=== PATIENT | male | born 1975 | race African-American/Black ===

== ENCOUNTER 2021-10-01 09:50 | Outpatient (RCR) | payer SELFPAY | END 2021-12-21 09:25 | disposition home or self-care (01) | LOC: ANHDMC 09:50 | PROVIDERS: PCP Internal Medicine Endocrinology, Diabetes & Metabolism; Visit Provider Internal Medicine Endocrinology, Diabetes & Metabolism | DX: E11.65 Type 2 diabetes mellitus with hyperglycemia (principal); Z71.3 Dietary counseling and surveillance | CPT/HCPCS: 99199 ==

== ENCOUNTER 2023-03-24 11:45 | Emergency (ER) | payer OTHER, SELFPAY ==
[2023-03-24 12:02] VITALS: BP 134/91; PULSE 71; RESP 18; TEMP 36.5; O2SAT 99
--- NOTE | 2023-03-24 12:20 | ED.EXTPRO ---
HPI - Extremity Problem General Chief complaint: Extremity Problem,Nontraumatic Stated complaint: bilteral leg pain and discomfort Time Seen by Provider: 03/24/23 12:21 Source: patient Mode of arrival: ambulatory Limitations: no limitations History of Present Illness HPI Narrative: 47-year-old male with history of diabetes presents with complaint of pain and numbness to bilateral lower extremities. States pain starts below knee and down to feet. Patient states he thinks that the pain is related to his diabetic neuropathy but wanted to make sure that his circulation is okay. States that he was very uncomfortable last night and had a hard time falling asleep due to numbness and pain. Patient states he has appointment with his bundles hanger next week. He is ambulatory with steady gait. No other complaints today. All systems reviewed and negative except as noted above. Related Data Home Medications Medication Instructions Recorded Confirmed insulin lispro 100 unit/mL See Rx Instructions .Route .COMPLEX 03/24/23 03/24/23 subcutaneous solution Allergies Allergy/AdvReac Type Severity Reaction Status Date / Time No Known Allergies Allergy Verified 03/24/23 12:07 Review of Systems Review of Systems: CONSTITUTIONAL: Denies fever, chills, or sweats. EYES: Denies visual changes, redness, or discharge. ENT: Denies rhinorrhea, congestion, sore throat, or otalgia. CARDIOVASCULAR: Denies chest pain, palpitations, or edema. RESPIRATORY: Denies cough or dyspnea. GASTROINTESTINAL: Denies abdominal pain, nausea, vomiting, or diarrhea. GENITOURINARY: Denies dysuria or hematuria. SKIN: Denies rash or itching. MUSCULOSKELETAL: Denies back pain, joint pain, or myalgia. Reports pain and numbness to bilateral lower extremities. NEUROLOGIC: Denies headache, numbness, or weakness. PSYCHIATRIC: Denies anxiety or depression. All other systems reviewed are negative, except as documented in HPI. PMFSH Comments At time of signature, agree with nursing past medical, surgical, social and family history. There is no relevant family history pertinent to the presenting complaint. Exam Narrative: GENERAL: This is a well-nourished, well-developed patient, in no apparent distress. HEAD: normocephalic, atraumatic. EYES: PERRL. Sclera clear/white. Vision is grossly intact. EARS: External ears normal NOSE: External nose normal NECK: Neck supple, non-tender without lymphadenopathy, masses or thyromegaly. CARDIOVASCULAR: Regular rate and rhythm without murmurs, gallops, or rubs. RESPIRATORY: Clear to auscultation. Breath sounds equal bilaterally. No wheezes, rales, or rhonchi. SKIN: warm, Dry, intact with no suspicious lesions or rash, good texture and turgor. NEURO: awake, alert, and oriented to person, place and time. There were no obvious focal neurologic abnormalities. EXTREMITIES: No joint tenderness, effusion, or edema noted. Bilateral DP pulses 2+. Good color, warm to touch. Course Course Level of Care: Express Care Visit Vital Signs Vital signs: Vital Signs Temperature 36.5 C 03/24/23 12:02 Pulse Rate 71 03/24/23 12:02 Respiratory Rate 18 03/24/23 12:02 Blood Pressure 134/91 H 03/24/23 12:02 Pulse Oximetry 99 03/24/23 12:02 Oxygen Delivery Room Air 03/24/23 12:02 Temperature 36.5 C 03/24/23 12:02 Pulse Rate 71 03/24/23 12:02 Respiratory Rate 18 03/24/23 12:02 Blood Pressure 134/91 H 03/24/23 12:02 Pulse Oximetry 99 03/24/23 12:02 Oxygen Delivery Room Air 03/24/23 12:02 Reviewed MDM - Extremity (Nontraumatic) MDM Narrative Medical decision making narrative: there are no concerns today for poor circulation to lower extremities. bilateral lower extremity DP 2+. Explained to patient that medications that are used to treat diabetic neuropathy such as gabapentin need to be prescribed by his physician. Patient voiced understanding. States that he has an ap
[2023-03-24 12:30] LABS: Glucose Point of Care 196 mg/dl (65-105)
== END 2023-03-24 12:32 | disposition home or self-care (01) ==
PROVIDERS: Emergency Provider Nurse Practitioner Family
DX: E11.42 Type 2 diabetes mellitus with diabetic polyneuropathy (principal); Z79.4 Long term (current) use of insulin
CPT/HCPCS: 82948; 99212; G0463

== ENCOUNTER 2023-04-04 18:02 | Emergency (ER) | payer OTHER, SELFPAY ==
--- NOTE | 2023-04-04 18:10 | ED.SKABFB ---
HPI - Skin/Abscess/Foreign Bdy General Chief complaint: Wound/Laceration Stated complaint: laceration Time Seen by Provider: 04/04/23 18:10 Source: patient Mode of arrival: ambulatory Limitations: no limitations History of Present Illness HPI narrative: Patient is a 47-year-old male who presents with laceration to right palm from fishing knife around 1:00 p.m.. Patient states it bled initially but has since stopped. Patient states he cleaned it well. Denies any pain, numbness, tingling, weakness to thumb. Related Data Home Medications Medication Instructions Recorded Confirmed insulin lispro 100 unit/mL See Rx Instructions .Route .COMPLEX 03/24/23 04/04/23 subcutaneous solution blood-glucose sensor (Dexcom G6 04/04/23 04/04/23 Sensor device) blood-glucose transmitter (Dexcom 04/04/23 04/04/23 G6 Transmitter device) gabapentin 300 mg capsule 300 mg PO DAILY 04/04/23 04/04/23 insulin glargine 100 unit/mL (3 25 unit subcut HS 04/04/23 04/04/23 mL) subcutaneous pen (Lantus Solostar U-100 Insulin) Allergies Allergy/AdvReac Type Severity Reaction Status Date / Time No Known Allergies Allergy Verified 04/04/23 18:17 Review of Systems Review of Systems: All systems reviewed & are unremarkable except as noted in HPI and below Constitutional: Constitutional: Denies body ache(s), Denies chills, Denies fatigue, Denies fever(s), Denies headache(s), Denies malaise and Denies weakness Eyes: Eyes: Denies blurry vision, Denies irritation and Denies loss of vision ENT: Denies otalgia, Denies headache(s), Denies nasal discharge, Denies sinus pain and Denies sore throat Cardiovascular: Cardiovascular: Denies chest pain, Denies irregular heart rhythm and Denies dyspnea Respiratory: Respiratory: Denies dyspnea Gastrointestinal: Gastrointestinal: Denies abdominal pain, Denies melena, Denies hematochezia, Denies diarrhea, Denies nausea and Denies vomiting Musculoskeletal: Musculoskeletal: Denies back pain, Denies myalgias and Denies arthralgias Integumentary/Breasts: Skin/Breast: Denies pruritus, Denies rash and Reports wounds Neurologic: Denies headache(s), Denies loss of vision and Denies weakness Psychiatric: Psychiatric: Reports no additional psychiatric complaints Endocrine: Endocrine: Denies fatigue PMFSH Comments At time of signature, agree with nursing past medical, surgical, social and family history. There is no relevant family history pertinent to the presenting complaint. Exam Const: General: cooperative, healthy appearing, comfortable, no acute distress and well nourished Nutritional Appearance: well nourished Orientation/consciousness: patient oriented x3 Limitations: no limitations HENMT: Head: normal to inspection, normocephalic and atraumatic Ears: hearing grossly normal bilaterally and external ears normal Face/Nose/Sinus: Normal external nose present, normal facial exam and face symmetric Face and sinus: normal facial exam and face symmetric Mouth: Yes lip normal Eyes: General: appearance normal, both eyes and all related structures Alignment and Position: alignment normal and position normal Periorbital: periorbital findings normal Eyelids: eyelids normal Pupils: Equal, round and reactive pupils present EOM: EOMs intact bilaterally Neck: Neck: normal visual inspection, full ROM and supple Chest: Chest palpation & inspection: normal inspection of the chest Resp: Effort & Inspection: normal respiratory effort and able to speak in complete sentences Auscultation: clear to auscultation bilaterally Cardio: Rate: regular rate Rhythm: regular rhythm Heart sounds: S1 normal heart sound present and S2 normal heart sound present GI: Inspection: normal to inspection Skin: General skin exam: normal color and no rashes or lesions noted Neuro: General: patient oriented x3 and moves all extremities Cranial nerves: Yes Equal, round and reactive pupils present Speech: normal speech G
[2023-04-04 18:19] VITALS: BP 118/78; PULSE 81; RESP 16; TEMP 36.3; O2SAT 97
[2023-04-04] MEDS: TETANUS,DIPHTHERIA,AC PERTUSSIS ADULT (0.5 ML) BOOSTRIX IM (18:39)
== END 2023-04-04 18:48 | disposition home or self-care (01) ==
PROVIDERS: Emergency Provider Nurse Practitioner Family
DX: S61.411A Laceration without foreign body of right hand, initial encounter (principal); W26.0XXA Contact with knife, initial encounter; Z23 Encounter for immunization; E11.9 Type 2 diabetes mellitus without complications; Z79.4 Long term (current) use of insulin
CPT/HCPCS: 12001; 90471; 90715; 99212; G0463

== ENCOUNTER 2023-04-19 14:12 | Observation (INO) | payer OTHER, SELFPAY ==
[2023-04-19] VITALS (17 sets, daily range): BP systolic 124–141; BP diastolic 79–98; PULSE 61–74; RESP 12–21; TEMP 36.3–36.8; O2SAT 96–100; BMI 27.1
--- NOTE | ~2023-04-19 | MR_ITS ---
EXAMINATION: MR brain/brain stem wo/w con DATE: 04/20/2023 09:12 INDICATION: Right arm weakness, numbness and tingling TECHNIQUE: Magnetic resonance imaging (MRI) of the brain and brainstem was performed without and with 19 mL Multihance intravenous contrast. Sequences included sagittal and axial T1-weighted SE, axial d iffusion-weighted FS SE, axial 3D SWAN, axial T2-weighted FLAIR, and axial T2-weighted FSE. Postcontr ast axial and coronal T1-weighted SE was obtained. Apparent diffusion coefficient (ADC) maps were cre ated. COMPARISON: None. FINDINGS: There are no areas of restricted diffusion to suggest acute infarction. No intracranial hemorrhage or abnormal intracranial mass lesion. There are no intraparenchymal signal abnormalities seen on the ot her pulse sequences. The ventricles are symmetric and normal in size. There are no abnormal extra-axi al fluid collections. Flow voids are seen in the cerebral arteries on the T2-weighted sequences consi stent with their expected patency. Right vertebral artery is dominant. Mucosal thickening in the bila teral ethmoid and maxillary sinuses with a couple small mucous retention cyst in the bilateral maxill janae sinuses. Visualized orbits and soft tissues are unremarkable. There are no areas of abnormal enha ncement on the post contrast images. IMPRESSION: 1. Normal brain. No acute intracranial process. Reviewed, dictated and finalized at location A.
--- NOTE | ~2023-04-19 | CT_ITS ---
EXAMINATION: CTA brain carotid DATE: 04/19/2023 16:21 CDT INDICATION: Right-sided arm weakness and numbness TECHNIQUE: Computed tomographic angiography (CTA) of the head was performed without and with 100 mL O mnipaque-350 intravenous contrast. CTA of the neck was performed with intravenous contrast. The dose- length product was 1841.92 mGy-cm. Maximum intensity projection and volume rendered 3D-reconstruction s were created by the technologist on a separate workstation. COMPARISON: None. FINDINGS: HEAD CTA: Brain parenchymal volume is mildly decreased for age. No acute intracranial hemorrhage, inf arction, mass or mass effect. No ventriculomegaly or midline shift. Basilar cisterns are patent. Ther e is mild mucosal thickening of the paranasal sinuses. No depressed skull fractures. There is a domin ant right vertebral artery. The anterior, middle and posterior cerebral arteries are symmetric. Paran dave sinuses and mastoids are pneumatized. No depressed skull fractures. Anterior, middle and posteri or cerebral arteries are symmetric without significant stenosis, occlusion or aneurysm. NECK CTA: Lung apices are normal. No significant abnormality of the aorta. The common carotid, internal carver al carotid and external carotid arteries are unremarkable without significant stenosis or dissection. No occlusion. No lymphadenopathy. Mild mucosal thickening of the paranasal sinuses. No significant a therosclerotic changes. There is 0% stenosis of the proximal right internal carotid artery relative to normal distal artery l umen diameter (NASCET criteria). There is 0% stenosis of the proximal left internal carotid artery re lative to normal distal artery lumen diameter. IMPRESSION: 1: No significant abnormality of the neck or intracranial arteries. No significant stenosis, occlusi on, dissection or aneurysm. Reviewed, dictated and finalized at location A. IMPRESSION: 1: No significant abnormality of the neck or intracranial arteries. No signifi cant stenosis, occlusion, dissection or aneurysm.
--- NOTE | ~2023-04-19 | US_ITS ---
EXAMINATION: US carotid duplex BI DATE: 04/19/2023 23:46 INDICATION: Right arm paresthesias and unilateral weakness TECHNIQUE: Grayscale, color Doppler, and pulsed Doppler images of the cervical carotid arteries were obtained. The degree of vessel stenosis is placed in one of the following categories: normal, <50%, 5 0-69%, >=70% but less than near-occlusion, near-occlusion, or total occlusion. Note that percent sten osis relative to normal distal artery lumen diameter is indirectly measured from velocity measurement s as described by Toby, et al. Radiology 2003; 229:340-346. COMPARISON: Carotid CT angiogram dated 04/19/2023 FINDINGS: RIGHT: The right common carotid artery (CCA) peak systolic velocity (PSV) is 129 cm/s. The right internal ca rotid artery (ICA) PSV is 116 cm/s. The right ICA end-diastolic velocity (EDV) is 24 cm/s. The right ICA/CCA PSV ratio is 0.9. Grayscale and color Doppler images demonstrate no evident stenosis or plaqu e in the ICA. The external carotid artery (ECA) PSV is 244 cm/s. There is antegrade flow in the right vertebral artery. LEFT: The left CCA PSV is 149 cm/s. The left ICA PSV is 114 cm/s. The left ICA EDV is 48 cm/s. The left ICA /CCA PSV ratio is 0.8. Grayscale and color Doppler images demonstrate no evident stenosis or plaque i n the ICA. The ECA PSV is 127 cm/s. There is antegrade flow in the left vertebral artery. IMPRESSION: 1. No evident plaque or stenosis in the right internal carotid artery. 2. No evident plaque or stenosis in the left internal carotid artery. Reviewed, dictated and finalized at location A.
--- NOTE | ~2023-04-19 | XR_ITS ---
EXAMINATION: XR chest 1V portable 04/19/2023 15:17 INDICATION: Weakness. Right-sided chest pain. PROCEDURE: AP portable chest COMPARISON: No prior studies for comparison. FINDINGS: The lungs are clear. The cardiomediastinal silhouette is within normal limits. There are no pleural effusions. There is no pneumothorax suspected. IMPRESSION: 1: NO ACUTE CARDIOPULMONARY DISEASE. Reviewed, dictated and finalized at location A.
--- NOTE | 2023-04-19 14:49 | ECG_ITS ---
Measurements Intervals [place] Rate: 66 P: 26 WI: 155 QRS: 30 QRSD: 89 T: 20 QT: 382 QTc: 402 Interpretive Statements SINUS RHYTHM NORMAL ECG NO PREVIOUS ECG AVAILABLE FOR COMPARISON Electronically Signed On 04-19-2023 20:00:21 CDT by Viral Stern D.O.
[2023-04-19 14:56] LABS: Glucose Point of Care 108 mg/dl (65-105)
[2023-04-19 15:20] LABS: Basophils Percent Auto 0.2 % (0.2-1.2); Eosinophils Absolute Auto 0.1 K/mm3 (0-0.3); Hematocrit 39.6 % (42.0-52.0); Hemoglobin 13.4 g/dL (14.0-18.0); Immature Granulocyte Absolute 0.04 K/mm3 (0.00-0.031); Immature Granulocyte Percent A 0.8 % (0-0.5); Lymphocytes Absolute Auto 1.87 K/mm3 (0.9-3.2); Lymphocytes Percent Auto 36.7 % (18.3-44.2); Mean Corpuscular HGB Conc 33.8 g/dl (32-36); Mean Corpuscular Hemoglobin 28.6 pg (26-34); Mean Corpuscular Volume 84.6 fl (80-100); Monocytes Absolute Auto 0.3 K/mm3 (0.1-0.6); Monocytes Percent Auto 6.1 % (2.6-8.5); Neutrophils Absolute Auto 2.8 K/mm3 (1.3-6.7); Neutrophils Percent Auto 54.2 % (45.5-73.1); Platelet Count Result 250 k/mm3 (150-375); Red Blood Count 4.68 M/mm3 (4.6-6.20); Red Cell Distribution Width 13.2 % (11.5-14.5); White Blood Count 5.1 K/mm3 (4.5-10.0)
[2023-04-19 15:28] LABS: Prothrombin Time 13.7 Seconds (11.1-14.7)
[2023-04-19 15:29] LABS: Partial Thromboplastin Time 28.1 SECONDS (22.3-36.8)
[2023-04-19 15:34] LABS: Alanine Aminotransferase 30 U/L (6-50); Albumin Level 4.1 g/dL (3.5-5.1); Alkaline Phosphatase 76 U/L (38-126); Anion Gap 6 mmol/L (8-16); Aspartate Amino Transferase 36 U/L (17-59); Bilirubin,Total 0.9 mg/dL (0.2-1.3); Blood Urea Nitrogen 12 mg/dL (9-20); Calcium 8.7 mg/dL (8.4-10.2); Carbon Dioxide 28 mmol/L (22-30); Chloride 106 mmol/L (98-107); Estimated CRCL calculation 99 ml/min; Estimated Glomerular Filt Rate > 60; Glucose 108 mg/dL (65-110); Potassium 3.5 mmol/L (3.4-5.0); Sodium 140 mmol/L (137-145)
--- NOTE | 2023-04-19 15:35 | ED.NEUROSD ---
HPI - Neuro Symptoms/Deficit General Chief Complaint: Neuro Symptoms/Deficit Stated Complaint: right arm numb, headache Time Seen by Provider: 04/19/23 14:39 Source: patient and RN notes reviewed Mode of arrival: ambulatory Limitations: no limitations History of Present Illness HPI Narrative: This is a 47 year old male with history of DM who presents for evaluation of right arm tingling and pain. Patient states he went to bed last night around midnight. He woke up at 7 am this morning. He noticed around 730 am his right arm has tingling from his right shoulder down to his hands. He also reports having difficulty using his right arm and hands with his symptom. He develop frontal headache with nausea 2 hours ago. He reports history of bilateral leg and feet numbness , tingling and pain. He was diagnosed with diabetic neuropathy as cause of his leg symptoms. HE states he has noticed tingling in his hands alternating but today he has developed symptoms in his entire right arm. HE denies neck pain. HE denies chest pain or shortness of breath. Related Data Home Medications Medication Instructions Recorded Confirmed insulin lispro 100 unit/mL See Rx Instructions .Route .COMPLEX 03/24/23 04/19/23 subcutaneous solution blood-glucose sensor (Dexcom G6 04/04/23 04/19/23 Sensor device) blood-glucose transmitter (Dexcom 04/04/23 04/19/23 G6 Transmitter device) gabapentin 300 mg capsule 300 mg PO HS 04/04/23 04/19/23 dulaglutide 0.75 mg/0.5 mL 0.75 mg subcut WEEKLY 04/19/23 04/19/23 subcutaneous pen injector (Trulicity) Allergies Allergy/AdvReac Type Severity Reaction Status Date / Time No Known Allergies Allergy Verified 04/19/23 18:52 Review of Systems Constitutional: Constitutional: Denies weakness Cardiovascular: Cardiovascular: Denies syncope, Denies rapid heart rate, Denies irregular heart rhythm, Denies leg edema and Denies dyspnea Respiratory: Respiratory: Denies chest congestion, Denies hemoptysis, Denies excessive phlegm production and Denies dyspnea Gastrointestinal: Gastrointestinal: Denies abdominal pain, Denies hematochezia, Denies diarrhea and Denies vomiting Genitourinary: Genitourinary: Denies hematuria, Denies dysuria, Denies penile discharge and Denies testicular pain Musculoskeletal: Musculoskeletal: Denies joint swelling, Denies loss of height, Reports muscle cramps and Denies muscle weakness Neurologic: Denies syncope, Reports focal weakness, Reports numbness and Denies weakness PMFSH Past Medical History Medical History (Updated 04/20/23 @ 17:40 by Elisabeth Wolff MD) Diabetic peripheral neuropathy Insulin dependent type 2 diabetes mellitus Surgical History Surgical History (Updated 04/19/23 @ 21:36 by Brisa Spring PA-C) No history of previous surgery Family History Family History (Updated 04/19/23 @ 21:36 by Brisa Spring PA-C) Mother Diabetes mellitus Father Cerebrovascular accident Heart attack Hypertension Stomach cancer Social History Social History (Updated 04/19/23 @ 21:37 by Brisa Spring PA-C) Social History: Surrogate medical decision maker: Jennifer Radha, spouse. Code status: Full code. Smoking status: Never smoker Alcohol intake: never Substance use: never Lack of Transportation: No Lack of Food: Never True Current Housing: I Have Housing Concerned About Future Housing: No Difficulty Paying Gas/Electric Bills: No Difficulty Paying for Meds: No Currently Unemployed: No Education: Associate Degree Difficulty w/ Childcare or Family Care: No Additional living arrangements comments: Lives with spouse in [place]. He has 7 children. 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: Yes (mosque) Exam Const: General: no acute distress and alert Nutritional Appearance: well nourished Orientation/consciousness: patient oriented x3 Limitatio
[2023-04-19 16:13] LABS: Troponin I < 0.012 ng/mL (0.000-0.034)
--- NOTE | 2023-04-19 18:43 | ADMGEN ---
This patient, Jamin Garcia, was admitted to 3 [facility] Surg Room 309-01. Patient/family oriented to hospital policies and general routines including ID bracelet, bed and alarms, visiting hours, pain management, procedures, bathroom and other care routines, personal items, smoking policy, room service/diet, and visiting hours. Information on how to activate the Rapid Response Team has been discussed. Patient/Family are encouraged to report perceived risks to care and to ask questions if they do not understand what they are told or what they should do. Report from Kori in ER
--- NOTE | 2023-04-19 19:06 | PM.IMHP ---
H&P: HPI History of Present Illness Date/Time: 04/19/23 17:45 Chief Complaint: Right arm numbness and tingling. Narrative: This is a very pleasant 47-year-old male with insulin dependent type 2 diabetes mellitus and diabetic peripheral neuropathy who presented to the emergency department via private vehicle for evaluation of right arm numbness and tingling. The patient provides the following history. Within the last 6 months or so he started to develop paresthesias in his lower extremities and he was started on gabapentin for presumed peripheral neuropathy. On occasion he has pins and needle sensations in his hands but that seems to be fleeting. Today however while he was driving to work his right arm started to tingle and it felt heavy. Once he arrived at his place of work he got out of the car and he reports that he dropped his cellphone as he had difficulties holding onto it. Over the next couple of hours he developed a pressure-like pain behind his right ear with nausea. He left work early and came into the ER for evaluation. He denies vertigo but reports that he had a fall the other day because he lost his balance. He also denies visual changes, facial droop, and difficulties speaking and swallowing. He denies sensations of racing heart, palpitations, and fluttering. He continues to have mild paresthesias in the right arm but his symptoms have overall improved. CTA of the head and neck showed no significant abnormalities. He is being admitted in this setting for stroke workup in Neurology consultation. Review of Systems Review of Systems: Twelve systems were reviewed. No recent cold or flu symptoms. His diabetes has been difficult for him to control with a recent hemoglobin A1c around 9.2%. He does have an insulin pump and continuous glucose monitor. Nausea earlier today but no vomiting. No diarrhea. No dysuria. Except as documented, all other systems were reviewed and are negative. [facility] Past Medical History Medical History (Updated 04/19/23 @ 21:39 by Brisa Spring PA-C) Diabetic peripheral neuropathy Insulin dependent type 2 diabetes mellitus Surgical History Surgical History (Updated 04/19/23 @ 21:36 by Brisa Spring PA-C) No history of previous surgery Family History Family History (Updated 04/19/23 @ 21:36 by Brisa Spring PA-C) Mother Diabetes mellitus Father Cerebrovascular accident Heart attack Hypertension Stomach cancer Social History Social History (Updated 04/19/23 @ 21:37 by Brisa Spring PA-C) Social History: Surrogate medical decision maker: Jennifer Garcia, spouse. Code status: Full code. Smoking status: Never smoker Alcohol intake: never Substance use: never Lack of Transportation: No Lack of Food: Never True Current Housing: I Have Housing Concerned About Future Housing: No Difficulty Paying Gas/Electric Bills: No Difficulty Paying for Meds: No Currently Unemployed: No Education: Associate Degree Difficulty w/ Childcare or Family Care: No Additional living arrangements comments: Lives with spouse in [place]. He has 7 children. 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: Yes (religion) Meds Home Medications and Allergies Home Medications Medication Instructions Recorded Confirmed Type insulin lispro 100 unit/mL See Rx Instructions .Route .COMPLEX 03/24/23 04/19/23 History subcutaneous solution blood-glucose sensor (Dexcom G6 04/04/23 04/04/23 History Sensor device) blood-glucose transmitter (Dexcom 04/04/23 04/04/23 History G6 Transmitter device) gabapentin 300 mg capsule 300 mg PO HS 04/04/23 04/19/23 History dulaglutide 0.75 mg/0.5 mL 0.75 mg subcut WEEKLY 04/19/23 04/19/23 History [facility] Allergies Allergy/AdvReac Type Severity Reaction Status Date / Time No Known Allergies Allergy Verified 04/19/23
[2023-04-19 20:46] LABS: Glucose Point of Care 266 mg/dl (65-105)
--- NOTE | 2023-04-19 21:28 | PC.NURSE ---
this RN confirmed with provider Brisa that it is okay for patient to use his own insulin pump while he is hospitalized. all consent forms and paperwork will be completed per policy.
[2023-04-19] MEDS: ACETAMINOPHEN 500 MG TABLET 1000 MG PO (22:36)
[2023-04-19] MEDS: GABAPENTIN 300 MG CAPSULE PO (22:37)
[2023-04-19 22:53] LABS: Glucose Point of Care 402 mg/dl (65-105)
[2023-04-20] VITALS (7 sets, daily range): BP systolic 116–146; BP diastolic 74–87; PULSE 61–76; RESP 16; TEMP 35.8; O2SAT 98–100; BMI 27.1
[2023-04-20 06:21] LABS: Anion Gap 7 mmol/L (8-16); Blood Urea Nitrogen 11 mg/dL (9-20); Calcium 8.6 mg/dL (8.4-10.2); Carbon Dioxide 27 mmol/L (22-30); Chloride 103 mmol/L (98-107); Cholesterol 148 mg/dL (0-200); Estimated CRCL calculation 99 ml/min; Estimated Glomerular Filt Rate > 60; Glucose 201 mg/dL (65-110); HDL Direct 42 mg/dL; Potassium 3.3 mmol/L (3.4-5.0); Sodium 137 mmol/L (137-145); Triglycerides 100 mg/dL (<150)
[2023-04-20 06:31] LABS: Hemoglobin A1C 10.1 % (<5.7); LDL Cholesterol Direct 72 mg/dL
[2023-04-20 06:55] LABS: Thyroid Stimulating Hormone Reflex 0.942 uIU/mL (0.465-4.68)
[2023-04-20 07:32] LABS: Glucose Point of Care 177 mg/dl (65-105)
--- NOTE | 2023-04-20 07:43 | PC.NURSE ---
insulin pump worksheet completed overnight. Pt received 26.65 units total between 8pm to 6am. Flowsheet does not accept decimals, so 27 units was charted, however the actual number is 26.65 units
--- NOTE | 2023-04-20 07:56 | PM.IMPN ---
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 No overnight events noted. No chest pain or shortness of breath. No nausea, vomiting or diarrhea. No fevers or chills. Review of Systems Review of Systems: 12 point review of systems was assessed and was negative except as noted in the HPI Exam Narrative: General: No acute distress, alert and oriented per baseline HEENT: Atraumatic, normocephalic, mucous membranes moist CV: Regular rate and rhythm, S1, S2 Lungs: Clear to auscultation bilaterally, no rales or crackles noted, no wheezes, good air entry Abdomen: Soft, nontender, nondistended Extremities: Normal to inspection Skin: No rashes noted, no lesions or wounds seen Psych: Euthymic, normal affect Objective Data Vital Signs Vital Signs: Vital Signs - 24 hr 04/19/23 14:34 04/19/23 14:26 04/19/23 14:40 Temperature 97.4 F L Pulse Rate 71 74 73 Respiratory Rate 17 21 H 12 Blood Pressure 135/85 Pulse Oximetry 98 97 97 Oxygen Delivery Room Air 04/19/23 14:45 04/19/23 14:46 04/19/23 15:00 Temperature Pulse Rate 71 69 Respiratory Rate 13 21 H Blood Pressure 141/79 H 137/88 Pulse Oximetry 96 97 Oxygen Delivery 04/19/23 15:10 04/19/23 15:16 04/19/23 15:30 Temperature Pulse Rate 67 61 Respiratory Rate 15 14 Blood Pressure 124/84 Pulse Oximetry 98 97 96 Oxygen Delivery 04/19/23 15:31 04/19/23 15:55 04/19/23 15:56 Temperature Pulse Rate 65 69 63 Respiratory Rate 19 13 17 Blood Pressure 125/98 H Pulse Oximetry 96 99 99 Oxygen Delivery 04/19/23 16:05 04/19/23 18:13 04/19/23 18:40 Temperature 98 F Pulse Rate 62 62 65 Respiratory Rate 17 18 16 Blood Pressure 128/97 H 141/93 H Pulse Oximetry 98 100 98 Oxygen Delivery 04/19/23 20:53 04/19/23 20:00 04/20/23 00:00 Temperature 98.2 F Pulse Rate 64 68 76 Respiratory Rate 18 Blood Pressure 134/84 Pulse Oximetry 98 Oxygen Delivery 04/20/23 04:00 04/20/23 06:00 Temperature 96.5 F L Pulse Rate 63 65 Respiratory Rate 16 Blood Pressure 116/74 Pulse Oximetry 100 Oxygen Delivery Intake/Output Intake/Output: Intake & Output 04/17/23 04/18/23 04/19/23 04/20/23 23:59 23:59 23:59 23:59 Intake Total 300 550 Balance 300 550 Meds/Results Medications: Active Medications Generic Name Dose Route Start Last Admin Trade Name Freq PRN Reason Stop Dose Admin Acetaminophen 650 mg 04/19/23 21:29 Acetaminophen 325 Mg Tablet PO Q6H PRN Mild Pain (1-3) or Fever Aspirin 81 mg 04/20/23 09:00 Aspirin 81 Mg Enteric Tablet PO QAM RUTHANN Dextrose 12.5 gm 04/19/23 21:44 Dextrose 50% 25 Gm/50 Ml Syringe IV PUSH PRN PRN Hypoglycemia Protocol Gabapentin 300 mg 04/19/23 21:00 04/19/23 22:37 Gabapentin 300 Mg Capsule PO 300 mg HS RUTHANN Administration Glucagon 1 mg 04/19/23 21:44 Glucagon For Inj 1 Mg Vial IM PRN PRN Hypoglycemia Protocol Glucose 15 gm 04/19/23 21:44 Glucose Oral Gel 15 Gm Of Glucse In
--- NOTE | 2023-04-20 08:00 | ECHO_ITS ---
Patient Info Name: Jamin Garcia Age: 47 years : 1975 Gender: Male Ht: 72 in Wt: 200 lbs BSA: 2.16 m2 HR: 74 bpm BP: 134 / 84 mmHg Heart Rhythm: Sinus Rhythm Technical Quality: Good Exam Date: 04/20/2023 10:07 AM Exam Location: [facility] Pulmonary Exam Room: 309 Patient Status: Outpatient Admit Date: 04/19/2023 Staff Ordering Physician: Brisa Spring PA-C Fashion Stylist: Courtney Escamilla RDCS Attending Provider: Jamir Montenegro MD Referring Physician: Saw ALVARADO; Exam Type: CA echo doppler w bubble study Study Info Indications - right arm paresthesias Complete two-dimensional, color flow and Doppler transthoracic echocardiogram is performed with agitated saline. Contrast/Agitated Saline Contrast/Ag. Saline: Agitated Saline Amount: 20.00 ml Administered By: No Sams RN Existing IV Access: Yes IV Access Condition: patent with no signs of infiltration Summary 1. Left ventricular chamber dimension is normal. 2. Left ventricular systolic function is normal, estimated at 65-70%. 3. The left ventricular diastolic function is grade II diastolic dysfunction. 4. E/e' 9 is minimally elevated. 5. Global longitudinal strain is normal at -19.0%. 6. There is trace tricuspid valve regurgitation. 7. No pulmonary hypertension, estimated pulmonary arterial systolic pressure is 21 mmHg. Left Ventricle E/e' 9 is minimally elevated. Global longitudinal strain is normal at -19.0%. Left ventricular chamber dimension is normal. Left ventricular systolic function is normal, estimated at 65-70%. The left ventricular diastolic function is grade II diastolic dysfunction. Right Ventricle Right ventricular chamber dimension is normal. Right ventricular systolic function is normal. Left Atria Left atrial chamber dimension is normal. Right Atria Right atrial chamber dimension is normal. Atrial Septum Agitated saline injection with and without valsalva maneuver opacified right side cardiac chambers without shunt to left side cardiac chambers. Intact interatrial septum visualized by 2D and agitated saline imaging. Aortic Valve The aortic valve is trileaflet. There is no aortic valve stenosis. There is no aortic valve regurgitation. Pulmonic Valve There is no pulmonic regurgitation. Mitral Valve There is no mitral valve stenosis. There is no mitral valve regurgitation. Tricuspid Valve There is trace tricuspid valve regurgitation. No pulmonary hypertension, estimated pulmonary arterial systolic pressure is 21 mmHg. Pericardium/Pleural There is no pericardial effusion. Inferior Vena Cava Normal inferior vena cava with >50% collapse upon inspiration consistent with normal right atrial pressure, 5 mmHg. Aorta The aortic root size at the sinus of Valsalva is normal. Left Ventricular Outflow Tract Name Value Normal LVOT 2D LVOT Diameter 2.0 cm LVOT Doppler LVOT Peak Gradient 5 mmHg LVOT Mean Gradient 3 mmHg LVOT VTI 23 cm LVOT VTI/AV VTI Ratio 1.0 LVOT Stroke Volume 73 ml
[2023-04-20] MEDS: ASPIRIN 81 MG ENTERIC TABLET PO (08:39)
[2023-04-20 11:26] LABS: Glucose Point of Care 208 mg/dl (65-105)
--- NOTE | 2023-04-20 11:37 | WPDNEURCNPN ---
Assessment and Plan Assessment and plan (1) Diabetic peripheral neuropathy: Code(s): E11.42 - Type 2 diabetes mellitus with diabetic polyneuropathy Status: Acute Plan Diabetic neuropathy with the possibility of intermittent involvement of the plexus as well will benefit from the EMG and nerve conduction study as an outpatient in the meantime he can be continued on his all medication addition to aspirin 81 mg daily. One can consider the additional possibility of cervical myelopathy but there is no evidence of any long track signs at this stage. Consult date: 04/20/23 HPI: Jamin Garcia is a 47 year old maleAdmitted to the hospital through the emergency room for the complaints of right upper extremity numbness along with the headaches the came to the emergency room in ambulatory conditions he reported to the ER personnel that he went to bed last night around midnight woke up at 7:00 a.m. in the morning when his right upper extremity was tingling from the shoulder down to his hand also he complained no difficulties in using his right upper extremity and right hand at the same time he complained of frontal headache with nausea in addition to the bilateral lower extremity weakness and the feet numbness. Patient has already been diagnosed to have diabetic neuropathy he has been taking insulin lispro in addition to gabapentin 300 mg daily. He is not allergic to any medications. He has never a smoker. Initial vital signs in the emergency room were normal. CBC was normal. Basic metabolic panel was normal. And so as the routine lab. His initial blood sugar was 402 and today it is 208. MRI of the brain is normal, Doppler study of the carotids is negative, head and neck CTA is negative for any large vessel involvement or aneurysm. Review of Systems Review of Systems: All systems reviewed & are unremarkable except as noted in HPI and below [facility] Past Medical History Medical History (Updated 04/19/23 @ 21:39 by Brisa Spring PA-C) Diabetic peripheral neuropathy Insulin dependent type 2 diabetes mellitus Surgical History Surgical History (Updated 04/19/23 @ 21:36 by Brisa Spring PA-C) No history of previous surgery Family History Family History (Updated 04/19/23 @ 21:36 by Brisa Spring PA-C) Mother Diabetes mellitus Father Cerebrovascular accident Heart attack Hypertension Stomach cancer Social History Social History (Updated 04/19/23 @ 21:37 by Brisa Spring PA-C) Social History: Surrogate medical decision maker: Jennifer Garcia, spouse. Code status: Full code. Smoking status: Never smoker Alcohol intake: never Substance use: never Lack of Transportation: No Lack of Food: Never True Current Housing: I Have Housing Concerned About Future Housing: No Difficulty Paying Gas/Electric Bills: No Difficulty Paying for Meds: No Currently Unemployed: No Education: Associate Degree Difficulty w/ Childcare or Family Care: No Additional living arrangements comments: Lives with spouse in [place]. He has 7 children. 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: Yes (moravian) Meds Home Medications and Allergies Home Medications Medication Instructions Recorded Confirmed Type insulin lispro 100 unit/mL See Rx Instructions .Route .COMPLEX 03/24/23 04/19/23 History subcutaneous solution blood-glucose sensor (Dexcom G6 04/04/23 04/19/23 History Sensor device) blood-glucose transmitter (Dexcom 04/04/23 04/19/23 History G6 Transmitter device) gabapentin 300 mg capsule 300 mg PO HS 04/04/23 04/19/23 History dulaglutide 0.75 mg/0.5 mL 0.75 mg subcut WEEKLY 04/19/23 04/19/23 [facility] Allergies Allergy/AdvReac Type Severity Reaction Status Date / Time No Known Allergies Allergy Verified 04/19/23 18:52 Vital Signs Vital Signs - 24
[2023-04-20] MEDS: INSULIN ASPART (*BKC) 100 UNITS/ML SUB-Q (12:23)
--- NOTE | 2023-04-20 14:00 | PCCCNOTE ---
On 04/20/23, the student, [Paola Marte ], provided care and [facility]. I have reviewed the student's documentation and agree with the findings.
--- NOTE | 2023-04-20 14:24 | PM.DS ---
DS: Admitting Diagnosis Discharge Date 04/20/23 Admitting Diagnosis RUE paresthesias DS: Discharge Diagnosis Discharge Diagnosis (1) Paresthesia of right arm: Code(s): R20.2 - Paresthesia of skin Status: Acute Assessment and Plan: Concern for CVA, follow-up MRI, Neurology consultation (2) Insulin dependent type 2 diabetes mellitus: Code(s): E11.9 - Type 2 diabetes mellitus without complications; Z79.4 - detention (current) use of insulin Status: Acute (3) Diabetic peripheral neuropathy: Code(s): E11.42 - Type 2 diabetes mellitus with diabetic polyneuropathy Status: Acute Assessment and Plan: Blood glucose reviewed 04/20 Accu-Cheks, sliding scale insulin, check A1c Plan DVT prophylaxis with SCDs GI prophylaxis not indicated Code status full code DS: Summary Hospital Course Hospital Course: 47-year-old male with history of diabetes presenting with right upper extremity paresthesias and currently being treated for possible stroke. Neurology was consulted, brain MRI was negative. MRI of the cervical spine ordered and to be done outpatient for possible nerve impingement. Follow-up with Neurology outpatient. Please see above and med rec for details. Time Spent with Patient Time attestation: Total time spent providing and/or coordinating discharge services: Exam Narrative: General: No acute distress, alert and oriented per baseline HEENT: Atraumatic, normocephalic, mucous membranes moist CV: Regular rate and rhythm, S1, S2 Lungs: Clear to auscultation bilaterally, no rales or crackles noted, no wheezes, good air entry Abdomen: Soft, nontender, nondistended Extremities: Normal to inspection Skin: No rashes noted, no lesions or wounds seen Psych: Euthymic, normal affect DS: Data Data Completed and Pending Labs on day of discharge: Labs from last 24 hours 04/20/23 04/20/23 04/20/23 11:22 07:30 05:46 WBC RBC Hgb Hct MCV MCH MCHC RDW Plt Count MPV Immature Gran % (Auto) Neut % (Auto) Lymph % (Auto) Bland % (Auto) Eos % (Auto) Baso % (Auto) Lymph # (Auto) Bland # (Auto) Eos # (Auto) Baso # (Auto) Abs Immat Gran (auto) Absolute Neuts (auto) Absolute Nucleated RBC Nucleated RBC % PT INR APTT Sodium 137 Potassium 3.3 L Chloride 103 Carbon Dioxide 27 Anion Gap 7 L BUN 11 Creatinine 0.90 Estim Creat Clear Calc 99 Estimated GFR > 60 Glucose 201 H POC Capillary Glucose 208 H 177 H Hemoglobin A1c 10.1 H Calcium 8.6 Magnesium 2.0 Total Bilirubin AST ALT Alkaline Phosphatase Troponin I Total Protein Albumin Triglycerides 100 Cholesterol 148 LDL Cholesterol Direct 72 HDL Direct 42 Vitamin B12 368.0 TSH (Reflex) 0.942 04/19/23 04/19/23 04/19/23 22:47 20:29 14:58 WBC 5.1 RBC 4.68 Hgb 13.4 L Hct 39.6 L MCV 84.6 MCH 28.6 MCHC 33.8 RDW 13.2 Plt Count 250 MPV 11.0 H Immature Gran % (Auto) 0.8 H Neut % (Auto) 54.2 Lymph % (Auto) 36.7 Bland % (Auto) 6.1 Eos % (Auto) 2.0 Baso % (Auto) 0.2 Lymph # (Auto) 1.87 Bland # (Auto) 0.3 Eos # (Auto) 0.1 Baso # (Auto) 0.0 Abs Immat Gran (auto) 0.04 H Absolute Neuts (auto) 2.8 Absolute Nucleated RBC 0.0 Nucleated RBC % 0.0 PT 13.7 INR 1.0 APTT 28.1 Sodium 140 Potassium 3.5 Chloride 106 Carbon Dioxide 28 Anion Gap 6 L BUN 12 Creatinine 0.90 Estim Creat Clear Calc 99 Estimated GFR > 60 Glucose 108 POC Capillary Glucose 402 H 266 H Hemoglobin A1c Calcium 8.7 Magnesium Total Bilirubin 0.9 AST 36 ALT 30 Alkaline Phosphatase 76 Troponin I < 0.012 Total Protein 7.0 Albumin 4.1 Triglycerides Cholesterol LDL Cholesterol Direct HDL Direct Vitamin B12 T
== END 2023-04-20 15:35 | disposition home or self-care (01) ==
LOC: ANHED 18:15 → ANH3MEDSUR 19:35
PROVIDERS: Physician Assistant; Admitting Provider Hospitalist; Emergency Provider General Practice; Visit Provider Student in an Organized Health Care Education/Training Program
DX: R20.2 Paresthesia of skin (principal); R20.0 Anesthesia of skin; E11.42 Type 2 diabetes mellitus with diabetic polyneuropathy; Z96.41 Presence of insulin pump (external) (internal); R51.9 Headache, unspecified; R11.0 Nausea; I51.89 Other ill-defined heart diseases; H92.01 Otalgia, right ear; R07.89 Other chest pain; Z79.4 Long term (current) use of insulin; Z79.85 Long-term (current) use of injectable non-insulin antidiabetic drugs; Z79.899 Other long term (current) drug therapy; Z83.3 Family history of diabetes mellitus
CPT/HCPCS: 36415; 70496; 70498; 70553; 71045; 80048; 80053; 80061; 82607; 82948; 83036; 83735; 84443; 84484; 85025; 85610; 85730; 93005; 93306; 93880; 96375; 99285; A9270; A9577; G0378; G0379; J1815; Q9967

== ENCOUNTER 2023-08-10 10:30 | Emergency (ER) | payer OTHER, SELFPAY ==
[2023-08-10 10:50] VITALS: BP 146/100; PULSE 88; RESP 18; TEMP 36.7; O2SAT 99
--- NOTE | 2023-08-10 11:08 | ED.URI ---
HPI - URI/Sore Throat General Chief Complaint: Upper Respiratory Infection Stated Complaint: Loss of Taste and Smell,Cough,Sore Throat Source: patient and RN notes reviewed History of Present Illness HPI Narrative: 47 yo M presents to urgent care with complaints of sore throat for the first couple days, but no longer. Pt then states he developed sinus congestion and cough. Pt states this all started 5 days ago. Denies any fevers, chills, chest pain, SOB, N/V/D, or ear pain. Pt has been taking [facility] [place]. Related Data Home Medications Medication Instructions Recorded Confirmed insulin lispro 100 unit/mL See Rx Instructions .Route .COMPLEX 03/24/23 08/10/23 subcutaneous solution blood-glucose sensor (Dexcom G6 04/04/23 08/10/23 Sensor device) blood-glucose transmitter (Dexcom 04/04/23 08/10/23 G6 Transmitter device) dulaglutide 0.75 mg/0.5 mL 0.75 mg subcut WEEKLY 04/19/23 08/10/23 subcutaneous pen injector (Trulicity) Allergies Allergy/AdvReac Type Severity Reaction Status Date / Time No Known Allergies Allergy Verified 04/19/23 18:52 Review of Systems Review of Systems: Pertinent positives and pertinent negatives per HPI. [facility] Past Medical History Medical History (Updated 08/10/23 @ 11:13 by Valeria Grayson APRN) Diabetic peripheral neuropathy Insulin dependent type 2 diabetes mellitus Surgical History Surgical History (Updated 04/19/23 @ 21:36 by Brisa Spring PA-C) No history of previous surgery Family History Family History (Updated 04/19/23 @ 21:36 by Brisa Spring PA-C) Mother Diabetes mellitus Father Cerebrovascular accident Heart attack Hypertension Stomach cancer Social History Social History (Updated 04/19/23 @ 21:37 by Brisa Spring PA-C) Social History: Surrogate medical decision maker: Jennifer Radha, spouse. Code status: Full code. Smoking status: Never smoker Alcohol intake: never Substance use: never Lack of Transportation: No Lack of Food: Never True Current Housing: I Have Housing Concerned About Future Housing: No Difficulty Paying Gas/Electric Bills: No Difficulty Paying for Meds: No Currently Unemployed: No Education: Associate Degree Difficulty w/ Childcare or Family Care: No Additional living arrangements comments: Lives with spouse in [place]. He has 7 children. 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: Yes (orthodoxy) Comments At the time of my signature, I reviewed and agree with the nursing past medical, surgical, social, and family history. There is no relevant family history pertinent to the patient complaint. Exam Narrative: GENERAL: This is a well-nourished, well-developed patient, in no apparent distress. HEAD: normocephalic, atraumatic. EYES: Sclera clear/white. Vision is grossly intact. EARS: External ears normal, auditory canals clear and without drainage, TMs normal without perforation. Hearing grossly intact. NOSE: External nose normal with no obvious nasal discharge, positive congestion. THROAT: Mucous membranes moist, posterior pharynx clear. NECK: Neck supple, non-tender without lymphadenopathy, masses or thyromegaly. CARDIOVASCULAR: Regular rate and rhythm without murmurs, gallops, or rubs. RESPIRATORY: Clear to auscultation. Breath sounds equal bilaterally. No wheezes, rales, or rhonchi. SKIN: warm, intact with no suspicious lesions or rash, good texture and turgor. NEURO: awake, alert, and oriented to person, place and time. There were no obvious focal neurologic abnormalities. Course Course Level of Care: Express Care Visit Vital Signs Vital signs: Vital Signs Temperature 98.0 F 08/10/23 10:50 Pulse Rate 88 08/10/23 10:50 Respiratory Rate 18 08/10/23 10:50 Blood Pressure 146/100 H 08/10/23 10:50 Pulse Oximetry 99 08/10/23 10:50 Oxygen Delivery Room Air 08/10/23 10
== END 2023-08-10 11:17 | disposition home or self-care (01) ==
PROVIDERS: Emergency Provider Nurse Practitioner Family
DX: J06.9 Acute upper respiratory infection, unspecified (principal); E11.9 Type 2 diabetes mellitus without complications; Z79.4 Long term (current) use of insulin; Z20.822 Contact with and (suspected) exposure to COVID-19
CPT/HCPCS: 87426; 99213; C9803; G0463

== ENCOUNTER 2023-12-12 13:38 | Emergency (ER) | payer OTHER, SELFPAY | END 2023-12-12 15:06 | disposition left against medical advice (07) | LOC: ANHED 15:00 | PROVIDERS: Referring Provider Emergency Medicine | DX: M54.9 Dorsalgia, unspecified (principal) | CPT/HCPCS: 99199 ==

== ENCOUNTER 2023-12-17 12:08 | Emergency (ER) | payer OTHER, SELFPAY ==
[2023-12-17 12:21] VITALS: BP 132/95; PULSE 78; RESP 16; TEMP 36.1; O2SAT 100
--- NOTE | 2023-12-17 12:35 | ED.BACK ---
HPI - Back Pain/Injury General Chief Complaint: Back Pain/Injury Stated Complaint: back pain/tightness Time Seen by Provider: 12/17/23 12:25 Source: patient and RN notes reviewed Mode of arrival: ambulatory Limitations: no limitations History of Present Illness HPI Narrative: Patient presents today with a one-week history of left-sided low back pain radiating down the left leg. Denies injury or trauma. Denies numbness or tingling in the genitalia or leg that is any worse than his normal neuropathy. Denies loss of bowel or bladder control. He currently rates his pain 8/10 and has been taking Aleve and Tylenol without much relief. Related Data Home Medications Medication Instructions Recorded Confirmed insulin lispro 100 unit/mL See Rx Instructions .Route .COMPLEX 03/24/23 12/17/23 subcutaneous solution dulaglutide 0.75 mg/0.5 mL 1.5 mg subcut WEEKLY 04/19/23 12/17/23 subcutaneous pen injector (Trulicity) amoxicillin 500 mg capsule 500 mg PO TID 12/17/23 12/17/23 blood-glucose sensor (Dexcom G6 12/17/23 12/17/23 Sensor device) blood-glucose transmitter (Dexcom 12/17/23 12/17/23 G6 Transmitter device) insulin aspart U-100 100 unit/mL 100 unit subcut TID 12/17/23 12/17/23 (3 mL) subcutaneous pen (Novolog FlexPen U-100 Insulin aspart) Allergies Allergy/AdvReac Type Severity Reaction Status Date / Time No Known Allergies Allergy Verified 12/17/23 12:17 Review of Systems Review of Systems: CONSTITUTIONAL: Denies body aches, fever, chills, or sweats. EYES: Denies visual changes, redness, or discharge. ENT: Denies rhinorrhea, congestion, sore throat, or otalgia. CARDIOVASCULAR: Denies chest pain, palpitations, or edema. RESPIRATORY: Denies cough or dyspnea. GASTROINTESTINAL: Denies abdominal pain, nausea, vomiting, or diarrhea. GENITOURINARY: Denies dysuria or hematuria. SKIN: Denies rash, itching, or wounds. MUSCULOSKELETAL: Denies joint pain, or myalgia.+ back pain NEUROLOGIC: Denies headache, numbness, tingling, or weakness. PSYCH: Denies depression or anxiety. [facility] Past Medical History Medical History Diabetic peripheral neuropathy Insulin dependent type 2 diabetes mellitus Surgical History Surgical History No history of previous surgery Family History Family History Mother Diabetes mellitus Father Cerebrovascular accident Heart attack Hypertension Stomach cancer Social History Social History Social History: Surrogate medical decision maker: Jennifer Garcia, spouse. Code status: Full code. Smoking status: Never smoker Alcohol intake: never Substance use: never Lack of Transportation: No Lack of Food: Never True Current Housing: I Have Housing Concerned About Future Housing: No Difficulty Paying Gas/Electric Bills: No Difficulty Paying for Meds: No Currently Unemployed: No Education: Associate Degree Difficulty w/ Childcare or Family Care: No Additional living arrangements comments: Lives with spouse in [place]. He has 7 children. 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: Yes (faith) Comments At time of signature, I have reviewed and agree with nursing past medical, surgical, social and family history unless otherwise noted. Please see nursing chart for further information. There is no relevant family history pertinent to the presenting complaint Exam Narrative: GENERAL: Well-appearing, well-nourished, and in no acute distress. HEAD: Normocephalic, atraumatic. EYES: EOMI. No redness or drainage. Conjunctivae normal. ENT: Mucous membranes pink and moist. NECK: Normal AROM. CHEST: No respiratory distress. MUSCULOSKE
== END 2023-12-17 12:42 | disposition home or self-care (01) ==
PROVIDERS: Emergency Provider Nurse Practitioner
DX: M54.32 Sciatica, left side (principal); E11.42 Type 2 diabetes mellitus with diabetic polyneuropathy; Z79.4 Long term (current) use of insulin
CPT/HCPCS: 99213; G0463

== ENCOUNTER 2023-12-27 07:30 | Observation (INO) | payer MEDICAID, SELFPAY ==
[2023-12-27] VITALS (8 sets, daily range): BP systolic 129–154; BP diastolic 69–107; PULSE 64–83; RESP 10–22; TEMP 35.8–36.6; O2SAT 96–100
--- NOTE | ~2023-12-27 | MR_ITS ---
EXAMINATION: MR MRCP wo/w con/w 3D wo ind DATE: 12/27/2023 17:52 INDICATION: Cholelithiasis. Abdominal pain. Elevated lipase. TECHNIQUE: Magnetic resonance imaging (MRI) of the abdomen was performed without and with 18 mL Multi Coy intravenous contrast. Sequences included coronal T2-weighted FS FSE, coronal T2-weighted FSE, a xial T1-weighted LAVA, coronal FS FIESTA, axial dual-echo T1-weighted SPGR, coronal lava-FLEX, sagitt al T2-weighted FSE, axial T2-weighted FSE, and axial DWI. Thick-slab T2-weighted FSE images were obta ined for magnetic resonance cholangiopancreatography (MRCP). Maximum intensity projection 3-D reconst ructions of the volumetric data were created by the technologist. Postcontrast sequences included cor onal LAVA-flex and time course of axial T1-weighted LAVA. COMPARISON: CT abdomen and pelvis 12/27/2023 FINDINGS: ABDOMEN MRI: The liver is normal. The gallbladder is distended and contains gallstones. Gallbladder w all thickening is noted. The spleen, pancreas, adrenal glands, and kidneys are normal. There are no d ilated loops of bowel. There are no pathologically enlarged lymph nodes. There is no free intraperito olayinka fluid. ABDOMEN MRCP: The common duct is normal and measures 3 mm. No choledocholithiasis. IMPRESSION: 1. Acute cholecystitis. Reviewed, dictated and finalized at location A. IMPRESSION: 1. Acute cholecystitis.
--- NOTE | ~2023-12-27 | CT_ITS ---
EXAMINATION: CT abdomen pelvis w con DATE: 12/27/2023 09:44 INDICATION: Abdominal pain. Nausea. TECHNIQUE: Computed tomography (CT) of the abdomen and pelvis was performed with 100 mL Omnipaque 350 intravenous contrast. Automated exposure control and iterative reconstruction technique were employe d. The dose-length product was 711.98 mGy-cm. COMPARISON: None. FINDINGS: The visualized portions of the lung bases demonstrate mild atelectasis. No pleural effusion . The heart size is normal. There is a small pericardial effusion. The liver is normal. There are gal lstones in the gallbladder, which is normal in size. The spleen, pancreas, adrenal glands, and kidney s are normal. The bladder is markedly distended. There are no dilated loops of bowel. The appendix is normal. There are no pathologically enlarged lymph nodes. There is no free intraperitoneal fluid. Th ere is mild thoracic and lumbar spondylosis. IMPRESSION: 1. Markedly distended bladder. 2. Cholelithiasis. No evidence of acute cholecystitis. 3. Small pericardial effusion. Reviewed, dictated and finalized at location A.
--- NOTE | 2023-12-27 08:03 | ED.ABDPAIN ---
HPI - Abdominal Pain General Chief Complaint: Abdominal Pain Stated Complaint: abd pain Time Seen by Provider: 12/27/23 08:01 Source: patient and family Mode of arrival: ambulatory Limitations: no limitations History of Present Illness HPI narrative: 48 years old male came from home complaining of epigastric pain started this morning associated with nausea. Patient denies any radiation of pain. Patient report having similar pain 3 years ago secondary to ?gallbladder issues. Patient denies history of abdominal surgery. No fever no chills no vomiting. History of diabetes. Related Data Home Medications Medication Instructions Recorded Confirmed insulin lispro 100 unit/mL See Rx Instructions .Route .COMPLEX 03/24/23 12/17/23 subcutaneous solution dulaglutide 0.75 mg/0.5 mL 1.5 mg subcut WEEKLY 04/19/23 12/17/23 subcutaneous pen injector (Trulicity) amoxicillin 500 mg capsule 500 mg PO TID 12/17/23 12/17/23 blood-glucose sensor (Dexcom G6 12/17/23 12/17/23 Sensor device) blood-glucose transmitter (Dexcom 12/17/23 12/17/23 G6 Transmitter device) insulin aspart U-100 100 unit/mL 100 unit subcut TID 12/17/23 12/17/23 (3 mL) subcutaneous pen (Novolog FlexPen U-100 Insulin aspart) Allergies Allergy/AdvReac Type Severity Reaction Status Date / Time No Known Allergies Allergy Verified 12/27/23 08:00 Review of Systems Review of Systems: All systems reviewed & are unremarkable except as noted in HPI and below PMFSH Past Medical History Medical History Diabetic peripheral neuropathy Insulin dependent type 2 diabetes mellitus Surgical History Surgical History No history of previous surgery Family History Family History Mother Diabetes mellitus Father Cerebrovascular accident Heart attack Hypertension Stomach cancer Social History Social History Social History: Surrogate medical decision maker: Jennifer Garcia, spouse. Code status: Full code. Smoking status: Never smoker Alcohol intake: never Substance use: never Lack of Transportation: No Lack of Food: Never True Current Housing: I Have Housing Concerned About Future Housing: No Difficulty Paying Gas/Electric Bills: No Difficulty Paying for Meds: No Currently Unemployed: No Education: Associate Degree Difficulty w/ Childcare or Family Care: No Additional living arrangements comments: Lives with spouse in [place]. He has 7 children. 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: Yes (caodaism) Exam Narrative: General appearance: Well-developed, well-nourished Skin: Normal color Head: Normocephalic, nontraumatic Eyes: Clear conjunctiva ENT: Oropharynx normal, ears normal, nose normal Neck: Supple, nontender Chest and respiratory: Airway patent, no respiratory distress, no accessory muscle use Heart: Regular rate/rhythm Abdomen: Diffuse upper abdominal tenderness, guarding, no rebound, quite bowel sounds Vascular: Normal peripheral pulses, normal capillary refill. Musculoskeletal: Normal range of motion, nontender back Neurologic: Alert and oriented ?3, MOTTLER OPERATOR is normal as tested, no gross motor deficit Course Consultations Consultation #1: Dr. Browne Admit to hospitalist Date: 12/27/23 Time: 10:15 Consultation #2: Dr. booth nurse practitioner Date: 12/27/23 Time: 11:13 Vital Signs Vital signs: Vital Signs Tempera
[2023-12-27] MEDS: SODIUM CHLORIDE 0.9% IV 1,000 ML 999 ML IV CONT ×2 (08:32→10:26)
[2023-12-27] MEDS: HYDROmorphone HCL INJ (*CRX) 1 MG/ML SYR 0.5 MG IV PUSH ×3 (08:33→09:56)
[2023-12-27] MEDS: ONDANSETRON INJ 4 MG/2 ML VIAL IV PUSH (08:33)
[2023-12-27 08:36] LABS: Alanine Aminotransferase 24 U/L (6-50); Anion Gap 7 mmol/L (4-12); Aspartate Amino Transferase 26 U/L (17-59); Bilirubin,Total 0.6 mg/dL (0.2-1.3); Blood Urea Nitrogen 9 mg/dL (9-20); Calcium 9.5 mg/dL (8.4-10.2); Carbon Dioxide 25 mmol/L (22-30); Chloride 104 mmol/L (98-107); Estimated CRCL calculation 98 ml/min; Estimated Glomerular Filt Rate > 60; Glucose 271 mg/dL (65-110); Potassium 3.5 mmol/L (3.4-5.0); Sodium 136 mmol/L (137-145)
[2023-12-27 08:37] LABS: Albumin Level 4.3 g/dL (3.5-5.1); Alkaline Phosphatase 78 U/L (38-126); Lipase 464 U/L (23-300)
[2023-12-27 08:42] LABS: Basophils Percent Auto 0.2 % (0.2-1.2); Eosinophils Absolute Auto 0.1 K/mm3 (0-0.3); Eosinophils Percent Auto 1.8 % (0-4.4); Hematocrit 44.5 % (42.0-52.0); Hemoglobin 15.3 g/dL (14.0-18.0); Immature Granulocyte Absolute 0.02 K/mm3 (0.00-0.031); Immature Granulocyte Percent A 0.4 % (0-0.5); Lymphocytes Absolute Auto 1.72 K/mm3 (0.9-3.2); Lymphocytes Percent Auto 34.5 % (18.3-44.2); Mean Corpuscular HGB Conc 34.4 g/dl (32-36); Mean Corpuscular Volume 84.3 fl (80-100); Monocytes Absolute Auto 0.3 K/mm3 (0.1-0.6); Monocytes Percent Auto 6.8 % (2.6-8.5); Neutrophils Absolute Auto 2.8 K/mm3 (1.3-6.7); Neutrophils Percent Auto 56.3 % (45.5-73.1); Platelet Count Result 226 k/mm3 (150-375); Red Blood Count 5.28 M/mm3 (4.6-6.20); Red Cell Distribution Width 12.9 % (11.5-14.5)
[2023-12-27 08:44] LABS: Appearance Urine Clear (Clear); Bilirubin Urine Negative (Negative); Blood Urine Negative (Negative); Color Urine Yellow (Yellow); Glucose Urine UA 3+ mg/dL (Negative); Ketones Urine Negative (Negative); Leukocyte Esterase Ur Negative LEU/UL (Negative); Nitrate Urine Negative (Negative); Protein Urine Negative (Negative); Specific Grav Ur 1.017 (1.001-1.035); Urobilinogen Urine 0.2 mg/dL (<2.0)
[2023-12-27 08:45] LABS: Add Urine Microscopic? NO
--- NOTE | 2023-12-27 09:51 | ECG_ITS ---
Measurements Intervals [place] Rate: 73 P: 43 MI: 128 QRS: 76 QRSD: 90 T: 14 QT: 383 QTc: 423 Interpretive Statements SINUS RHYTHM NONSPECIFIC ST & T-WAVE ABNORMALITY WARNING: DATA QUALITY MAY AFFECT INTERPRETATION COMPARED TO ECG 04/19/2023 15:00:45 NO SIGNIFICANT CHANGES Electronically Signed On 12-27-2023 12:35:20 CDT by Gabriela Bazan M.D.
[2023-12-27 11:28] LABS: Troponin I < 0.012 ng/mL (0.000-0.034)
[2023-12-27] MEDS: diphenhydrAMINE HCl INJ 50 MG/ML VIAL 25 MG IV PUSH (11:57)
[2023-12-27] MEDS: METOCLOPRAMIDE HCL INJ 10 MG/2 ML VIAL IV PUSH (11:59)
--- NOTE | 2023-12-27 12:18 | ADMGEN ---
This patient, Jamin Garcia, was admitted to [facility] Surg Room 323-02. Patient/family oriented to hospital policies and general routines including ID bracelet, bed and alarms, visiting hours, pain management, procedures, bathroom and other care routines, personal items, smoking policy, room service/diet, and visiting hours. Information on how to activate the Rapid Response Team has been discussed. Patient/Family are encouraged to report perceived risks to care and to ask questions if they do not understand what they are told or what they should do.
[2023-12-27] MEDS: SODIUM CHLORIDE 0.9% IV 1,000 ML 125 ML IV CONT ×2 (12:41→22:33)
[2023-12-27] MEDS: MORPHINE SULFATE (*CRX) 2 MG/ML INJ IV PUSH ×3 (12:42→22:32)
--- NOTE | 2023-12-27 13:16 | PM.IMHP ---
H&P: HPI History of Present Illness Date/Time: 12/27/23 14:00 Chief Complaint: Epigastric pain and nausea. Narrative: This is a very pleasant 48-year-old male with insulin dependent type 2 diabetes mellitus and diabetic peripheral neuropathy who presented to the emergency department for evaluation of epigastric pain and nausea. The patient provides the following history. He felt okay when he went to bed last night and in the early mornings hours he was awakened from sleep with nausea and epigastric pain. He ate bratwurst for dinner last evening. Initially he thought perhaps he was still hungry so he tried to eat a pair, crackers, and cheese but that did not help the pain and perhaps even made it a bit worse. He lay down to try to go back to sleep but the pain intensified and seemed to settle more so into the left upper quadrant. He had quite a bit of nausea but no vomiting. Symptoms are similar to those he experienced approximately 3 years ago which he was told may be related to gallstones; cholecystectomy was never scheduled due to COVID. He denies fever, chills, sweats, chest pain, shortness a breath, vomiting, diarrhea. In the ED: He was afebrile on arrival with stable vital signs. Labs were significant for WBC count of 5.0, sodium 136, BUN 9, creatinine 0.90, glucose 271, lipase 464. CT of the abdomen and pelvis showed a markedly distended bladder, cholelithiasis without evidence of acute cholecystitis, small pericardial effusion. He was given analgesics and antiemetics in the ED and he is being admitted in this setting for further workup. Hart catheter was inserted for urinary retention. Review of Systems Review of Systems: Twelve systems were reviewed and are negative except for as per HPI. [facility] Past Medical History Medical History Cholelithiasis Diabetic peripheral neuropathy Insulin dependent type 2 diabetes mellitus Surgical History Surgical History No history of previous surgery Family History Family History Mother Diabetes mellitus Father Cerebrovascular accident Heart attack Hypertension Stomach cancer Social History Social History Social History: Surrogate medical decision maker: Jennifer Arguelless, spouse. Code status: Full code. Smoking status: Never smoker Alcohol intake: never Substance use: never Substance use type: does not use Do You Feel Safe in your Home?: Yes Lack of Transportation: No Lack of Food: Never True Current Housing: I Have Housing Concerned About Future Housing: No Difficulty Paying Gas/Electric Bills: No Difficulty Paying for Meds: No Currently Unemployed: No Education: Associate Degree Difficulty w/ Childcare or Family Care: No Additional living arrangements comments: Lives with spouse in [place]. He has 7 children. 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: No Meds Home Medications and Allergies Home Medications Medication Instructions Recorded Confirmed Type dulaglutide 0.75 mg/0.5 mL 1.5 mg subcut WEEKLY 04/19/23 12/27/23 History subcutaneous pen injector (Trulicity) amoxicillin 500 mg capsule 500 mg PO TID 12/17/23 12/27/23 History blood-glucose sensor (Dexcom G6 12/17/23 12/17/23 History Sensor device) blood-glucose transmitter (Dexcom 12/17/23 12/17/23 History G6 Transmitter device) cyclobenzaprine 10 mg tablet 10 mg PO TID PRN muscle spasm #20 12/17/23 12/27/23 Rx tabs insulin aspart U-100 100 unit/mL 100 unit subcut TID 12/17/23 12/27/23 History (3 mL) subcutaneous pen (Novolog FlexPen U-100 Insulin aspart) Lyrica 12/27/23 History Allergies Allergy/AdvReac Type Severity Reaction Status Date / Time No
--- NOTE | 2023-12-27 14:32 | WPDGICN ---
Assessment and Plan Assessment and plan (1) Abdominal pain, epigastric: Code(s): R10.13 - Epigastric pain Status: Acute Assessment and Plan: similar problem in the past and was told that probably GB related mild elevated lipase, noted cholelithiasis will ask surgery to evaluate may need EGD to check for PUD, etc, will reassess (2) Elevated lipase: Code(s): R74.8 - Abnormal levels of other serum enzymes Status: Acute Assessment and Plan: no alcohol use will assess with mrcp (3) Nausea: Code(s): R11.0 - Nausea Status: Acute (4) Insulin dependent type 2 diabetes mellitus: Code(s): E11.9 - Type 2 diabetes mellitus without complications; Z79.4 - retirement (current) use of insulin Status: Acute Assessment and Plan: on meds (5) Cholelithiasis: Code(s): K80.20 - Calculus of gallbladder without cholecystitis without obstruction Status: Acute (6) Acute urinary retention: Code(s): R33.8 - Other retention of urine Status: Acute GI Consult Note Consult date/time: 12/27/23 14:32 Reason for consult: epigastric pain, nausea HPI: Jamin Garcia is a 48 year old male with h/o DM on insulin here with new onset of severe epigastric pain started this morning associated with nausea.? Patient denies any radiation of pain.? He had similar pain 3 years ago and was told that secondary to ?gallbladder , he never scheduled cholecystectomy because of COVID.?Patient denies history of abdominal surgery, no previous EGD. Lipase 460, normal liver enzymes, normal cbc. CT scan reviewed, distended bladder, cholelithiasis. Pain med helped but still uncomfortable. Denies alcohol use. Review of Systems Constitutional: Constitutional: Denies chills Eyes: Eyes: Denies blurry vision ENT: Reports Normal hearing present Cardiovascular: Cardiovascular: Denies chest pain Respiratory: Respiratory: Denies cough Gastrointestinal: Gastrointestinal: Reports abdominal pain and Reports nausea Musculoskeletal: Musculoskeletal: Denies neck pain Integumentary/Breasts: Skin/Breast: Denies rash Neurologic: Denies Abnormal speech present Psychiatric: Psychiatric: Denies behavioral changes [facility] Past Medical History Medical History (Updated 12/27/23 @ 14:36 by Zohaib Ortiz MD) Cholelithiasis Diabetic peripheral neuropathy Insulin dependent type 2 diabetes mellitus Nausea Surgical History Surgical History No history of previous surgery Family History Family History Mother Diabetes mellitus Father Cerebrovascular accident Heart attack Hypertension Stomach cancer Social History Social History Social History: Surrogate medical decision maker: Jennifer Garcia, spouse. Code status: Full code. Smoking status: Never smoker Alcohol intake: never Substance use: never Substance use type: does not use Do You Feel Safe in your Home?: Yes Lack of Transportation: No Lack of Food: Never True Current Housing: I Have Housing Concerned About Future Housing: No Difficulty Paying Gas/Electric Bills: No Difficulty Paying for Meds: No Currently Unemployed: No Education: Associate Degree Difficulty w/ Childcare or Family Care: No Additional living arrangements comments: Lives with spouse in [place]. He has 7 children. 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: No Meds Home Medications and Allergies Home Medications Medication Instructions Recorded Confirmed Type dulaglutide 0.75 mg/0.5 mL 1.5 mg subcut WEEKLY 04/19/23 12/27/23 History subcutaneous pen injector (Trricky) amoxicillin 500 mg capsule 500 mg PO TID 12/17/23 12/27/23 History blood-glucose sensor (Dexcom G6
--- NOTE | 2023-12-27 15:39 | PM.CNGS ---
Assessment and Plan Assessment and plan (1) Epigastric pain: Code(s): R10.13 - Epigastric pain Status: Acute Assessment and Plan: Unclear etiology. He is complaining of more left upper quadrant pain and some epigastric pain. On exam, he is mostly tender in the LUQ and in the epigastric area. No RUQ tenderness or pain. WBC and LFTs are normal. GI following. Could be PUD, pancreatitis, or other GI source. This could also be atypical symptomatic cholelithiasis, but there is no evidence on CT of acute cholecystitis. Will await MRCP results. If this shows evidence of acute cholecystitis, then could consider cholecystectomy. If there is no evidence of cholecystitis, then may need to consider another source for the epigastric and LUQ abdominal pain. No indication for any urgent surgical intervention. Will continue to follow with serial abdominal exams and labs. (2) Cholelithiasis: Code(s): K80.20 - Calculus of gallbladder without cholecystitis without obstruction Status: Acute Assessment and Plan: CT evidence of cholelithiasis, but no cholecystitis. See plan above. (3) Elevated lipase: Code(s): R74.8 - Abnormal levels of other serum enzymes Status: Acute Assessment and Plan: Lipase mildly elevated at 464 on admission. No hx of pancreatitis. No alcohol use. Triglycerides normal last summer. Although rare, no medications that would potentially cause pancreatitis. He does have CT evidence of cholelithiasis but no biliary duct dilatation or elevated liver enzymes to suggest biliary obstruction. GI following. MRCP ordered. (4) Acute urinary retention: Code(s): R33.8 - Other retention of urine Status: Acute Assessment and Plan: Hart in place and did not have much pain relief following catheter placement. Urology consulted. (5) Insulin dependent type 2 diabetes mellitus: Code(s): E11.9 - Type 2 diabetes mellitus without complications; Z79.4 - long term care pharmacist (current) use of insulin Status: Acute Plan I have discussed the patient's case and plan of care with Dr. Muñiz. History of Present Illness Consult details Consult date: 12/27/23 Reason for consult: other (Symptomatic cholelithiasis) Requesting physician: Zohaib Ortiz MD Narrative: This is a 48-year-old male with type 1 diabetes mellitus, who we have been asked to see in surgical consultation for symptomatic cholelithiasis. Presented to the ER this morning due to epigastric and left upper quadrant abdominal pain. He reports feeling normal when going to bed last night. He woke up with a sudden onset of epigastric abdominal pain around 1:00 a.m.. He reports eating brought worse for dinner last night before bed. He initially thought the pain was due to hunger, and he tried to eat a pear, crackers, and cheese. He tried to go back to sleep, but his abdominal pain continued to worsen. He reports his abdominal pain was more focally in the left upper quadrant. He had associated nausea, but no vomiting. Due to his persistent pain, he came into the ER for evaluation. Labs showed a white blood cell count of 5000, LFTs normal, and lipase 464. Reports feeling like his pain started radiating into his mid chest while in the ER. Troponin negative. EKG without any ischemic changes. CT scan of the abdomen and pelvis showed a distended bladder, cholelithiasis without evidence of acute cholecystitis, and a small pericardial effusion. His abdominal pain was unable to be controlled and he was admitted to the hospitalist service. He had a Hart catheter placed for urinary retention. Urology was consulted. GI also consulted. MRCP has been ordered. Our service was consulted and he is now seen on the medical floor. He is still having a significant amount of abdominal pain. He reports that morphine helped for about 30 minutes, but he has not had any control with his pain since admission. He denies any al
--- NOTE | 2023-12-27 16:04 | WPDURCON ---
Assessment and Plan Assessment and plan (1) Urinary retention: Code(s): R33.9 - Retention of urine, unspecified Status: Acute Assessment and Plan: >1000 cc of urine on bladder scan and evidence of markedly distended bladder on CT. Likely related to poorly controlled DM. Continue rocha catheter for maximal bladder drainage. Will begin tamsulosin. Will plan to continue rocha catheter for at least one week given degree of retention to allow for bladder rest and proceed with outpatient voiding trial. Will likely require urodynamics. (2) Insulin dependent type 2 diabetes mellitus: Code(s): E11.9 - Type 2 diabetes mellitus without complications; Z79.4 - jail (current) use of insulin Status: Acute Assessment and Plan: Poorly controlled type 2 diabetes mellitus. Has been improving glycemic control. Discussed importance of managing blood sugars. Urology Consult Note HPI Date Seen: 12/27/23 Requesting Physician: Wil Elias MD Primary Care Provider: ELECTRICAL APPLIANCE REPAIRER PHYSICIAN Consult Narrative Narrative: Jamin Garcia is a 48 year old male with type 2 diabetes mellitus who is currently admitted for epigastric pain. He is being seen in consultation for urinary retention. He states yesterday he was feeling in his usual state of health but awoke early this morning with severe epigastric pain. He also complained of suprapubic pressure and bloating. On arrival to the ER, he was afebrile and vital signs were stable. WBC within normal limits at 5.0. Creatinine 0.9. UA with 3+ glucose but no concerns for infection. Bladder scan showed >999 cc of urine. He had a CT of his abdomen/pelvis which showed normal kidneys and a markedly distended bladder. A rocha catheter was placed with about 900 cc initial output (clamped after first 500 cc then had an additional 400 cc). At the time of my evaluation, the patients only complaint is that of epigastric pain. He reports improvement in suprapubic pressure following decompression with rocha catheter. He states that he has mostly been voiding well. He denies straining to void and reports his stream has been good. He has noted suprapubic pressure ongoing for several weeks as well as intermittent urinary leakage. He reports a prior episode of urinary retention in 2020 in which he required a rocha catheter for 1 week. He took tamsulosin at that time but stopped shortly after. He was seen by Dr. Valencia at [facility] in 12/2021 for similar issue in which intermittent self catheterization was recommended but he declined. [place] that symptoms were related to chronic constipation and poor glycemic control. He states his last A1c about 3 months ago was 9.0% but prior to that it was >15%. Review of Systems Review of Systems: All systems reviewed & are unremarkable except as noted in HPI and below PMFSH Past Medical History Medical History Cholelithiasis Diabetic peripheral neuropathy Insulin dependent type 2 diabetes mellitus Surgical History Surgical History No history of previous surgery Family History Family History Mother Diabetes mellitus Father Cerebrovascular accident Heart attack Hypertension Stomach cancer Social History Social History Social History: Surrogate medical decision maker: Jennifer Garcia, spouse. Code status: Full code. Smoking status: Never smoker Alcohol intake: never Substance use: never Substance use type: does not use Do You Feel Safe in your Home?: Yes Lack of Transportation: No Lack of Food: Never True Current Housing: I Have Housing Concerned About Future Housing: No Difficulty Paying Gas/Electric Bills: No Difficulty Paying for Meds: No Currently Unemployed: No Education: [employer]
[2023-12-27 16:17] LABS: Glucose Point of Care 184 mg/dl (65-105)
[2023-12-27] MEDS: TAMSULOSIN HCL 0.4 MG CAPSULE PO (17:49)
[2023-12-27] MEDS: INSULIN GLARGINE (*BKC) 100 UNITS/ML 14 UNITS SUB-Q (22:32)
[2023-12-27] MEDS: INSULIN ASPART (*BKC) 100 UNITS/ML SUB-Q (22:33)
[2023-12-28] VITALS: BP 122/86; PULSE 82; RESP 18; TEMP 36.6; O2SAT 98
[2023-12-28 00:17] LABS: Glucose Point of Care 307 mg/dl (65-105)
[2023-12-28 04:00] VITALS: BP 111/69; PULSE 90; RESP 18; TEMP 36.7; O2SAT 98
[2023-12-28] MEDS: INSULIN ASPART (*BKC) 100 UNITS/ML SUB-Q ×4 (06:17→18:41)
[2023-12-28 06:19] LABS: Glucose Point of Care 228 mg/dl (65-105)
[2023-12-28 06:51] LABS: Mean Corpuscular HGB Conc 34.1 g/dl (32-36); Mean Corpuscular Hemoglobin 29.1 pg (26-34); Mean Corpuscular Volume 85.3 fl (80-100); Mean Platelet Volume 10.6 fl (7.4-10.4); Platelet Count Result 215 k/mm3 (150-375); Red Blood Count 5.16 M/mm3 (4.6-6.20); Red Cell Distribution Width 12.6 % (11.5-14.5); White Blood Count 7.9 K/mm3 (4.5-10.0)
[2023-12-28 06:56] LABS: Alanine Aminotransferase 20 U/L (6-50); Albumin Level 3.7 g/dL (3.5-5.1); Alkaline Phosphatase 69 U/L (38-126); Anion Gap 6 mmol/L (4-12); Aspartate Amino Transferase 20 U/L (17-59); Bilirubin,Total 1.2 mg/dL (0.2-1.3); Blood Urea Nitrogen 5 mg/dL (9-20); Calcium 8.3 mg/dL (8.4-10.2); Carbon Dioxide 23 mmol/L (22-30); Chloride 104 mmol/L (98-107); Estimated CRCL calculation 109 ml/min; Estimated Glomerular Filt Rate > 60; Glucose 219 mg/dL (65-110); Lipase 63 U/L (23-300); Magnesium 1.7 mg/dL (1.6-2.3); Potassium 3.4 mmol/L (3.4-5.0); Sodium 133 mmol/L (137-145)
[2023-12-28 08:00] VITALS: BP 107/72; PULSE 81; RESP 18; TEMP 36.9; O2SAT 97
[2023-12-28] MEDS: TAMSULOSIN HCL 0.4 MG CAPSULE PO (08:54)
[2023-12-28] MEDS: PREGABALIN (*CRX) 50 MG CAPSULE 100 MG PO ×2 (08:54→17:10)
[2023-12-28] MEDS: PANTOPRAZOLE SODIUM IV 40 MG VIAL IV PUSH ×2 (09:00→21:51)
[2023-12-28 11:00] VITALS: BP 117/71; PULSE 75; RESP 18; TEMP 36.4; O2SAT 97
[2023-12-28 11:27] LABS: Glucose Point of Care 246 mg/dl (65-105)
[2023-12-28] MEDS: MORPHINE SULFATE (*CRX) 2 MG/ML INJ IV PUSH ×2 (13:32→22:53)
--- NOTE | 2023-12-28 13:35 | WPDUROPN2 ---
Progress Note: A&P Assessment and Plan (1) Urinary retention: Code(s): R33.9 - Retention of urine, unspecified Status: Acute Assessment and Plan: >1000 cc of urine on bladder scan on admission and evidence of markedly distended bladder on CT. Likely related to poorly controlled DM. Rocha placed on 12/27/2023. Continue rocha catheter for maximal bladder drainage. Will plan to continue rocha catheter for at least one week given degree of retention to allow for bladder rest and proceed with outpatient voiding trial. Will likely require urodynamics. Continue tamsulosin, started this admission (2) Insulin dependent type 2 diabetes mellitus: Code(s): E11.9 - Type 2 diabetes mellitus without complications; Z79.4 - buttermaker continuous churn (current) use of insulin Status: Acute Assessment and Plan: Poorly controlled type 2 diabetes mellitus. Has been improving glycemic control. Discussed importance of managing blood sugars. Subjective Subjective Date/Time Seen: 12/28/23 13:35 Interval history: Is feeling well today. Reports epigastric pain is improved somewhat. Suprapubic pressure and tenderness has resolved entirely. No issues with Rocha catheter which is draining clear yellow urine. Denies nausea, vomiting, fever, chills. WBC is within normal limits. Creatinine 0.8. He remains afebrile and vital signs are stable. Review of Systems Review of Systems: All systems reviewed & are unremarkable except as noted in HPI and below Exam Narrative: General: Awake, alert, comfortable, no acute distress HEENT: Normocephalic, atraumatic, sclerae anicteric Respiratory: Normal respiratory effort, no accessory muscle use Abdomen: Nondistended, soft, nontender to palpation : Rocha catheter draining clear light yellow urine Skin: Normal coloration, warm and dry Neurologic: No focal neuro deficits noted Psychiatric: Appropriate mood and affect, judgment and insight intact Objective Data Vital Signs Vital Signs: Vital Signs - 24 hr 12/27/23 21:30 12/28/23 00:00 12/28/23 04:00 Temperature 97.8 F 97.8 F 98.0 F Pulse Rate 82 82 90 Respiratory Rate 18 18 18 Blood Pressure 137/85 122/86 111/69 Pulse Oximetry 96 98 98 Oxygen Delivery 12/28/23 08:00 12/28/23 11:00 12/28/23 08:50 Temperature 98.4 F 97.5 F L Pulse Rate 81 75 Respiratory Rate 18 18 Blood Pressure 107/72 117/71 Pulse Oximetry 97 97 Oxygen Delivery Room Air Intake/Output Intake/Output: Intake & Output 12/25/23 12/26/23 12/27/23 12/28/23 23:59 23:59 23:59 23:59 Intake Total 4510 1310 Output Total 4235 1300 Balance 275 10 Meds/Results Medications: Active Medications Generic Name Dose Route Start Last Admin Trade Name Freq PRN Reason Stop Dose Admin Acetaminophen 650 mg 12/27/23 15:32 Acetaminophen 325 Mg Tablet PO Q6H PRN Mild Pain (1-3) or Fever Cyclobenzaprine HCl 10 mg 12/27/23 23:11 Cyclobenzaprine Hcl 10 Mg Tablet PO TID PRN muscle spasm Dextrose 12.5 gm 12/27/23 15:32 Dextrose 50% 25 Gm/50 Ml Syringe IV PUSH PRN PRN Hypoglycemia Protocol Glucagon 1 mg 12/27/23 15:32 Glucagon For Inj 1 Mg Vial IM PRN PRN Hypoglycemia Protocol Glucose 15 gm 12/27/23 15:32 Glucose Oral Gel 15 Gm Of Glucse In 37.5 Gm Tube PO PRN PRN Hypoglycemia Protocol Sodium Chloride 1,000 mls @ 75 mls/hr 12/27/23 11:15 12/27/23 22:33 Normal Saline Iv IV CONT 125 mls/hr .[id number] RUTHANN Administration Dextrose 1,000 mls @ 100 mls/hr 12/27/23 15:32 Dextrose 5% 1,000 Ml IVPB PRN PRN Hypoglycemia Protocol Insulin Aspart 3 - 6 units 12/27/23 18:00 12/28/23 12:17 Insulin Aspart (*Bkc) 100 Units/Ml SUB-Q 3 units Q6HR RUTHANN Administration Protocol Insulin Glargine 14 units 12/27/23 22:00 12/27/23 22:32 Insulin Glargine (*Bkc) 100 Units/Ml 0.15 units/kg (14 units) 14 units
[2023-12-28 13:44] LABS: Glucose Point of Care 389 mg/dl (65-105)
[2023-12-28] MEDS: SODIUM CHLORIDE 0.9% IV 1,000 ML 75 ML IV CONT (14:31)
--- NOTE | 2023-12-28 14:38 | PM.IMPN ---
Progress Note: A&P Assessment and Plan (1) Epigastric pain: Code(s): R10.13 - Epigastric pain Status: Acute (2) Elevated lipase: Code(s): R74.8 - Abnormal levels of other serum enzymes Status: Acute (3) Urinary retention: Code(s): R33.9 - Retention of urine, unspecified Status: Acute (4) Cholelithiasis: Qualifiers: Cholelithiasis location: gallbladder Cholecystitis presence: with cholecystitis Cholecystitis acuity: acute and chronic Code(s): K80.20 - Calculus of gallbladder without cholecystitis without obstruction Status: Acute (5) Insulin dependent type 2 diabetes mellitus: Code(s): E11.9 - Type 2 diabetes mellitus without complications; Z79.4 - USP (current) use of insulin Status: Acute (6) Diabetic peripheral neuropathy: Code(s): E11.42 - Type 2 diabetes mellitus with diabetic polyneuropathy Status: Acute Plan Acute cholecystitis MRCP shows acute cholecystitis General surgery consulted NPO after midnight Laparoscopic cholecystitis 12/28 Pain control IV fluids Antiemetics Diabetes Accu-Cheks a.c. HS sliding scale insulin hold oral diabetic medications Diabetic diet when able to tolerate diet Watch for hypoglycemia/hypoglycemic protocol ordered Urinary retention Urology consultation Hart catheter placed requested patient discharge home follow-up in 1 week for bladder trials urodynamics O/P started flomax Code status: Full code per patient DVT prophylaxis: Lovenox Stress ulcer prophylaxis: Protonix 40 daily PT/OT notes: Ambulatory Disposition: Patient continues admission to the medical-surgical unit plan will be NPO after midnight for laparoscopic cholecystomy 12/28. Plan will be for discharge home following surgical intervention. Time Spent With Patient Time with patient: 15 - 25 minutes Subjective Date/time seen: 12/28/23 14:38 Interval history: Admission: This is a very pleasant 48-year-old male with insulin dependent type 2 diabetes mellitus and diabetic peripheral neuropathy who presented to the emergency department for evaluation of epigastric pain and nausea. The patient provides the following history. He felt okay when he went to bed last night and in the early mornings hours he was awakened from sleep with nausea and epigastric pain. He ate bratwurst for dinner last evening. Initially he thought perhaps he was still hungry so he tried to eat a pair, crackers, and cheese but that did not help the pain and perhaps even made it a bit worse. He lay down to try to go back to sleep but the pain intensified and seemed to settle more so into the left upper quadrant. He had quite a bit of nausea but no vomiting. Symptoms are similar to those he experienced approximately 3 years ago which he was told may be related to gallstones; cholecystectomy was never scheduled due to COVID. He denies fever, chills, sweats, chest pain, shortness a breath, vomiting, diarrhea. In the ED: He was afebrile on arrival with stable vital signs. Labs were significant for WBC count of 5.0, sodium 136, BUN 9, creatinine 0.90, glucose 271, lipase 464. CT of the abdomen and pelvis showed a markedly distended bladder, cholelithiasis without evidence of acute cholecystitis, small pericardial effusion. He was given analgesics and antiemetics in the ED and he is being admitted in this setting for further workup. Hart catheter was inserted for urinary retention. 4/3: Patient had tolerated clear liquid however when I attempted to advance diet he complained of ABD pain he also had tenderness to palpation upper mid ABD. Lipase is back down however still having symptoms MRCP showing acute cholecystitis. Review of Systems Review of Systems: All systems reviewed & are unremarkable except as noted in HPI and below Exam Narrative: Physical Exam: GENERAL: Alert and oriented x 3. No acute distres
--- NOTE | 2023-12-28 15:32 | PM.PNGS ---
Progress Note: A&P Assessment and Plan (1) Acute calculous cholecystitis: Code(s): K80.00 - Calculus of gallbladder with acute cholecystitis without obstruction Status: Acute Assessment and Plan: MRCP showed acute cholecystitis. Patient's abdominal pain was aggravated with eating his lunch. Will change him to clear liquids and make him NPO after midnight. Discussed treatment options. Given his persistent abdominal pain and inability to tolerate a diet, he would likely fail nonoperative management. Discussed proceeding with a laparoscopic cholecystectomy, possible open, under general anesthesia that would be done by Dr. Muñiz. Description of the procedure, risks, benefits, expected outcomes, and expected recovery were discussed with the patient in detail. We discussed the risks of bile leak and bile duct injury, liver/bowel injury, bleeding, and infection. Also discussed the possibility of having to convert to an open procedure if necessary. Patient wishes to proceed with surgery. He has been added onto the surgery schedule for tomorrow. (2) Elevated lipase: Code(s): R74.8 - Abnormal levels of other serum enzymes Status: Acute Assessment and Plan: Normal today. (3) Acute urinary retention: Code(s): R33.8 - Other retention of urine Status: Acute Assessment and Plan: Hart in place. Urology following. (4) Insulin dependent type 2 diabetes mellitus: Code(s): E11.9 - Type 2 diabetes mellitus without complications; Z79.4 - intermediate (current) use of insulin Status: Acute Plan I have discussed the patient's case and plan of care with Dr. Muñiz. Subjective Subjective Date/Time Seen: 12/28/23 15:32 Interval history: Patient was feeling better today, but tried eating spaghetti for lunch and his abdominal pain returned. He denies nausea or vomiting. MRCP read today and showing acute cholecystitis. Exam Const: General: comfortable and no acute distress Orientation/consciousness: patient oriented x3 GI: Inspection: non-distended GI Palp: Yes Soft to palpation, Yes Tenderness to palpation present (GI) (tenderness across the upper abdomen, more focally in RUQ today), No Guarding due to palpation present (GI) and No Rebound tenderness present Auscultation: normal bowel sounds Urinary Catheter: Urinary Catheter: patent and draining Objective Data Vital Signs Vital Signs: Vital Signs - 24 hr 12/27/23 21:30 12/28/23 00:00 12/28/23 04:00 Temperature 97.8 F 97.8 F 98.0 F Pulse Rate 82 82 90 Respiratory Rate 18 18 18 Blood Pressure 137/85 122/86 111/69 Pulse Oximetry 96 98 98 Oxygen Delivery 12/28/23 08:00 12/28/23 11:00 12/28/23 08:50 Temperature 98.4 F 97.5 F L Pulse Rate 81 75 Respiratory Rate 18 18 Blood Pressure 107/72 117/71 Pulse Oximetry 97 97 Oxygen Delivery Room Air Intake/Output Intake/Output: Intake & Output 12/25/23 12/26/23 12/27/23 12/28/23 23:59 23:59 23:59 23:59 Intake Total 4510 2310 Output Total 4235 1300 Balance 275 1010 Meds/Results Medications: Active Medications Generic Name Dose Route Start Last Admin Trade Name Freq PRN Reason Stop Dose Admin Acetaminophen 650 mg 12/27/23 15:32 Acetaminophen 325 Mg Tablet PO Q6H PRN Mild Pain (1-3) or Fever Cyclobenzaprine HCl 10 mg 12/27/23 23:11 Cyclobenzaprine Hcl 10 Mg Tablet PO TID PRN muscle spasm Dextrose 12.5 gm 12/27/23 15:32 Dextrose 50% 25 Gm/50 Ml Syringe IV PUSH PRN PRN Hypoglycemia Protocol Glucagon 1 mg 12/27/23 15:32 Glucagon For Inj 1 Mg Vial IM PRN PRN Hypoglycemia Protocol Glucose 15 gm 12/27/23 15:32 Glucose Oral Gel 15 Gm Of Glucse In 37.5 Gm Tube PO PRN PRN Hypoglycemia Protocol Sodium Chloride 1,000 mls @ 75 mls/hr 12/27/23 11:15 12/28/23 14:31 Normal Saline Iv IV CONT 75 mls/hr .[id number] RUTHANN Administration Dextros
[2023-12-28 16:00] VITALS: BP 120/70; PULSE 80; RESP 18; TEMP 36.4; O2SAT 97
[2023-12-28] MEDS: PIPERACILLN/TAZ 3.375GM/NS50ML 3.375 GM/50 ML BAG IVPB ×2 (17:10→21:52)
--- NOTE | 2023-12-28 17:54 | WPDGIPROGNO ---
Progress Note: A&P Assessment and Plan (1) Acute calculous cholecystitis: Code(s): K80.00 - Calculus of gallbladder with acute cholecystitis without obstruction Status: Acute Assessment and Plan: this is cause of problem mrcp reviewed and consistent with acute cholecystitis surgery tomorrow, no need of ercp will follow as needed (2) Epigastric pain: Code(s): R10.13 - Epigastric pain Status: Acute Assessment and Plan: unchanged (3) Urinary retention: Code(s): R33.9 - Retention of urine, unspecified Status: Acute (4) Nausea: Code(s): R11.0 - Nausea Status: Acute (5) Insulin dependent type 2 diabetes mellitus: Code(s): E11.9 - Type 2 diabetes mellitus without complications; Z79.4 - group home (current) use of insulin Status: Acute Subjective Date/time seen: 12/28/23 17:54 Interval history: still similar abdominal pain Review of Systems Review of Systems: All systems reviewed & are unremarkable except as noted in HPI and below Exam Const: General: comfortable and no acute distress Orientation/consciousness: patient oriented x3 HENMT: Face/Nose/Sinus: Normal nares present Eyes: General: appearance normal, both eyes and all related structures Neck: Neck: supple Resp: Effort & Inspection: normal respiratory effort Cardio: Rate: regular rate GI: Inspection: non-distended GI Palp: Yes Soft to palpation, Yes Tenderness to palpation present (GI) (tenderness across the upper abdomen, more focally in RUQ today), No Guarding due to palpation present (GI) and No Rebound tenderness present Auscultation: normal bowel sounds Urinary Catheter: Urinary Catheter: patent and draining Skin: General skin exam: normal color Neuro: Speech: normal speech Motor exam (neuro): 5/5 motor strength present throughout Extrem: General: normal to inspection Psych: Mental Status: mental status grossly normal Objective Data Vital Signs Vital Signs: Vital Signs - 24 hr 12/27/23 21:30 12/28/23 00:00 12/28/23 04:00 Temperature 97.8 F 97.8 F 98.0 F Pulse Rate 82 82 90 Respiratory Rate 18 18 18 Blood Pressure 137/85 122/86 111/69 Pulse Oximetry 96 98 98 Oxygen Delivery 12/28/23 08:00 12/28/23 11:00 12/28/23 08:50 Temperature 98.4 F 97.5 F L Pulse Rate 81 75 Respiratory Rate 18 18 Blood Pressure 107/72 117/71 Pulse Oximetry 97 97 Oxygen Delivery Room Air Intake/Output Intake/Output: Intake & Output 12/25/23 12/26/23 12/27/23 12/28/23 23:59 23:59 23:59 23:59 Intake Total 4510 2310 Output Total 4235 1300 Balance 275 1010 Meds/Results Medications: Active Medications Generic Name Dose Route Start Last Admin Trade Name Freq PRN Reason Stop Dose Admin Acetaminophen 650 mg 12/27/23 15:32 Acetaminophen 325 Mg Tablet PO Q6H PRN Mild Pain (1-3) or Fever Cyclobenzaprine HCl 10 mg 12/27/23 23:11 Cyclobenzaprine Hcl 10 Mg Tablet PO TID PRN muscle spasm Dextrose 12.5 gm 12/27/23 15:32 Dextrose 50% 25 Gm/50 Ml Syringe IV PUSH PRN PRN Hypoglycemia Protocol Fentanyl Citrate 25 mcg 12/28/23 16:06 Fentanyl Citrate Inj (*Crx) 100 Mcg/2 Ml Vial IV PUSH Q2M PRN Pain Glucagon 1 mg 12/27/23 15:32 Glucagon For Inj 1 Mg Vial IM PRN PRN Hypoglycemia Protocol Glucose 15 gm 12/27/23 15:32 Glucose Oral Gel 15 Gm Of Glucse In 37.5 Gm Tube PO PRN PRN Hypoglycemia Protocol Sodium Chloride 1,000 mls @ 75 mls/hr 12/27/23 11:15 12/28/23 14:31 Normal Saline Iv IV CONT 75 mls/hr .[id number] RUTHANN Administration Dextrose 1,000 mls @ 100 mls/hr 12/27/23 15:32 Dextrose 5% 1,000 Ml IVPB PRN PRN Hypoglycemia Protocol Piperacillin/Tazobactam/Dextrose 3.375 gm in 50 mls @ 100 mls/hr 12/28/23 15:00 12/28/23 17:10 Zosyn 3.375 Gm/Ns 50 Ml IVPB 100 mls/hr Q6H RUTHANN Administration Lactated Ri
[2023-12-28 18:34] LABS: Glucose Point of Care 390 mg/dl (65-105)
--- NOTE | 2023-12-28 19:05 | PC.NURSE ---
On 12/28/23, the STOCK HANDLER, Lindsey, provided care and [facility]. I have reviewed the STOCK HANDLER's documentation and agree with the findings.
[2023-12-28 20:00] VITALS: BP 125/89; PULSE 89; RESP 14; TEMP 36.6; O2SAT 98
[2023-12-28] MEDS: SODIUM CHLORIDE 0.9% INJ 10 ML (21:51)
[2023-12-28 21:56] LABS: Glucose Point of Care 276 mg/dl (65-105)
[2023-12-28] MEDS: INSULIN GLARGINE (*BKC) 100 UNITS/ML 14 UNITS SUB-Q (21:57)
[2023-12-29] VITALS (14 sets, daily range): BP systolic 110–158; BP diastolic 71–96; PULSE 70–95; RESP 12–25; TEMP 36.3–36.8; O2SAT 93–100
[2023-12-29] MEDS: CYCLOBENZAPRINE HCL 10 MG TABLET PO (02:12)
[2023-12-29] MEDS: PIPERACILLN/TAZ 3.375GM/NS50ML 3.375 GM/50 ML BAG IVPB ×3 (03:32→16:25)
[2023-12-29] MEDS: SODIUM CHLORIDE 0.9% IV 1,000 ML 75 ML IV CONT (04:28)
[2023-12-29 06:43] LABS: Glucose Point of Care 221 mg/dl (65-105)
[2023-12-29] MEDS: PREGABALIN (*CRX) 50 MG CAPSULE 100 MG PO ×2 (08:55→16:24)
[2023-12-29] MEDS: PANTOPRAZOLE SODIUM IV 40 MG VIAL IV PUSH (08:59)
--- NOTE | 2023-12-29 09:25 | WPDUROPN2 ---
Progress Note: A&P Assessment and Plan (1) Urinary retention: Code(s): R33.9 - Retention of urine, unspecified Status: Acute Assessment and Plan: >1000 cc of urine on bladder scan on admission and evidence of markedly distended bladder on CT. Likely related to poorly controlled DM. Rocha placed on 12/27/2023. Continue rocha catheter for maximal bladder drainage. Will plan to continue rocha catheter for at least one week given degree of retention to allow for bladder rest. Will schedule outpatient void trial. He will likely require urodynamics. Continue tamsulosin, started this admission (2) Insulin dependent type 2 diabetes mellitus: Code(s): E11.9 - Type 2 diabetes mellitus without complications; Z79.4 - long term care administrator (current) use of insulin Status: Acute Assessment and Plan: Poorly controlled type 2 diabetes mellitus. Has been improving glycemic control. Discussed importance of managing blood sugars. (3) Acute calculous cholecystitis: Code(s): K80.00 - Calculus of gallbladder with acute cholecystitis without obstruction Status: Acute Assessment and Plan: Lap kiki planned today Subjective Subjective Date/Time Seen: 12/29/23 09:25 Interval history: Doing well today. Still complains of abdominal pain. Planning for lap kiki today. No issues with rocha catheter which is draining clear yellow urine. Review of Systems Review of Systems: All systems reviewed & are unremarkable except as noted in HPI and below Exam Narrative: General: Awake, alert, comfortable, no acute distress HEENT: Normocephalic, atraumatic, sclerae anicteric Respiratory: Normal respiratory effort, no accessory muscle use Abdomen: Nondistended, soft, nontender to palpation : Rocha catheter draining clear light yellow urine Skin: Normal coloration, warm and dry Neurologic: No focal neuro deficits noted Psychiatric: Appropriate mood and affect, judgment and insight intact Objective Data Vital Signs Vital Signs: Vital Signs - 24 hr 12/28/23 11:00 12/28/23 16:00 12/28/23 20:00 Temperature 97.5 F L 97.6 F 98 F Pulse Rate 75 80 89 Respiratory Rate 18 18 14 Blood Pressure 117/71 120/70 125/89 Pulse Oximetry 97 97 98 Oxygen Delivery 12/28/23 20:00 12/29/23 04:00 12/29/23 07:57 Temperature 97.4 F L 97.9 F Pulse Rate 86 77 Respiratory Rate 14 16 Blood Pressure 123/86 120/71 Pulse Oximetry 98 100 Oxygen Delivery Room Air Intake/Output Intake/Output: Intake & Output 12/26/23 12/27/23 12/28/23 12/29/23 23:59 23:59 23:59 23:59 Intake Total 4510 3140 1050 Output Total 4235 2300 2675 Balance 275 840 -1625 Meds/Results Medications: Active Medications Generic Name Dose Route Start Last Admin Trade Name Freq PRN Reason Stop Dose Admin Acetaminophen 650 mg 12/27/23 15:32 Acetaminophen 325 Mg Tablet PO Q6H PRN Mild Pain (1-3) or Fever Cyclobenzaprine HCl 10 mg 12/27/23 23:11 12/29/23 02:12 Cyclobenzaprine Hcl 10 Mg Tablet PO 10 mg TID PRN Administration muscle spasm Dextrose 12.5 gm 12/27/23 15:32 Dextrose 50% 25 Gm/50 Ml Syringe IV PUSH PRN PRN Hypoglycemia Protocol Fentanyl Citrate 25 mcg 12/28/23 16:06 Fentanyl Citrate Inj (*Crx) 100 Mcg/2 Ml Vial IV PUSH Q2M PRN Pain Glucagon 1 mg 12/27/23 15:32 Glucagon For Inj 1 Mg Vial IM PRN PRN Hypoglycemia Protocol Glucose 15 gm 12/27/23 15:32 Glucose Oral Gel 15 Gm Of Glucse In 37.5 Gm Tube PO PRN PRN Hypoglycemia Protocol Sodium Chloride 1,000 mls @ 75 mls/hr 12/27/23 11:15 12/29/23 04:28 Normal Saline Iv IV CONT 75 mls/hr .[id number] RUTHANN Administration Dextrose 1,000 mls @ 100 mls/hr 12/27/23 15:32 Dextrose 5% 1,000 Ml IVPB PRN PRN Hypoglycemia Protocol Piperacillin/Tazobactam/Dextrose 3.375 gm in 50 mls @ 100 mls/hr 12/28/23 15:00 12/29/23 08:55
--- NOTE | 2023-12-29 10:00 | PM.IMPN ---
Progress Note: A&P Assessment and Plan (1) Epigastric pain: Code(s): R10.13 - Epigastric pain Status: Acute (2) Elevated lipase: Code(s): R74.8 - Abnormal levels of other serum enzymes Status: Acute (3) Urinary retention: Code(s): R33.9 - Retention of urine, unspecified Status: Acute (4) Cholelithiasis: Qualifiers: Cholelithiasis location: gallbladder Cholecystitis presence: with cholecystitis Cholecystitis acuity: acute and chronic Code(s): K80.20 - Calculus of gallbladder without cholecystitis without obstruction Status: Acute (5) Insulin dependent type 2 diabetes mellitus: Code(s): E11.9 - Type 2 diabetes mellitus without complications; Z79.4 - halfway (current) use of insulin Status: Acute (6) Diabetic peripheral neuropathy: Code(s): E11.42 - Type 2 diabetes mellitus with diabetic polyneuropathy Status: Acute Plan Acute cholecystitis MRCP shows acute cholecystitis General surgery consulted NPO Laparoscopic cholecystitis 12/28 Pain control IV fluids Antiemetics Diabetes Accu-Cheks a.c. HS sliding scale insulin hold oral diabetic medications Diabetic diet when able to tolerate diet Watch for hypoglycemia/hypoglycemic protocol ordered Urinary retention Urology consultation Hart catheter placed requested patient discharge home follow-up in 1 week for bladder trials urodynamics O/P started flomax Code status: Full code per patient DVT prophylaxis: Lovenox Stress ulcer prophylaxis: Protonix 40 daily PT/OT notes: Ambulatory Disposition: Patient continues admission to the medical-surgical unit plan laparoscopic cholecystomy 12/28. Plan will be for discharge home following surgical intervention. Time Spent With Patient Time with patient: 15 - 25 minutes Subjective Date/time seen: 12/29/23 10:00 Interval history: Admission: This is a very pleasant 48-year-old male with insulin dependent type 2 diabetes mellitus and diabetic peripheral neuropathy who presented to the emergency department for evaluation of epigastric pain and nausea. The patient provides the following history. He felt okay when he went to bed last night and in the early mornings hours he was awakened from sleep with nausea and epigastric pain. He ate bratwurst for dinner last evening. Initially he thought perhaps he was still hungry so he tried to eat a pair, crackers, and cheese but that did not help the pain and perhaps even made it a bit worse. He lay down to try to go back to sleep but the pain intensified and seemed to settle more so into the left upper quadrant. He had quite a bit of nausea but no vomiting. Symptoms are similar to those he experienced approximately 3 years ago which he was told may be related to gallstones; cholecystectomy was never scheduled due to COVID. He denies fever, chills, sweats, chest pain, shortness a breath, vomiting, diarrhea. In the ED: He was afebrile on arrival with stable vital signs. Labs were significant for WBC count of 5.0, sodium 136, BUN 9, creatinine 0.90, glucose 271, lipase 464. CT of the abdomen and pelvis showed a markedly distended bladder, cholelithiasis without evidence of acute cholecystitis, small pericardial effusion. He was given analgesics and antiemetics in the ED and he is being admitted in this setting for further workup. Hart catheter was inserted for urinary retention. 4/3: Patient had tolerated clear liquid however when I attempted to advance diet he complained of ABD pain he also had tenderness to palpation upper mid ABD. Lipase is back down however still having symptoms MRCP showing acute cholecystitis. 4/4: Patient scheduled for laparoscopic cholecystectomy today, afebrile overnight continues with moderate ABD pain but tolerated clear liquids Review of Systems Review of Systems: All systems reviewed & are unremarkable except as noted in HPI an
[2023-12-29] MEDS: MORPHINE SULFATE (*CRX) 2 MG/ML INJ IV PUSH (10:31)
[2023-12-29 11:57] LABS: Glucose Point of Care 204 mg/dl (65-105)
--- NOTE | 2023-12-29 12:39 | WPDANESEPPF ---
Anes - Initial Pre Proc Eval Procedure: Operation Date: 12/29/23 14:00 Proposed Procedures p Laparoscopic Cholecystectomy - Marlon Muñiz DO Date/Time: 12/29/23 12:39 Surgeon: Wil Elias MD Pre Op Diagnosis: Intractable Epigastric Pain/Elevated Lipase/Urinar Patient Data Age: 48 Gender: M Height: 1.83 m Weight: 93.5 kg Last Vital Signs Temp 97.9 F 12/29/23 11:54 Pulse 70 12/29/23 11:54 Resp 16 12/29/23 11:54 BP 110/78 12/29/23 11:54 Pulse Ox 99 12/29/23 11:54 O2 Del Method Room Air 12/29/23 09:20 Allergies Allergy/AdvReac Type Severity Reaction Status Date / Time No Known Allergies Allergy Verified 12/27/23 08:00 Home Medications Medication Instructions Recorded Confirmed Type blood-glucose sensor (Dexcom G6 12/17/23 12/27/23 History Sensor device) blood-glucose transmitter (Dexcom 12/17/23 12/27/23 History G6 Transmitter device) cyclobenzaprine 10 mg tablet 10 mg PO TID PRN muscle spasm #20 12/17/23 12/27/23 Rx tabs insulin aspart U-100 100 unit/mL 100 unit subcut TID 12/17/23 12/27/23 History (3 mL) subcutaneous pen (Novolog FlexPen U-100 Insulin aspart) pregabalin 100 mg capsule 100 mg PO BID 12/27/23 12/27/23 History Laboratory Tests 12/28/23 12/28/23 12/28/23 13:37 18:31 20:49 POC Capillary Glucose 389 H mg/dl 390 H mg/dl 276 H mg/dl (65-105) (65-105) (65-105) 12/29/23 12/29/23 06:40 11:53 POC Capillary Glucose 221 H mg/dl 204 H mg/dl (65-105) (65-105) Patient hx anesthesia problems: none Family hx anesthesia problems: none Results Review: All pre-operative results and documents have been reviewed as part of the pre-operative evaluation. [facility] Past Medical History Medical History Cholelithiasis Diabetic peripheral neuropathy Insulin dependent type 2 diabetes mellitus Surgical History Surgical History No history of previous surgery Family History Family History Mother Diabetes mellitus Father Cerebrovascular accident Heart attack Hypertension Stomach cancer Social History Social History Social History: Surrogate medical decision maker: Jennifer Garcia, spouse. Code status: Full code. Smoking status: Never smoker Alcohol intake: never Substance use: never Substance use type: does not use Do You Feel Safe in your Home?: Yes Lack of Transportation: No Lack of Food: Never True Current Housing: I Have Housing Concerned About Future Housing: No Difficulty Paying Gas/Electric Bills: No Difficulty Paying for Meds: No Currently Unemployed: No Education: Associate Degree Difficulty w/ Childcare or Family Care: No Additional living arrangements comments: Lives with spouse in [place]. He has 7 children. 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: No Anes - Eval Final PreProcedure Day of Procedure 12/29/23 12:39 Patient weight: normal Heart: regular rate and rhythm Lungs: clear to auscultation Airway: Mallampati scale class 1 and special considerations (L upper teeth chips/broken. Lower back teeth missing. ) Neurological: alert and oriented Last oral intake: >/= 8 hours ASA classification: III Emergent: no Anesthetic plan: proceed Anesthesia type and monitoring: general and standard monitoring Other findings: fsbs 167 in preop. Poorly controlled adult onset type 1 DM. Results Review: All pre-operative results and documents have been reviewed as part of the pre-operative evaluation. Informed Consent: The patient's anesthetic plan and its attendant risks and benefits were discussed with the patient/family/POA. Questions were solicited and answers pro
[2023-12-29] MEDS: LACTATED RINGERS 1,000 ML 30 ML IV CONT ×2 (12:41→15:14)
[2023-12-29 12:47] LABS: Glucose Point of Care 167 mg/dl (65-105)
--- NOTE | 2023-12-29 13:04 | WPDHPUPDATE1 ---
History and Physical Update Update Date/Time: 12/29/23 13:04 History and Physical has been reviewed, including an updated exam of the patient. There are NO changes in the patient's condition. Risks, benefits, and alternatives have been discussed and questions answered. Patient agrees to proceed with procedure.
--- NOTE | 2023-12-29 14:27 | W.PM.PROC2 ---
Procedure Note - Detailed Date of Procedure 12/29/23 Pre-op Diagnosis Acute calculous cholecystitis Post-op Diagnosis Same Procedure Performed Laparoscopic Cholecystectomy Surgeon Marlon Muñiz, DO Anesthesia General and Local (0.5% bupivacaine) Indications This is a 48-year-old man who presented to the emergency department a couple days ago with right upper quadrant pain and epigastric abdominal pain. Imaging showed evidence of cholelithiasis. He was also having constant pain consistent with acute cholecystitis an MRCP was obtained which showed evidence of acute cholecystitis. Discussions were made with the patient about treatment options and decision was made to proceed with laparoscopic cholecystectomy, possible open. Findings Laparoscopic cholecystectomy was performed. The gallbladder did have some chronic gallbladder wall thickening. There were 2 large gallstones within the gallbladder. Cystic duct appeared normal in size. No other intra-abdominal abnormalities were noted. The gallbladder was removed and sent to the lab for pathology. Description of Procedure Procedure as well as risks, benefits, and alternatives were discussed with patient. Written consent was obtained and placed in chart prior to procedure. The patient was brought back to surgical suite. Patient was placed in supine position on operating table. Time-out was done to confirm patient and procedure. Patient was then intubated by the anesthesia department. Abdomen was prepped and draped in sterile fashion using chlorhexidine prep. 0.5% bupivacaine with epinephrine was infiltrated at each site of incision. A 5 millimeter incision was made near the umbilicus, and a 5 millimeter Optiview trocar was advanced through the abdominal layers under direct visualization. Once inside the abdominal cavity, carbon dioxide was insufflated to create a pneumoperitoneum. The camera was inserted and the abdomen was inspected. No immediate abnormalities were identified. The patient was placed in reverse Trendelenburg position and rotated slightly to the left. An 11 millimeter incision was made in the subxiphoid region, and an 11 millimeter trocar was inserted under direct visualization. Two 5 millimeter incisions were made in the right upper quadrant, and two 5 millimeter trocars were inserted under direct visualization. The gallbladder was identified and grasped at the fundus and retracted superiorly. It was then grasped at the infundibulum retracted laterally. Careful dissection around the neck of the gallbladder was performed using blunt dissection with a [place] grasper and hook electrocautery. The cystic duct was identified, and a window was created behind it. The cystic artery was also identified and a window was created behind it. The critical view of safety was identified, visualizing the cystic duct running directly into the neck of the gallbladder, and the cystic artery running directly into the wall of the gallbladder. A 5 millimeter clip cashier general was then used to place 2 clips proximally and 1 clip distally on both the cystic duct and cystic artery. They were then both transected using endoscopic scissors. Once safely away from the gee hepatitis, the gallbladder was dissected free from the liver bed using hook electrocautery. Hemostasis was achieved along the way. The gallbladder was removed completely and then removed through the subxiphoid port. The liver bed was then inspected. Hemostasis appeared adequate, and our clips appeared secure. The area was gently irrigated with sterile saline. No other abnormalities were seen. The patient was flattened out in bed, and 1 final inspection was made around the abdominal cavity. The subxiphoid port was removed, and a Luis Verna cone was used to approximate the fascia with an 0-Vicryl simple interrupted suture. The remaining ports were then removed under direct visualization, the camera was removed, and the pneumoperitoneum was
[2023-12-29] MEDS: fentaNYL CITRATE INJ (*CRX) 100 MCG/2 ML VIAL 25 MCG IV PUSH ×4 (14:49→15:07)
[2023-12-29 14:50] LABS: Glucose Point of Care 223 mg/dl (65-105)
[2023-12-29] MEDS: HYDROmorphone HCL INJ (*CRX) 1 MG/ML SYR 0.25 MG IV PUSH ×4 (15:12→15:35)
[2023-12-29] MEDS: KETOROLAC 15 MG/ML VIAL (*BKC) IV PUSH (15:28)
--- NOTE | 2023-12-29 16:05 | PM.DS ---
DS: Admitting Diagnosis Discharge Date 12/29/2023 Admitting Diagnosis Acute cholecystitis/urinary retention DS: Discharge Diagnosis Discharge Diagnosis (1) Epigastric pain: Code(s): R10.13 - Epigastric pain Status: Acute (2) Elevated lipase: Code(s): R74.8 - Abnormal levels of other serum enzymes Status: Acute (3) Urinary retention: Code(s): R33.9 - Retention of urine, unspecified Status: Acute (4) Cholelithiasis: Qualifiers: Cholecystitis acuity: acute and chronic Cholecystitis presence: with cholecystitis Cholelithiasis location: gallbladder Code(s): K80.20 - Calculus of gallbladder without cholecystitis without obstruction Status: Acute (5) Insulin dependent type 2 diabetes mellitus: Code(s): E11.9 - Type 2 diabetes mellitus without complications; Z79.4 - correction (current) use of insulin Status: Acute (6) Diabetic peripheral neuropathy: Code(s): E11.42 - Type 2 diabetes mellitus with diabetic polyneuropathy Status: Acute Plan Acute cholecystitis MRCP shows acute cholecystitis General surgery consulted NPO Laparoscopic cholecystitis 12/28 Pain control IV fluids Antiemetics Diabetes Accu-Cheks a.c. HS sliding scale insulin hold oral diabetic medications Diabetic diet when able to tolerate diet Watch for hypoglycemia/hypoglycemic protocol ordered Urinary retention Urology consultation Rocha catheter placed requested patient discharge home follow-up in 1 week for bladder trials urodynamics O/P started flomax Disposition: Patient discharged to home with ambulatory postop laparoscopic cholecystectomy will follow-up with surgery next week once also discharged rocha catheter due to retention scheduled for follow-up with urology next week for voiding trial. DS: Summary Hospital Course Reason for hospitalization: Acute cholecystitis/urinary retention Hospital Course: Admission: This is a very pleasant 48-year-old male with insulin dependent type 2 diabetes mellitus and diabetic peripheral neuropathy who presented to the emergency department for evaluation of epigastric pain and nausea. The patient provides the following history. He felt okay when he went to bed last night and in the early mornings hours he was awakened from sleep with nausea and epigastric pain. He ate bratwurst for dinner last evening. Initially he thought perhaps he was still hungry so he tried to eat a pair, crackers, and cheese but that did not help the pain and perhaps even made it a bit worse. He lay down to try to go back to sleep but the pain intensified and seemed to settle more so into the left upper quadrant. He had quite a bit of nausea but no vomiting. Symptoms are similar to those he experienced approximately 3 years ago which he was told may be related to gallstones; cholecystectomy was never scheduled due to COVID. He denies fever, chills, sweats, chest pain, shortness a breath, vomiting, diarrhea. In the ED: He was afebrile on arrival with stable vital signs. Labs were significant for WBC count of 5.0, sodium 136, BUN 9, creatinine 0.90, glucose 271, lipase 464. CT of the abdomen and pelvis showed a markedly distended bladder, cholelithiasis without evidence of acute cholecystitis, small pericardial effusion. He was given analgesics and antiemetics in the ED and he is being admitted in this setting for further workup. Rocha catheter was inserted for urinary retention. 4/3: Patient had tolerated clear liquid however when I attempted to advance diet he complained of ABD pain he also had tenderness to palpation upper mid ABD.? Lipase is back down however still having symptoms MRCP? showing acute cholecystitis.? 12/28: DISCHARGED Patient discharged post laparoscopic cholecystomy with rocha catheter for retention. Patient tolerated procedure well, no acute distress alert and oriented upon post op assessment. Patient d
[2023-12-29] MEDS: MORPHINE SULFATE (*CRX) 4 MG/ML INJ IV PUSH (16:24)
[2023-12-29 16:58] LABS: Glucose Point of Care 222 mg/dl (65-105)
[2023-12-29] MEDS: INSULIN ASPART (*BKC) 100 UNITS/ML SUB-Q (17:24)
--- NOTE | 2023-12-29 17:57 | WPDGIPROGNO ---
Progress Note: A&P Assessment and Plan (1) Acute calculous cholecystitis: Code(s): K80.00 - Calculus of gallbladder with acute cholecystitis without obstruction Status: Acute Assessment and Plan: s/p lap kiki probably home today tolerating liquid diet disposition by surgery (2) Epigastric pain: Code(s): R10.13 - Epigastric pain Status: Acute (3) Abdominal pain: Code(s): R10.9 - Unspecified abdominal pain Status: Acute (4) Nausea: Code(s): R11.0 - Nausea Status: Acute (5) Insulin dependent type 2 diabetes mellitus: Code(s): E11.9 - Type 2 diabetes mellitus without complications; Z79.4 - intermediate (current) use of insulin Status: Acute Subjective Date/time seen: 12/29/23 17:57 Interval history: he had lap kiki, now on liquid diet Review of Systems Review of Systems: All systems reviewed & are unremarkable except as noted in HPI and below Exam Const: General: comfortable and no acute distress Orientation/consciousness: patient oriented x3 HENMT: Face/Nose/Sinus: Normal nares present Eyes: General: appearance normal, both eyes and all related structures Neck: Neck: supple Resp: Effort & Inspection: normal respiratory effort Cardio: Rate: regular rate GI: Inspection: non-distended GI Palp: Yes Soft to palpation and Yes Tenderness to palpation present (GI) (mild pain, expected from recent surgery) Auscultation: normal bowel sounds Skin: General skin exam: normal color Neuro: Speech: normal speech Motor exam (neuro): 5/5 motor strength present throughout Extrem: General: normal to inspection Psych: Mental Status: mental status grossly normal Objective Data Vital Signs Vital Signs: Vital Signs - 24 hr 12/28/23 20:00 12/28/23 20:00 12/29/23 04:00 Temperature 98 F 97.4 F L Pulse Rate 89 86 Respiratory Rate 14 14 Blood Pressure 125/89 123/86 Pulse Oximetry 98 98 Oxygen Delivery Room Air Oxygen Flow Rate 12/29/23 07:57 12/29/23 09:20 12/29/23 11:54 Temperature 97.9 F 97.9 F Pulse Rate 77 70 Respiratory Rate 16 16 Blood Pressure 120/71 110/78 Pulse Oximetry 100 99 Oxygen Delivery Room Air Oxygen Flow Rate 12/29/23 12:36 12/29/23 14:23 12/29/23 14:45 Temperature 98.3 F Pulse Rate 72 95 89 Respiratory Rate 14 20 25 H Blood Pressure 134/76 133/77 145/86 H Pulse Oximetry 98 100 100 Oxygen Delivery Room Air Simple Face Mask Simple Face Mask Oxygen Flow Rate 10 10 12/29/23 15:00 12/29/23 15:15 12/29/23 15:30 Temperature Pulse Rate 83 81 81 Respiratory Rate 20 12 16 Blood Pressure 158/83 H 149/91 H 157/96 H Pulse Oximetry 100 96 100 Oxygen Delivery Room Air Room Air Room Air Oxygen Flow Rate 12/29/23 15:45 12/29/23 16:05 12/29/23 16:20 Temperature 97.9 F 97.5 F L Pulse Rate 79 79 81 Respiratory Rate 20 17 16 Blood Pressure 145/92 H 127/85 123/81 Pulse Oximetry 94 94 93 Oxygen Delivery Room Air Oxygen Flow Rate 12/29/23 16:50 Temperature 98.1 F Pulse Rate 85 Respiratory Rate 17 Blood Pressure 130/77 Pulse Oximetry 94 Oxygen Delivery Oxygen Flow Rate Intake/Output Intake/Output: Intake & Output 12/26/23 12/27/23 12/28/23 12/29/23 23:59 23:59 23:59 23:59 Intake Total 4510 3140 1450 Output Total 4235 2300 4565 Balance 275 0 -8545 Meds/Results Medications: Active Medications Generic Name Dose Route Start Last Admin Trade Name Freq PRN Reason Stop Dose Admin Acetaminophen 650 mg 12/27/23 15:32 Acetaminophen 325 Mg Tablet PO Q6H PRN Mild Pain (1-3) or Fever Hydrocodone Bitart/Acetaminophen 1 tab 12/29/23 15:53 Hydrocodone/Acetaminophen (*Crx) 5-325 Mg Tablet PO Q4H PRN Pain Rated 4-6 Hydrocodone Bitart/Acetaminophen 1 tab 12/29/23 15:53 Hydrocodone/Acetaminophen (*Crx) 10-325 Mg Tablet PO Q6H PRN Pain Rated 7-10 Cyclobenzaprine HCl 10 mg 12/27/23 23:11 12/29/23 02:12 Cy
--- NOTE | 2023-12-29 18:37 | PC.NURSE ---
On 12/29/23, the [facility] [employer], Lindsey, provided care and [facility]. I have reviewed the [facility]'s documentation and agree with the findings.
== END 2023-12-29 19:20 | disposition home or self-care (01) ==
LOC: ANHED 10:19 → ANH3MEDSUR 12:11
PROVIDERS: Physician Assistant; Surgery; Admitting Provider Internal Medicine; Emergency Provider Emergency Medicine; Visit Provider Hospitalist
PROC: 0FT44ZZ Resection of Gallbladder, Percutaneous Endoscopic Approach (ICD-10-PCS; CPT 47562; principal; 2023-12-29 14:00)
DX: K80.10 Calculus of gallbladder with chronic cholecystitis without obstruction (principal); R33.9 Retention of urine, unspecified; R74.8 Abnormal levels of other serum enzymes; E11.42 Type 2 diabetes mellitus with diabetic polyneuropathy; Z79.2 Long term (current) use of antibiotics; Z79.4 Long term (current) use of insulin; Z79.85 Long-term (current) use of injectable non-insulin antidiabetic drugs; Z79.899 Other long term (current) drug therapy
CPT/HCPCS: 47562; 36415; 51702; 74177; 74183; 76376; 80053; 81003; 82948; 83690; 83735; 84484; 85025; 85027; 88304; 93005; 96361; 96374; 96375; 96376; 99285; A9270; A9577; C9113; G0378; J1100; J1170; J1200; J1815; J1885; J2250; J2270; J2405; J2543; J2704; J2765; J3010; J7030; J7120; Q9967

== ENCOUNTER 2024-01-09 03:14 | Emergency (ER) | payer MEDICAID, SELFPAY ==
[2024-01-09 03:17] VITALS: BP 142/89; PULSE 87; RESP 20; TEMP 36.9; O2SAT 100
--- NOTE | 2024-01-09 03:40 | ED.GENADULT ---
HPI - General Adult General Chief complaint: Unspecified Stated complaint: all over muscle spasms. Time Seen by Provider: 01/09/24 03:25 Source: patient Mode of arrival: ambulatory Limitations: no limitations History of Present Illness HPI narrative: 48-year-old male with type 1 diabetes on insulin pump with history of rhabdomyolysis presenting for muscle aches in his extremities. Has previously had rhabdomyolysis when he has had these muscle aches the past. Feels like his sugars have been elevated above normal as well. Related Data Home Medications Medication Instructions Recorded Confirmed blood-glucose sensor (Dexcom G6 12/17/23 12/27/23 Sensor device) blood-glucose transmitter (Dexcom 12/17/23 12/27/23 G6 Transmitter device) insulin aspart U-100 100 unit/mL 100 unit subcut TID 12/17/23 12/27/23 (3 mL) subcutaneous pen (Novolog FlexPen U-100 Insulin aspart) pregabalin 100 mg capsule 100 mg PO BID 12/27/23 12/27/23 Allergies Allergy/AdvReac Type Severity Reaction Status Date / Time No Known Allergies Allergy Verified 01/09/24 03:21 Review of Systems Review of Systems: All systems reviewed & are unremarkable except as noted in HPI and below PMFSH Past Medical History Medical History Cholelithiasis Diabetic peripheral neuropathy Insulin dependent type 2 diabetes mellitus Surgical History Surgical History No history of previous surgery Family History Family History Mother Diabetes mellitus Father Cerebrovascular accident Heart attack Hypertension Stomach cancer Social History Social History Social History: Surrogate medical decision maker: Jennifer Garcia, spouse. Code status: Full code. Smoking status: Never smoker Alcohol intake: never Substance use: never Substance use type: does not use Do You Feel Safe in your Home?: Yes Lack of Transportation: No Lack of Food: Never True Current Housing: I Have Housing Concerned About Future Housing: No Difficulty Paying Gas/Electric Bills: No Difficulty Paying for Meds: No Currently Unemployed: No Education: Associate Degree Difficulty w/ Childcare or Family Care: No Additional living arrangements comments: Lives with spouse in [place]. He has 7 children. 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. 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: No Exam Narrative: Constitutional: Generally well appearing, no acute distress Head: Atraumatic, no deformities. Eyes: Pupils equal, round, and reactive to light. Neck: Supple, no tracheal deviation, no JVD. ENMT: Mucous membranes moist Cardiovascular: S1, S2 auscultated. No murmurs, rubs, or gallops. No S3/S4. Normal Distal pulses. No peripheral edema. Respiratory: Lung sounds equal. No wheezes, rales, or rhonchi. Gastrointestinal: Abdomen was soft and non-tender. Non-distended. No rebound or guarding. Genitourinary: Deferred Musculoskeletal: Normal muscle tone and bulk. No obvious deformities or tenderness over extremities. Skin: No rashes. Neurological: Strength 5/5 in extremities. Cranial nerves I-XII grossly intact. Distal sensation intact. Mental Status: Awake, alert and oriented x3. Follows commands Course Vital Signs Vital signs: Vital Signs Temperature 36.9 C 01/09/24 03:17 Pulse Rate 87 01/09/24 03:17 Respiratory Rate 20 01/09/24 03:17 Blood Pressure 142/89 H 01/09/24 03:17 Pulse Oximetry 100 01/09/24 03:17 Oxygen Delivery Room Air 01/09/24 03:17 Temperature 36.9 C 01/09/24 03:17 Pulse Rate 87 01/09/24 03:17 Respiratory Rate 20 01/09/24 03:17 Blood Pressure 142/89 H 01/09/24 03:17 Pulse Oximetry 100 01/09/24 03:17 Oxygen Delivery Room Air 01/09/24 03:17
[2024-01-09 03:47] LABS: Basophils Percent Auto 0.2 % (0.2-1.2); Eosinophils Absolute Auto 0.1 K/mm3 (0-0.3); Eosinophils Percent Auto 0.9 % (0-4.4); Hematocrit 44.2 % (42.0-52.0); Hemoglobin 15.4 g/dL (14.0-18.0); Immature Granulocyte Absolute 0.01 K/mm3 (0.00-0.031); Immature Granulocyte Percent A 0.1 % (0-0.5); Lymphocytes Absolute Auto 2.41 K/mm3 (0.9-3.2); Lymphocytes Percent Auto 24.4 % (18.3-44.2); Mean Corpuscular HGB Conc 34.8 g/dl (32-36); Mean Corpuscular Hemoglobin 28.8 pg (26-34); Mean Corpuscular Volume 82.6 fl (80-100); Mean Platelet Volume 10.4 fl (7.4-10.4); Monocytes Absolute Auto 0.6 K/mm3 (0.1-0.6); Monocytes Percent Auto 6.3 % (2.6-8.5); Neutrophils Absolute Auto 6.7 K/mm3 (1.3-6.7); Neutrophils Percent Auto 68.1 % (45.5-73.1); Platelet Count Result 323 k/mm3 (150-375); Red Blood Count 5.35 M/mm3 (4.6-6.20); Red Cell Distribution Width 12.3 % (11.5-14.5); White Blood Count 9.9 K/mm3 (4.5-10.0)
[2024-01-09] MEDS: SODIUM CHLORIDE 0.9% IV 1,000 ML 999 ML IV CONT ×2 (03:47→06:06)
[2024-01-09] MEDS: MORPHINE SULFATE (*CRX) 4 MG/ML INJ IV PUSH (03:47)
[2024-01-09 04:13] LABS: Creatine Kinase 249 U/L (55-170)
[2024-01-09 04:25] LABS: Beta-Hydroxybutyrate/Acetoacetate 0.11 mmol/L (0.02-0.27)
[2024-01-09 05:35] LABS: Alanine Aminotransferase 22 U/L (6-50); Albumin Level 4.7 g/dL (3.5-5.1); Alkaline Phosphatase 97 U/L (38-126); Anion Gap 14 mmol/L (4-12); Aspartate Amino Transferase 26 U/L (17-59); Bilirubin,Total 0.9 mg/dL (0.2-1.3); Blood Urea Nitrogen 11 mg/dL (9-20); Calcium 9.9 mg/dL (8.4-10.2); Carbon Dioxide 21 mmol/L (22-30); Chloride 99 mmol/L (98-107); Estimated CRCL calculation 98 ml/min; Estimated Glomerular Filt Rate > 60; Glucose 268 mg/dL (65-110); Potassium 3.2 mmol/L (3.4-5.0); Sodium 134 mmol/L (137-145)
[2024-01-09 06:24] LABS: Appearance Urine Turbid (Clear); Bacteria Urine 4+ /hpf; Bilirubin Urine Negative (Negative); Blood Urine 1+ (Negative); Color Urine Yellow (Yellow); Glucose Urine UA 3+ mg/dL (Negative); Ketones Urine Negative (Negative); Leukocyte Esterase Ur 2+ LEU/UL (Negative); Need Manual Microscopic Reviewed; Nitrate Urine Negative (Negative); Non Pathogenic Casts 0-2; Protein Urine Trace mg/dL (Negative); RBC Urine 0-2 /hpf (0-2); Specific Grav Ur 1.027 (1.001-1.035); Squamous Epithelial Cell Urine None Seen /hpf (Few); WBC Urine >100 /hpf (0-3); pH Urine 6.5 (5.0-9.0)
[2024-01-09 06:25] LABS: Add Urine Microscopic? YES
--- NOTE | 2024-01-09 06:30 | ED.GENADULT ---
HPI - General Adult General Chief complaint: Unspecified Stated complaint: all over muscle spasms. Time Seen by Provider: 01/09/24 03:25 Source: patient Mode of arrival: ambulatory Limitations: no limitations Related Data Home Medications Medication Instructions Recorded Confirmed blood-glucose sensor (Dexcom G6 12/17/23 12/27/23 Sensor device) blood-glucose transmitter (Dexcom 12/17/23 12/27/23 G6 Transmitter device) insulin aspart U-100 100 unit/mL 100 unit subcut TID 12/17/23 12/27/23 (3 mL) subcutaneous pen (Novolog FlexPen U-100 Insulin aspart) pregabalin 100 mg capsule 100 mg PO BID 12/27/23 12/27/23 Allergies Allergy/AdvReac Type Severity Reaction Status Date / Time No Known Allergies Allergy Verified 01/09/24 03:21 [facility] Past Medical History Medical History Cholelithiasis Diabetic peripheral neuropathy Insulin dependent type 2 diabetes mellitus Surgical History Surgical History No history of previous surgery Family History Family History Mother Diabetes mellitus Father Cerebrovascular accident Heart attack Hypertension Stomach cancer Social History Social History Social History: Surrogate medical decision maker: Jennifer Garcia, spouse. Code status: Full code. Smoking status: Never smoker Alcohol intake: never Substance use: never Substance use type: does not use Do You Feel Safe in your Home?: Yes Lack of Transportation: No Lack of Food: Never True Current Housing: I Have Housing Concerned About Future Housing: No Difficulty Paying Gas/Electric Bills: No Difficulty Paying for Meds: No Currently Unemployed: No Education: Associate Degree Difficulty w/ Childcare or Family Care: No Additional living arrangements comments: [place] He has 7 children. 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: No Course Vital Signs Vital signs: Vital Signs Temperature 36.9 C 01/09/24 03:17 Pulse Rate 87 01/09/24 03:17 Respiratory Rate 20 01/09/24 03:17 Blood Pressure 142/89 H 01/09/24 03:17 Pulse Oximetry 100 01/09/24 03:17 Oxygen Delivery Room Air 01/09/24 03:17 Temperature 36.9 C 01/09/24 03:17 Pulse Rate 87 01/09/24 03:17 Respiratory Rate 20 01/09/24 03:17 Blood Pressure 142/89 H 01/09/24 03:17 Pulse Oximetry 100 01/09/24 03:17 Oxygen Delivery Room Air 01/09/24 03:17 Medical Decision Making Vital Signs Vital Signs: Vital Signs Temperature 36.9 C 01/09/24 03:17 Pulse Rate 87 01/09/24 03:17 Respiratory Rate 20 01/09/24 03:17 Blood Pressure 142/89 H 01/09/24 03:17 Pulse Oximetry 100 01/09/24 03:17 Oxygen Delivery Room Air 01/09/24 03:17 Temperature 36.9 C 01/09/24 03:17 Pulse Rate 87 01/09/24 03:17 Respiratory Rate 20 01/09/24 03:17 Blood Pressure 142/89 H 01/09/24 03:17 Pulse Oximetry 100 01/09/24 03:17 Oxygen Delivery Room Air 01/09/24 03:17 Lab Data 01/09/24 03:41 01/09/24 03:41 Labs: Lab Results 01/09/24 01/09/24 Range/Units 03:41 05:30 WBC 9.9 (4.5-10.0) K/mm3 RBC 5.35 (4.6-6.20) M/mm3 Hgb 15.4 (14.0-18.0) g/dL Hct 44.2 (42.0-52.0) % MCV 82.6 (80-100) fl MCH 28.8 (26-34) pg MCHC 34.8 (32-36) g/dl RDW 12.3 (11.5-14.5) % Plt Count 323 D (150-375) k/mm3 MPV 10.4 (7.4-10.4) fl Immature Gran % (Auto) 0.1 (0-0.5) % Neut % (Auto) 68.1 (45.5-73.1) % Lymph % (Auto) 24.4 (18.3-44.2) % [place] % (Auto) 6.3 (2.6-8.5) % Eos % (Auto) 0.9 (0-4.4) % Baso % (Auto) 0.2 (0.2-1.2) % Lymph # (Auto) 2.41 (0.9-3.2) K/mm3 [place] # (Auto) 0.6 (0.1-0
[2024-01-09 07:01] LABS: Glucose Point of Care 134 mg/dl (65-105)
[2024-01-09 07:04] VITALS: BP 138/68; PULSE 82; RESP 15; O2SAT 100
== END 2024-01-09 07:05 | disposition home or self-care (01) ==
PROVIDERS: Emergency Provider Emergency Medicine
DX: M79.18 Myalgia, other site (principal); E10.9 Type 1 diabetes mellitus without complications; Z79.4 Long term (current) use of insulin; Z96.41 Presence of insulin pump (external) (internal)
CPT/HCPCS: 36415; 80053; 81001; 82010; 82550; 82948; 85025; 87077; 87086; 87088; 87181; 96361; 96374; 99284; J2270; J7030

== ENCOUNTER 2024-07-06 09:39 | Emergency (ER) | payer OTHER, SELFPAY ==
--- NOTE | ~2024-07-06 | CT_ITS ---
EXAMINATION: CTA chest abdomen pelvis DATE: 07/06/2024 10:20 INDICATION: Chest pain. TECHNIQUE: Computed tomographic angiography (CTA) of the chest, abdomen, and pelvis was performed wit h 100 mL Omnipaque-350 intravenous contrast. Automated exposure control and iterative reconstruction technique were employed. The dose-length product was 943.37 mGy-cm. Maximum intensity projection 3D-r econstructions of the aorta and other arteries were constructed by the technologist on a separate wor kstation. COMPARISON: CT abdomen and pelvis 12/27/2023 FINDINGS: CHEST CTA: The lungs demonstrate mild dependent atelectasis. No pleural effusion. The heart size is normal. No p ericardial effusion. There is no pulmonary embolus. Thoracic aorta is normal in caliber. There is mil d thoracic spondylosis. ABDOMEN AND PELVIS CTA: The liver, spleen, pancreas, adrenal glands, and kidneys are normal. There are changes of cholecystec [place]. The bladder is markedly distended. There are no dilated loops of bowel. The appendix is normal. There is diverticulosis of the colon without evidence of diverticulitis. Abdominal aorta is normal i n caliber. There is no significant stenosis of celiac axis, superior mesenteric artery, the renal art eries, or inferior mesenteric artery. There are no pathologically enlarged lymph nodes. There is no f ree intraperitoneal fluid. There is a right inguinal hernia containing fat. There is mild lumbar spon dylosis. IMPRESSION: 1. Normal aorta. 2. Marked bladder distention again seen. Reviewed, dictated and finalized at location A.
--- NOTE | ~2024-07-06 | XR_ITS ---
CHEST RADIOGRAPH, PA AND LATERAL CLINICAL HISTORY: chest pain SINCE THIS MORNING . COMPARISON: 04/19/2023 TECHNIQUE: PA and lateral views of the chest. FINDINGS The cardiomediastinal silhouette is unremarkable. The lungs are clear. Visualized osseous structures and soft tissues are unremarkable. IMPRESSION: No focal infiltrate or effusion. Reviewed, dictated and finalized at location A.
--- NOTE | 2024-07-06 09:40 | ECG_ITS ---
Test Date: 2024-07-06 09:47:15 Measurements Intervals [place] Rate: 77 P: 33 GA: 152 QRS: 28 QRSD: 85 T: 30 QT: 373 QTc: 423 Interpretive Statements SINUS RHYTHM NORMAL ELECTROCARDIOGRAM No previous ECG available for comparison Electronically Signed On 07-06-2024 12:35:31 CDT by Miguel Wallace M.D.
[2024-07-06 09:44] VITALS: BP 164/106; PULSE 71; RESP 17; TEMP 36.3; O2SAT 99
[2024-07-06 09:47] VITALS: O2SAT 98
[2024-07-06 09:56] LABS: Basophils Percent Auto 0.4 % (0.2-1.2); Eosinophils Absolute Auto 0.1 K/mm3 (0-0.3); Eosinophils Percent Auto 2.1 % (0-4.4); Hematocrit 45.2 % (42.0-52.0); Hemoglobin 15.5 g/dL (14.0-18.0); Immature Granulocyte Absolute 0.02 K/mm3 (0.00-0.031); Immature Granulocyte Percent A 0.4 % (0-0.5); Lymphocytes Absolute Auto 1.87 K/mm3 (0.9-3.2); Lymphocytes Percent Auto 35.6 % (18.3-44.2); Mean Corpuscular HGB Conc 34.3 g/dl (32-36); Mean Corpuscular Hemoglobin 29.3 pg (26-34); Mean Corpuscular Volume 85.4 fl (80-100); Mean Platelet Volume 10.9 fl (7.4-10.4); Monocytes Absolute Auto 0.4 K/mm3 (0.1-0.6); Monocytes Percent Auto 7.6 % (2.6-8.5); Neutrophils Absolute Auto 2.8 K/mm3 (1.3-6.7); Neutrophils Percent Auto 53.9 % (45.5-73.1); Platelet Count Result 229 k/mm3 (150-375); Red Blood Count 5.29 M/mm3 (4.6-6.20); Red Cell Distribution Width 12.9 % (11.5-14.5); White Blood Count 5.3 K/mm3 (4.5-10.0)
[2024-07-06] MEDS: ASPIRIN 81 MG CHEWABLE TABLET 324 MG PO (09:59)
[2024-07-06 10:01] VITALS: BP 145/103; PULSE 72; RESP 20; O2SAT 100
[2024-07-06 10:05] LABS: INR 0.9; Prothrombin Time 12.9 Seconds (11.1-14.7)
[2024-07-06 10:06] LABS: Partial Thromboplastin Time 26.6 Seconds (22.3-36.8)
[2024-07-06 10:17] LABS: Estimated CRCL calculation 75 ml/min; Estimated Glomerular Filt Rate > 60
[2024-07-06 10:19] LABS: Alanine Aminotransferase 28 U/L (6-50); Albumin Level 4.4 g/dL (3.5-5.1); Alkaline Phosphatase 75 U/L (38-126); Anion Gap 6 mmol/L (4-12); Aspartate Amino Transferase 25 U/L (17-59); Bilirubin,Total 0.8 mg/dL (0.2-1.3); Blood Urea Nitrogen 11 mg/dL (9-20); Calcium 9.4 mg/dL (8.4-10.2); Carbon Dioxide 32 mmol/L (22-30); Chloride 100 mmol/L (98-107); Estimated CRCL calculation 89 ml/min; Estimated Glomerular Filt Rate > 60; Glucose 212 mg/dL (65-110); Lipase 81 U/L (23-300); Potassium 3.9 mmol/L (3.4-5.0); Sodium 138 mmol/L (137-145)
[2024-07-06 10:30] LABS: Troponin I < 0.012 ng/mL (0.000-0.034)
[2024-07-06] MEDS: MORPHINE SULFATE (*CRX) 4 MG/ML INJ IV PUSH (10:30)
[2024-07-06] MEDS: ONDANSETRON INJ 4 MG/2 ML VIAL IV PUSH (10:31)
[2024-07-06 10:36] VITALS: BP 141/93; PULSE 67; RESP 12; O2SAT 100
--- NOTE | 2024-07-06 11:02 | ED_ITS ---
HPI - Chest Pain General Chief Complaint: Chest Pain Stated Complaint: CHEST PAIN Time Seen by Provider: 07/06/24 09:47 History of Present Illness HPI narrative: Patient presenting here with chest pain that apparently started at 8:45 a.m. this morning, while he was lying in bed, with some slight shortness of breath, slight nausea. History of diabetes and neuropathy, otherwise no focal numbness or weakness, pain seems to come up his chest does not go to his back or down his arms. Strong family history of CVAs/CAD Related Data Home Medications Medication Instructions Recorded Confirmed blood-glucose sensor (Dexcom G6 12/17/23 01/10/24 Sensor device) blood-glucose transmitter (Dexcom 12/17/23 01/10/24 G6 Transmitter device) insulin aspart U-100 100 unit/mL 100 unit subcut TID 12/17/23 01/10/24 (3 mL) subcutaneous pen (Novolog FlexPen U-100 Insulin aspart) pregabalin 100 mg capsule 100 mg PO BID 12/27/23 01/10/24 Allergies Allergy/AdvReac Type Severity Reaction Status Date / Time No Known Allergies Allergy Verified 01/09/24 10:08 Review of Systems Review of Systems: All systems reviewed & are unremarkable except as noted in HPI and below PMFSH Past Medical History Medical History (Updated 07/06/24 @ 13:29 by Alysha Acosta MD) Cholelithiasis Diabetic peripheral neuropathy Insulin dependent type 2 diabetes mellitus Surgical History Surgical History (Updated 01/09/24 @ 10:10 by JAH Guerra) History of laparoscopic cholecystectomy 12/29/23 Family History Family History Mother Diabetes mellitus Father Cerebrovascular accident Heart attack Hypertension Stomach cancer Social History Social History Social History: Surrogate medical decision maker: Jennifer Garcia, spouse. Code status: Full code. Smoking status: Never smoker Alcohol intake: never Substance use: never Substance use type: does not use Do You Feel Safe in your Home?: Yes Lack of Transportation: No Lack of Food: Never True Current Housing: I Have Housing Concerned About Future Housing: No Difficulty Paying Gas/Electric Bills: No Difficulty Paying for Meds: No Currently Unemployed: No Education: Associate Degree Difficulty w/ Childcare or Family Care: No Additional living arrangements comments: Lives with spouse in [place]. He has 7 children. 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: No Exam Narrative: EXAMINATION OF ORGAN SYSTEMS/BODY AREAS: Constitutional: Vital signs per nursing GENERAL: Tearful HEAD: Normal with no signs of head trauma. EYES: EOMI, conjunctiva normal ENT: Hearing grossly intact LUNGS: Nonlabored breathing. HEART: [Regular rate and rhythm], normal equal pulses bilaterally radius and DP ABD: [Soft], [nontender to palpation] EXT: Normal range of motion SKIN: [No rashes or lesions.] NEURO: [Alert and oriented x 3. No gross focal sensory or strength deficits.] PSYCH: Normal affect Course Vital Signs Vital signs: Vital Signs Temperature 97.3 F L 07/06/24 09:44 Pulse Rate 71 07/06/24 09:44 Respiratory Rate 17 07/06/24 09:44 Blood Pressure 164/106 H 07/06/24 09:44 Pulse Oximetry 99 07/06/24 09:44 Oxygen Delivery Room Air 07/06/24 09:44 Temperature 97.3 F L 07/06/24 09:44 Pulse Rate 56 L 07/06/24 12:33 Respiratory Rate 12 07/06/24 12:33 Blood Pressure 136/101 H 07/06/24 12:33 Pulse Oximetry 100 07/06/24 12:33 Oxygen Delivery Room Air 07/06/24 09:47 MDM - Chest Pain MDM Narrative Medical decision making narrative: ED COURSE AND MEDICAL DECISION MAKINM presenting with chest pain. EKG done in triage negative for acute ischemic changes. Cardiac workup is initiated. EKG: Performed in triage and interpreted by me. Normal sinus rhythm. Rate 77. Normal axis. [place] normal. QRS duration normal. QTc normal. No pathologic Q waves. No ST segment elevation or depression to suggest acute ischemia. No RV strain pattern. HEART score is 0 with no acute ischemic changes on EKG and negative troponin m aking ACS unlikely. Given patient's with sudden onset symptoms, I did obtain a CTA to rule out dissection, thankfully CTA unremarkable without acute abnormality. HEART Score: [0]. (Risk of major adverse cardiac events over 6 weeks: Score of 0-3 is low risk <2% ; Score of 4-6 is moderate risk ~12-15%; Score of 7-12 is high risk ~50%). - History - [0]. (Not suspicious 0; moderately suspicious 1; highly suspicious 2). - EKG - [0]. (No ST changes 0; non-specific ST/T changes 1; ST depression 2). - Age - [0]. (<45 = 0; 46-65 = 1; >65 = 2). - Risk factors - [0]. (0 factors = 0; 1-2 factors = 1; >2 factors = 2). - Troponin - [0]. (Normal = 0; Indeterminate = 1; High = 2). Two troponins both negative. Second EKG interpreted by myself, shows sinus bradycardia rate 56, normal [place], QRS, QTC, axis, no ST elevations or depressions. On repeat evaluation just prior to discharge, the patient is no acute distress. Chest pain has resolved I had a long discussion with the patient and with shared decision making, [he] is comfortable with outpatient management. [He] was given clear return instructions by myself in person as well as on discharge paperwork. Lab Data 07/06/24 09:50 07/06/24 10:16 Labs: Lab Results 07/06/24 07/06/24 07/06/24 Range/Units 09:50 10:16 12:46 WBC 5.3 (4.5-10.0) K/mm3 RBC 5.29 (4.6-6.20) M/mm3 Hgb 15.5 (14.0-18.0) g/dL Hct 45.2 (42.0-52.0) % MCV 85.4 (80-100) fl MCH 29.3 (26-34) pg MCHC 34.3 (32-36) g/dl RDW 12.9 (11.5-14.5) % Plt Count 229 (150-375) k/mm3 MPV 10.9 H (7.4-10.4) fl Immature Gran % (Auto) 0.4 (0-0.5) % Neut % (Auto) 53.9 (45.5-73.1) % Lymph % (Auto) 35.6 (18.3-44.2) % [place] % (Auto) 7.6 (2.6-8.5) % Eos % (Auto) 2.1 (0-4.4) % Baso % (Auto) 0.4 (0.2-1.2) % Lymph # (Auto) 1.87 (0.9-3.2) K/mm3 [place] # (Auto) 0.4 (0.1-0.6) K/mm3 Eos # (Auto) 0.1 (0-0.3) K/mm3 Baso # (Auto) 0.0 (0.0-0.1) K/mm3 Abs Immat Gran (auto) 0.02 (0.00-0.031) K/mm3 Absolute Neuts (auto) 2.8 (1.3-6.7) K/mm3 Absolute Nucleated RBC 0.000 (0.0-0.012) K/mm3 Nucleated RBC % 0.0 (0.0-0.2) % PT 12.9 (11.1-14.7) Seconds INR 0.9 APTT 26.6 (22.3-36.8) Seconds Sodium 138 (137-145) mmol/L Potassium 3.9 (3.4-5.0) mmol/L Chloride 100 (98-107) mmol/L Carbon Dioxide 32 H (22-30) mmol/L Anion Gap 6 (4-12) mmol/L BUN 11 (9-20) mg/dL Creatinine 1.00 1.20 (0.7-1.3) mg/dL Estim Creat Clear Calc 89 75 ml/min Estimated GFR > 60 > 60 (59 - ) Glucose 212 H (65-110) mg/dL Calcium 9.4 (8.4-10.2) mg/dL Total Bilirubin 0.8 (0.2-1.3) mg/dL AST 25 (17-59) U/L ALT 28 (6-50) U/L Alkaline Phosphatase 75 (38-126) U/L Troponin I < 0.012 < 0.012 (0.000-0.034) ng/mL Total Protein 8.0 (6.3-8.2) g/dL Albumin 4.4 (3.5-5.1) g/dL Lipase 81 (23-300) U/L Discharge Plan Discharge Clinical Impression: Chest pain Patient Disposition: Home, Self-Care Condition: Stable Instructions: Antibiotic Form, Chest Pain (ED) Additional Instructions: Please follow up with your doctor and the planer setup operator; you can always return for any further issues, especially if you have return of chest pain or shortness of breath or anything else concerning. Prescriptions: No Action insulin aspart U-100 [Novolog FlexPen U-100 Insulin] 100 unit/mL (3 mL) insulin pen 100 unit SUBCUT TID Rx Instructions: PER OMNIPOD (DME) Dexcom G6 Sensor Device MISCELLANEOUS (DME) Dexcom G6 Transmitter Device MISCELLANEOUS cyclobenzaprine 10 mg tablet 10 mg PO TID PRN (Reason: muscle spasm) Qty: 20 0RF pregabalin 100 mg capsule 100 mg PO BID Rx Instructions: Was told to start with 1 a day and then increase to 2 tamsulosin 0.4 mg Capsule 0.4 mg PO QAM Qty: 30 0RF ciprofloxacin HCl 500 mg tablet 500 mg PO Q12H 10 Days Qty: 20 0RF Follow-up/Referrals: Miguel Wallace MD [Physician] - 2 Days UNKNOWN,DOCTOR [Primary Care Provider] -
[2024-07-06 12:33] VITALS: BP 136/101; PULSE 56; RESP 12; O2SAT 100
--- NOTE | 2024-07-06 12:39 | ECG_ITS ---
Test Date: 2024-07-06 12:50:53 Measurements Intervals [place] Rate: 56 P: 11 MA: 152 QRS: 22 QRSD: 93 T: 29 QT: 405 QTc: 392 Interpretive Statements SINUS BRADYCARDIA Compared to ECG 07/06/2024 09:47:15 Sinus rhythm no longer present Electronically Signed On 07-07-2024 08:20:44 CDT by Jessica Chen M.D.
[2024-07-06 13:19] LABS: Troponin I < 0.012 ng/mL (0.000-0.034)
[2024-07-06 13:44] VITALS: BP 122/85; PULSE 62; RESP 18; O2SAT 100
== END 2024-07-06 13:46 | disposition home or self-care (01) ==
PROVIDERS: Emergency Provider Emergency Medicine
DX: R07.9 Chest pain, unspecified (principal); E11.42 Type 2 diabetes mellitus with diabetic polyneuropathy; Z90.49 Acquired absence of other specified parts of digestive tract; Z79.4 Long term (current) use of insulin; R00.1 Bradycardia, unspecified
CPT/HCPCS: 36415; 71046; 71275; 74174; 80053; 83690; 84484; 85025; 85610; 85730; 93005; 96374; 96375; 99284; A9270; J2270; J2405; Q9967

== ENCOUNTER 2024-08-22 14:19 | Emergency (ER) | payer SELFPAY ==
--- NOTE | ~2024-08-22 | XR_ITS ---
EXAMINATION: XR chest 2V DATE: 08/22/2024 15:01 INDICATION: Cough and fever TECHNIQUE: PA and lateral views of the chest were obtained. COMPARISON: Chest radiograph dated 07/30/2024 FINDINGS: The lungs are clear with no focal airspace opacities, pulmonary edema, pleural effusion or pneumothor ax. The cardiomediastinal silhouette is normal. Visualized bones and soft tissues are unremarkable. IMPRESSION: 1. No acute cardiopulmonary disease. Reviewed, dictated and finalized at location A. 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
--- NOTE | 2024-08-22 14:24 | ED.URI ---
HPI - URI/Sore Throat General Chief Complaint: Upper Respiratory Infection Stated Complaint: bodyaches / fever Time Seen by Provider: 08/22/24 14:37 Source: patient and RN notes reviewed Mode of arrival: ambulatory Limitations: no limitations History of Present Illness HPI Narrative: 48-year-old male presents with concern for fever, headache, nausea, body aches. He reports his child had strep throat. He also reports he was hospitalized her abdomen lysis at the beginning of this month. He reports some mild cough. MD elicited complaint: fever Related Data Home Medications Medication Instructions Recorded Confirmed insulin aspart U-100 100 unit/mL See Rx Instructions .Route .COMPLEX 12/17/23 08/22/24 (3 mL) subcutaneous pen (Novolog FlexPen U-100 Insulin aspart) insulin glargine 100 unit/mL (3 30 unit subcut HS 07/29/24 08/22/24 mL) subcutaneous pen (Lantus Solostar U-100 Insulin) pregabalin 150 mg capsule 300 mg PO DAILY 07/29/24 08/22/24 Allergies Allergy/AdvReac Type Severity Reaction Status Date / Time No Known Allergies Allergy Verified 08/22/24 14:29 Review of Systems Review of Systems: CONSTITUTIONAL: Reports malaise, fever. EYES: Denies visual changes, redness, or discharge. ENT: Denies rhinorrhea, congestion, sinus pain, otalgia and sore throat. CARDIOVASCULAR: Denies chest pain, palpitations, or edema. RESPIRATORY: Reports occasional cough. Denies dyspnea. GASTROINTESTINAL: Denies abdominal pain, nausea, vomiting, diarrhea SKIN: Denies rash or itching. MUSCULOSKELETAL: Reports myalgia. NEUROLOGIC: Reports headache. All systems reviewed & are unremarkable except as noted in HPI and below PMFSH Past Medical History Medical History Cholelithiasis Diabetic peripheral neuropathy Insulin dependent type 2 diabetes mellitus Kidney stones Surgical History Surgical History History of laparoscopic cholecystectomy (12/29/23) Family History Family History Mother Diabetes mellitus Father Cerebrovascular accident Heart attack Hypertension Stomach cancer Social History Social History Social History: Surrogate medical decision maker: Jennifer Garcia, spouse. Code status: Full code. Smoking status: Never smoker Alcohol intake: never Substance use: never Substance use type: marijuana Do You Feel Safe in your Home?: Yes Lack of Transportation: No Lack of Food: Never True Current Housing: I Have Housing Concerned About Future Housing: No Difficulty Paying Gas/Electric Bills: No Difficulty Paying for Meds: No Currently Unemployed: No Education: Associate Degree Difficulty w/ Childcare or Family Care: No Additional living arrangements comments: Lives with spouse in [place]. He has 7 children. 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: No Comments At time of signature, agree with nursing past medical, surgical, social and family history. There is no relevant family history pertinent to the presenting complaint Exam Narrative: GENERAL: Nontoxic-appearing and in no acute distress. HEAD: Normocephalic EYES: PERRLA, conjunctivae clear ENT: Nares clear. Mucous membranes moist. Oropharynx not erythematous without lesions. Tonsils not enlarged and without exudate, no drooling, no hoarseness, no trismus, uvula midline. NECK: Supple. No lymphadenopathy CHEST: Clear to auscultation, breath sounds equal. No wheezing, rhonchi, rales, or stridor. No respiratory distress, speaks in full sentences. HEART: Regular rate and rhythm. No murmur heard. SKIN: Warm, dry, no rash. NEURO: Alert and oriented x3. PSYCH: Normal mood and affect Course Course Emergency Course: My discussed all test results with patient. Patient says that my N he gets rhabdo my license he typically has muscle spasms and cramps which he does not currently have. I advised transfer to the emergency room for further evaluation of patient's symptoms considering his history of rhabdo. Patient and his expresses that he does not have insurance and would prefer to not go to the emergency room unless he absolutely had to. I advised patient and his to carefully monitor his symptoms and to go to the emergency room immediately if they get any worse. Anticipatory guidance given. Patient agrees to follow-up as directed and is aware of reasons to seek care at the emergency department. Portions of this record may have been created with voice recognition software Level of Care: Express Care Visit Vital Signs Vital signs: Reviewed. MDM - URI/Sore Throat MDM Narrative Medical decision making narrative: Differential diagnosis considered: Rhabdomyolysis, Hutson virus, strep pharyngitis, allergic rhinitis, upper respiratory tract infection, sinusitis, rhinosinusitis, nasopharyngitis. viral pharyngitis, otitis media, otitis externa, pneumonia, bronchitis, viral cough syndrome, viral syndrome, and influenza. Exam findings show no acute concerns or changes; patient is non-toxic appearing and is in no distress. Patient is appropriate for outpatient treatment and follow-up. Lab Data Attestation: I reviewed the patient's lab results. Imaging Data My impression: Images reviewed, interpreted by radiologist, agree, see report. Radiologist's impression: EXAMINATION: XR chest 2V DATE: 08/22/2024 15:01 INDICATION: Cough and fever TECHNIQUE: PA and lateral views of the chest were obtained. COMPARISON: Chest radiograph dated 07/30/2024 FINDINGS: The lungs are clear with no focal airspace opacities, pulmonary edema, pleural effusion or pneumothorax. The cardiomediastinal silhouette is normal. Visualized bones and soft tissues are unremarkable. IMPRESSION: 1. No acute cardiopulmonary disease. Critical Care Time Critical Care Time Critical Care Time: No Discharge Plan Discharge Clinical Impression: Fever Patient Disposition: Home, Self-Care Condition: Stable Instructions: Fever in Adults (ED) Additional Instructions: Your symptoms would be better evaluated in the emergency room. If your symptoms get any worse you should go to the emergency room right away. Your rapid strep swab was negative today at [facility]. A throat culture will be sent to the laboratory for further testing. If the test is positive, you will receive a phone call within 48 hours and an appropriate antibiotic will be initiated at that time. Prescriptions: No Action insulin aspart U-100 [Novolog FlexPen U-100 Insulin] 100 unit/mL (3 mL) insulin pen See Rx Instructions .ROUTE .COMPLEX Rx Instructions: 1 unit per 10 bsl over 150 with meals tid pregabalin 150 mg capsule 300 mg PO DAILY insulin glargine [Lantus Solostar U-100 Insulin] 100 unit/mL (3 mL) insulin pen 30 unit SUBCUT HS Follow-up/Referrals: PHYSICIAN,TOOLROOM MACHINIST [Primary Care Provider] - Time of Disposition: 15:16
[2024-08-22 14:28] VITALS: BP 135/73; PULSE 100; RESP 16; TEMP 37.8; O2SAT 98
[2024-08-22 14:30] VITALS: BP 135/73; PULSE 100; RESP 16; TEMP 37.8; O2SAT 98
[2024-08-22 15:03] LABS: EDCOVIDSCREEN Negative (Negative); EDINFLUASCREEN Negative (Negative); EDINFLUBSCREEN Negative (Negative); EDSTREPNEGPOS1 Negative (Negative)
== END 2024-08-22 15:19 | disposition home or self-care (01) ==
PROVIDERS: Emergency Provider Nurse Practitioner
DX: R50.9 Fever, unspecified (principal); Z20.822 Contact with and (suspected) exposure to COVID-19; E11.42 Type 2 diabetes mellitus with diabetic polyneuropathy; Z79.4 Long term (current) use of insulin
CPT/HCPCS: 71046; 87081; 87426; 87804; 87880; 99213; G0463

== ENCOUNTER 2024-10-12 01:13 | Emergency (ER) | payer SELFPAY ==
[2024-10-12 01:20] VITALS: BP 138/98; PULSE 94; RESP 18; TEMP 36.6; O2SAT 100
[2024-10-12 02:15] LABS: Glucose Point of Care > 500 mg/dl (65-105)
[2024-10-12] MEDS: diazePAM INJ (*CRX) 10 MG/2 ML SYRINGE 5 MG IV PUSH (02:40)
[2024-10-12] MEDS: SODIUM CHLORIDE 0.9% IV 3,000 ML 999 ML IV CONT (02:40)
[2024-10-12 03:17] LABS: Alanine Aminotransferase 37 U/L (6-50); Albumin Level 4.7 g/dL (3.5-5.1); Alkaline Phosphatase 116 U/L (38-126); Anion Gap 17 mmol/L (4-12); Aspartate Amino Transferase 36 U/L (17-59); Bilirubin,Total 0.7 mg/dL (0.2-1.3); Blood Urea Nitrogen 16 mg/dL (9-20); Calcium 9.8 mg/dL (8.4-10.2); Carbon Dioxide 23 mmol/L (22-30); Chloride 96 mmol/L (98-107); Creatine Kinase 456 U/L (55-170); Estimated CRCL calculation 87 ml/min; Estimated Glomerular Filt Rate > 60; Glucose 344 mg/dL (65-110); Magnesium 2.2 mg/dL (1.6-2.3); Phosphorus 2.3 mg/dL (2.5-4.5); Potassium 3.7 mmol/L (3.4-5.0); Sodium 136 mmol/L (137-145)
[2024-10-12 03:18] LABS: Beta-Hydroxybutyrate/Acetoacetate 0.18 mmol/L (0.02-0.27)
[2024-10-12 03:21] LABS: Add Urine Microscopic? YES; Appearance Urine Clear (Clear); Bacteria Urine None Seen /hpf; Bilirubin Urine Negative (Negative); Blood Urine Negative (Negative); Color Urine Yellow (Yellow); Glucose Urine UA 3+ mg/dL (Negative); Ketones Urine Trace mg/dL (Negative); Leukocyte Esterase Ur Trace LEU/UL (Negative); Need Manual Microscopic Reviewed; Nitrate Urine Negative (Negative); Non Pathogenic Casts 0-2; Protein Urine Negative (Negative); RBC Urine 0-2 /hpf (0-2); Specific Grav Ur 1.028 (1.001-1.035); Squamous Epithelial Cell Urine Occasional /hpf (Few); Urobilinogen Urine 0.2 mg/dL (<2.0); WBC Urine 51-100 /hpf (0-3); pH Urine 6.5 (5.0-9.0)
[2024-10-12 03:22] LABS: Basophils Percent Auto 0.3 % (0.2-1.2); Eosinophils Absolute Auto 0.1 K/mm3 (0-0.3); Eosinophils Percent Auto 0.7 % (0-4.4); Hematocrit 44.2 % (42.0-52.0); Hemoglobin 15.2 g/dL (14.0-18.0); Immature Granulocyte Absolute 0.05 K/mm3 (0.00-0.031); Immature Granulocyte Percent A 0.5 % (0-0.5); Lymphocytes Absolute Auto 3.51 K/mm3 (0.9-3.2); Lymphocytes Percent Auto 34.7 % (18.3-44.2); Mean Corpuscular HGB Conc 34.4 g/dl (32-36); Mean Corpuscular Hemoglobin 28.3 pg (26-34); Mean Corpuscular Volume 82.3 fl (80-100); Mean Platelet Volume 10.9 fl (7.4-10.4); Monocytes Absolute Auto 0.7 K/mm3 (0.1-0.6); Monocytes Percent Auto 6.8 % (2.6-8.5); Neutrophils Absolute Auto 5.8 K/mm3 (1.3-6.7); Platelet Count Result 391 k/mm3 (150-375); Red Blood Count 5.37 M/mm3 (4.6-6.20); Red Cell Distribution Width 12.4 % (11.5-14.5); White Blood Count 10.1 K/mm3 (4.5-10.0)
[2024-10-12 04:42] VITALS: BP 116/76; PULSE 77; RESP 17; O2SAT 98
[2024-10-12 04:46] VITALS: BP 110/73; PULSE 83; RESP 12; O2SAT 100
[2024-10-12 04:50] LABS: Glucose Point of Care 140 mg/dl (65-105)
--- NOTE | 2024-10-12 05:10 | ED_ITS ---
HPI - General Adult General Chief complaint: Unspecified Stated complaint: rhabdomyolysis flare up Time Seen by Provider: 10/12/24 03:11 History of Present Illness HPI narrative: This is a 49-year-old male history of diabetes and rhabdomyolysis presenting for total body cramping. Symptoms occurred just prior to arrival. He has had this in past that resulted in rhabdomyolysis. Patient denies any use of drugs alcohol given medications. Patient denies fevers chills chest pain difficulty breathing or abdominal pain. He does note dysuria and he thinks he has UTI Related Data Home Medications ?Medication ?Instructions ?Recorded ?Confirmed ?Last Taken ?Type insulin aspart U-100 100 unit/mL See Rx Instructions .Route .COMPLEX 12/17/23 08/22/24 07/28/24 History (3 mL) subcutaneous pen (Novolog FlexPen U-100 Insulin aspart) insulin glargine 100 unit/mL (3 30 unit subcut HS 07/29/24 08/22/24 07/28/24 History mL) subcutaneous pen (Lantus Solostar U-100 Insulin) pregabalin 150 mg capsule 300 mg PO DAILY 07/29/24 08/22/24 07/28/24 History Allergies Allergy/AdvReac Type Severity Reaction Status Date / Time No Known Allergies Allergy Verified 10/12/24 01:14 [facility] Past Medical History Medical History Kidney stones Cholelithiasis Diabetic peripheral neuropathy Insulin dependent type 2 diabetes mellitus Surgical History Surgical History History of laparoscopic cholecystectomy (12/29/23) Family History Family History Mother Diabetes mellitus Father Cerebrovascular accident Heart attack Hypertension Stomach cancer Social History Social History Social History: Surrogate medical decision maker: Jennifer Garcia, spouse. Code status: Full code. Smoking status: Never smoker Alcohol intake: never Substance use: never Substance use type: marijuana Do You Feel Safe in your Home?: Yes Lack of Transportation: No Lack of Food: Never True Current Housing: I Have Housing Concerned About Future Housing: No Difficulty Paying Gas/Electric Bills: No Difficulty Paying for Meds: No Currently Unemployed: No Education: Associate Degree Difficulty w/ Childcare or Family Care: No Additional living arrangements comments: Lives with spouse in [place]. He has 7 children. 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: No Exam 2 Narrative: APPEARANCE: No apparent distress. Head: atraumatic. EYES: EOMI, NOSE: Atraumatic NECK: Trachea midline RESPIRATORY: No increased rate of breathing CTAB CARDIOVASCULAR: RRR, no peripheral edema ABDOMINAL: Non-distended soft non tender MUSCULOSKELETAl: No significant muscle tenderness or stiffness NEURO: Alert. Moving 4/4 extremities SKIN:: Warm, dry. Normal color PSYCHIATRIC: Normal affect Course Vital Signs Vital signs: Vital Signs Temperature 97.9 F 10/12/24 01:20 Pulse Rate 94 10/12/24 01:20 Respiratory Rate 18 10/12/24 01:20 Blood Pressure 138/98 H 10/12/24 01:20 Pulse Oximetry 100 10/12/24 01:20 Oxygen Delivery Room Air 10/12/24 01:20 Temperature 97.9 F 10/12/24 01:20 Pulse Rate 83 10/12/24 04:46 Respiratory Rate 12 10/12/24 04:46 Blood Pressure 110/73 10/12/24 04:46 Pulse Oximetry 100 10/12/24 04:46 Oxygen Delivery Room Air 10/12/24 01:20 Medical Decision Making MDM Narrative Medical decision making narrative: -Course: 41-year-old male presenting with total body cramps. Patient given 3 L of fluid and Valium with improvement. Initially his CPK was 456. This was repeated after fluid resuscitation in 4 hours. It is now down trending. No concern for clinically significant rhabdomyolysis. Phosphorus was low which was repleted orally. Urine was indicative infection is given a dose of ceftriaxone will be discharged on cefdinir. Patient will be discharged follow-up with his primary care physician for further management -DDX includes but is not limited to: Rhabdomyolysis, urinary tract infection -Co-morbidities complicating care: Diabetes, history of Rhabdo -Interventions: 3 L normal saline, Valium, ceftriaxone, na-phos -Shared decision making / Disposition: Discharged -RX: Cefdinir Vital Signs Vital Signs: Vital Signs Temperature 97.9 F 10/12/24 01:20 Pulse Rate 94 10/12/24 01:20 Respiratory Rate 18 10/12/24 01:20 Blood Pressure 138/98 H 10/12/24 01:20 Pulse Oximetry 100 10/12/24 01:20 Oxygen Delivery Room Air 10/12/24 01:20 Temperature 97.9 F 10/12/24 01:20 Pulse Rate 83 10/12/24 04:46 Respiratory Rate 12 10/12/24 04:46 Blood Pressure 110/73 10/12/24 04:46 Pulse Oximetry 100 10/12/24 04:46 Oxygen Delivery Room Air 10/12/24 01:20 Lab Data 10/12/24 01:34 10/12/24 05:22 Labs: Lab Results 10/12/24 10/12/24 10/12/24 Range/Units 01:27 01:34 04:47 WBC 10.1 H (4.5-10.0) K/mm3 RBC 5.37 (4.6-6.20) M/mm3 Hgb 15.2 (14.0-18.0) g/dL Hct 44.2 (42.0-52.0) % MCV 82.3 (80-100) fl MCH 28.3 (26-34) pg MCHC 34.4 (32-36) g/dl RDW 12.4 (11.5-14.5) % Plt Count 391 H D (150-375) k/mm3 MPV 10.9 H (7.4-10.4) fl Immature Gran % (Auto) 0.5 (0-0.5) % Neut % (Auto) 57.0 (45.5-73.1) % Lymph % (Auto) 34.7 (18.3-44.2) % [place] % (Auto) 6.8 (2.6-8.5) % Eos % (Auto) 0.7 (0-4.4) % Baso % (Auto) 0.3 (0.2-1.2) % Lymph # (Auto) 3.51 H (0.9-3.2) K/mm3 [place] # (Auto) 0.7 H (0.1-0.6) K/mm3 Eos # (Auto) 0.1 (0-0.3) K/mm3 Baso # (Auto) 0.0 (0.0-0.1) K/mm3 Abs Immat Gran (auto) 0.05 H (0.00-0.031) K/mm3 Absolute Neuts (auto) 5.8 (1.3-6.7) K/mm3 Absolute Nucleated RBC 0.000 (0.0-0.012) K/mm3 Nucleated RBC % 0.0 (0.0-0.2) % Sodium 136 L (137-145) mmol/L Potassium 3.7 (3.4-5.0) mmol/L Chloride 96 L (98-107) mmol/L Carbon Dioxide 23 (22-30) mmol/L Anion Gap 17 H (4-12) mmol/L BUN 16 (9-20) mg/dL Creatinine 1.01 (0.7-1.3) mg/dL Estim Creat Clear Calc 87 ml/min Estimated GFR > 60 (59 - ) Glucose 344 H (65-110) mg/dL POC Capillary Glucose > 500 H* 140 H (65-105) mg/dl Calcium 9.8 (8.4-10.2) mg/dL Phosphorus 2.3 L (2.5-4.5) mg/dL Magnesium 2.2 (1.6-2.3) mg/dL Total Bilirubin 0.7 (0.2-1.3) mg/dL AST 36 (17-59) U/L ALT 37 (6-50) U/L Alkaline Phosphatase 116 (38-126) U/L Total Creatine Kinase 456 H (55-170) U/L Total Protein 8.0 (6.3-8.2) g/dL Albumin 4.7 (3.5-5.1) g/dL Beta-Hydroxybutyrate/Acetoacetate 0.18 (0.02-0.27) mmol/L Urine Color Yellow (Yellow) Urine Appearance Clear (Clear) Urine pH 6.5 (5.0-9.0) Ur Specific [place] 1.028 (1.001-1.035) Urine Protein Negative (Negative) mg/dL Urine Glucose (UA) 3+ H (Negative) mg/dL Urine Ketones Trace H (Negative) mg/dL Ur Blood (Man) Negative (Negative) Urine Nitrate Negative (Negative) Urine Bilirubin Negative (Negative) Urine Urobilinogen 0.2 (<2.0) mg/dL Add Ur Microanalysis Reviewed Leukocyte Esterase Rfl Trace H (Negative) WILBER/UL Urine RBC 0-2 (0-2) /hpf Urine WBC 51-100 H (0-3) /hpf Ur Squamous Epith Cells Occasional (Few) /hpf Urine Bacteria None seen /hpf Urine Casts 0-2 10/12/24 Range/Units 05:22 WBC (4.5-10.0) K/mm3 RBC (4.6-6.20) M/mm3 Hgb (14.0-18.0) g/dL Hct (42.0-52.0) % MCV (80-100) fl MCH (26-34) pg MCHC (32-36) g/dl RDW (11.5-14.5) % Plt Count (150-375) k/mm3 MPV (7.4-10.4) fl Immature Gran % (Auto) (0-0.5) % Neut % (Auto) (45.5-73.1) % Lymph % (Auto) (18.3-44.2) % [place] % (Auto) (2.6-8.5) % Eos % (Auto) (0-4.4) % Baso % (Auto) (0.2-1.2) % Lymph # (Auto) (0.9-3.2) K/mm3 [place] # (Auto) (0.1-0.6) K/mm3 Eos # (Auto) (0-0.3) K/mm3 Baso # (Auto) (0.0-0.1) K/mm3 Abs Immat Gran (auto) (0.00-0.031) K/mm3 Absolute Neuts (auto) (1.3-6.7) K/mm3 Absolute Nucleated RBC (0.0-0.012) K/mm3 Nucleated RBC % (0.0-0.2) % Sodium 137 (137-145) mmol/L Potassium 3.6 (3.4-5.0) mmol/L Chloride 106 (98-107) mmol/L Carbon Dioxide 27 (22-30) mmol/L Anion Gap 4 (4-12) mmol/L BUN 12 (9-20) mg/dL Creatinine 0.73 (0.7-1.3) mg/dL Estim Creat Clear Calc 117 ml/min Estimated GFR > 60 (59 - ) Glucose 129 H (65-110) mg/dL POC Capillary Glucose (65-105) mg/dl Calcium 8.1 L (8.4-10.2) mg/dL Phosphorus (2.5-4.5) mg/dL Magnesium 2.0 (1.6-2.3) mg/dL Total Bilirubin 0.4 (0.2-1.3) mg/dL AST 25 (17-59) U/L ALT 24 (6-50) U/L Alkaline Phosphatase 83 (38-126) U/L Total Creatine Kinase 334 H (55-170) U/L Total Protein 6.0 L (6.3-8.2) g/dL Albumin 3.4 L (3.5-5.1) g/dL Beta-Hydroxybutyrate/Acetoacetate (0.02-0.27) mmol/L Urine Color (Yellow) Urine Appearance (Clear) Urine pH (5.0-9.0) Ur Specific [place] (1.001-1.035) Urine Protein (Negative) mg/dL Urine Glucose (UA) (Negative) mg/dL Urine Ketones (Negative) mg/dL Ur Blood (Man) (Negative) Urine Nitrate (Negative) Urine Bilirubin (Negative) Urine Urobilinogen (<2.0) mg/dL Add Ur Microanalysis Leukocyte Esterase Rfl (Negative) WILBER/UL Urine RBC (0-2) /hpf Urine WBC (0-3) /hpf Ur Squamous Epith Cells (Few) /hpf Urine Bacteria /hpf Urine Casts Discharge Plan Discharge Clinical Impression: Muscle cramping, Acute UTI Patient Disposition: Home, Self-Care Condition: Stable Instructions: Antibiotic Form, Urinary Tract Infection in Men (DC) Additional Instructions: You were seen in the emergency department for cramping. You have a urinary tract infection. Please drink plenty of fluids and take antibiotics as directed. You can return to the ED at any time if you develop severe muscle cramping or any new or worsening symptoms. Please follow-up with your primary care physician for further management. Patient Language: Arabic Prescriptions: New cefdinir 300 mg capsule 300 mg PO Q12H Qty: 14 0RF No Action insulin aspart U-100 [Novolog FlexPen U-100 Insulin] 100 unit/mL (3 mL) insulin pen See Rx Instructions .ROUTE .COMPLEX Rx Instructions: 1 unit per 10 bsl over 150 with meals tid pregabalin 150 mg capsule 300 mg PO DAILY insulin glargine [Lantus Solostar U-100 Insulin] 100 unit/mL (3 mL) insulin pen 30 unit SUBCUT HS Follow-up/Referrals: PHYSICIAN,MACHINE ASSISTANT [Primary Care Provider] -
[2024-10-12] MEDS: POTASSIUM/PHOSPHORUS/SODIUM 1.5 GM PACKET 1 PACKET PO (05:25)
[2024-10-12 05:36] LABS: Alanine Aminotransferase 24 U/L (6-50); Albumin Level 3.4 g/dL (3.5-5.1); Alkaline Phosphatase 83 U/L (38-126); Anion Gap 4 mmol/L (4-12); Aspartate Amino Transferase 25 U/L (17-59); Bilirubin,Total 0.4 mg/dL (0.2-1.3); Blood Urea Nitrogen 12 mg/dL (9-20); Calcium 8.1 mg/dL (8.4-10.2); Carbon Dioxide 27 mmol/L (22-30); Chloride 106 mmol/L (98-107); Creatine Kinase 334 U/L (55-170); Estimated CRCL calculation 117 ml/min; Estimated Glomerular Filt Rate > 60; Glucose 129 mg/dL (65-110); Potassium 3.6 mmol/L (3.4-5.0); Sodium 137 mmol/L (137-145)
[2024-10-12 05:43] VITALS: PULSE 73; RESP 20
[2024-10-12 05:45] VITALS: PULSE 73; RESP 20
--- OUTSIDE RECORDS SUMMARY | 2024-10-18 04:54 | XMS_ITS | Clinical Summary ---
Author Organization [facility] Address [address] [place] [address]. [place] [address] [place] [address] Care Team Providers Care Adoption Worker Name Role Phone Ellis Carter MD Primary Care Provider + [phone] Allergies No known active allergies Medications gabapentin (NEURONTIN) 300 MG capsule Take 1 capsule (300 mg total) by mouth every evening. Active insulin glargine (LANTUS) 100 UNIT/ML injection (PEN) Inject 25 Units into the skin nightly at bedtime. 15 mL 3 Active insulin lispro, 1 Unit Dial, (HUMALOG) 100 UNIT/ML injection (PEN) Inject 10 Units into the skin 3 (three) times daily before meals. 18 mL 3 Active ondansetron (ZOFRAN-ODT) 4 MG disintegrating tablet Take 1 tablet (4 mg total) by mouth every 8 (eight) hours as needed for Nausea. 20 tablet 3 Active naproxen (NAPROSYN) 500 MG tablet Take 1 tablet (500 mg total) by mouth 2 (two) times daily with meals. 60 tablet 3 Active pregabalin (LYRICA) 100 MG capsuleIndications: Neuropathy Take 1 capsule (100 mg total) by mouth 2 (two) times daily. 30 capsule 4 Active Active Problems Problem Noted Date Diagnosed Date Rhabdomyolysis 01/23/2023 Hyperglycemia 12/06/2021 Immunizations Name Administration Dates Next Due Tdap (Boostrix) 10/29/2017 Family History Medical History Relation Comments Cancer Father Heart Disease Father Hypertension Father Stroke Father Diabetes Mother Relation Status Comments Father stomach Mother Alive Social History Tobacco Use Types Packs/Day Years Used Date Smoking Tobacco: Never Smokeless Tobacco: Never Alcohol Use Standard Drinks/Week Comments Not Currently 0 (1 standard drink = 0.6 oz pur e alcohol) Rarely Sex and Gender Information Value Date Recorded Sex Assigned at Not on file Legal Sex Male 8:02 PM CDT Gender Identity Not on file Sexual Orientation Not on file Last Filed Vital Signs Vital Sign Reading Time Taken Comments Blood Pressure 126/81 12/20/2023 7:50 PM CDT Pulse 71 12/20/2023 1:44 PM CDT Temperature 36.7 ??C (98.1 ??F) 12/20/2023 1:44 PM CD T Respiratory Rate 18 12/20/2023 1:44 PM CDT Oxygen Saturation 98% 12/20/2023 7:50 PM CDT Inhaled Oxygen Concentration - - Weight 91.2 kg (201 lb) 12/20/2023 1:44 PM CDT Height 182.9 cm (6') 12/20/2023 1:44 PM CDT Body Mass Index 27.26 12/20/2023 1:44 PM CDT Plan of Treatment Health Maintenance Due Date Last Done Comments Colorectal Cancer Screening Colonoscopy (10 Years) 1976 Annual Physical 1979 Hepatitis C 1994 Hepatitis B Vaccines (1 of 3 - 19+ 3-dose series) 1995 COVID-19 Vaccine (2023-2 5 season) 2024 Influenza Adult (#1) 2024 DTaP, Tdap and Td Vaccines ( 2 - Td or Tdap) 10/29/2027 10/29/2017 Meningococcal Vaccine Aged Out No evelia daphney eligible based on patient's age to complete this topic Pneumococcal Vaccine: Pediat rics (0 to 5 Years) and At-Risk Patients (6 to 64 Years) Aged Out No longer eligi ble based on patient's age to complete this topic RSV Immunizations Under 20 Months Aged Out No longer eligible based on patient's age to complete this topic Goals Goal Patient Goal Type Associated Problems Recent Progress Patient-Stated? Author Health - patient able to perform ADLs independently General No Juanita Dick RN Insurance SIDDIQU[employer] Advance Directives * Full Code (Latest Code Status on File) Date Activated Date Inactivated Comments 01/23/2023 10:54 AM 01/24/2023 3:59 PM * Full Code Date Activated Date Inactivated Comments 12/06/2021 7:17 PM 12/07/2021 5:02 PM Care Teams Adoption Worker Relationship Specialty Start Date End Date Ellis Carter MD [address] [phone] PCP - General FAMILY PRACTICE 01/24/23
--- OUTSIDE RECORDS SUMMARY | 2024-10-18 04:54 | XMS_ITS | Referral Summary ---
Author Organization [facility] Address [address] [place] [address] Care Team Providers Care Technical Training Manager Name Role Phone No, Physician Primary Care Provider [phone] Allergies Active Allergy Reactions Criticality Noted Date Comments Insulin Lispro Hives Medium 04/08/2023 Medications Omnipod Dash Insulin Pod cartridge CHANGE POD EVERY 3 DAYS 12/14/19 22 Active amoxicillin-clavul anate (AUGMENTIN) 875-125 mg per tablet 07/06/20 22 Active famotidine (PEPCID) 20 mg tablet Take 1 tablet (20 mg total) by mouth 2 (two) times a day 07/04/20 22 Active Omnipod Classic Pods, Gen 3, cartridge CHANGE POD EVERY 3 DAYS 06/21/20 22 Active ondansetron ODT (ZOFRAN-ODT) 4 mg disintegrating tablet DISSOLVE 1 TABLET IN MOUTH EVERY 8 HOURS NEEDED 07/04/20 22 Active insulin pump cart,cont inf,BT (Omnipod Dash Pods, Gen 4,) cartridgeIndicatio ns:Type 2 diabetes mellitus with hyperglycemia, with long-term current use of insulin (HCC) Use 1 pod every 3 days, Will need 6 boxes for a 90 day supply. [facility] [id number] 6 each 3 07/19/20 22 Active blood-glucose transmitter (Dexcom G6 Transmitter) deviceIndications: Type 2 diabetes mellitus with hyperglycemia, with long-term current use of insulin (HCC) Will use 1 transmitter every 90 days 1 each 3 05/24/20 23 Active blood-glucose sensor (Dexcom G6 Sensor) deviceIndications: Type 2 diabetes mellitus with hyperglycemia, with long-term current use of insulin (HCC) Will use 1 sensor every 10 days. 1 box = 3 sensors. 1 each 05/24/20 Active insulin aspart (NovoLOG) 100 unit/mL vial for injection Inject subq continously via insulin pump Max TDD 75u daily 30 mL 05/24/20 Active insulin pump cart,auto,BT-cntr (Omnipod 5 G6 Intro Kit, Gen 5,) cartridgeIndicatio ns:Type 2 diabetes mellitus with hyperglycemia, with long-term current use of insulin ([facility]) To change POD once every 3 days. 1 each 08/05/20 Active insulin pump cart,automated,BT (Omnipod 5 G6 Pods, Gen 5,) cartridgeIndicatio ns:Type 2 diabetes mellitus with hyperglycemia, with long-term current use of insulin ([facility]) To change POD every 3 days. 10 each 08/05/20 Active insulin aspart (NovoLOG) 100 unit/mL (3 mL) pen for injection Inject 15 Units under the skin 3 (three) times a day with meals 13.5 mL 08/05/20 Active Trulicity 1.5 mg/0.5 mL pen injector INJECT 1/2 (ONE-HALF) ML SUBCUTANEOUSLY ONCE A WEEK 4 mL 10/11/19 24 Active fluconazole (DIFLUCAN) 50 mg tablet Take 1 tablet by mouth once daily for 7 days 7 tablet 12/27/19 24 Active LANTUS 100 unit/mL (3 mL) pen for injection Inject 30 units once daily when not on insulin pump 15 mL 05/11/20 Active OneTouch Verio test strips strip Use to test BG when off of Dexcom or to check accuracy. 100 strip 05/11/20 Active pregabalin (LYRICA) 150 mg capsuleIndications :Polyneuropathy associated with underlying disease ([facility]) Take 2 capsules (300 mg total) by mouth daily 60 capsule 5 05/29/20 24 025 Active Active Problems Problem Noted Date Diagnosed Date Mixed hyperlipidemia 04/08/2023 Type 2 diabetes mellitus wit h hyperglycemia, with long-term current use of insulin 07/16/[address] 07/08/2022 Hyperglycemia 12/06/2021 Social History Tobacco Use Types Packs/Day Years Used Date Smoking Tobacco: Never Smokeless Tobacco: Never Tobacco Cessation:Counseling Given: Not Answered AUDIT-C Answer Date Recorded Q1: How often do you have a drink containing alc ohol? 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 Gender Identity Not on file Sexual Orientation Not on file Last Filed Vital Signs Vital Sign Reading Time Taken Comments Blood Pressure 153/96 05/11/2024 2:31 PM CDT Pulse 74 05/11/2024 2:31 PM CDT Temperature 36.8 ??C (98.2 ??F) 05/11/2024 2:31 PM CD T Respiratory Rate - - Oxygen Saturation 98% 05/13/2017 7:28 PM CDT Inhaled Oxygen Concentration - - Weight 95.4 kg (210 lb 6.4 oz) 05/11/2024 2:31 P M CDT Height 182.9 cm (6') 05/11/2024 2:31 PM CDT Body Mass Index 28.54 05/11/2024 2:31 PM CDT Plan of Treatment Not on file Procedures Procedure Name Priority Date/Time Associated Diagnosis Comments EGFR Routine 05/11/2024 4:06 PM CDT Type 2 diabetes mellitus with hyperglycemia, with long-term current use of insulin (HCC) LIPID PANEL Routine 05/11/2024 4:06 PM CDT Type 2 diabetes mellitus with hyperglycemia, with long-term current use of insulin (HCC) ALBUMIN CREATININE RATIO, URINE Routine 05/11/2024 4:06 PM CDT Type 2 diabetes mellitus with hyperglycemia, with long-term current use of insulin (HCC) POCT HEMOGLOBIN A1C Routine 05/11/2024 2 :36 PM CDT Type 2 diabetes mellitus with hyperglycemia, with long-term current use of insulin (HCC) from Last 3 Months or Most Recently Relevant to Health Maintenance Results * eGFR (05/11/2024 4:06 PM CDT) eGFR 84 >=60 mL/min/1. 73 m2 Comment: Interpretive Data Reference Interval Normal ?>/= 90 mL/min/1.73m2 Mildly decreased* ? 60 - 89 mL/min/1.73m2 Mildly to moderately decreased ?45 - 59 mL/min/1.73m2 Moderately to severely decreased ??30 - 44 mL/min/1.73m2 Severely decreased ?15 - 29 mL/min/1.73m2 Kidney Failure ?< 15 ??mL/min/1.73m2 *Relative to young adult level Estimated glomerular filtration rate is determined by the 2020 CKD-EPI equation recommended by the National Kidney Foundation (A Unifying Approach to GFR Estimation: Recommendations of the NKF-ASK Task Force on Reassessing the Inclusion of Race in Diagnosing Kidney Disease, JASN 2020). The CKD-EPI equation should not be used for patients with unstable renal function and has not been validated in children and those over 70. Current interpretive data was last reviewed 2021. Blood 05/11/2024 4:06 PM CDT 05/11/2024 4:44 PM CDT us Notinfile Unknown LAB BLOOD ORDERABLES Final Res ult [facility] Department of Laboratories [place], [place] [id number] * Albumin Creatinine Ratio, Urine (05/11/2024 4:06 PM CDT) Albumin Ur 15.6 mg/L Comment: Interpretive Data No reference range established. Current interpretive data was last revised 2019. Creatinine Ur 67.7 mg/dL [facility] Comment: Interpretive Data No reference range established. Current interpretive data was last revised 2019. Albumin Creatinine Ratio, Ur 23 1 - 29 mg/g [facility] Urine 05/11/2024 4:06 PM CDT 05/11/2024 4:32 PM CDT us Elizabeth Cardenas MD LAB URINE ORDERABLES Final Res ult [facility] Department [place] [address] * Lipid panel (05/11/2024 4:06 PM CDT) Cholesterol 165 30 - 199 mg/dL Comment: Interpretive Data Ages < or = 19 years ??Acceptable: ? <170 mg/dL ??Borderline high: ??170-199 mg/dL ??High: ? >or= 200 mg/dL Ages > or = 20 years ??Desirable: ?<200 mg/dL ??Borderline high: ??200-239 mg/dL ??High: ? >or= 240 mg/dL Literature References: 1. Expert Panel on Integrated Guidelines for Cardiovascular Health and Risk Reduction in Children and Adolescents. Pediatrics 2011;128:S213 2. NCEP Expert Panel. Circulation 2004;110:227 Current Interpretive Data was last revised on 2018. Triglycerides 108 <=149 mg/dL [facility] Comment: Interpretive Data Ages < or = 9 years ??Acceptable: ? <75 mg/dL ??Borderline high: ??75-99 mg/dL ??High: ? >or= 100 mg/dL Ages 10 to 20 years ??Acceptable: ? <90 mg/dL ??Borderline high: ??90-129 mg/dL ??High: ? >or= 130 mg/dL Ages > or = 20 years ??Desirable: ?<150 mg/dL ??Borderline high: ??150-199 mg/dL ??High: ? 200-499 mg/dL ?Very high: ?? >or= 499 mg/dL Literature References: 1. Expert Panel on Integrated Guidelines for Cardiovascular Health and Risk Reduction in Children and Adolescents. Pediatrics 2011;128:S213 2. NCEP Expert Panel. Circulation 2004;110:227 Current Interpretive Data was last revised on 2018. HDL 54 >=40 mg/dL [facility] Comment: Interpretive Data Ages < or = 19 years ??Acceptable: ? >45 mg/dL ??Borderline low: ?? 40-45 mg/dL ??Low: ? <40 mg/dL Ages > or = 20 years ??Desirable: ?>or= 60 mg/dL ??Low: ? <40 mg/dL Literature References: 1. Expert Panel on Integrated Guidelines for Cardiovascular Health and Risk Reduction in Children and Adolescents. Pediatrics 2011;128:S213 2. NCEP Expert Panel. Circulation 2004;110:227 Current Interpretive Data was last revised on 2018. LDL, calculated 89 <=129 mg/dL [facility] Comment: Interpretive Data Ages < or = 19 years ??Acceptable: ? <110 mg/dL ??Borderline high: ??110-129 mg/dL ??High: ?>or= 130 mg/dL Ages > or = 20 years ??Optimal: ? <100 mg/dL ??Near optimal: ?100-129 mg/dL ??Borderline high: ?? 130-159 mg/dL ??High: ?>160 mg/dL Literature References: 1. Expert Panel on Integrated Guidelines for Cardiovascular Health and Risk Reduction in Children and Adolescents. Pediatrics 2011;128:S213 2. NCEP Expert Panel. Circulation 2004;110:227 Current Interpretive Data was last revised on 2018. Non-HDL Cholesterol 111 mg/dL [facility] Comment: Interpretive Data Ages < or = 19 years ??Acceptable: ?<120 mg/dL ??Borderline high: ??120-144 mg/dL ??High: ?>145 mg/dL Ages > or = 20 years ??When triglycerides are >200 mg/dL, Non-HDL cholesterol is a secondary target of ? therapy with treatment goals that are 30 mg/dL greater than the LDL cholesterol target. ? Literature References: 1. Expert Panel on Integrated Guidelines for Cardiovascular Health and Risk Reduction in Children and Adolescents. Pediatrics 2011;128:S213 2. NCEP Expert Panel. Circulation 2004;110:227 Current Interpretive Data was last revised on 2018. Chol/HDL ratio 3 [facility] Blood 05/11/2024 4:06 PM CDT 05/11/2024 4:32 PM CDT Narrative [facility] - 05/11/2024 5:13 PM CDT These lab test should be done fasting. This means do not eat or drink for at least 12 hours prior to getting your blood drawn. Elizabeth Cardenas MD LAB BLOOD ORDERABLES Final Res ult [facility] Department [place] [address] * POCT hemoglobin A1c (05/11/2024 2:36 PM CDT) Hemoglobin A1C, POC 9.6 4.0 - 5.6 % Blood 05/11/2024 2:36 PM CDT Elizabeth Cardenas MD POINT OF CARE TEST ORDERABLES Final Result from Last 3 Months or Most Recently Relevant to Health Maintenance Insurance [facility] Care Teams Technical Training Manager Relationship Specialty Start Date End Date No, Physician PCP - General 05/11/24
--- OUTSIDE RECORDS SUMMARY | 2024-10-18 04:54 | XMS_ITS | Clinical Summary ---
Author Organization [facility] Address [address] [place] [id number] Care Team Providers Care Lamp Shade Sewer Name Role Phone No, Physician Primary Care Provider [phone] Allergies Active Allergy Reactions Criticality Noted Date [...] 6 boxes for a 90 day supply. [facility] [id number] 6 each 3 07/19/20 22 Active blood-glucose [...] hyperglycemia, with long-term current use of insulin ([facility]) To change POD once every 3 days. 1 each 08/05/20 Active insulin pump cart,automated,BT (Omnipod 5 G6 Pods, Gen 5,) cartridgeIndicatio ns:Type 2 diabetes mellitus with hyperglycemia, with long-term current use of insulin ([facility]) To change POD every 3 days. 10 [...] or to check accuracy. 100 strip 05/11/20 24 Active pregabalin (LYRICA) 150 mg capsuleIndications :Polyneuropathy associated with underlying disease (HCC) Take 2 capsules (300 mg total) by mouth daily 60 capsule 5 05/29/20 24 025 Active Active Problems Problem Noted Date Diagnosed Date Mixed hyperlipidemia 04/08/2023 Type 2 diabetes mellitus wit h hyperglycemia, with long-term current use of insulin 07/16/[address] 07/08/2022 Hyperglycemia 12/06/2021 Medical History Medical History Date Comments Diabetes mellitus (HCC) 02/2021 Family History Medical History Relation Name Comments Stomach cancer Father Relation Name Status Comments Father Social History Tobacco Use Types Packs/Day Years [...] on file 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 Gender Identity Not on file Sexual Orientation Not on file Obstetrics History Last Filed Vital Signs Vital Sign Reading [...] 05/11/2024 2:31 PM CDT Plan of Treatment Health Maintenance Due Date Last Done Comments Colon Cancer Screening-Colonoscopy 1976 Depression Screening 1976 Hepatitis C Screening 1976 Prostate Cancer Screening-PSA 1976 Dilated Eye Exam 1976 Foot Exam 1976 Pneumococcal vaccine <65 (1 of 2 - PCV) 1982 Hepatitis B Screening 1994 Regular Well Visit/Exam 18-64 1994 Influenza Vaccine (#1) 2024 Hemoglobin A1C 11/11/2024 05/11/2024, 05, 08/05/2023, Additional history exists Albumin Creatinine Ratio, Urine 05/11/2025 , 04/08/2023 Lipid Panel 05/11/2025 05/11/2024, 07/07/2022 eGFR 05/11/2025 05/11/2024, 07/07/2022 DTaP/Tdap/Td Vaccine (2 - Td or Tdap) 10/29/2027 10/29/2017 Procedures Procedure Name Priority Date/Time Associated Diagnosis [...] Unknown LAB BLOOD ORDERABLES Final Res ult Performing Organization Address [facility] de Phone Number [facility] [place] [address] * Albumin Creatinine Ratio, Urine (05/11/2024 4:06 PM CDT) Albumin Ur 15.6 mg/L Comment: Interpretive Data No reference range established. Current interpretive data was last revised 2019. Creatinine Ur 67.7 mg/dL [facility] Comment: Interpretive Data No reference range established. Current interpretive data was last revised 2019. Albumin Creatinine Ratio, Ur 23 1 - 29 mg/g [facility] Urine 05/11/2024 4:06 PM CDT 05/11/2024 4:32 PM CDT Elizabeth Cardenas MD LAB URINE ORDERABLES Final Res ult Performing Organization Address [facility] de Phone Number [facility] [place] [address] * Lipid panel (05/11/2024 4:06 PM CDT) [...] revised on 2018. Triglycerides 108 <=149 mg/dL [facility] Comment: Interpretive Data Ages < [...] on 2018. HDL 54 >=40 mg/dL [facility] Comment: Interpretive Data Ages < [...] on 2018. LDL, calculated 89 <=129 mg/dL [facility] Comment: Interpretive Data Ages < [...] revised on 2018. Non-HDL Cholesterol 111 mg/dL [facility] Comment: Interpretive Data Ages < [...] last revised on 2018. Chol/HDL ratio 3 [facility] Blood 05/11/2024 4:06 PM CDT 05/11/2024 4:32 PM CDT Narrative [facility] - 05/11/2024 5:13 PM CDT These lab test should be done fasting. This means do not eat or drink for at least 12 hours prior to getting your blood drawn. us Elizabeth Cardenas MD LAB BLOOD ORDERABLES Final Res ult [facility] Department [place] [address] * POCT hemoglobin A1c (05/11/2024 2:36 PM CDT) Hemoglobin A1C, POC 9.6 4.0 - 5.6 % Blood 05/11/2024 2:36 PM CDT us Elizabeth Cardenas MD POINT OF CARE TEST ORDERABLES Final Result from Last 3 Months or Most Recently Relevant to Health Maintenance Insurance [facility] Care Teams Lamp Shade Sewer Relationship Specialty Start Date End Date No, Physician PCP - General 05/11/24
--- OUTSIDE RECORDS SUMMARY | 2024-10-18 04:54 | XMS_ITS | Referral Summary ---
Author Organization [facility] [employer] Address [address] [place] [address] Care Team Providers Care Historic Sites Registrar Name Role Phone Unavailable Primary Care Provider Unavailabl e Source Comments [facility],non-owned Affiliates and Associated Physician Practices is amultiple site organization consisting of ambulatory clinics and hospital sitesin [place], [place], [place] and [place]. This disclosure is being madepursuant to the Care Everywhere program and may not contain all information available regarding this patient. Last updated 18.[facility] [employer] Allergies No known active allergies Medications * Be aware that medications may not be up to date on this document. Alwaysverify current medications with the patient. Medication Sig Dispensed Refills Start Date End Date Status hydrocodone-acetaminop hen 5-500 MG tablet Take 1-2 Tabs by mouth 4 times daily as needed for Pain. 20 Tab 0 07/22/2013 Active ibuprofen (MOTRIN) 800 MG tablet Take 1 Tab by mouth 3 times daily as needed for Pain. 20 Tab 0 07/22/2013 Active Social History Tobacco Use Types Packs/Day Years Used Date Smoking Tobacco: Never Alcohol Use Standard Drinks/Week Comments Yes 0 (1 standard drink = 0.6 oz pur e alcohol) occasional Sex and Gender Information Value Date Recorded Sex Assigned at Not on file Gender Identity Not on file Sexual Orientation Not on file Last Filed Vital Signs Vital Sign Reading Time Taken Comments Blood Pressure 135/80 07/22/2013 3:09 PM CDT Pulse 90 07/22/2013 3:09 PM CDT Temperature 36.7 ??C (98.1 ??F) 07/22/2013 1:41 PM CD T Respiratory Rate 16 07/22/2013 3:09 PM CDT Oxygen Saturation 99% 07/22/2013 1:41 PM CDT Inhaled Oxygen Concentration - - Weight 90.7 kg (200 lb) 07/22/2013 1:41 PM CDT Height 182.9 cm (6') 07/22/2013 1:41 PM CDT Body Mass Index 27.12 07/22/2013 1:41 PM CDT Plan of Treatment Not on file Guarantor Name Account Type Relation to Patient Date of Phone Billing Address JAMIN LEDEZMA Personal/Family [address] [place] [address] JAMIN LEDEZMA Personal/Family [address] [place] [address] JAMIN LEDEZMA Personal/Family Spouse [address] [place] [address] Jamin Ledezma Personal/Family Self 1975 [address] [place] [phone]
--- OUTSIDE RECORDS SUMMARY | 2024-10-18 04:54 | XMS_ITS | Patient Health Summary ---
Author Organization [facility] [employer] Address [address] [place] [address] Care Team Providers Care Cardiac Care Nurse Name Role Phone Unavailable Primary Care Provider Unavailabl e Note from [facility],non-owned Affiliates and Associated Physician Practices is amultiple site organization consisting of ambulatory clinics and hospital sitesin [place], [place]. This disclosure is being madepursuant to the Care Everywhere program and may not contain all information available regarding this patient. Last updated 18.[facility] [employer] Allergies No known active allergies Medications * Be aware that medications may not be up to date on this document. Alwaysverify current medications with the patient. * hydrocodone-acetaminophen 5-500 MG tablet(Started 07/22/2013) Take 1-2 Tabs by mouth 4 times daily as needed for Pain. * ibuprofen (MOTRIN) 800 MG tablet(Started 07/22/2013) Take 1 Tab by mouth 3 times daily as needed for Pain. Social History Tobacco Use Types Packs/Day Years [...]
--- OUTSIDE RECORDS SUMMARY | 2024-10-18 04:54 | XMS_ITS | Clinical Summary ---
Author Organization [facility] [employer] Address [address] [place] [address] Care Team Providers Care Senior Procurement Manager Name Role Phone Unavailable Primary Care Provider Unavailabl e Source Comments [facility] [employer],non-owned Affiliates and Associated Physician Practices is amultiple site organization consisting of ambulatory clinics and hospital sitesin [place], [place], [place] and [place]. This disclosure is being madepursuant to the Care Everywhere program and may not contain all information available regarding this patient. Last updated 18.[facility] [employer] Allergies No known active allergies Medications * [...] 07/22/2013 1:41 PM CDT Plan of Treatment Health Maintenance Due Date Last Done Comments COLOGUARD (AGES 45-75) - COL ON CA SCREENING 1976 COLON MONITORING 1976 COLONOSCOPY - COLON CA SCREENING 1976 CT COLONOGRAPHY - COLON CA SCREENING 1976 Colorectal Cancer Screening 1976 FIT - COLON CA SCREENING 1976 FLEX SIG - COLON CA SCREENING 1976 LIPID TESTING 1976 HIV SCREENING 1991 HEPATITIS C SCREENING 09/18/1994 DTAP/TDAP/TD VACCINES (1 - Tdap) 1995 HEPATITIS B VACCINE (1 of 3 - 19+ 3-dose series) 1995 COVID-19 VACCINE (1 - 2023-2 5 season) 2024 INFLUENZA VACCINE (#1) 2024 DEPRESSION SCREENING 09/26/2024 ZOSTER VACCINE (1 of 2) 2026 HIB VACCINE Aged Out No longer eligi ble based on patient's age to complete this topic HPV VACCINE Aged Out No longer eligi ble based on patient's age to complete this topic MENINGOCOCCAL (Group B) VACCINE Aged Out No longer eligible based on patient's age to complete this topic MENINGOCOCCAL VACCINE Aged Out No evelia daphney eligible based on patient's age to complete this topic PNEUMOCOCCAL VACCINE Aged Out No long er eligible based on patient's age to complete this topic Guarantor Name Account Type Relation to Patient Date of Phone Billing Address JAMIN LEDEZMA Personal/Family [address] [place] [address] JAMIN LEDEZMA Personal/Family [address] [place] [address] JAMIN LEDEZMA Personal/Family Spouse [address] [place] [address] Jamin Ledezma Personal/Family Self 1975 [address] [place] [address]
--- OUTSIDE RECORDS SUMMARY | 2024-10-18 04:54 | XMS_ITS | Encounter Summary ---
Author Organization [facility] Address [facility] [place] [address] [place] [address] Care Team Providers Care Tray Packer Name Role Phone None, Provider Primary Care Provider Unavaila Morro Bullock MD Primary Care Provider None, Provider Primary Care Provider Unavaila nadine None, Provider Primary Care Provider Unavaila Ellis Blackwell MD Primary Care Provider [phone] Encounter Details Date Type Department Care Team (Late st Contact Info) Description 03/20/2021 Automatic Agency Message [facility] Patient Accounts [address] [place] [address] [facility] Provider [facility] Patient Financial Services Social History Tobacco Use Types Packs/Day Years Used Date Smoking Tobacco: Never Smokeless Tobacco: Never Alcohol Use Standard Drinks/Week Comments Yes 0 (1 standard drink = 0.6 oz pur e alcohol) Rarely Sex and Gender Information Value Date Recorded Sex Assigned at Not on file Legal Sex Male 8:02 PM CDT Gender Identity Not on file Sexual Orientation Not on file COVID-19 Exposure Response Date Recorded In the last month, have you been in contact with someone who was confirmed or suspected to have Coronavirus / COVID-19? No / Unsure 03/21/2021 7:58 PM CDT documented as of this encounter Plan of Treatment Not on file documented as of this encounter Visit Diagnoses Not on filedocumented in this encounter Additional Health Concerns Infection Onset Date Last Indicated Resolved Time COVID-19 Rule Out 05/13/2021 05/13/2021 05/15/2021 12:31 AM CDT COVID-19 Rule Out 05/20/2021 05/20/2021 05/22/2021 10:25 AM CDT COVID-19 Confirmed 05/20/2021 05/20/2021 12:35 AM CDT COVID-19 Rule Out 08/04/2022 08/04/2022 08/04/2022 3:30 PM [employer]CH[employer]ICAL [employer]UCATION TE[employer]ER COVID-19 Rule Out 02/28/2023 02/28/2023 02/28/2023 9:20 PM CDT documented as of this encounter Care Teams Tray Packer Relationship Specialty Start Date End Date None, Provider, PCP - General 04/21/20 12/05/21 Morro Ritter MD [address] [facility] [phone] PCP - General FAMILY PRACTICE 12/06/21 05/18/22 None, Provider, PCP - General 05/19/22 07/03/22 None, Provider, PCP - General 07/04/22 01/23/23 Ellis Carter MD [address] [facility] [phone] PCP - General FAMILY PRACTICE 01/24/23 documented as of this encounter
--- OUTSIDE RECORDS SUMMARY | 2024-10-18 04:54 | XMS_ITS | Data Portability ---
Author Organization KEENA Maegan ARMAS Address [address] [facility] [place] [address] Care Team Providers Care Upholsterer Assembly Line Name Role Phone YENNY MANN Computer Service Technician MARLENA FENTON Primary Care Provider Assessment No assessment recorded. Plan of Treatment Reminders Order Date Submit Date Provider Last Modified By Organization Details Last Modified Time Details Appointments None recorded. Lab culture, urine 2021 022 [facility], [address], [address], [place], [address], 2 07:11:22 urinalysis, dipstick 2021 022 [email or web address] In-Office Order, Internal Use Only DO Not Attach Compendium DO Not Attach Compendium, Do Not Delete/merge, [id number] 17:17:12 HbA1c (hemoglobin A1c), blood 2022 023 STACEY In-Office Order, Internal Use Only DO Not Attach Compendium DO Not Attach Compendium, Do Not Delete/merge, [id number] 15:24:30 CMP, serum or plasma 2022 023 [facility], [address], [address], [place], [address], 3 12:04:30 CK (creatine kinase), total, serum 2022 023 [facility], [address], [address], [place], [address], 3 04:10:01 renal function panel, serum 2022 023 [facility], [address], [place], [address], 3 20:08:41 glucose, fingerstick , blood 2022 023 [email or web address] 90 In-Office Order, Internal Use Only DO Not Attach Compendium DO Not Attach Compendium, Do Not Delete/merge, [id number] 14:08:48 Referral None recorded. Procedures None recorded. Surgeries None recorded. Imaging None recorded. Medication Orders Bactrim DS 800 mg-160 mg tablet 2021 022 [facility], [address], [address], 2 13:17:25 Bactrim DS 800 mg-160 mg tablet 2021 022 [facility], [address], [address], 2 18:00:02 gabapentin 300 mg capsule 2022 023 [facility], [address], [address], 3 12:02:25 Patient TargetsNo targets recorded. Patient Instructions Encounter Date Encounter Id Patient Instructions Last Modified By Organization Details Last Modified Time 07/02/2022 [id number] I was present an d available in the Family Medicine clinic to discuss this patient's care for the duration of the appointment. I agree with the resident's assessment and plan as documented with the following addendum: None. Dr. Brenna Gunderson MD Attending Physician, [facility]. [email or web address] Not available 07/06/2022 16:14:36 09/02/2022 [id number] I was present an d available in the family medicine clinic to discuss the patient's care during the appointment. I agree with the resident's assessment and plan as documented. Ellis Carter [email or web address] Not available 09/10/2022 11:26:41 10/06/2022 [id number] I certify that I was present and available for case discussion in the Family Medicine preceptor room at the time of this encounter. I have reviewed the note and agree with the findings, assessment, and plan. Follow up as listed. All labs/imaging/cons ults to be followed by the ordering provider. [email or web address] Not available 10/10/2022 09:45:03 01/28/2023 [id number] I was present an d available in the Family Medicine clinic to discuss this patient's care for the duration of the appointment. I agree with the resident's assessment and plan as documented with the following addendum: None. Dr. Brenna Gunderson MD Attending Physician, [facility]. Not available 02/02/2023 10:01:46 Reason for Referral None Reported. Results Created Date Observation Date Name Description Value Unit Range Abnormal Flag Note LastModifiedBy Organization Detail LastModifiedTime 06/22/2006/22/2022 HbA1c (hemo globi n A1c), blood HbA1c 9.7 Not Available In-Office Order Internal Use Only DO Not Attach Compendium DO Not Attach Compendium, Do Not Delete/merge, [id number] 06/22/2022 17:29:58 07/02/2007/06/2022 URINE CULTU TIFFANIE HOUSE urine culture, routine Final report abnormal Not Available [facility] ([facility]) [address], [place], [address], 07/06/2022 07:11:22 07/02/2007/06/2022 URINE CULTU TIFFANIE HOUSE result 1 Commen t abnormal Beta hemol ytic Strep tococ cus, group B Great er than 100,0 00 colon y formi ng units per mL Penic illin and ampic illin are drugs of choic e for treat ment of beta- hemol ytic strep tococ bean infec tions . Susce ptibi lity testi ng of penic illin s and other beta- lacta m agent s appro lalo by the FDA for treat ment of beta- hemol ytic strep tococ bean infec tions need not be perfo rmed routi jeny becau se nonsu scept ible isola jadyn are extre vandana rare in any beta- hemol ytic strep tococ cus and have not been repor julianna for Strep tococ cus pyoge jamison (grou p A). (CLSI ) Not Available [facility] ([facility]) [address], [place], [address], 07/06/2022 07:11:22 07/02/20 22 07/02/2022 urina lysis , dipst ick Leukocytes Large Not Available In-Offi ce Order Internal Use Only DO Not Attach Compendium DO Not Attach Compendium, Do Not Delete/merge, [id number] 07/02/2022 17:25:21 07/02/20 22 07/02/2022 urina lysis , dipst ick Nitrite negati ve Not Available In-Office Order Internal Use Only DO Not Attach Compendium DO Not Attach Compendium, Do Not Delete/merge, [id number] 07/02/2022 17:25:21 07/02/20 22 07/02/2022 urina lysis , dipst ick Urobilinogen 2 Not Available In-Of fice Order Internal Use Only DO Not Attach Compendium DO Not Attach Compendium, Do Not Delete/merge, [id number] 07/02/2022 17:25:21 07/02/20 22 07/02/2022 urina lysis , dipst ick Protein 300 Not Available In-Office Order Internal Use Only DO Not Attach Compendium DO Not Attach Compendium, Do Not Delete/merge, [id number] 07/02/2022 17:25:21 07/02/20 22 07/02/2022 urina lysis , dipst ick pH 6.0 Not Available In-Office Order Internal Use Only DO Not Attach Compendium DO Not Attach Compendium, Do Not Delete/merge, [id number] 07/02/2022 17:25:21 07/02/20 22 07/02/2022 urina lysis , dipst ick Blood Large Not Available In-Office Order Internal Use Only DO Not Attach Compendium DO Not Attach Compendium, Do Not Delete/merge, [id number] 07/02/2022 17:25:21 07/02/20 22 07/02/2022 urina lysis , dipst ick Specific [place] 1.030 Not Available In-Off ice Order Internal Use Only DO Not Attach Compendium DO Not Attach Compendium, Do Not Delete/merge, [id number] 07/02/2022 17:25:21 07/02/20 22 07/02/2022 urina lysis , dipst ick Ketone Negati ve Not Available In-Office Order Internal Use Only DO Not Attach Compendium DO Not Attach Compendium, Do Not Delete/merge, [id number] 07/02/2022 17:25:21 07/02/20 22 07/02/2022 urina lysis , dipst ick Bilirubin Negati ve Not Available In-Office Order Internal Use Only DO Not Attach Compendium DO Not Attach Compendium, Do Not Delete/merge, [id number] 07/02/2022 17:25:21 07/02/20 22 07/02/2022 urina lysis , dipst ick Glucose 500 Not Available In-Office Order Internal Use Only DO Not Attach Compendium DO Not Attach Compendium, Do Not Delete/merge, [id number] 07/02/2022 17:25:21 07/02/20 22 07/02/2022 urina lysis , dipst ick Appearance Turbid Not Available In-Offi ce Order Internal Use Only DO Not Attach Compendium DO Not Attach Compendium, Do Not Delete/merge, [id number] 07/02/2022 17:25:21 07/02/20 22 07/02/2022 urina lysis , dipst ick Color Dark Yellow Not Available In-Office Order Internal Use Only DO Not Attach Compendium DO Not Attach Compendium, Do Not Delete/merge, [id number] 07/02/2022 17:25:21 10/06/19 23 10/06/2022 HbA1c (hemo globi n A1c), blood HbA1c 9.0 Not Available In-Office Order Internal Use Only DO Not Attach Compendium DO Not Attach Compendium, Do Not Delete/merge, [id number] 10/05/2022 16:03:08 01/29/20 23 01/28/2023 RENAL PANEL (10) glucose 306 mg/dL 65-99 above high normal Not Available [facility] [address] [place] [address], [address], 01/28/2023 20:08:41 01/29/20 23 01/28/2023 RENAL PANEL (10) BUN 8 mg/dL 8-26 Not Available [facility] [address] [place], [address], 01/28/2023 20:08:41 01/29/20 23 01/28/2023 RENAL PANEL (10) creatinine 0.92 mg/dL 0.50-1 .40 Not Available [facility] [address] [place] [address], [address], 01/28/2023 20:08:41 01/29/20 23 01/28/2023 RENAL PANEL (10) eGFR 104 mL/mi n/1.7 3 >=60 Not Available [facility] [address] [place], [address], 01/28/2023 20:08:41 01/29/20 23 01/28/2023 RENAL PANEL (10) BUN/creatini ne ratio 9.0 Not Available [facility] Department [address] [place], [address], 01/28/2023 20:08:41 01/29/20 23 01/28/2023 RENAL PANEL (10) sodium 140.0 mmol/ L 136.0- 144.0 Not Available [facility] [address] [place], [address], 01/28/2023 20:08:41 01/29/20 23 01/28/2023 RENAL PANEL (10) potassium 4.5 mmol/ L 3.5-5. 3 Not Available [facility] [address] [place], [address], 01/28/2023 20:08:41 01/29/20 23 01/28/2023 RENAL PANEL (10) chloride 104 mmol/ l 101-11 1 Not Available [facility] [address] [place] [address], [address], 01/28/2023 20:08:41 01/29/20 23 01/28/2023 RENAL PANEL (10) carbon dioxide, total 27.1 mmol/ L 21.0-3 2.0 Not Available [facility] [address] [place], [address], 01/28/2023 20:08:41 01/29/20 23 01/28/2023 RENAL PANEL (10) calcium 9.3 mg/dL 8.2-10 .0 Not Available [facility] [address] [place] [address], [address], 01/28/2023 20:08:41 01/29/20 23 01/28/2023 RENAL PANEL (10) phosphorus 3.7 mg/dL 2.7-4. 5 Not Available [facility] [address] [place] [address], [address], 01/28/2023 20:08:41 01/29/20 23 01/28/2023 RENAL PANEL (10) albumin 4.4 g/dL 3.5-5. 5 Not Available [facility] [address] [place], [address], 01/28/2023 20:08:41 01/29/20 23 01/29/2023 CREAT INE KINAS E,TOT AL creatine kinase,total 471 U/L 49-439 above high normal Not Available [facility] ([facility]) [address], [place], [address], 01/29/2023 04:10:01 02/01/20 23 01/31/2023 gluco se, finge rstic k, blood Blood Glucose: mg/dl 301 Not Available In-Off ice Order Internal Use Only DO Not Attach Compendium DO Not Attach Compendium, Do Not Delete/merge, [id number] 01/31/2023 09:37:54 02/29/20 23 02/28/2023 URINE CULTU RE header [facility] [place] [place] [address] Patie nt:TRACEY JASMINE 2305 Med Rec#: [id number] Order ing MD: DOUG BOSE : [birth year] Sex: M Locat ion: SEOER Test: URINE CULTU RE Colle ct Date: 02-28 20:30 Acces isai #: [id number] Not Available [facility] [address] [place]? [address] [facility], [place], [address], 03/02/2023 10:32:37 02/29/20 23 02/28/2023 URINE CULTU RE urine culture SPECI MEN DESCR IPTIO N - URINE CLEAN CATCH SPECI AL REQUE STS - NO SPECI AL REQUE ST CULTU RE - POLYM ICROB IAL GROWT H CONSI STENT WITH KRIS L GENIT AL ANAT . SUSCE PTIBI LITIE S NOT CULTU RE - ROUTI JENY PERFO RMED. REPOR T STATU S - FINAL 03/02 Not Available [facility] [address] [place]? [address] [facility], [place], [address], 03/02/2023 10:32:37 12/20/19 24 MRI lumb spine wo con [facility] [place] [address] EXAMIN ATION: MRI LUMB SPINE WO CON REPORT DATE: 024 7:15 PM INDICA TION: Low back pain, no red flags, no prior manage ment COMPAR BUDDY(S ): CT abdome n/pelv is with 022, CT lumbar spine 017. TECHNI QUE: Multip lanar, multis equenc e MR imagin g of the lumbar spine. Contra st: None. FINDIN GS: BONES Alignm ent: Normal . Verteb elsi: Verteb ral body height s are normal . Marrow : Normal . No marrow edema. Probab le small S1 intrao sseous ba ioma measur ing up to 0.9 cm. SPINAL CORD Distal cord: Normal . Conus level: L2 verteb ral body. Cauda equina : Normal . SOFT TISSUE S Parasp inal: Normal . Abdome n/pelv is:Nor mal. DISC LEVELS L1-2: No signif icant assembly detailer ior disc abnorm ality. Mild facet arthro sis. No signif icant canal stenos is or forami nal narrow ing. L2-3: No signif icant assembly detailer ior disc abnorm ality. Mild facet arthro sis. No signif icant canal stenos is or forami nal narrow ing. L3-4:N o signif icant assembly detailer ior disc abnorm ality. Mild facet arthro sis. No signif icant canal stenos is or forami nal narrow ing. L4-5: Minima l disc bulge with small endpla te osteop hytes, left greate r than right. Mild facet arthro sis. Overal l no signif icant canal stenos is, no signif icant right forami nal narrow ing, and mild left forami nal narrow ing. L5-S1: Small circum ferent ial bulge. Mild to modera te facet arthro sis. No signif icant canal stenos is and mild bilate ral forami nal narrow ing IMPRES ISAI: 1. No acute findin gs of the lumbar spine. 2. Mild multil evel degene rative change as detail ed above. Referr ed By: Neto onical ly Signed By: Jennifer Mane DO on 7:22 PM Interp reted By: Jennifer Mane DO, 7:15 PM [email or web address] [facility]? [address], [place], [address], 12/21/2023 16:06:03 Result Notes None recorded. Problems Name Problem SNOMED Code Status Onset Date Resolution Date Notes Provider Name and Address Organization Details Recorded Time Low back pain 721553227 Completed 201707/24/2020 Removal Reason: Resolved Wilfrid marie, [place] - [facility] 0 12:57:30 Excessiv e thirst 44309772 Completed 201907/24/2020 Removal Reason: Diagnose d with T2DM Wilfrid Lorenzo null, [place] - [facility] 0 12:57:55 Balaniti s 78252452 Active 2019 Wilfrid Lorenzo [place] [facility] 0 15:48:49 Cellulit is of right foot [id number] 182754 Active 2021 Seferino Gil null[place] - [facility] 2 00:36:13 Triggeri ng of digit 216588029 Completed 07/24/2020 Removal Reason: Resolved Wilfrid marie, [place] - [facility] 0 12:57:10 Calcanea l spur 64221504 Completed 07/24/2020 Removal Reason: Resolved Wilfrid marie, [place] - [facility] 0 12:57:38 Problem Notes None recorded. Procedures Surgical History Date Name Laterality Status Provider Name and Address Organization Details Recorded Time 2 Diabetic Foot Exam completed Dustin Little [place] - [facility] 02/16/2022 12:14:15 Imaging Results Imaging Date Name Status LastModified by Organiz ation Details LastModified Time 12/20/2023 MRI lumb spine wo con completed [email or web address] [facility]? [address] [facility] [address] [facility], [place], [address], 12/21/2023 16:06:03 Procedure Notes None recorded. Medical Equipment None Reported. Allergies No known drug allergies Medications Name Sig Start Date Stop Date Status Note LastModified by Organization Details LastModified Time cyclobenz aprine 10 mg tablet TAKE 1 TABLET BY MOUTH THREE TIMES DAILY NEEDED FOR MUSCLE SPASM active Not Available Not Available No t Available amoxicill in 500 mg capsule TAKE 1 CAPSULE BY MOUTH THREE TIMES DAILY active Not Available Not Available No t Available Miralax 17 gram/dose oral powder Take 17 g every day by oral route. 2021 active Not Available Not Available Not Avai lable clindamyc in HCl 300 mg capsule TK 1 C PO TID TAT 03/27 completed Not Available Not Available Not Available Lidocaine Viscous 2 % mucosal solution Take 15 mL every 3 hours by oral route. 06/13 completed Not Available Not Available Not Available fluconazo le 150 mg tablet TAKE 1 TABLET BY MOUTH ONCE DAILY FOR 10 DAYS 10/06 completed Not Available Not Available Not Available benzonata te 200 mg capsule Take 1 capsule 3 times a day by oral route as needed. 12/21 completed Not Available Not Available Not Available hydrocodo ne 5 mg-acetam inophen 325 mg tablet TAKE 1 TABLET BY MOUTH EVERY 6 HOURS NEEDED 10/06 completed Not Available Not Available Not Available prednison e 20 mg tablet 03/27 completed Not Available Not Available Not Available penicilli n V potassium 500 mg tablet active Not Available Not Available Not Available acetamino phen 300 mg-codein e 30 mg tablet TK 1 T PO QID PRN P 03/27 completed Not Available Not Available Not Available sulfameth oxazole 800 mg-trimet hoprim 160 mg tablet Take 1 tablet every 12 hours by oral route as directed for 7 days. active Not Available Not Available No t Available ketorolac 30 mg/mL (1 mL) injection solution Inject 1 mL by intramus cular route. 01/15 completed Not Available Not Available Not Available glimepiri de 2 mg tablet Take 1 tablet twice a day by oral route for 20 days. 05/[address] Lorenzo , increase dosage to BID. Not Available Not Available Not Available ketorolac 10 mg tablet 05/20 completed Not Available Not Available Not Available famotidin e 20 mg tablet TAKE 1 TABLET BY MOUTH TWICE DAILY active Not Available Not Available No t Available benzonata te 100 mg capsule 10/06 completed Not Available Not Available Not Available hydrocort isone 1 % topical cream APPLY A THIN LAYER TO THE AFFECTED AREA(S) BY TOPICAL ROUTE 2 TIMES PER DAY for 14 days 09/05 completed Not Available Not Available Not Available hydrocodo ne 7.5 mg-acetam inophen 325 mg tablet 12/15 completed Not Available Not Available Not Available cephalexi n 500 mg capsule 03/27 completed Not Available Not Available Not Available fluconazo le 50 mg tablet TAKE 1 TABLET BY MOUTH ONCE DAILY FOR 7 DAYS active Not Available Not Available No t Available nystatin 100,000 unit/gram topical cream APPLY CREAM TOPICALL Y TO AFFECTED AREA TWICE DAILY active Not Available Not Available No t Available glimepiri de 4 mg tablet TAKE 1 TABLET BY MOUTH ONCE DAILY IN THE MORNING BEFORE BREAKFAS T 06/25 completed Not Available Not Available Not Available gabapenti n 300 mg capsule TAKE 1 CAPSULE BY MOUTH ONCE DAILY WITH SUPPER active Not Available Not Available No t Available diclofena c sodium 75 mg tablet,de layed release TAKE 1 TABLET BY MOUTH TWICE DAILY WITH MEALS NEEDED FOR PAIN 01/15 completed Not Available Not Available Not Available codeine 10 mg-guaife nesin 100 mg/5 mL oral liquid TAKE 5 ML BY MOUTH EVERY 4 HOURS NEEDED FOR COUGH OR NASAL CONGESTI ON 10/06 completed Not Available Not Available Not Available Novolog U-100 Insulin aspart 100 unit/mL subcutane ous solution INJECT CONTINUO USLY VIA INSULIN PUMP DAILY. MAX OF 75 UNITS PER DAY active Not Available Not Available No t Available insulin lispro (U-100) 100 unit/mL subcutane ous solution INJECT UP TO 200 UNITS SUB-Q IN INSULIN POD ONCE EVERY 3 DAYS active Not Available Not Available No t Available ibuprofen 600 mg tablet TAKE 1 TABLET BY MOUTH EVERY 6 HOURS NEEDED FOR PAIN active Not Available Not Available No t Available levofloxa [place] 500 mg tablet 05/20 completed Not Available Not Available Not Available methylpre dnisolone 4 mg tablets in a dose pack active Not Available Not Available Not Available albuterol sulfate HFA 90 mcg/actua tion aerosol inhaler INHALE 2 PUFFS BY MOUTH EVERY 4 HOURS NEEDED FOR SHORTNES S OF BREATH active Not Available Not Available No t Available ondansetr on 4 mg disintegr ating tablet DISSOLVE 1 TABLET IN MOUTH EVERY 8 HOURS NEEDED FOR NAUSEA active Not Available Not Available No t Available fluticaso ne propionat e 50 mcg/actua tion nasal spray,robin pension USE 1 SPRAY(S) IN EACH NOSTRIL TWICE DAILY active Not Available Not Available No t Available insulin syringe U-100 with needle 0.5 mL 31 gauge x 02/08 active Not Available Not Available Not Available naproxen 500 mg tablet TAKE 1 TABLET BY MOUTH TWICE DAILY WITH MEALS active Not Available Not Available No t Available amoxicill in 875 mg-potass ium clavulana te 125 mg tablet Take 1 tablet every 12 hours by oral route as directed for 10 days. 10/06 completed Not Available Not Available Not Available Dex4 Glucose 4 gram chewable tablet If glucose level is below 70, chew and swallow 4 tablets. Re-check glucose level in 15 minutes. Repeat until glucose is above 70 2020 active Not Available Not Available Not Avai lable insulin lispro (U-100) 100 unit/mL subcutane ous pen INJECT 10 UNITS SUBCUTAN EOUSLY THREE TIMES DAILY BEFORE MEAL(S) active Not Available Not Available No t Available Novolog FlexPen U-100 Insulin aspart 100 unit/mL (3 mL) subcutane ous INJECT 15 THREE TIMES DAILY WITH MEALS active Not Available Not Available No t Available pregabali n 100 mg capsule TAKE 1 CAPSULE BY MOUTH TWICE DAILY active Not Available Not Available No t Available [place] 3 05/20 completed self prescrib ed Not Available Not Available Not Available multivita min 05/20 completed self prescrib ed Not Available Not Available Not Available Ketone Urine Test strips TEST IF BLOOD GLUCOSE OVER 250 OR IF DONT FEEL WELL OBTAIN MEDICAL ATTENTIO N IF IN MODERATE TO HIGH RANGE active Not Available Not Available No t Available Lantus Solostar U-100 Insulin 100 unit/mL (3 mL) subcutane ous pen INJECT 20 UNITS SUBCUTAN EOUSLY NIGHTLY active Not Available Not Available No t Available Omnipod Classic Pods (Gen 3) subcutane ous cartridge CHANGE POD EVERY 3 DAYS 07/26 completed Patient uses dash pods Not Available Not Available Not Available pen needle, diabetic 32 gauge x 5/32 USE DIRECTED 4 TIMES DAILY active Not Available Not Available No t Available OneTouch Verio test strips USE DIRECTED 4 TIMES DAILY active Not Available Not Available No t Available Glucosami ne Chondroit in PLUS 03/27 completed self prescrib ed Not Available Not Available Not Available Trulicity 1.5 mg/0.5 mL subcutane ous pen injector INJECT 1/2 (ONE-YASMIN F) ML SUBCUTAN EOUSLY ONCE A WEEK active Not Available Not Available No t Available Trulicity 0.75 mg/0.5 mL subcutane ous pen injector INJECT 1/2 (ONE-YASMIN F) ML SUBCUTAN EOUSLY ONCE A WEEK active Not Available Not Available No t Available OneTouch Verio Flex Meter active Not Available Not Available Not Available Dexcom G6 Sensor device USE DIRECTED . CHANGE EVERY 10 DAYS active Not Available Not Available No t Available Dexcom G6 [employer]er USE DIRECTED WITH SENSOR AND TRANSMIT TER 2021 active Not Available Not Available Not Avai lable Dexcom G6 Transmitt er device USE EVERY 90 DAYS active Not Available Not Available No t Available Omnipod Dash Pods (Gen 4) subcutane ous cartridge USE DIRECTED . CHANGE POD EVERY 3 DAYS active Not Available Not Available No t Available OneTouch Delica Plus Lancet 33 gauge active Not Available Not Available Not Available Baqsimi 3 mg/actuat ion nasal spray INSERT THE TIP INTO ONE NOSTRIL AND PRESS DEVICE PLUNGER UNTIL THE GREEN LINE IS NO LONGER SHOWING. ONLY TO BE USED FOR SEVERELY LOW BLOOD GLUCOSE LEVELS UNDER 55 MG/DL AND PATIENT IS UNABLE TO CONSUME QUICK ACTING GLUCOSE FOOD OR DRINKS BY MOUTH active Not Available Not Available No t Available Omnipod 5 G6 Pods (Gen 5) subcutane ous cartridge CHANGE POD EVERY 3 DAYS active Not Available Not Available No t Available Omnipod 5 G6 Intro Kit (Gen 5) subcutane ous cartridge with controlle r CHANGE POD ONCE EVERY 3 DAYS active Not Available Not Available No t Available Vitals Date Recorded Body height Provider Name an d Address Organization Details Last Updated DateTime 07/02/2022 180.34 cm Jasmyne Mcarthur MA [facility] 022 12:47:22 Date Recorded Body mass index (BMI) Body weight Provider Name and Address Organization Details Last Updated DateTime 07/02/2022 28 kg/m2 70077.42 g PRAMOD Fang [facility] 07/02/2022 12:48:09 Date Recorded Body temperature Provider Name a nd Address Organization Details Last Updated DateTime 07/02/2022 99 [degF] Jasmyne Mcarthur MA [facility] 022 12:53:18 Date Recorded Heart rate Provider Name an d Address Organization Details Last Updated DateTime 07/02/2022 92 /min PRAMOD Fang [facility] 022 12:53:51 Date Recorded Oxygen saturation Oxygen saturation in Arterial blood by Pulse oximetry Provider Name and Address Organization Details Last Updated DateTime 07/02/2022 98 % 98 % Jasmyne Mcarthur MA [facility] 07/02/2022 12:54:14 Date Recorded Body height Provider Name an d Address Organization Details Last Updated DateTime 09/02/2022 180.34 cm Evelina Alfonso MA [facility] 09/02/20 15:25:12 Date Recorded Body mass index (BMI) Body weight Provider Name and Address Organization Details Last Updated DateTime 09/02/2022 28.9 kg/m2 43880.77 g Evelina Alfonso MA [facility] 09/02/2022 15:25:19 Date Recorded Body temperature Provider Name a nd Address Organization Details Last Updated DateTime 09/02/2022 98 [degF] Evelina Alfonso MA [facility] 09/02/20 22 15:26:04 Date Recorded Heart rate Provider Name an d Address Organization Details Last Updated DateTime 09/02/2022 77 /min Evelina Alfonso MA [facility] 09/02/20 22 15:26:06 Date Recorded Oxygen saturation Oxygen saturation in Arterial blood by Pulse oximetry Provider Name and Address Organization Details Last Updated DateTime 09/02/2022 98 % 98 % Evelina Alfonso MA [facility] 09/02/2022 15:26:08 Date Recorded Body height Provider Name an d Address Organization Details Last Updated DateTime 10/06/2022 180.34 cm Jasmyne Mcarthur MA [facility] 023 11:36:07 Date Recorded Body mass index (BMI) Body weight Provider Name and Address Organization Details Last Updated DateTime 10/06/2022 28.6 kg/m2 01935.19 g Jasmyne Mcarthur MA [facility] 10/06/2022 11:36:49 Date Recorded Heart rate Provider Name an d Address Organization Details Last Updated DateTime 10/06/2022 67 /min Jasmyne Mcarthur MA [facility] 023 11:36:53 Date Recorded Oxygen saturation Oxygen saturation in Arterial blood by Pulse oximetry Provider Name and Address Organization Details Last Updated DateTime 10/06/2022 96 % 96 % Jasmyne Mcarthur MA [facility] 10/06/2022 11:36:58 Date Recorded Body temperature Provider Name a nd Address Organization Details Last Updated DateTime 10/06/2022 98.1 [degF] Jasmyne Mcarthur MA [facility] 2022 11:39:35 Date Recorded Body height Provider Name an d Address Organization Details Last Updated DateTime 01/28/2023 180.34 cm PRAMOD Yuan [facility] 023 09:51:16 Date Recorded Body mass index (BMI) Body weight Provider Name and Address Organization Details Last Updated DateTime 01/28/2023 28.5 kg/m2 84981.84 g Arturo Gomes [place] [facility] [place] 01/28/2023 09:52:16 Date Recorded Heart rate Provider Name an d Address Organization Details Last Updated DateTime 01/28/2023 66 /min PRAMOD Yuan [facility] 023 09:53:31 Date Recorded Oxygen saturation Oxygen saturation in Arterial blood by Pulse oximetry Provider Name and Address Organization Details Last Updated DateTime 01/28/2023 97 % 97 % PRAMOD Yuan [facility] 01/28/2023 09:53:33 Date Recorded Body temperature Provider Name a nd Address Organization Details Last Updated DateTime 01/28/2023 97.8 [degF] Arturo Gomes [place] [facility] [place] 2022 09:54:14 Date Recorded Body height Provider Name an d Address Organization Details Last Updated DateTime 12/20/2023 180.34 cm PRAMOD Fang [facility] 024 14:09:16 Date Recorded Body mass index (BMI) Body weight Provider Name and Address Organization Details Last Updated DateTime 12/20/2023 28 kg/m2 26580.07 g PRAMOD Fang [facility] 12/20/2023 14:10:45 Date Recorded Oxygen saturation Oxygen saturation in Arterial blood by Pulse oximetry Provider Name and Address Organization Details Last Updated DateTime 12/20/2023 95 % 95 % Jasmyne Mcarthur MA [facility] 12/20/2023 14:10:53 Date Recorded Heart rate Provider Name an d Address Organization Details Last Updated DateTime 12/20/2023 78 /min Jasmyne Mcarthur MA [facility] 024 14:11:27 Date Recorded Body temperature Provider Name a nd Address Organization Details Last Updated DateTime 12/20/2023 98.5 [degF] Jasmyne Mcarthur MA [facility] 2023 14:12:02 Date Recorded Systolic blood pressure Diastolic blood pressure Provider Name and Address Organization Details Last Updated DateTime 07/02/2022 132 mm[Hg] 89 mm[Hg] Jasmyne Mcarthur MA [facility] 07/02/2022 12:53:45 Date Recorded Systolic blood pressure Diastolic blood pressure Provider Name and Address Organization Details Last Updated DateTime 09/02/2022 130 mm[Hg] 78 mm[Hg] Evelina Alfonso MA [facility] 09/02/2022 15:27:20 Date Recorded Systolic blood pressure Diastolic blood pressure Provider Name and Address Organization Details Last Updated DateTime 10/06/2022 130 mm[Hg] 96 mm[Hg] Jasmyne Mcarthur MA [facility] 10/06/2022 11:39:23 Date Recorded Systolic blood pressure Diastolic blood pressure Provider Name and Address Organization Details Last Updated DateTime 01/28/2023 136 mm[Hg] 88 mm[Hg] Arturo Gomes MA [facility] 01/28/2023 09:53:26 Date Recorded Systolic blood pressure Diastolic blood pressure Provider Name and Address Organization Details Last Updated DateTime 12/20/2023 137 mm[Hg] 88 mm[Hg] Jasmyne Mcarthur MA [facility] 12/20/2023 14:11:21 Social History Question Answer Notes LastModified by Organizat ion Details LastModified Time Tobacco Smoking Status Never Smoker Susi marie [facility] 03/21/2015 16:35:33 What Is Your Level Of Alcohol Consumption? None [email or web address] Information not available 01/28/2023 What Is Your Level Of Caffeine Consumption? Occasional Information not available 04/09/2021 Do You Or Have You Ever Used E-cigarettes Or Vape? Never Used Electronic Cigarettes Information not available 06/30/2020 What Was The Date Of Your Most Recent Tobacco Screening? 12/20/2023 [email or web address] Information not available 12/20/2023 Do You Or Have You Ever Used Smokeless Tobacco? Never Used Smokeless Tobacco Information not available 06/30/2020 Do You Use Any Illicit Or Recreational Drugs? No Information not available 03/26/2021 Do You Or Have You Ever Used Any Other Forms Of Tobacco Or Nicotine? No Information not available 04/09/2021 Sex: Unknown Functional Status None recorded. Mental Status None recorded. Family History Relationship Description Onset Age of this Age Resolved Age Notes LastModified by Organization Details LastModified Time Mother Diabetes mellitus [email or web address] Not available 02/25 16:44:51 Father Hypertensive disorder [email or web address] Not available 02/25 16:44:51 Father Cerebrovascu lar accident 35 [email or web address] Not available 0 03/21/2015 16:44:51 Father Myocardial infarction 40 [email or web address] Not available 16:44:51 Father Malignant tumor of stomach 57 [email or web address] Not available 02/25 16:44:51 Father Depressive disorder [email or web address] Not available 02/25 16:44:51 Sister Diabetes mellitus [email or web address] Not available 02/25 16:44:51 Sister Lupus erythematosu s [email or web address] Not available 02/25 16:44:51 Maternal Grandmother Cerebrovascu lar accident [email or web address] Not available 0 03/21/2015 16:44:51 Paternal Grandmother Myocardial infarction [email or web address] Not available 16:44:51 Medical History Condition Response Other Y Muscle, Joint, or Bone Problems Y Past Encounters Encounter ID Performer Location Encounter Start Date Encounter Closed Date Diagnosis/Indication Diagnosis SNOMED-CT Code Diagnosis ICD10 Code Diagnosis Note [id number] MD Sterling Land[facility] [address] [place], [place] [address] 03/21/2015 16:16:51 03/25/2015 03:45:54 Adult health examination [id number] Pt is a healthy 39 yr old male without any acute complaints Ordered baseline labs with family hx of DM & HTN, family of NH at 50ish BP was WNL screening for STD although pt is low risk for contractin g disease currently will report out the labs to the patient as needed and make f/u appointmen t as needed Triggering of digit [id number] Pt had an injury to his R middle finger during footfall in november 2014. Finger was x-ray and not broken. Pt has swollen jt at the PCP with full flexion but limited extension. A catching/p opping sensation is noted on the physical exam around the MCP. Generated pain for pt. Refer to the procedure clinic for injection of his tendon. 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 Strongly recommend to ask his mother if it was colon or stomach cancer.; if colon cancer then will start screening with colonoscop y.Pt concern for fatigue discussed, and concern Vitamin D but pt declined testing instead will start taking OTC Vit D3 supplement Musculoskeletal pain [id number] 745704 M79.1 pt has several defined MSK pains 1. L knee pain - most likely due to meniscal derangemen t; recommend to continue with current activity unless he is unable to continue due to continue locking and catching sensation; follow up if the sx become worst then consider surgical referral for clean out after imaging completed 2. Bone Spurs b/l feet- per pt has b/l calcaneal spurs, seen by the specialist and recommend surgery but pt is unable to be off from work fro the 6-8 weeks for evaluation He was then treated with Naproxen, recommend to continue with supportive care and could shoe and arch support 3. Plantar fasciitis b/l-- recommend to continue with stretches daily up to TID. May also use frozen water bottles under his feet to improve his pain. 4. Trigger Finger-- middle finger, recommend to try injections in procedure clinic, recommend to schedule an appointmen t today, limited benefit due to it being an injury 2/2 to football in college 5. Pisiformis Syndrome- L buttock pain radiating into his lateral and posterior thigh. 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 [id number] Charli Coley, [facility] ([facility]) [address] [place] [address] 11/01/2016 14:07:33 11/02/2016 10:04:14 Injury of finger 64648236 S69.81XS Exam concerning for possible bony enlargemen t at the distal Right third PIP. Did not inject at this time. Advised pt of concern there may have been an occult fracture previously which developed into a alfreda nodule, possibly arthritic changes.Ad vised Pt would recommend xray of the hand to evaluate and follow up.He verbalized understand ing and was agreeable to this plan. [id number] MD Denita Galicia [address] [facility] [address] [place] [address] 11/07/2017 11:13:47 11/10/2017 13:15:09 Postviral cough 987782482 R05 Counseled patient that postviral cough could last quite some time, recommende d increasing benzonatat e to 200 mg tid prn from 100 mg, patient to follow up as needed [id number] MD Denita Jung [address] [address] 12/15/2017 15:48:27 12/26/2017 15:54:15 Low back pain 733830150 M54.5 Patient complains of continued lower back pain s/p football injury. Currently denies any alarm symptoms including incontinen ce, saddle anesthesia , weakness, sensory changes, or paralysis. Given continued pain and minimal improvemen t of symptoms will order MRI and refer to PT for further evaluation and education on stretches/ exercises to improve pain and function.- RTC in 1 month or sooner if needed [id number] MD Denita Parker [address] [address] 02/14/2019 09:19:28 02/15/2019 09:43:18 Pain in right foot [id number] 91217 M79.671 positive tenderness over base of 5th metarsal and lateral malleolus indicates XR. Provided handout and discussed ankle sprain exercises. Pending findings on XR will determine further treatment. Burn of upper arm 821847 08 T22.032A Burn does not appear to have any secondary infection. Advised to keep it moisturize d and clean. Should keep covered if taking part in activities such as football. Return precaution s such as additional purulent discharge, swelling, or developmen t of surroundin g rash in addition to fever were given and patient voiced understand ing. Will see back in 2 weeks [id number] [facility] [address] [address] 06/13/2020 11:14:42 06/16/2020 07:21:12 Balanitis 08693551 N48.1 balanitis 44-year-ol d gentleman who is uncircumci sed. Patient is endorsing approximat ashley one week of fore skin irritation with some associated minor superficia l tears / laceration s. Patient did report episode of jock itch approximat ashley one month prior which resolved with topical antifungal 's. Patient's exam is remarkable for approximat ashley 46 very minor superficia l skin tears/lace rations on the patient's penile foreskin without surroundin g erythema or purulence. Patient has been using topical low potency corticoste roids and topical antifungal 's for approximat ashley three days. Patient states his foreskin is feeling better today which is approximat ashley day three of treatment. -Advise patient to continue with topical therapy, advised patient to use only antifungal , if antifungal shows no benefit can add topical corticoste roids, both of these agent should be applied B ID-also advised patient to consider utilizing normal saline rinses on penile fore skin-follo w-up clinic in one week if this treatment plan is not efficaciou s-can consider referral to urology at that time [id number] Gopal Butler MD [place] [address] [address] [facility] [address] [place] [address] 06/25/2020 12:03:44 06/25/2020 17:11:14 Excessive thirst 22748727 R63.1 AcuteFamil y history of diabetes mellitus along with polyuria concerning for diabetes mellitus. Consider diabetes insipidus as well.- Obtain BMP and A1c- Follow up with results in one week Balanitis 37378324 N48.1 Acute, worseningU ncircumcis ed male with penile pain for nearly 2 weeks. Failed one week of antifungal , antimicrob ial topical therapy. Had trialed topical steroid for 3 days, but was discontinu ed.- Advised to restart topical steroid for one week in addition to topical antifungal -Continue to maintain adequate hygiene of foreskin-F ollow-up clinic in one week if this treatment plan is not efficaciou s-Consider referral to urology [id number] Ellis Carter MD [place] [address] [address] [facility] [address] [place] [address] 06/30/2020 09:11:23 07/01/2020 08:15:13 Balanitis 07539427 N48.1 Acute, worseningU ncircumcis ed male with penile pain for nearly 3 weeks. Failed one week of antifungal , antimicrob ial, and steroidal topical therapy.- Continue topical steroid and antifungal - Urology referral ordered- Continue to maintain adequate hygiene of foreskin Type 2 meng betes mellitus 83173096 E11.21 New diagnosisR andom glucose > 200. Polyuria, polydipsia , and visual disturbanc es present for almost one year.- Discussed Metformin but adamant he did not wish to start Metformin due to family members having adverse effects- Start glimepirid e 2mg daily with breakfast- Check blood glucose 3x per day. Record glucose- Discussed hypoglycem ic symptoms and precaution s- Diabetic ophthalmol ogy referral to assess visual disturbanc es- ACR, A1c, BMP, and lipid panel ordered- Follow up in 2 weeks to assess glucose control [id number] Tiffany Valderrama-MD Denita Fraser [address] [facility] [address] [place] [address] 07/23/2020 11:22:12 07/24/2020 14:29:34 Type 2 diabetes mellitus 15832821 E11.21 Chronic, improvedA1 c 13.8%. Symptomati patrice improving, and blood glucose is mildly decreased compared to previous records per Jamin.- Increase glimepirid e from 2 mg to 4 mg daily with breakfast- Discussed insulin therapy and combinatio n oral therapy. Jamin wishes to trial one medication and lifestyle change at this time. Agreed to give until 09/2020 to see improvemen ts of blood glucose and A1c before starting combinatio n therapy.- Check blood glucose 3x per day. Record glucose- Discussed hypoglycem ic symptoms and precaution s- Diabetic ophthalmol ogy referral to assess visual disturbanc es pending- ASCVD 10-year risk: 7.7%. Discussed lipid panel results and statin therapy. Jamin does not wish to start statin therapy at this time. Recheck lipid panel in 8-12 months.- Follow up in 2-4 weeks to assess glucose control Balanitis 06188816 N48.1 Acute, im;proved but still some sxUncircum cised male with penile pain for nearly 6 weeks. Poor response to topical therapy likely related to diabetes.- Continue topical steroid and antifungal - Urology referral ordered- Continue to maintain adequate hygiene of foreskin- Plan to obtain fungal and bacterial cultures of swab at future visit if symptoms do not improve.- Jamin would like to consider PO medication if symptoms do not resolve. Discussed options of PO antifungal s and steroids. Risks and benefits of steroid medication discussed. [id number] MD Denita Payne [address] [facility] [address] [place] [address] 03/26/2021 09:31:33 03/27/2021 12:40:50 Uncontrolled type 2 diabetes mellitus 382437155 E11.65 Type 2 diabetes uncontroll ed Patient has positive family history of diabetes patient denied family history of early onset/type 1 diabetes or other autoimmune conditions however he is unclear about this. Patient requesting referrals for diabetic ophthalmol ogist as well as endocrinol ogist. Did not have large amount of time to discuss diabetes with patient 2/2 him showing up a little past the appointmen t time and being more concerned with other ER findings such as his bo r/velma es. Patient endorsed not checking sugars regularly. a1c in office 03/26/2021 13.3, prev 13.8 on 07/23/2020 -Likely type 2 diabetes, could consider auto antibody testing or possibly C-peptide or insulin testing, however patient is currently prescribed glimepirid e unsure if this would alter C-peptide or insulin testing, reviewed Stacey as well as Care Everywhere as well as epic noted no previous type I/type II discrimina tion labs in history-Bhavesh salazar appears to not be feeling glimepirid e regularly, he did requested after the appointmen t was over by calling the office-Kevin nair glimepirid e today, 4 mg-Discuss ed patient's visual symptoms with him and the chronicity , advised him that his sugar is likely causing the visual symptoms 2/2 lens swelling we would likely able to resolve that if he got his sugars a little more under control-Agnes scussed possible future therapies with patient which could potentiall y include insulin-Ad vised patient to check his fasting sugars daily as well as his postprandi al/2-hour postprandi al sugars with a goal of less than 180, advised patient to keep a log of his sugars which might help us with therapeuti c options in the future-Kevin nair pharmacist referral for this clinics diabetic pharmacist -Advised patient to follow-up with myself or Dr. Lorenzo in [facility] 2 to 3 weeks from today's clinic visit-We will further discuss diabetes at that time-Can consider diabetic ophthalmol ogy referral in the future however I believe controllin g his sugars should likely help with his eyes Hand cramps 166837290 R2 5.2 Hand cramps patient endorsing bilateral hand cramps worse with prolonged activities . Patient does have history of semiprofes sional sports play/footb all have noted trigger finger in patient's previous chart notes. Hand communication coordinator strength today mostly normal except for some decreased ulnar strength 4/5 bilaterall y. Discussed patient's previous lab draws from the ER noted relatively normal electrolyt es. -Advised patient is having cramps could be 2/2 chronic arthritide s/arthralg ias versus some metabolic abnormalit ies likely related to diabetes-C ontinue to monitor Cholelithi asis without obstruction [id number] K80.20 Cholelithi asis without obstructio n Patient presented to the emergency department on 03/21/2020 at that time endorses of abdominal pain. Patient status post CT abdomen pelvis with contrast. Imaging noted cholelithi asis without cholecysti tis as well as some other nonspecifi c urinary bladder findings. Discussed possibilit y of general surgeon referral with patient. Advised patient that since he has stones he is likely at risk for experienci ng acute cholecysti tis however discussing this case with the surgeon is entirely up to him. -Patient elected to hold off with general surgery referral at this time-We will continue to monitor abdominal symptoms-P rovided patient ER precaution s advising him that acute right upper quadrant abdominal pain could be related to cholecysti tis 2/2 stone, patient voiced understand [facility] [id number] Ellis Carter MD [facility] [address] [address] 04/09/2021 09:34:45 04/10/2021 09:09:53 Uncontrolled type 2 diabetes mellitus 302262857 E11.65 Type 2 diabetes Chronic history of type 2 diabetes. Currently on glimepirid e. Initially prescribed 4 mg daily. Patient is taking 8 mg daily total currently. Patient endorsing chronic vision problems and chronic urinary problems these are all likely related to hyperglyce piter. Discussed further management options with patient today. -Previous diabetic pharmacy referral placed on 03/26/2021 appointmen t on 05/19/2021- Patient did request endocrinol ogy appointmen t/referral today 04/09/2021- Advised patient to keep diabetic pharmacy appointmen t 05/19/2021, patient stated he would do this, advised patient only beneficial even if it was just for educationa l purposes-C ontinue glimepirid e 8 mg daily in divided doses 4 mg a.m. 4 mg p.m.-Charo nt was amenable to trying insulin today, I believe this is reasonable 2/2 patient's hyperglyce pratik symptoms-S ent Ilia Esparza, advised patient to start out 10 units nightly monitor fasting glucoses with a goal of less than 130, advised patient he can uptitrate 1 to 2 units every 1 to 2 days until he achieved the fasting glucose goal/numbe r of less than 130 advised patient to not take more than 20 U of insulin without contacting the office-Sen t glucose to strips to pharmacy at patient's request-Se nt pen needles to go with Ilia Esparza-Se nd endocrinol ogy referral based on patient's request Cholelithi asis without obstruction [id number] K80.20 Cholelithi asis without obstructio n See previous note for details. Patient is endorsing some gallbladde r/right upper quadrant pain episodes over the past few weeks not overtly severe. Patient requesting as needed pain medication in the event of a severe attack. -Send Paxton, advised patient to use this only for extreme pain-Provi ded ER precaution s-Advised patient to utilize Tylenol or ibuprofen prior to taking Paxton-Send general surgery referral today on patient's request Lower urin janae tract symptoms 820591900 R39.9 R93.49 N32.81 Lower urinary tract symptoms 45-year-ol d male past medical history markable for diabetes. No remarkable urologic history. Patient is endorsing greater than 12-month history of urinary urgency patient is generally able to make to the bathroom on time. Status post CT abdomen pelvis on 03/21/2021 noted distention of the urinary bladder and some bladder wall thickening prostate size 4 cm. Patient stated he has received antibiotic s for presumed UTIs in the past with little to no change in his symptoms. Patient is denying remarkable dysuria or hematuria today. Discussed with patient that his diabetes could be contributi ng to his large urine volumes. Patient requesting urology referral today based on symptoms and previous CT results. -Send urology referral-A dvised patient today 04/09/2021 to call the office in 1 week to follow-up on the referrals placed today, patient voiced understand [facility] [id number] Aileen mendez, PHARMD [place] [address] [address] 05/19/2021 11:40:07 05/19/2021 12:02:29 Type 2 diabetes mellitus [id number] E11.21 A1c 13.3% in March 2021, slightly decreased from 13.8% at diagnosis in Jun 2020. Goal is < 10% initially, < 7% long-term. --Reiewed plan with Dr. Carter. Increase Lantus by 10 units to 30 units subcut daily. Initiate Humalog U-100 kwikpen 6 units subcut up to three times daily at the start of each meal or if BG is above 250 in between meals as long as there are 4-6 hours in-between doses. Given presentati on of severe hyperG symptoms, advised Jamin to test urine ketones and seek immediate medical assistance if ketones in moderately -high to high category or BG > 250 with N/V/cognit west changes.-- SMBG 4-5x/day. Monitor for hypo/hyper glycemia, weight changes. Eye exam due and scheduled for Jul. Foot exam due at future visit. A1c and UACR due in Jun 2021.--Imm unizations : non on file. Review at future visit. At [facility] risk for cardiovascular event [id number] Z91.89 Is in statin benefit group #3 per Jun 2020 labs. Obtain updated lipid panel with Oct labs. Will reassess 10-year ASCVD risk and discuss statin initiation at that time. [id number] Ellis Carter MD [place] [address] [address] 06/11/2021 10:33:17 06/12/2021 07:41:00 Type 2 diabetes mellitus [id number] E11.8 Type 2 diabetes mellitus Chronic history of diabetes. Currently poorly controlled . Currently on glimepirid e 4 mg daily. Status post visit with this clinics diabetic pharmacist on 05/19/2021, at that time insulin/lo ng-acting insulin was increased to 30 units nightly and mealtime insulin was advised to be used with premeal glucose greater than 250. See HPI for details regarding fasting sugars. Patient endorsing significan t hyperglyce piter on 30 units and endorsing significan t hyperglyce piter postmeal on 6 units with meals. -Advised patient to increase long-actin g insulin to 40 units-Prov ided self titration strategy 1 unit for every day fasting sugar greater than 130, advised patient to contact clinic if he gets to 50 units-Advi sed patient to continue with mealtime insulin advised him to use 10 units with each meal-Discu ssed self titration strategies 1 unit for every day that his postmeal sugars are greater then 180, advised patient to contact clinic if he gets to 15 units-Cont inue glimepirid e-Follow-u p with this clinic's diabetic pharmacist on 07/09/2021 -Advised him to make PCP follow-up for 1 month after his visit with this clinics diabetic pharmacist COVID-19 [id number] U07.1 COVID-19 infection Patient status post ER visit on 05/21/2021 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 Original quarantine and date as reported by patient today noted to be 06/05/2021. Patient was still experienci ng some respirator y and fatigue and fever symptoms at that time. On interview today patient states he still has a lack of taste and smell however he has had no fevers no worsening myalgias or worsening respirator y symptoms over the past 72 hours. Patient feels he can go back to work without restrictio ns. -Provided patient work note with return to work date 06/15/2021 Periodontal disease [id number] K05.6 Periodonta l disease Patient endorsed painful left upper jaw. Status post visit with dental office. Patient's PCP felt that his hemoglobin A1c was too high to undergo dental procedure at this time. Patient endorsing periodic jaw pain and is concerned if what to do if pain gets worse. -Provided prescripti on for Augmentin to be used in the setting of severe jaw pain-Tylen ol/ibuprof en as needed for mild jaw pain [id number] lElis Carter MD [facility] [address] [address] 07/09/2021 11:45:51 07/10/2021 03:47:16 Type 2 diabetes mellitus [id number] E11.8 POC A1c today increased to > 15% from 13.3% in March 2021. 2020. Goal is < 10% initially, < 7% long-term. No known complicati ons presentj.- -Increase Lantus by 6 units to 46 units subcut daily. Strongly encouraged Jamin to administer Humalog 6 units with every meal. Advised at last PCP visit on self-titra tion based on elevated BG levels. Educated on importance of consistent use of basal-bolu s insulin regimen to treat severe hyperglyce piter. Reviewed insulin injection technique and provided education on use of Solostar training pen and storage. No major errors in self-injec tion technique observed. Continue glipizide for now--will likely discontinu e once BG levels improve or if c-peptide is low. Discussed insulin pump options given severe hyperG despite insulin titrations and occupation al barrier to frequent MDII. Will initiate CMN for Omnipod Dash. Will additional ly try to order Dexcom CGM.--Cont inue SMBG 4x/day.. Monitor for hypo-/hype rG, weight changes. Seek immediate medical attention if BG persistent ly > 250 and has N/V &/or cognitive changes. Provided ketone strips Rx with instructio jimmie for use at last visit. Eye appointmen t is scheduled for next month. Foot exam due at future visit. Suspect XAVIER vs. T2DM, obtain c-peptide and antibody testing. A1c next due in Sep 2021. UACR due today.--Im munization s: Discuss at next visit. At [facility] risk for cardiovascular event [id number] Z91.89 Not on a statin. Lipid panel today, then assess 10-year ASCVD risk. [id number] MD Denita Payne 3 [facility] [address] [place] [address] 08/03/2021 10:25:37 08/05/2021 09:22:01 Candidal balanitis [id number] B37.42 treatment resistant to topical clotrimazo le BID, will escalate treatment to PO fluconazol e 150 mg q72 hrs for 3 doses then 1x/week for 4 weeks, in addition to steroid ointment for reduction of irritation , and continuati on of his topical anti fungal. F/u once treatment is complete or of it is not responding as expected. [id number] MD Denita GARSIA 3 [facility] [address] [place] [address] 08/06/2021 14:24:05 08/06/2021 16:43:36 Type 2 diabetes mellitus [id number] E11.8 POC A1c in Jun 2021 increased to > 15% from 13.3% in March 2021. 2020. Goal is < 10% initially, < 7% long-term. No known complicati ons present.-- Initiate Omnipod Dash system with insulin lispro insulin. Pump settings based on pre-pump TDD 58 units x 0.75 = 43.5 units. Pump TDD = 43 units. Basal rate 43 units/2/24 = 0.9 units/hr, 0% temp rate for 8 hours due to last Lantus injection at 11 PM yesterday. Bolus settings: ICR 10 g/unit and ISF 40 mg/dL/unit --correct above 130 mg/dL. Discontinu e Lantus, keeping supply only for use if without insulin pods for extended period of time.--Has been SMBG 4x/day x past 2 months--das d surplus supply of strips from purchasing OTC, continue 4-5x/day fingerstic k BG checks. Monitor for hypo-/hype rG, weight changes. Seek immediate medical attention if BG persistent ly > 250 and has N/V &/or cognitive changes. Has ketone strips Rx with instructio ns for use at a previous visit. Didn't receive the Baqsimi glucagon Rx ordered--a dvised to lemon picker from pharmacy and bring to follow-up next week for education. Eye appointmen t completed last month with plan to f/u in 6 mo. Foot exam due at future visit. A1c next due in Sep 2021. UACR updated last month and was wnl.--Rx for Dexcom. Was seen by endocrinol ogist Dr. Mcgrath on Nov 2 month who is in agreement to initiate Omnipod and order Dexcom CGM with scheduled training on CGM use and pump f/u next week. Jamin has a Surplex Verio meter to calibrate and perform manual BG checks when necessary. --Immuniza tions: Declined offer to receive any vaccines today. At [facility] risk for cardiovascular event [id number] Z91.89 Not on a statin. 10-year estimated ASCVD risk = 5.1% per Jun 2021 labs. Is a candidate for moderate intensity statin. Discuss at future visit. [id number] Aileen mendez, PHARMD [facility] [address] [facility] [address] [place] [address] 08/11/2021 11:59:41 08/11/2021 14:09:23 Type 2 diabetes mellitus [id number] E11.8 POC A1c in Jun 2021 increased to > 15% from 13.3% in March 2021. 2020. Goal is < 10% initially, < 7% long-term. No known complicati ons present.-- Increase basal rate by 1% to 1 unit/hr. Continue bolus settings: ICR 10 g/unit and ISF 40 mg/dL/unit --correct above 130 mg/dL. Keep supply of Lantus on-hand only for use if without insulin pods for extended period of time. Baqsimi for severe hypoG and unable to self-treat .--Has been SMBG 4x/day x past 2 months--das d surplus supply of strips from purchasing OTC, continue 4-5x/day fingerstic k BG checks. Monitor for hypo-/hype rG, weight changes. Seek immediate medical attention if BG persistent ly > 250 and has N/V &/or cognitive changes. Has ketone strips Rx with instructio jimmie for use at a previous visit. Eye appointmen t completed last month with plan to f/u in 6 mo. Foot exam due at future visit. A1c next due in Sep 2021. UACR updated last month and was wnl.--Rx for Dexcom. Was seen by endocrinol ogist Dr. Mcgrath on Nov 2 month who is in agreement to initiate Omnipod and order Dexcom CGM with scheduled training on CGM use and pump f/u with their office. Jamin has a OneTouch Verio meter to calibrate and perform manual BG checks when necessary. --Immuniza tions: Declined offer to receive any vaccines. At [facility] risk for cardiovascular event [id number] Z91.89 Not on a statin. 10-year estimated ASCVD risk = 5.1% per Jun 2021 labs. Is a candidate for moderate intensity statin. Discuss at future visit. [id number] JERROD GALLEGO , [facility] [address] [facility] [address] [place] [address] 12/30/2021 09:30:57 12/31/2021 16:43:56 Flank pain [id number] R10.9 Bilateral flank pain that began 12/25/21 and has been getting worse. Went to ED on 12/27/[address] Abd and Pelvis showed very distended bladder, mild prostate enlargemen t, large stool burden, no apparent kidney stones or pyelonephr itis. Pt has reported urinary sx in the past with large amounts of retained urine, inc urgency and frequency. Has also been referred to urology in the past and saw one time but did not f/u further. Urology at that time had started pt on Flomax but he reports this did not help sx.Urine volume may be partially explained by frequent uncontroll ed diabetes contributi ng to making more urine, but suspect additional factors at play. Unclear if constipati on may be causing outlet obstructio n, unlikely that prostate would cause blockage with only mild inc in size. Pt saw urology on 12/29 and they recommende d close f/u and void trial in one week. -Toradol inj given in office today-Rx for naproxen 500 mg BID to help with irritation of kidneys from urine backlog-Al so giving rx for Flexeril 10 mg TID PRN to help pt relax and get some sleep-Enco uraged pt to keep f/u with urology next Tues to continue investigat ion into issue-Annalisa t constipati on as described below-RTC 2 weeks to monitor Chronic constipation [id number] K59.09 Pt reports hx of constipati on with BM approx every 3 days. Has not taken anything in the past for constipati on. CT Abd from 12/27/21 showed large stool burden. Urology recommende d treating constipati on as possible cause of urinary obstructio n. -Rx for Miralax 17 g QD, educated pt on how to titrate dose down or up based on the number of BM he has per day and how regular BM may improve his urinary sx-Encoura ged pt to continue good water intake and inc fiber intake when possible Elevated blood-pressure reading without diagnosis of hypertension [id number] R03.0 Isolated high BP reading in office. Likely 2/2 to acute pain and pt inability to sit still during encounter. -Continue to monitor at next appt [id number] MD Denita TABOR [address] [facility] [address] [place] [address] 01/08/2022 12:10:28 01/11/2022 12:13:59 Lobito [id number] N48.1 Hx of recurrent infections , likely from uncontroll ed diabetes and being uncircumci sed. Has used multiple medication s in past with oral fluconazol e being the most effective. -Rx for fluconazol e 150 mg weekly for two doses-Educ ated pt on routine hygiene of the affect area-May consider fungal suppressio n treatment if pt continues to get recurrent infections Flank pain [id number] R10 .9 Bilateral flank pain that began 12/25/21. Went to ED on 12/27/[address] Abd and Pelvis showed very distended bladder, mild prostate enlargemen t, large stool burden, no apparent kidney stones or pyelonephr itis. Pt has reported urinary sx in the past with large amounts of retained urine, inc urgency and frequency. Has also been referred to urology in the past and saw one time but did not f/u further. Urology at that time had started pt on Flomax but he reports this did not help sx.Urine volume may be partially explained by frequent uncontroll ed diabetes contributi ng to making more urine, but suspect additional factors at play. Unclear if constipati on may be causing outlet obstructio n, unlikely that prostate would cause blockage with only mild inc in size. May also have neurogenic bladder with longstandi ng uncontroll ed diabetes. Sx have resolved and pt passed void trial with urology. -Encourage d pt to keep f/u with urology for cystoscopy and additional testing-Co ntinue Miralax for constipati on-No additional meds needed at this time now that pain has resolved [id number] MD Denita Payne 47 [address] [facility] [address] [place] [address] 01/12/2022 13:58:10 01/12/2022 15:04:03 Type 2 diabetes mellitus [id number] E11.8 POC A1c remains > 15% today. Goal is < 10% initially, < 7% long-term. Has had repeated genital infections as a complicati on that is related to severe hyperglyce piter.--Rest art insulin pump therapy based on current TDD 73 units of injections . Will not reduce dose when converting to pump therapy as BG readings and A1c indicate severe hyperG. Entered pump settings into Omnipod PDM. Basal rate 1.15 unit/hr, bolus settings: ICR 8.2 g/unit and ISF 31 mg/dL/unit --correct above 130 mg/dL, target BG is 110. Not able to active before Jamin left today's appt since he did not bring a pod with him. However, educated and provided written instructio ns on how to set temporary basal rate to 0% until 11:00 PM tonight when he goes home and applies an insulin pod. Keep supply of Lantus, pen needles, and syringes on-hand only for use to resume self-injec tions if without use of insulin pump for several hours-days . Has Rx for Baqsimi for severe hypoG and unable to self-treat .--Continu e BGM 4x/day or use of Dexcom CGM. Monitor for hypo-/hype rG, weight changes. Seek immediate medical attention if BG persistent ly > 250 and has ketones in the high range, N/V &/or cognitive changes. Has ketone strips Rx with instructio ns for use at a previous visit. Eye appointmen t completed in Jun 2021 with plan to f/u in 6 mo. Foot exam due at future visit. A1c next due in March 2022. Annual UACR due in Jun 2022.--Imm unizations : Has declined offer to receive any vaccines. At [facility] risk for cardiovascular event [id number] Z91.89 Not on a statin. 10-year estimated ASCVD risk = 5.1% per Jun 2021 labs. Is a candidate for moderate intensity statin. Patient has not been amenable to initiating therapy. [id number] Tiffany Valderrama-Alirio bar MD [facility] [address] [facility] [address] [place] [address] 01/15/2022 12:04:25 01/18/2022 14:56:35 Dysuria [id number] R30.9 Hx of recurrent infections , likely from uncontroll ed diabetes and being uncircumci sed. Has used multiple medication s in past with oral fluconazol e being the most effective. Suspect sx are from irritation of urethra and foreskin due to balanitis, low suspicion for UTI or STI. -Urine dipstick unremarkab le in office today-Cont inue fluconazol e 150 mg for balanitis- Educated pt on routine hygiene of the affect area-May consider fungal suppressio n treatment if pt continues to get recurrent infections Type 2 meng betes mellitus [id number] E11.9 Uncontroll ed. Follows with Dr. Calvo to help manage insulin pump. Long intervals during which pt has not used pump due to broken parts. Was able to see Dr. Calvo earlier this week where she reprogramm ed his Dexcom. Has not seen Dr. Mcgrath since the end of last year. A1C from 08/06/2021 was >15%. -Encourage d pt to keep following with Dr. Calvo and endocrinol ogist Dr. Mcgrath for management of his diabetes [id number] MADHU SANTIAGO MD [facility] [address] [address] 02/01/2022 13:01:32 02/01/2022 14:15:49 Type 2 diabetes mellitus [id number] E11.8 POC A1c last month remained > 15%. Goal is < 10% initially, < 7% long-term. Has had repeated genital infections as a complicati on that is related to severe hyperglyce piter.--Rest art insulin pump therapy based on settings used prior to the most recent PDM malfunctio n. Entered pump settings into Omnipod PDM. Basal rate 1.15 unit/hr, bolus settings: ICR 8.2 g/unit and ISF 31 mg/dL/unit --correct above 130 mg/dL, target BG is 110. Not able to active before Jamin left today's appt since he did not bring a pod with him. However, educated and provided written instructio ns on how to set temporary basal rate to 0% until 11:00 PM tonight when he goes home and applies an insulin pod. Keep supply of Lantus, pen needles, and syringes on-hand only for use to resume self-injec tions if without use of insulin pump for several hours-days . Has Rx for Baqsimi for severe hypoG and unable to self-treat .--Continu e use of Dexcom CGM. Monitor for hypo-/hype rG, weight changes. Seek immediate medical attention if BG persistent ly > 250 and has ketones in the high range, N/V &/or cognitive changes. Has ketone strips Rx with alayna samuel for use at a previous visit. Eye appointmen t completed in Jun 2021 with plan to f/u in 6 mo. Foot exam due at future visit. A1c next due in March 2022. Annual UACR due in Jun 2022.--Imm unizations : Has declined offer to receive any vaccines. At [facility] risk for cardiovascular event [id number] Z91.89 Not on a statin. 10-year estimated ASCVD risk = 5.1% per Jun 2021 labs. Is a candidate for moderate intensity statin. Patient has not been amenable to initiating therapy. [id number] BRENNA GUNDERSON MD [facility] [address] [facility] [address] [place] [address] 02/16/2022 09:22:27 02/18/2022 15:40:13 Type 2 diabetes mellitus [id number] E11.8 Last A1C:{{less than 7.0% 7-8% 8-9% great er than 9% >15%#}} Goal A1C less than:{{7.0 %* 8.0%}}C urrent Therapy:{{ metformin sulfonylur ea TZD SGL T-2 DDP-4 GLP-1 RA long-ac ting insulin ra pid/short- acting insulin in sulin pump#}} {{metformi n sulfonyl urea TZD S GLT-2 DDP- 4 GLP-1 RA long-ac ting insulin ra pid/short- acting insulin}} {{metformi n sulfonyl urea TZD S GLT-2 DDP- 4 GLP-1 RA long-ac ting insulin ra pid/short- acting insulin}} {{metformi n sulfonyl urea TZD S GLT-2 DDP- 4 GLP-1 RA long-ac ting insulin ra pid/short- acting insulin}}S tatin:{{ye s no decli jennie due to adverse reaction/a llergy dec lined*}}AC E/ARB:{{ye s no no due to negative nephropath y screening contraindi cated decl ined due to adverse reaction/a llergy dec lined*}}Fo ot Exam:{{com pleted in the past 12 months-neg ative comp leted in the past 12 months-pos itive* com pleted in the past 12 months- result unknown du e}}Nephrop athy Screening: {{complete d in the past 12 months- negative* completed in the past 12 months- positive d ue}}Pneumo vax 23:{{UTD D eclined* N ot given}}Eye Exam:{{com pleted in the last 12 months- negative* completed in the last 12 months- positive c ompleted per patient report due - recommende d annual dilated eye exam}}Foll ow up with Dr. Estrada in 1 month. Diabetic p eripheral neuropathy [id number] E11.40 [id number] BRENNA GUNDERSON MD [facility] [address] [facility] [address] [place] [address] 06/22/2022 16:08:15 06/22/2022 19:40:39 Type 2 diabetes mellitus [id number] E11.8 POC A1C today is 9.7% which has decreased from January 2022 > 15%. New goal A1C will be <8%. He complains of genital fungal infection associated with uncontroll ed hyperglyce piter--Jagdeep nue Omnipod Dash use. Increase basal rate by 10% to 1.25 unit/hr and change ISF by 10% to 28 mg/dL/unit . Continue ICR 8.2 g/unit. Correct above 130 mg/dL, target BG is 110. He is not inputting carbs informatio n on a routine basis and is not wearing his Dexcom currently due to it falling off. Keep supply of Lantus, pen needles, and syringes on-hand only for use to resume self-injec tions if without use of insulin pump for several hours-days . Has Rx for Baqsimi for severe hypoG and unable to self-treat .--Provide d number to Dexcom customer service to obtain new Dexcom sensors. Monitor for hypo-/hype rG, weight changes. Seek immediate medical attention if BG persistent ly > 250 and has ketones in the high range, N/V &/or cognitive changes. Has ketone strips Rx with alayna samuel for use at a previous visit. Eye appointmen t completed in Jun 2021. Foot exam due at future visit. A1c next due in August 2022. Annual UACR due in Jun 2022.--Imm unizations : Has declined offer to receive any vaccines. At [facility] risk for cardiovascular event [id number] Z91.89 Not on a statin. 10-year estimated ASCVD risk = 5.1% per Jun 2021 labs. Is a candidate for moderate intensity statin. Patient has not been amenable to initiating therapy. 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 Last treated with single dose fluconazol e 150mg tab in Apr 2022 for same issue and states did not work very well. He is requesting antifungal s today.--Di scussed with Dr. Gunderson. Will initiate fluconazol e 150 mg oral take one tab now by mouth and repeat dose in 72 hours if symptoms persist. [id number] BRENNA GUNDERSON MD [place] [address] [address] 07/02/2022 12:07:57 07/02/2022 18:18:36 Acute urinary tract infection [id number] N39.0 UA with leukocytes and symptoms consistent with UTIPlan- Bactrim double strength BID x 7 days- Obtain urine culture- If symptoms persist despite treatment/ culture negative would obtain STD screening [id number] Ellis Carter MD [place] [address] [address] 09/02/2022 15:14:58 09/13/2022 15:40:16 Cellulitis of right foot [id number] L03.115 New right 1st toe cellulitis lateral to nailbed; ongoing x 2-3wks. Pain rated 9/10, atraumatic , associated w/ DM peripheral neuropathy .- Sent Rx for Bactrim DS PO q12h x 7d.- Recommend good foot hygiene.- Consider referral to Podiatry at f/u visit.- F/u in 1mo w/ PCP, sooner PRN. [id number] Aileen Garcia DO [place] [address] [address] [facility] [address] [place] [address] 10/06/2022 11:28:49 10/07/2022 13:16:58 Type 2 diabetes mellitus [id number] E11.8 POC A1C today is 9.0% which has decreased from 9.7 (05/2022) goal A1C <8%.--Cont inue Omnipod Dash use. He is not inputting carbs informatio n on a routine basis.--[facility] supply of Lantus, pen needles, and syringes on-hand only for use to resume self-injec tions if without use of insulin pump for several hours-days . Has Rx for Baqsimi for severe hypoG and unable to self-treat .--A1C next due 12/2021--Im munization s: Has declined offer to receive any vaccines.- -Due for CMP, patient to return for labs at earliest convenienc e At [facility] risk for cardiovascular event [id number] Z91.89 Not on a statin. 10-year estimated ASCVD risk = 5.1% per Jun 2021 labs. Is a candidate for moderate intensity statin. Patient has not been amenable to initiating therapy. Neuropathy [id number] G62 .9 New onset diabetic neuropathy .Rx sent for gabapentin 300 mg QHSRTC 3 months for diabetic follow up [id number] BRENNA GUNDERSON MD [facility] [address] [facility] [address] [place] [address] 01/28/2023 09:43:35 02/04/2023 16:08:37 Rhabdomyolysis [id number] M62.82 Improving since hospitaliz ation but symptoms still present- Recheck Cr and CK Type 1 meng betes mellitus [id number] E10.9 Discharged on 25 units Lantus, 10 units Humalog- CGM fell out yesterday- Reports taking 25-30 units with meals and 20-25 units at night.- POC glucose 301 and he reports he has not ate todayPlan- Diabetes education provided- Regimen moving forward:- Lantus 35 units at night; if AM glucose is >200 then increase by 5 units, if AM glucose is <100 then decrease by 5 units- Humalog 15 units TIDAC; if meal time glucose is >200 then increase by 2 units, if meal time glucose is <100 then hold insulin and decrease next dose by 2 units- Log AM and meal time glucose levels and bring back next week for follow up appt- See Dr. Calvo regarding insulin pump re-initiat ion [id number] BRENNA GUNDRESON MD [facility] [address] [facility] [address] [place] [address] 12/20/2023 13:57:39 12/21/2023 14:07:56 Paresthesia of lower extremity [id number] R20.2 Pt reports low back pain + numbness + bowel/blad yann accidentsP t transporte d to the ED for further eval Health Concerns Section Related Observation LastModified by Organization Detai ls LastModified Time None Recorded Concern Status LastModified by Organization Details LastModified Time None Recorded Advance Directives Directive None Recorded Payers Encounter Date Sequence Insurance Name Policy Number Policy Cid Covered Member ID Cid Member ID Guarantor Name 07/02/2022 2 *SELF PAY* Leona roma Garcia 07/02/2022 1 [facility] (MEDICAID HM) [id number] Jamin Garcia [id number] Jamin Garcia 09/02/2022 2 *SELF PAY* Leona roma Garcia 09/02/2022 1 [facility] (MEDICAID HMO) [id number] 0003 Jamin Garcia [id number] Jamin Garcia 10/06/2022 1 [facility] (MEDICAID HMO) [id number] 0003 Jamin Garcia [id number] Jamin Garcia 01/28/2023 1 [facility] (MEDICAID HMO) [id number] 0003 Jamin Garcia [id number] Jamin Garcia 12/20/2023 1 [facility] (MEDICAID HMO) [id number] Jamin Garcia [id number] Jamin Agrcia Notes Date Note Type Note Provider Name and Address Organization Details Recorded Time 07/02/2022 text/html 46 yo M presenti ng for dysuria and cloudy urine which started 1 week ago. He recently finished treatment for yeast (took two pills 3 days apart). Patient also reports bilateral flank pain, chills, but denies fever, hematuria. No concern for STDs. BRENNA GUNDERSON MD Attn: Accounting,[address] [place], [address], [place] 07/06/2022 16:14:40 09/02/2022 text/html FootReported bypatient.Location: right (1st digit) Severity:pain level 9/10 Duration:2-3 weeks Timing:acute Context:atraumatic Alleviating Factors:nothing helps Aggravating Factors:cannot identify Associated Symptoms:no fever; no chills;numbness;tin gling Previous Surgery:none Prior Imaging:none Previous Injections:none Previous PT:none Ellis Carter MD Attn: Accounting, [address], [place], [address], [facility] [place] - [facility] 09/10/2022 11:26:47 10/06/2022 text/html 46 yo M presenti berry for diabetes follow up. Last seen for DM visit with Dr. Estrada 05/2022. A1c 9.7 at that time. A1c 9.0 today. Poorly controlled diabetes. Goal <8. Has dexcom. No recent admissions. Last eye exam 06/2021. No hypoglycemic episodes. Acute complaint of neuropathy in both feet. Also endorses sciatic pain. Denies fevers, bowel incontinence, saddle anesthesia. Endorses tingling in all fingers of left hand, sometimes right hand. No neck pain. Fasting BG 150s Patient is using the Omnipod insulin pump system and states he has not had any issues with it, but reports that his sugars have been running high. He reports that he has not been inputting his carbs in to the Omnipod system due to forgetfulness-somet imes. Current Omnipod Dash settings: basal rate 1.25 units/h, ISF 28, ICR 8.2. Aileen Garcia DO Attn: Accounting, [address], [place], [address], [place] 10/10/2022 09:45:07 01/28/2023 text/html 47 yo M w/ PMHx T1DM presenting for hospital follow up of rhabdomyolysis. He also reports not being on insulin pump anymore. Normally sees Endocrinology for his diabetes. BRENNA GUNDERSON MD Attn: Accounting, [address], [place], [address], [place] 02/02/2023 10:01:51 12/20/2023 text/html Here for eval of lower back pain for the last week. Shooting pains into L and R lower legs, having trouble feeling his L side. Denies fevers, vomiting, chills. Endorses some bowel/bladder accidents and increasing numbness to his bottom. Feels like increased pressure when he goes to urinate, nausea. Denies any illicit trauma to his back. Has hx of low back pain, CT scan in 2017 showed mild spinal canal stenosis from disc material and ligamentum flavum thickening. BRENNA GUNDERSON MD Attn: Accounting[address] [place], [address], [facility] [place] 12/20/2023 15:35:12
== END 2024-10-12 06:39 | disposition home or self-care (01) ==
PROVIDERS: Emergency Provider Emergency Medicine
DX: N39.0 Urinary tract infection, site not specified (principal); R25.2 Cramp and spasm; E11.9 Type 2 diabetes mellitus without complications
CPT/HCPCS: 36415; 80053; 81001; 82010; 82550; 82948; 83735; 84100; 85025; 87086; 96361; 96365; 96375; 96376; 99284; A9270; J0696; J3360; J7030

== ENCOUNTER 2024-10-29 11:02 | Emergency (ER) | payer SELFPAY ==
[2024-10-29 11:08] VITALS: BP 123/81; PULSE 95; RESP 16; TEMP 36.9; O2SAT 99
[2024-10-29 11:34] LABS: Glucose Point of Care 263 mg/dl (65-105)
[2024-10-29 11:37] LABS: EDCOVIDSCREEN Negative (Negative); EDINFLUASCREEN Positive (Negative); EDINFLUBSCREEN Negative (Negative)
[2024-10-29 11:53] LABS: EDUAAPPEAR Clear; EDUABILI Negative (Negative); EDUABLOOD Negative (Negative); EDUACOLOR1 Yellow; EDUAGLUCOSE 2+ (Negative); EDUAKETONE 1+ (Negative); EDUALEUKO Negative (Negative); EDUANITRATE Negative (Negative); EDUAPROTEIN 1+ (Negative); EDUASPGRAVITY 1.015; EDUAUROBILI 0.2
--- NOTE | 2024-10-29 11:56 | ED_ITS ---
HPI - General Adult General Chief complaint: Upper Respiratory Infection Stated complaint: flu like symptoms History of Present Illness HPI narrative: Jamin Garcia this is a 49-year-old male who presents today with complaints of having pain since cough body aches fever that started less than 48 hours ago. He states that everyone in the house except for 1 daughter has flu a he want to be checked. He also states that he was admitted recently in the ER and had a urinary tract infection. He states that he took the antibiotics he was prescribed and it sort of helped his symptoms but he says they came right back with having pain when he urinates. Related Data Home Medications ?Medication ?Instructions ?Recorded ?Confirmed ?Last Taken ?Type insulin aspart U-100 100 unit/mL See Rx Instructions .Route .COMPLEX 12/17/23 08/22/24 07/28/24 History (3 mL) subcutaneous pen (Novolog FlexPen U-100 Insulin aspart) insulin glargine 100 unit/mL (3 30 unit subcut HS 07/29/24 08/22/24 07/28/24 History mL) subcutaneous pen (Lantus Solostar U-100 Insulin) pregabalin 150 mg capsule 300 mg PO DAILY 07/29/24 08/22/24 07/28/24 History Allergies Allergy/AdvReac Type Severity Reaction Status Date / Time No Known Allergies Allergy Verified 10/29/24 11:16 Review of Systems Review of Systems: All systems reviewed & are unremarkable except as noted in HPI and below PMFSH Past Medical History Medical History Kidney stones Cholelithiasis Diabetic peripheral neuropathy Insulin dependent type 2 diabetes mellitus Surgical History Surgical History History of laparoscopic cholecystectomy (12/29/23) Family History Family History Mother Diabetes mellitus Father Cerebrovascular accident Heart attack Hypertension Stomach cancer Social History Social History Social History: Surrogate medical decision maker: Jennifer Garcia, spouse. Code status: Full code. Smoking status: Never smoker Alcohol intake: never Substance use: never Substance use type: marijuana Do You Feel Safe in your Home?: Yes Lack of Transportation: No Lack of Food: Never True Current Housing: I Have Housing Concerned About Future Housing: No Difficulty Paying Gas/Electric Bills: No Difficulty Paying for Meds: No Currently Unemployed: No Education: Associate Degree Difficulty w/ Childcare or Family Care: No Additional living arrangements comments: Lives with spouse in [place]. He has 7 children. 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: No Exam Narrative: GENERAL: Well-appearing, well-nourished, and in no acute distress. HEAD: Normocephalic, atraumatic. EYES: PERRLA and EOMI. ENT: Nares with rhinorrhea. Mucous membranes moist. Oropharynx without tonsillar hypertrophy exudate or other lesions. Bilateral TMs pearly sands non bulging mild cerumen bilaterally noted NECK: Supple. No adenopathy or masses. No carotid bruits or JVD CHEST: Clear to auscultation. No respiratory distress. No wheezes rales or rhonchi HEART: Regular rate and rhythm. No murmur heard. Normal peripheral pulses. EXTREMITIES: Normal range of motion. No edema. SKIN: Warm, dry, no rash. NEURO: No focal deficits. Alert and oriented x3. PSYCH: Normal mood and affect. Course Course Level of Care: Express Care Visit Vital Signs Vital signs: Vital Signs Temperature 36.9 C 10/29/24 11:08 Pulse Rate 95 10/29/24 11:08 Respiratory Rate 16 10/29/24 11:08 Blood Pressure 123/81 10/29/24 11:08 Pulse Oximetry 99 10/29/24 11:08 Oxygen Delivery Room Air 10/29/24 11:08 Temperature 36.9 C 10/29/24 11:08 Pulse Rate 95 10/29/24 11:08 Respiratory Rate 16 10/29/24 11:08 Blood Pressure 123/81 10/29/24 11:08 Pulse Oximetry 99 10/29/24 11:08 Oxygen Delivery Room Air 10/29/24 11:08 Medical Decision Making [facility] Narrative Medical decision making narrative: 49-year-old male who presents today with symptoms and exam consistent with a viral upper respiratory infection. He tested positive for influenza A. He is within the 48 hour guerrero that he could be given Tamiflu however he declines wanting Tamiflu I would prefer just symptomatic treatment. While I was doing my exam he also states that he has some discomfort in the right ear he does have some cerumen in there, more so in the right ear than the left and offered to send him with Debrox that he may use to help loosen that to get out. He also states that he was in the ER about a month ago for urinary tract infection he was having burning and pain with urination, which he states he was having the symptoms for about a month before he then went to the ER and he states he took the antibiotics as ordered and he felt a little bit better while he was on antibiotics but as soon as they were done the symptoms came back. He wanted to be checked again for a urinary tract infection I reviewed his urine culture from his ER visit on October 12 and there was no growth at him know that it is his urine dip here is not concerning for urinary tract infection however we can send off a urine culture to ensure we are not missing something I offered to test for sexually transmitted infections as this may also cause these symptoms he is having and he declines wanting STI testing he ok with doing a urine culture and will wait for those results before starting another antibiotic. Medical Records Medical records reviewed: Yes I reviewed the external patient's medical records. Vital Signs Vital Signs: Vital Signs Temperature 36.9 C 10/29/24 11:08 Pulse Rate 95 10/29/24 11:08 Respiratory Rate 16 10/29/24 11:08 Blood Pressure 123/81 10/29/24 11:08 Pulse Oximetry 99 10/29/24 11:08 Oxygen Delivery Room Air 10/29/24 11:08 Temperature 36.9 C 10/29/24 11:08 Pulse Rate 95 10/29/24 11:08 Respiratory Rate 16 10/29/24 11:08 Blood Pressure 123/81 10/29/24 11:08 Pulse Oximetry 99 10/29/24 11:08 Oxygen Delivery Room Air 10/29/24 11:08 Vitals reviewed Lab Data Lab results reviewed: Yes I reviewed the patient's lab results. Labs: Lab Results 10/29/24 10/29/24 10/29/24 Range/Units 11:11 11:32 11:49 POC Capillary Glucose 263 H (65-105) mg/dl POC Urine Color Yellow POC Urine Clarity Clear POC Urine pH 7.0 POC Ur Specif [place] 1.015 POC Urine Protein 1+ (Negative) POC Ur Glucose (UA) 2+ (Negative) POC Urine Ketones 1+ (Negative) POC Urine Blood Negative (Negative) POC Urine Nitrite Negative (Negative) POC Urine Bilirubin Negative (Negative) POC Urine Urobilinogen 0.2 POC U Leukocyte Esteras Negative (Negative) POC Influenza A Ag Positive (Negative) POC Influenza B Ag Negative (Negative) POC SARS CoV-2 Ag Negative (Negative) Discharge Plan Discharge Clinical Impression: Influenza A Patient Disposition: Home, Self-Care Condition: Stable Instructions: Antibiotic Form Additional Instructions: Continue to push oral hydration drinking plenty of fluids, get plenty of rest. you may take Tylenol Motrin for the body aches start using the Debrox to the right ear as we discussed your urine culture will be back in 3-5 days if he should need any treatment he will be notified If you develop any worsening symptoms such as chest pain/ shortness of breath/ vomiting proceed to the ER> Patient Language: Sudanese Prescriptions: New Debrox 6.5 % drops 5 drp RIGHT EAR Q12H 4 Days Qty: 15 0RF No Action insulin aspart U-100 [Novolog FlexPen U-100 Insulin] 100 unit/mL (3 mL) insulin pen See Rx Instructions .ROUTE .COMPLEX Rx Instructions: 1 unit per 10 bsl over 150 with meals tid pregabalin 150 mg capsule 300 mg PO DAILY insulin glargine [Lantus Solostar U-100 Insulin] 100 unit/mL (3 mL) insulin pen 30 unit SUBCUT HS cefdinir 300 mg capsule 300 mg PO Q12H Qty: 14 0RF Follow-up/Referrals: PHYSICIAN,INSULATOR TESTER [Primary Care Provider] -
--- OUTSIDE RECORDS SUMMARY | 2024-10-29 12:20 | XMS_ITS | Clinical Summary ---
Author Organization [facility] Address [address] [place] [phone] Care Team Providers Care Exercise Instructor Name Role Phone No, Physician Primary Care Provider [phone] Allergies Active Allergy Reactions Criticality Noted Date [...] 6 boxes for a 90 day supply. [facility] [id number] 6 each 3 07/19/20 22 Active blood-glucose [...] hyperglycemia, with long-term current use of insulin ([facility]) To change POD once every 3 days. 1 each 08/05/20 Active insulin pump cart,automated,BT (Omnipod 5 G6 Pods, Gen 5,) cartridgeIndicatio ns:Type 2 diabetes mellitus with hyperglycemia, with long-term current use of insulin ([facility]) To change POD every 3 days. 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 Current interpretive data was last revised 2019. Creatinine Ur 67.7 mg/dL [facility] Comment: Interpretive Data No reference range established. Current interpretive data was last revised 2019. Albumin Creatinine Ratio, Ur 23 1 - 29 mg/g [facility] Urine 05/11/2024 4:06 PM CDT 05/11/2024 4:32 PM CDT Elizabeth Cardenas MD LAB URINE ORDERABLES Final Res ult Performing Organization Address [facility] de Phone Number [facility] [place] [address] * Lipid panel (05/11/2024 4:06 PM CDT) [...] on 2018. Triglycerides 108 <=149 mg/dL [facility] Comment: Interpretive Data Ages < or [...] on 2018. HDL 54 >=40 mg/dL [facility] Comment: Interpretive Data Ages < or [...] 2018. LDL, calculated 89 <=129 mg/dL [facility] Comment: Interpretive Data Ages < or [...] revised on 2018. Non-HDL Cholesterol 111 mg/dL [facility] Comment: Interpretive Data Ages < or [...] last revised on 2018. Chol/HDL ratio 3 [facility] Blood 05/11/2024 4:06 PM CDT 05/11/2024 4:32 PM CDT Narrative [facility] - 05/11/2024 5:13 PM CDT These lab test should be done fasting. This means do not eat or drink for at least 12 hours prior to getting your blood drawn. us Elizabeth Cardenas MD LAB BLOOD ORDERABLES Final Res ult [facility] Department [place] [address] * POCT hemoglobin A1c (05/11/2024 2:36 PM CDT) Hemoglobin A1C, POC 9.6 4.0 - 5.6 % Blood 05/11/2024 2:36 PM CDT us Elizabeth Cardenas MD POINT OF CARE TEST ORDERABLES Final Result from Last 3 Months or Most Recently Relevant to Health Maintenance Insurance [facility] Care Teams Exercise Instructor Relationship Specialty Start Date End Date No, Physician PCP - General 05/11/24
--- OUTSIDE RECORDS SUMMARY | 2024-10-29 12:20 | XMS_ITS | Patient Health Summary ---
Author Organization [facility] [employer] Address [address] [place] [address] Care Team Providers Care Corporate Director Of Human Resources Name Role Phone Unavailable Primary Care Provider Unavailabl e Note from [facility],non-owned Affiliates and Associated Physician Practices is amultiple site organization consisting of ambulatory clinics and hospital sitesin [place], [place], [place] and [place]. This disclosure is being madepursuant to the Care Everywhere program and may not contain all information available regarding this patient. Last updated 18.[facility] Allergies No known active allergies Medications * [...]
--- OUTSIDE RECORDS SUMMARY | 2024-10-29 12:20 | XMS_ITS | Clinical Summary ---
Author Organization [facility] Address [address] [place] [address]. [place] [address] [place] [address] Care Team Providers Care Carpenter Labor Supervisor Name Role Phone Ellis Carter MD Primary Care Provider [phone] Allergies No known active allergies Medications gabapentin [...] - Td or Tdap) 10/29/2027 10/29/2017 Meningococcal B Vaccine Aged Out No l onger eligible based on patient's age to complete this topic Meningococcal Vaccine Aged Out No evelia daphney [...] able to perform ADLs independently General No Kapil, Juanita Y, RN Insurance [employer] Advance Directives * Full Code (Latest Code Status on File) Date Activated Date Inactivated Comments 01/23/2023 10:54 AM 01/24/2023 3:59 PM * Full Code Date Activated Date Inactivated Comments 12/06/2021 7:17 PM 12/07/2021 5:02 PM Care Teams Carpenter Labor Supervisor Relationship Specialty Start Date End Date Ellis Carter MD [address] [address] PCP - General FAMILY PRACTICE 01/24/23
--- OUTSIDE RECORDS SUMMARY | 2024-10-29 12:20 | XMS_ITS | Referral Summary ---
Author Organization [facility] [employer] Address [address] [place] [address] Care Team Providers Care Paint Booth Operator Name Role Phone Unavailable Primary Care Provider Unavailabl e Source Comments [facility],non-owned Affiliates and Associated Physician Practices is amultiple site organization consisting of ambulatory clinics and hospital sitesin [place], [place], [place] and [place]. This disclosure is being madepursuant to the Care Everywhere program and may not contain all information available regarding this patient. Last updated 18.[facility] [employer] Allergies No known active allergies Medications * [...] Billing Address JAMIN LEDEZMA Personal/Family [address] [place] [address] JAMIN LEDEZMA Personal/Family [address] [place] [address] JAMIN LEDEZMA Personal/Family Spouse [address] [place] [address] Jamin Ledezma Personal/Family Self 1975 [address] [place] [phone]
--- OUTSIDE RECORDS SUMMARY | 2024-10-29 12:20 | XMS_ITS | Encounter Summary ---
Author Organization [facility] Address [facility] [address] [address] [place] [address] Care Team Providers Care Obstetrics Scrub Nurse Name Role Phone None, Provider Primary Care Provider Unavaila Morro Bullock MD Primary Care Provider None, Provider Primary Care Provider Unavaila nadine None, Provider Primary Care Provider Unavaila Ellis Blackwell MD Primary Care Provider [phone] Encounter Details Date Type Department Care Team (Late st Contact Info) Description 03/20/[address]21 [employer] Solar [address] [facility] Patient Accounts [address] [place] [address] Florent[place], [facility] Provider [facility] Patient Financial Services Social History Tobacco Use [...] Rule Out 08/04/2022 08/04/2022 08/04/2022 3:30 PM MANAGER JAVA COVID-19 Rule Out 02/28/2023 02/28/2023 02/28/2023 9:20 PM CDT documented as of this encounter Care Teams Obstetrics Scrub Nurse Relationship Specialty Start Date End Date None, Provider, PCP - General 04/21/20 12/05/21 Morro Ritter MD [address] [phone] PCP - General FAMILY PRACTICE 12/06/21 05/18/22 None, Provider, PCP - General 05/19/22 07/03/22 None, Provider, PCP - General 07/04/22 01/23/23 Ellis Carter MD [address] [phone] PCP - General FAMILY PRACTICE 01/24/23 documented as of this encounter
--- OUTSIDE RECORDS SUMMARY | 2024-10-29 12:20 | XMS_ITS | Clinical Summary ---
Author Organization [facility] [employer] Address [address] [place] [address] Care Team Providers Care Air Chipper Name Role Phone Unavailable Primary Care Provider Unavailabl e Source Comments [facility] [employer],non-owned Affiliates and Associated Physician Practices is amultiple site organization consisting of ambulatory clinics and hospital sitesin [place], [place] and [place]. This disclosure is being madepursuant to the Care Everywhere program and may not contain all information available regarding this patient. Last updated 18.[facility] [employer] Allergies No known active allergies Medications * [...] Billing Address JAMIN LEDEZMA Personal/Family [address] [place] [address] JAMIN LEDEZMA Personal/Family [address] [place] [address] JAMIN LEDEZMA Personal/Family Spouse [address] [place] [address] Jamin Ledezma Personal/Family Self 1975 [address] [place] [address]
--- OUTSIDE RECORDS SUMMARY | 2024-10-29 12:20 | XMS_ITS | Data Portability ---
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 POC A1c in Jun 2021 increased [...] changes. Has ketone strips Rx with alayna ns for use at a previous visit. [...] Declined offer to receive any vaccines. [facility] risk for cardiovascular event [id number] Z91.89 Not on a statin. 10-year estimated ASCVD risk = 5.1% per Jun 2021 labs. Is a candidate for moderate intensity statin. Discuss at future visit. [id number] [facility] 3 [facility] [address] [place] [address] 12/30/2021 09:30:57 12/31/2021 16:43:56 Flank pain [id number] R10.9 Bilateral flank pain that began 12/25/21 [...] pt to keep f/u with urology next Tu to continue investigat ion into issue-Annalisa t constipati on as described below-RTC 2 weeks to monitor Chronic constipation 236 324928 K59.09 Pt reports hx of constipati on [...] Elevated blood-pressure reading without diagnosis of hypertension 468102564 R03.0 Isolated high BP reading in office. Likely 2/2 to acute pain and pt inability to sit still during encounter. -Continue to monitor at next appt [id number] FLOR Kevin MD [facility] 47 3 [facility] [address] [place] [address] 01/08/2022 12:10:28 01/11/2022 12:13:59 Lobito 75409254 N48.1 Hx of recurrent infections , likely from uncontroll ed diabetes and being uncircumci sed. Has used multiple medication s in past with oral fluconazol e being the most effective. -Rx for fluconazol e 150 mg weekly for two doses-Educ ated pt on routine hygiene of the affect area-May consider fungal suppressio n treatment if pt continues to get recurrent infections Flank pain 842716345 R10 .9 Bilateral flank pain that began [...] this time now that pain has resolved [id number] Ellis Carter MD [facility] 47 3 [facility] [address] [place] [address] 01/12/2022 13:58:10 01/12/2022 15:04:03 Type 2 diabetes mellitus 32591244 E11.8 POC A1c remains > 15% today. [...] health care ed risk for cardiovascular event [id number] Z91.89 Not on a statin. 10-year estimated ASCVD risk = 5.1% per Jun 2021 labs. Is a candidate for moderate intensity statin. Patient has not been amenable to initiating therapy. [id number] [facility] 47 3 [facility] [address] [place] [address] 01/15/2022 12:04:25 01/18/2022 14:56:35 Dysuria 52488267 R30.9 Hx of recurrent infections , likely [...] recurrent infections Type 2 meng betes mellitus 77611340 E11.9 Uncontroll ed. Follows with Dr. Calvo [...] Dr. Mcgrath for management of his diabetes [id number] MADHU SANTIAGO MD [facility] 47 3 [facility] [address] [place] [address] 02/01/2022 13:01:32 02/01/2022 14:15:49 Type 2 diabetes mellitus 20745799 E11.8 POC A1c last month remained > 15%. Goal is < 10% initially, < 7% long-term. Has had repeated genital infections as a complicati on that is related to severe hyperglyce piter.--Rest art insulin pump therapy based on settings used prior to the most recent PDM karina n. Entered pump settings into Omnipod PDM. [...] declined offer to receive any vaccines. [facility] risk for cardiovascular event [id number] Z91.89 Not on a statin. 10-year estimated ASCVD risk = 5.1% per Jun 2021 labs. Is a candidate for moderate intensity statin. Patient has not been amenable to initiating therapy. [id number] BRENNA GUNDERSON MD [facility] [address] [address] 02/16/2022 09:22:27 02/18/2022 15:40:13 Type 2 diabetes mellitus 75369278 E11.8 Last A1C:{{less than 7.0% 7-8% 8-9% [...] in 1 month. Diabetic p eripheral neuropathy 333466579 E11.40 [id number] BRENNA GUNDERSON MD [place] [address] 3 [facility] [address] [place] [address] 06/22/2022 16:08:15 06/22/2022 19:40:39 Type 2 diabetes mellitus 26258101 E11.8 POC A1C today is 9.7% which [...] health care ed risk for cardiovascular event 266693891 Z91.89 Not on a statin. 10-year estimated [...] dose in 72 hours if symptoms persist. [id number] BRENNA GUNDERSON MD [place] [address] [address] 07/02/2022 12:07:57 07/02/2022 18:18:36 Acute urinary tract infection [id number] N39.0 UA with leukocytes and symptoms consistent with UTIPlan- Bactrim double strength BID x 7 days- Obtain urine culture- If symptoms persist despite treatment/ culture negative would obtain STD screening [id number] Ellis Carter MD [place] [address] [address] 09/02/2022 15:14:58 09/13/2022 15:40:16 Cellulitis of right foot [id number] L03.115 New right 1st toe cellulitis lateral to nailbed; ongoing x 2-3wks. Pain rated 9/10, atraumatic , associated w/ DM peripheral neuropathy .- Sent Rx for Bactrim DS PO q12h x 7d.- Recommend good foot hygiene.- Consider referral to Podiatry at f/u visit.- F/u in 1mo w/ PCP, sooner PRN. [id number] Aileen Garcia DO [place] [address] [address] 10/06/2022 11:28:49 10/07/2022 13:16:58 Type 2 diabetes mellitus 76169756 E11.8 POC A1C today is 9.0% which has decreased from 9.7 (05/2022) goal A1C <8%.--Cont inue Omnipod Dash use. He is not inputting carbs informatio n on a routine basis.--Ke supply of Lantus, pen needles, and syringes on-hand only for use to resume self-injec tions if without use of insulin pump for several hours-days . Has Rx for Baqsimi for severe hypoG and unable to self-treat .--A1C next due 12/2021--Im munization s: Has declined offer to receive any vaccines.- -Due for CMP, patient to return for labs at earliest [facility] e [facility] ed risk for cardiovascular event 755558916 Z91.89 Not on a statin. 10-year estimated ASCVD risk = 5.1% per Jun 2021 labs. Is a candidate for moderate intensity statin. Patient has not been amenable to initiating therapy. Neuropathy [id number] G62 .9 New onset diabetic neuropathy .Rx sent for gabapentin 300 mg QHSRTC 3 months for diabetic follow up [id number] BRENNA GUNDERSON MD [facility] 47 3 [facility] [address] [place] [address] 01/28/2023 09:43:35 02/04/2023 16:08:37 Rhabdomyolysis 532947254 M62.82 Improving since hospitaliz ation but symptoms still present- Recheck Cr and CK Type 1 meng betes mellitus 05550816 E10.9 Discharged on 25 units Lantus, 10 [...] week for follow up appt- See Dr. Rosselli regarding insulin pump re-initiat ion [id number] BRENNA GUNDERSON MD [facility] 47 3 [facility] [address] [place] [address] 12/20/2023 13:57:39 12/21/2023 14:07:56 Paresthesia of lower extremity [id number] R20.2 Pt reports low back pain + [...] *SELF PAY* Leona roma Garcia 07/02/2022 1 [facility] (MEDICAID HMO) [id number] 0003 Jamin Garcia [id number] Jamin Garcia 09/02/2022 2 *SELF PAY* Leona roma Garcia 09/02/2022 1 [facility] (MEDICAID HMO) [id number] 0003 Jamin Garcia [id number] Jamin Garcia 10/06/2022 1 [facility] (MEDICAID HMO) [id number] 0003 Jamin Garcia [id number] Jamin Garcia 01/28/2023 1 [facility] (MEDICAID HMO) [id number] 0003 Jamin Garcia [id number] Jamin Garcia 12/20/2023 1 [facility] (MEDICAID HMO) [id number] 0003 Jamin Garcia [id number] Jamin Garcia Notes Date Note Type Note Provider Name and Address Organization Details Recorded Time 07/02/2022 text/html 46 yo M presenti ng for dysuria and cloudy urine which started 1 week ago. He recently finished treatment for yeast (took two pills 3 days apart). Patient also reports bilateral flank pain, chills, but denies fever, hematuria. No concern for STDs. BRENNA GUNDERSON MD Attn: Accounting[address] [place], [address], [facility] 07/06/2022 16:14:40 09/02/2022 text/html FootReported bypatient.Location: right (1st digit) Severity:pain level 9/10 Duration:2-3 weeks Timing:acute Context:atraumatic Alleviating Factors:nothing helps Aggravating Factors:cannot identify Associated Symptoms:no fever; no chills;numbness;tin gling Previous Surgery:none Prior Imaging:none Previous Injections:none Previous PT:none Ellis Carter MD Attn: Accounting, [address] [facility], [place], [address], [facility] 09/10/2022 11:26:47 10/06/2022 text/html 46 yo M presenti ng for diabetes follow up. Last seen for [...] 8.2. Aileen Garcia DO Attn: Accounting, [address] [facility], [place], [address], [facility] 10/10/2022 09:45:07 01/28/2023 text/html 47 yo M w/ PMHx T1DM presenting for hospital follow up of rhabdomyolysis. He also reports not being on insulin pump anymore. Normally sees Endocrinology for his diabetes. BRENNA GUNDERSON MD Attn: Accounting, [address] [facility], [place], [address], [place] [facility] 02/02/2023 10:01:51 12/20/2023 text/html Here for eval [...] thickening. BRENNA GUNDERSON MD Attn: Accounting[address] [place], [address], [facility] 12/20/2023 15:35:12
--- OUTSIDE RECORDS SUMMARY | 2024-10-29 12:20 | XMS_ITS | Referral Summary ---
Author Organization [facility] Address [address] [place] [address] Care Team Providers Care Estimator And Drafter Supervisor Name Role Phone No, Physician Primary Care Provider [phone] Allergies Active Allergy Reactions Criticality Noted Date [...] 6 boxes for a 90 day supply. [facility] [id number] 6 each 3 07/19/20 22 Active blood-glucose [...] long-term current use of insulin ([facility]) To change POD once every 3 days. 1 each 08/05/20 Active insulin pump cart,automated,BT (Omnipod 5 G6 Pods, Gen 5,) cartridgeIndicatio ns:Type 2 diabetes mellitus with hyperglycemia, with long-term current use of insulin ([facility]) To change POD every 3 days. 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 Current interpretive data was last revised 2019. Creatinine Ur 67.7 mg/dL [facility] Comment: Interpretive Data No reference range established. Current interpretive data was last revised 2019. Albumin Creatinine Ratio, Ur 23 1 - 29 mg/g [facility] Urine 05/11/2024 4:06 PM CDT 05/11/2024 4:32 PM CDT us Elizabeth Cardenas MD LAB URINE ORDERABLES Final Res ult [facility] Department [place] [address] * Lipid panel (05/11/2024 4:06 PM CDT) [...] revised on 2018. Triglycerides 108 <=149 mg/dL [facility] Comment: Interpretive Data Ages < [...] on 2018. HDL 54 >=40 mg/dL [facility] Comment: Interpretive Data Ages < or = [...] on 2018. LDL, calculated 89 <=129 mg/dL [facility] Comment: Interpretive Data Ages < or [...] on 2018. Non-HDL Cholesterol 111 mg/dL [facility] Comment: Interpretive Data Ages < or = [...] last revised on 2018. Chol/HDL ratio 3 [facility] Blood 05/11/2024 4:06 PM CDT 05/11/2024 4:32 PM CDT Narrative [facility] - 05/11/2024 5:13 PM CDT These lab test should be done fasting. This means do not eat or drink for at least 12 hours prior to getting your blood drawn. Elizabeth Cardenas MD LAB BLOOD ORDERABLES Final Res ult [facility] Department [place] [address] * POCT hemoglobin A1c (05/11/2024 2:36 PM CDT) Hemoglobin A1C, POC 9.6 4.0 - 5.6 % Blood 05/11/2024 2:36 PM CDT Elizabeth Cardenas MD POINT OF CARE TEST ORDERABLES Final Result from Last 3 Months or Most Recently Relevant to Health Maintenance Insurance [facility] Care Teams Estimator And Drafter Supervisor Relationship Specialty Start Date End Date No, Physician PCP - General 05/11/24
== END 2024-10-29 12:08 | disposition home or self-care (01) ==
PROVIDERS: Emergency Provider Nurse Practitioner Family
DX: J10.1 Influenza due to other identified influenza virus with other respiratory manifestations (principal); E11.42 Type 2 diabetes mellitus with diabetic polyneuropathy; Z79.4 Long term (current) use of insulin; Z20.822 Contact with and (suspected) exposure to COVID-19
CPT/HCPCS: 81003; 82948; 87086; 87426; 87804; 99213; G0463

== ENCOUNTER 2025-01-31 13:21 | Emergency (ER) | payer SELFPAY ==
--- OUTSIDE RECORDS SUMMARY | 2025-01-31 13:24 | XMS_ITS | Clinical Summary ---
Author Organization [facility] Address [address] [place] [address] Care Team Providers Care Food Vendor Name Role Phone Unavailable Primary Care Provider Unavailabl e Source Comments [facility],non-owned Affiliates and Associated Physician Practices is amultiple site organization consisting of ambulatory clinics and hospital sitesin [place], [place], [place] and [place]. This disclosure is being madepursuant to the Care Everywhere program and may not contain all information available regarding this patient. Last updated 18.[facility] Allergies No known active allergies Medications * Be aware that medications may not be up to date on this document. Alwaysverify current medications with the patient. hydrocodone-acet aminophen 5-500 MG tablet Take 1-2 Tabs by [...] at Not on file Legal Sex Male 1:35 PM CDT Gender Identity Not on file Sexual Orientation Not on file Last Filed Vital Signs Vital Sign Reading Time Taken Comments Blood Pressure 135/80 07/22/2013 3:09 PM CDT Pulse 90 07/22/2013 3:09 PM CDT Temperature 36.7 C (98.1 F) 07/22/2013 1:41 PM CDT Respiratory Rate 16 07/22/2013 3:09 PM CDT [...] VACCINE (1 - 2023-2 5 season) 2024 DEPRESSION SCREENING 09/26/2024 INFLUENZA VACCINE (Season Ended) 2025 ZOSTER VACCINE (1 of 2) 2026 HIB VACCINE Aged Out No longer eligi ble based on patient's age to complete this topic HPV VACCINE Aged Out No longer eligi ble based on patient's age to complete this topic MENINGOCOCCAL (Group B) VACC INE SHARED DECISION-MAKING Aged Out No longer eligibl e based on patient's age to complete this topic MENINGOCOCCAL GROUPS A/C/Y/W VACCINE Aged Out No longer eligible b ased on patient's age to complete this topic PNEUMOCOCCAL VACCINE Aged Out No long er eligible based on patient's age to complete this topic Insurance * Guarantor: JAMIN LEDEZMA Account Type Relation to Patient Date of Phone Billing Address Personal/Family [address] [place] [address] SELF PAY NO INSURANCE Member Subscriber Plan / Payer (Ef fective for All Dates) Name:Jamin Ledezma Member ID:Not on file Relation to Subscriber:Not on file Name:JAMIN LEDEZMA Subscriber ID:Not on file Address: [facility] [place] [address] Payer ID:Not on file Group ID:Not on file Type:Self Pay Address: [place], [place] * Guarantor: JAMIN LEDEZMA Account Type Relation to Patient Date of Phone Billing Address Personal/Family [address] [place] [address] SELF PAY NO INSURANCE Member Subscriber Plan / Payer (Ef fective for All Dates) Name:Ledezma Jamin Member ID:Not on file Relation to Subscriber:Not on file Name:JAMIN LEDEZMA Subscriber ID:Not on file Address: [address] [place] [address] Payer ID:Not on file Group ID:Not on file Type:Self Pay Address: [place], [place] MEDICAID [facility] SELF PAY NO INSURANCE Member Subscriber Plan / Payer (Ef fective for All Dates) Name:Ledezma Jamin Member ID:Not on file Relation to Subscriber:Not on file Name:JAMIN LEDEZMA Subscriber ID:Not on file Address: [address] [place] [address] Payer ID:Not on file Group ID:Not on file Type:Self Pay Address: [place], [place]
--- OUTSIDE RECORDS SUMMARY | 2025-01-31 13:24 | XMS_ITS | Clinical Summary ---
Author Organization [facility] Address [address] [place] [address] Care Team Providers Care Toe Puller Name Role Phone Ellis Carter MD Primary Care Provider [phone] Allergies No known active allergies Medications gabapentin [...] Diagnosed Date Rhabdomyolysis 01/23/2023 Hyperglycemia 12/06/2021 Immunizations Immunization Administration Dates Next Due Tdap (Boostrix) 10/29/2017 [...] 71 12/20/2023 1:44 PM CDT Temperature 36.7 C (98.1 F) 12/20/2023 1:44 PM CDT Respiratory Rate 18 12/20/2023 1:44 PM CDT [...] 1995 COVID-19 Vaccine (2023-2 5 season) 2024 DTaP, Tdap and Td Vaccines ( 2 - Td or Tdap) 10/29/2027 10/29/2017 Meningococcal B Vaccine Aged Out No l onger eligible based on patient's age to complete this topic Meningococcal Vaccine Aged Out No evelia daphney eligible based on patient's age to complete this topic Pneumococcal Vaccine: Pediat rics (0 to 5 Years) and At-Risk Patients (6 to 49 Years) Aged Out No longer eligi ble based on patient's age to complete this topic RSV Immunizations Under 20 Months Aged Out No longer eligible based on patient's age to complete this topic Goals Goal Patient Goal Type Associated Problems Recent Progress Patient-Stated? Author Health - patient able to perform ADLs independently General No Juanita Dick RN Insurance [employer] Advance Directives * Full Code (Latest Code Status on File) Date Activated Date Inactivated Comments 01/23/2023 10:54 AM 01/24/2023 3:59 PM * Full Code Date Activated Date Inactivated Comments 12/06/2021 7:17 PM 12/07/2021 5:02 PM Care Teams Toe Puller Relationship Specialty Start Date End Date Ellis Carter MD [address] [address] PCP - General FAMILY PRACTICE 01/24/23
--- OUTSIDE RECORDS SUMMARY | 2025-01-31 13:24 | XMS_ITS | Encounter Summary ---
Author Organization [facility] Address [address] [place] [address] Care Team Providers Care Plastic Machine Operator Name Role Phone None, Provider Primary Care Provider Morro Whitt MD Primary Care Provider None, Provider Primary Care Provider Unavaila nadine None, Provider Primary Care Provider Unavaila Ellis Blackwell MD Primary Care Provider [phone] Encounter Details Date Type Department Care Team (Late st Contact Info) Description 03/20/2021 PasswordBank Message [facility] Patient Accounts [address] [place] [address] [facility] Patient Financial Services Social History Tobacco Use [...] Rule Out 08/04/2022 08/04/2022 08/04/2022 3: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 COVID-19 Rule Out 02/28/2023 02/28/2023 02/28/2023 9:20 PM CDT documented as of this encounter Care Teams Plastic Machine Operator Relationship Specialty Start Date End Date None, Provider, PCP - General 04/21/20 12/05/21 Morro Ritter MD [address] [facility] [address] [phone] PCP - General FAMILY PRACTICE 12/06/21 05/18/22 None, ProviderMD PCP - General 05/19/22 07/03/22 None, ProviderMD PCP - General 07/04/22 01/23/23 Ellis Carter MD [address] [facility] [address] [place] [phone] PCP - General FAMILY PRACTICE 01/24/23 documented as of this encounter
--- OUTSIDE RECORDS SUMMARY | 2025-01-31 13:24 | XMS_ITS | Data Portability ---
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 [facility] [address] [place] [address] 12/30/2021 09:30:57 12/31/2021 16:43:56 Flank pain [id number] R10.9 Bilateral flank pain that began 12/25/21 [...] 2 weeks to monitor Chronic constipation 236 [id number] K59.09 Pt reports hx of constipati on [...] Elevated blood-pressure reading without diagnosis of hypertension [id number] R03.0 Isolated high BP reading in office. Likely 2/2 to acute pain and pt inability to sit still during encounter. -Continue to monitor at next appt [id number] Everett crawford MD [facility] 47 3 [facility] [address] [place] [address] 01/08/2022 12:10:28 01/11/2022 12:13:59 Lobito [id number] N48.1 Hx of recurrent infections , likely from uncontroll ed diabetes and being uncircumci sed. Has used multiple medication s in past with oral fluconazol e being the most effective. -Rx for fluconazol e 150 mg weekly for two doses-Educ ated pt on routine hygiene of the affect area-May consider fungal suppressio n treatment if pt continues to get recurrent infections Flank pain [id number] R10 .9 Bilateral flank pain that began [...] this time now that pain has resolved [id number] Ellis Carter MD [facility] [address] [address] 01/12/2022 13:58:10 01/12/2022 15:04:03 Type 2 diabetes mellitus 43604290 E11.8 POC A1c remains > 15% today. [...] indicate severe hyperG. Entered pump settings into [employer] PDM. Basal rate 1.15 unit/hr, bolus settings: [...] declined offer to receive any vaccines. At [facility] risk for cardiovascular event [id number] Z91.89 Not on a statin. 10-year estimated ASCVD risk = 5.1% per Jun 2021 labs. Is a candidate for moderate intensity statin. Patient has not been amenable to initiating therapy. [id number] Everett crawford MD [facility] 47 3 [facility] [address] [place] [address] 01/15/2022 12:04:25 01/18/2022 14:56:35 Dysuria 51763003 R30.9 Hx of recurrent infections , likely [...] recurrent infections Type 2 meng betes mellitus 58496232 E11.9 Uncontroll ed. Follows with Dr. Calvo [...] Dr. Mcgrath for management of his diabetes [id number] BRENNA GUNDERSON MD [facility] [address] [address] 02/01/2022 13:01:32 02/01/2022 14:15:49 Type 2 diabetes mellitus 96612691 E11.8 POC A1c last month remained > [...] declined offer to receive any vaccines. At [facility] risk for cardiovascular event [id number] Z91.89 Not on a statin. 10-year estimated ASCVD risk = 5.1% per Jun 2021 labs. Is a candidate for moderate intensity statin. Patient has not been amenable to initiating therapy. [id number] Everett crawford MD [facility] 47 3 [facility] [address] [place] [address] 02/16/2022 09:22:27 02/18/2022 15:40:13 Type 2 diabetes mellitus 93930494 E11.8 Last A1C:{{less than 7.0% 7-8% 8-9% [...] in 1 month. Diabetic p eripheral neuropathy [id number] E11.40 [id number] BRENNA GUNDERSON MD [facility] 47 3 [facility] [address] [place] [address] 06/22/2022 16:08:15 06/22/2022 19:40:39 Type 2 diabetes mellitus 03463325 E11.8 POC A1C today is 9.7% which [...] declined offer to receive any vaccines. At [facility] risk for cardiovascular event [id number] Z91.89 Not on a statin. 10-year estimated [...] dose in 72 hours if symptoms persist. [id number] Ellis Carter MD [place] [address] [address] 07/02/2022 12:07:57 07/02/2022 18:18:36 Acute urinary tract infection [id number] N39.0 UA with leukocytes and symptoms consistent with UTIPlan- Bactrim double strength BID x 7 days- Obtain urine culture- If symptoms persist despite treatment/ culture negative would obtain STD screening [id number] BRENNA GUNDERSON MD [place] [address] [address] 09/02/2022 15:14:58 09/13/2022 15:40:16 Cellulitis of right foot [id number] L03.115 New right 1st toe cellulitis lateral to nailbed; ongoing x 2-3wks. Pain rated 9/10, atraumatic , associated w/ DM peripheral neuropathy .- Sent Rx for Bactrim DS PO q12h x 7d.- Recommend good foot hygiene.- Consider referral to Podiatry at f/u visit.- F/u in 1mo w/ PCP, sooner PRN. [id number] Aileen Garcia DO [place] [address] [address] 10/06/2022 11:28:49 10/07/2022 13:16:58 Type 2 diabetes mellitus 65167087 E11.8 POC A1C today is 9.0% which has decreased from 9.7 (05/2022) goal A1C <8%.--Cont inue Omnipod Dash use. He is not inputting carbs informatio n on a routine basis.--Ke ep supply of Lantus, pen needles, and syringes on-hand only for use to resume self-injec tions if without use of insulin pump for several hours-days . Has Rx for Baqsimi for severe hypoG and unable to self-treat .--A1C next due 12/2021--Im munization s: Has declined offer to receive any vaccines.- -Due for CMP, [facility] risk for cardiovascular event [id number] Z91.89 Not on a statin. 10-year estimated ASCVD risk = 5.1% per Jun 2021 labs. Is a candidate for moderate intensity statin. Patient has not been amenable to initiating therapy. Neuropathy [id number] G62 .9 New onset diabetic neuropathy .Rx sent for gabapentin 300 mg QHSRTC 3 months for diabetic follow up [id number] Ellis Carter MD [place] [address] [address] 01/28/2023 09:43:35 02/04/2023 16:08:37 Rhabdomyolysis [id number] M62.82 Improving since hospitaliz ation but symptoms still present- Recheck Cr and CK Type 1 meng betes mellitus [id number] E10.9 Discharged on 25 units Lantus, 10 [...] Dr. Calvo regarding insulin pump re-initiat ion [id number] BRENNA GUNDERSON MD [facility] 3 [facility] [address] [place] [address] 12/20/2023 13:57:39 12/21/2023 14:07:56 Paresthesia of lower extremity [id number] R20.2 Pt reports low back pain + [...] PAY* Leona roma Garcia 07/02/2022 1 [facility] (MEDICAID HMO) [id number] 0003 Jamin Garcia [id number] Jamin Garcia 09/02/2022 2 *SELF PAY* Leona roma Garcia 09/02/2022 1 [facility] (MEDICAID HMO) [id number] 0003 Jamin Garcia [id number] Jamin Garcia 10/06/2022 1 [facility] (MEDICAID HMO) [id number] 0003 Jamin Garcia [id number] Jamin Garcia 01/28/2023 1 [facility] (MEDICAID HMO) [id number] 0003 Jamin Garcia [id number] Jamin Garcia 12/20/2023 1 [facility] (MEDICAID HMO) [id number] 0003 Jamin Garcia [id number] Jamin Garcia Notes Date Note Type Note [...] STDs. BRENNA GUNDERSON MD Attn: Accounting,[address] [facility], [place], [address], [place] [facility] 07/06/2022 16:14:40 09/02/2022 text/html FootReported bypatient.Location: right (1st digit) Severity:pain level 9/10 Duration:2-3 weeks Timing:acute Context:atraumatic Alleviating Factors:nothing helps Aggravating Factors:cannot identify Associated Symptoms:no fever; no chills;numbness;tin gling Previous Surgery:none Prior Imaging:none Previous Injections:none Previous PT:none Ellis Carter MD Attn: Accounting[address] [facility] , [place], [address], [facility] 09/10/2022 11:26:47 10/06/2022 text/html 46 [...] Aileen Garcia DO Attn: Accounting, [address] [facility], [place], [address], [facility] 10/10/2022 09:45:07 01/28/2023 text/html 47 yo M w/ PMHx T1DM presenting for hospital follow up of rhabdomyolysis. He also reports not being on insulin pump anymore. Normally sees Endocrinology for his diabetes. BRENNA GUNDERSON MD Attn: Accounting[address] [facility], [place], [address], [place] - [facility] 02/02/2023 10:01:51 12/20/2023 text/html [...] thickening. BRENNA GUNDERSON MD Attn: Accounting,[address] [place], [address], [facility] 12/20/2023 15:35:12
--- NOTE | 2025-01-31 13:25 | ED_ITS ---
HPI - Male Genitourinary General Stated complaint: UTI Time Seen by Provider: 01/31/25 13:30 Source: patient Mode of arrival: ambulatory Limitations: no limitations History of Present Illness HPI Narrative: Jamin is a 49-year-old male patient presenting to the clinic today with complaints of a possible UTI. Here is reporting burning with urination, lower abdominal pain, bilateral flank pain, and blood in his urine. Symptoms started 2 days ago. He denies any known fevers. States the pain feels like razor blades and his lower abdomen and aching in his back. He is an insulin-dependent diabetic. History of kidney stones, urinary retention, and rhabdomyolysis. Rates pain 10/10 currently. Has not taken anything for pain today. Took some ibuprofen yesterday. Related Data Home Medications ?Medication ?Instructions ?Recorded ?Confirmed ?Last Taken ?Type insulin aspart U-100 100 unit/mL See Rx Instructions .Route .COMPLEX 12/17/23 08/22/24 07/28/24 History (3 mL) subcutaneous pen (Novolog FlexPen U-100 Insulin aspart) insulin glargine 100 unit/mL (3 30 unit subcut HS 07/29/24 08/22/24 07/28/24 History mL) subcutaneous pen (Lantus Solostar U-100 Insulin) pregabalin 150 mg capsule 300 mg PO DAILY 07/29/24 08/22/24 07/28/24 History Allergies Allergy/AdvReac Type Severity Reaction Status Date / Time No Known Allergies Allergy Verified 01/31/25 13:33 Review of Systems Review of Systems: Pertinent positives per HPI. Patient denies any fever, chills, rash, headache, visual changes, dizziness, cough, runny nose, sore throat, shortness of breath, chest pain, palpitations, nausea, vomiting, diarrhea, constipation. [facility] Past Medical History Medical History Kidney stones Cholelithiasis Diabetic peripheral neuropathy Insulin dependent type 2 diabetes mellitus Surgical History Surgical History History of laparoscopic cholecystectomy (12/29/23) Family History Family History Mother Diabetes mellitus Father Cerebrovascular accident Heart attack Hypertension Stomach cancer Social History Social History Social History: Surrogate medical decision maker: Jennifer Garcia, spouse. Code status: Full code. Smoking status: Never smoker Alcohol intake: never Substance use: never Substance use type: marijuana Do You Feel Safe in your Home?: Yes Lack of Transportation: No Lack of Food: Never True Current Housing: I Have Housing Concerned About Future Housing: No Difficulty Paying Gas/Electric Bills: No Difficulty Paying for Meds: No Currently Unemployed: No Education: Associate Degree Difficulty w/ Childcare or Family Care: No Additional living arrangements comments: Lives with spouse in [place]. He has 7 children. 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: No Comments At the time of my signature, I reviewed and agree with the nursing past medical, surgical, social, and family history. There is no relevant family history pertinent to the patient complaint. Exam Narrative: General: Well-developed, well nourished, in acute distress due to pain Head: Normocephalic, atraumatic. Cardio: Regular rate and rhythm, s1 and s2 normal, no murmur appreciated. Resp: Clear to auscultation bilaterally, no rhonchi, rales, wheezing or rubs. Abdomen: Soft, pliable, bowel sounds present in all quadrants, lower abdomen/suprapubic tender to palpation, no organomegly, positive bilateral CVAT tenderness. Course Course Emergency Course: Portions of this record may have been created with voice recognition software. Level of Care: Express Care Visit Vital Signs Vital signs: Vital signs reviewed Transfer Transfered to: [facility] Transportation: Other (Private car) Transfer rationale: Bilateral flank pain, hematuria, and lower abdomen pain Accepting physician: Dr. Gore Transfer comments: Private car MDM - Male Genitourinary MDM Narrative Medical decision making narrative: At the time of visit patient is sitting in the exam chair. Patient appears to be nontoxic. Labs: Urinalysis dip positive for blood, protein, leukocytes, ketones, glucose, and bili. This possibly was skewed due to the amount of blood in his urine Plan: Patient rating pain 10/10 and is doubling over. States the pain is in his lower abdomen. Has gross hematuria with bilateral flank pain. He is an insulin dependent diabetic. Also has history of urinary retention, kidney stones, and rhabdomyolysis. Recommend transfer to the ER for further evaluation. Patient would like to go to [facility] ER. Contacted Dr. Gore for continuity of care at [facility] and he accepts patient for transfer. Differential Diagnosis Differential diagnosis: Likely urinary tract infection, urethritis, prostatitis, acute retention of urine, inguinal hernia and other (Pyelonephritis, ureterolithiasis, nephrolithiasis, DKA) Discharge Plan Discharge Clinical Impression: Bilateral flank pain Abdominal pain Qualifiers: Abdominal location: lower abdomen, unspecified Qualified Code(s): R10.30 - Lower abdominal pain, unspecified Hematuria Qualifiers: Hematuria type: unspecified type Qualified Code(s): R31.9 - Hematuria, unspecified Patient Disposition: Acute Care Hospital Condition: Stable Patient Language: Luxembourgish Prescriptions: No Action Debrox 6.5 % drops 5 drp RIGHT EAR Q12H 4 Days Qty: 15 0RF insulin aspart U-100 [Novolog FlexPen U-100 Insulin] 100 unit/mL (3 mL) insulin pen See Rx Instructions .ROUTE .COMPLEX Rx Instructions: 1 unit per 10 bsl over 150 with meals tid pregabalin 150 mg capsule 300 mg PO DAILY insulin glargine [Lantus Solostar U-100 Insulin] 100 unit/mL (3 mL) insulin pen 30 unit SUBCUT HS cefdinir 300 mg capsule 300 mg PO Q12H Qty: 14 0RF Follow-up/Referrals: PHYSICIAN,MEDICAL CENTER MANAGER [Primary Care Provider] - Time of Disposition: 13:50 Quality NIHSS Nursing Documentation ED NIHSS nursing documentation: reviewed/agree
--- OUTSIDE RECORDS SUMMARY | 2025-01-31 13:25 | XMS_ITS | Clinical Summary ---
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 Name Role Phone No, Physician Primary Care Provider Allergies Active Allergy Reactions Criticality Noted Date Comments Insulin Lispro Hives Medium 04/08/2023 Medications Omnipod Dash Insulin Pod cartridge CHANGE POD EVERY 3 DAYS 022 Active amoxicillin-clavu lanate (AUGMENTIN) 875-125 mg per tablet Active famotidine (PEPCID) 20 mg tablet Take 1 tablet (20 mg total) by mouth 2 (two) times a day Active Omnipod Classic Pods, Gen 3, cartridge CHANGE POD EVERY 3 DAYS 022 Active ondansetron ODT (ZOFRAN-ODT) 4 mg disintegrating tablet DISSOLVE 1 TABLET IN MOUTH EVERY 8 HOURS NEEDED Active insulin pump cart,cont inf,BT (Omnipod Dash Pods, Gen 4,) cartridgeIndicati ons:Type 2 diabetes mellitus with hyperglycemia, with long-term current use of insulin (HCC) Use 1 pod every 3 days, Will need 6 boxes for a 90 day supply. [facility] [id number] 6 each 3 022 Active blood-glucose transmitter (Dexcom G6 Transmitter) deviceIndications :Type 2 diabetes mellitus with hyperglycemia, with long-term current use of insulin (HCC) Will use 1 transmitter every 90 days 1 each 3 023 Active blood-glucose sensor (Dexcom G6 Sensor) deviceIndications :Type 2 diabetes mellitus with hyperglycemia, with long-term current use of insulin (HCC) Will use 1 sensor every 10 days. 1 box = 3 sensors. 1 each Active insulin aspart (NovoLOG) 100 unit/mL vial for injection Inject subq continously via insulin pump Max TDD 75u daily 30 mL Active insulin pump cart,auto,BT-cntr (Omnipod 5 G6 Intro Kit, Gen 5,) cartridgeIndicati ons:Type 2 diabetes mellitus with hyperglycemia, with long-term current use of insulin (HCC) To change POD once every 3 days. 1 each Active insulin pump cart,automated,BT (Omnipod 5 G6 Pods, Gen 5,) cartridgeIndicati ons:Type 2 diabetes mellitus with hyperglycemia, with long-term current use of insulin (HCC) To change POD every 3 days. 10 each Active insulin aspart (NovoLOG) 100 unit/mL (3 mL) pen for injection Inject 15 Units under the skin 3 (three) times a day with meals 13.5 mL Active Trulicity 1.5 mg/0.5 mL pen injector INJECT 1/2 (ONE-HALF) ML SUBCUTANEOUSLY ONCE A WEEK 4 mL 024 Active fluconazole (DIFLUCAN) 50 mg tablet Take 1 tablet by mouth once daily for 7 days 7 tablet Active LANTUS 100 unit/mL (3 mL) pen for injection Inject 30 units once daily when not on insulin pump 15 mL 024 Active OneTouch Verio test strips strip Use to test BG when off of Dexcom or to check accuracy. 100 strip Active pregabalin (LYRICA) 150 mg capsuleIndication s:Polyneuropathy associated with underlying disease TAKE 2 CAPSULES BY MOUTH ONCE DAILY DIRECTED 60 capsule 025 Active pregabalin (LYRICA) 150 mg capsuleIndication s:Polyneuropathy associated with underlying disease TAKE 2 CAPSULES BY MOUTH ONCE DAILY DIRECTED 60 capsule 025 2024 Discontinued Active Problems Problem Noted Date Diagnosed Date Mixed hyperlipidemia 04/08/2023 Type 2 diabetes mellitus wit h hyperglycemia, with long-term current use of insulin 07/16/[address] 07/08/2022 Hyperglycemia 12/06/2021 Encounters Date Type Department Care Team Description 01/31/2025 Telephone [facility] Endocrinology Metabolism and Lipid [address] [facility] 13th [place] [address] [place] [address] Kisha Trammell, RN Med Refill from Last 3 Months Medical History Medical History Date Comments Diabetes [...] on file 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 Gender Identity Not on file Sexual Orientation Not on file Obstetrics History Last Filed Vital Signs Vital Sign Reading Time Taken Comments Blood Pressure 153/96 05/11/2024 2:31 PM CDT Pulse 74 05/11/2024 2:31 PM CDT Temperature 36.8 C (98.2 F) 05/11/2024 2:31 PM CDT Respiratory Rate - - Oxygen Saturation 98% [...] Dilated Eye Exam 1976 Foot Exam 1976 Hepatitis B Screening 1994 Regular Well Visit/Exam 18-64 1994 Pneumococcal vaccine <65 (1 of 2 - PCV) 1995 Hemoglobin A1C 11/11/2024 05/11/2024, 05/1 , 08/05/2023, Additional history exists Albumin Creatinine Ratio, Urine 05/11/2025 , 04/08/2023 Lipid Panel 05/11/2025 05/11/2024, 07/07/2022 eGFR 05/11/2025 05/11/2024, 07/07/2022 Influenza Vaccine (Season Ended) 2025 DTaP/Tdap/Td Vaccine (2 - Td or Tdap) [...] m2 Comment: Interpretive Data Reference Interval Normal >/= 90 mL/min/1.73m2 Mildly decreased* 60 - 89 mL/min/1.73m2 Mildly to moderately decreased 45 - 59 mL/min/1.73m2 Moderately to severely decreased 30 - 44 mL/min/1.73m2 Severely decreased 15 - 29 mL/min/1.73m2 Kidney Failure < 15 mL/min/1.73m2 *Relative to young adult level Estimated glomerular filtration rate is determined by the 2020 CKD-EPI equation recommended by the National Kidney Foundation (A Unifying Approach to GFR Estimation: Recommendations of the NKF-ASK Task Force on Reassessing the Inclusion of Race in Diagnosing Kidney Disease, JASN 202). The CKD-EPI equation should not be used for patients with unstable renal function and has not been validated in children and those over 70. Current interpretive data was last reviewed 2021. Blood 05/11/2024 4:06 PM CDT 05/11/2024 4:44 PM CDT Notinfile Unknown LAB BLOOD ORDERABLES Final Res ult Performing Organization Address [facility] de Phone Number [facility] [place] [address] * Albumin Creatinine Ratio, Urine (05/11/2024 4:06 PM CDT) Albumin Ur 15.6 mg/L Comment: Interpretive Data No reference range established. Current interpretive data was last revised 2019. Creatinine Ur 67.7 mg/dL [facility] Comment: Interpretive Data No reference range established. Current interpretive data was last revised 2019. Albumin Creatinine Ratio, Ur 23 1 - 29 mg/g [facility] Urine 05/11/2024 4:06 PM CDT 05/11/2024 4:32 PM CDT Elizabeth Cardenas MD LAB URINE ORDERABLES Final Res ult Performing Organization Address [facility] de Phone Number [facility] Department [place] [address] * Lipid panel (05/11/2024 4:06 PM CDT) Cholesterol 165 30 - 199 mg/dL Comment: Interpretive Data Ages < or = 19 years Acceptable: <170 mg/dL Borderline high: 170-199 mg/dL High: >or= 200 mg/dL Ages > or = 20 years Desirable: <200 mg/dL Borderline high: 200-239 mg/dL High: >or= 240 mg/dL Literature References: 1. Expert Panel on Integrated Guidelines for Cardiovascular Health and Risk Reduction in Children and Adolescents. Pediatrics 2011;128:S213 2. NCEP Expert Panel. Circulation 2004;110:227 Current Interpretive Data was last revised on 2018. Triglycerides 108 <=149 mg/dL [facility] Comment: Interpretive Data Ages < or = 9 years Acceptable: <75 mg/dL Borderline high: 75-99 mg/dL High: >or= 100 mg/dL Ages 10 to 20 years Acceptable: <90 mg/dL Borderline high: 90-129 mg/dL High: >or= 130 mg/dL Ages > or = 20 years Desirable: <150 mg/dL Borderline high: 150-199 mg/dL High: 200-499 mg/dL Very high: >or= 499 mg/dL Literature References: 1. Expert Panel on Integrated Guidelines for Cardiovascular Health and Risk Reduction in Children and Adolescents. Pediatrics 2011;128:S213 2. NCEP Expert Panel. Circulation 2004;110:227 Current Interpretive Data was last revised on 2018. HDL 54 >=40 mg/dL [facility] Comment: Interpretive Data Ages < or = 19 years Acceptable: >45 mg/dL Borderline low: 40-45 mg/dL Low: <40 mg/dL Ages > or = 20 years Desirable: >or= 60 mg/dL Low: <40 mg/dL Literature References: 1. Expert Panel on Integrated Guidelines for Cardiovascular Health and Risk Reduction in Children and Adolescents. Pediatrics 2011;128:S213 2. NCEP Expert Panel. Circulation 2004;110:227 Current Interpretive Data was last revised on 2018. LDL, calculated 89 <=129 mg/dL [facility] Comment: Interpretive Data Ages < or = 19 years Acceptable: <110 mg/dL Borderline high: 110-129 mg/dL High: >or= 130 mg/dL Ages > or = 20 years Optimal: <100 mg/dL Near optimal: 100-129 mg/dL Borderline high: 130-159 mg/dL High: >160 mg/dL Literature References: 1. Expert Panel on Integrated Guidelines for Cardiovascular Health and Risk Reduction in Children and Adolescents. Pediatrics 2011;128:S213 2. NCEP Expert Panel. Circulation 2004;110:227 Current Interpretive Data was last revised on 2018. Non-HDL Cholesterol 111 mg/dL [facility] Comment: Interpretive Data Ages < or = 19 years Acceptable: <120 mg/dL Borderline high: 120-144 mg/dL High: >145 mg/dL Ages > or = 20 years When triglycerides are >200 mg/dL, Non-HDL cholesterol is a secondary target of therapy with treatment goals that are 30 mg/dL greater than the LDL cholesterol target. Literature References: 1. Expert Panel on Integrated Guidelines for Cardiovascular Health and Risk Reduction in Children and Adolescents. Pediatrics 2011;128:S213 2. NCEP Expert Panel. Circulation 2004;110:227 Current Interpretive Data was last revised on 2018. Chol/HDL ratio 3 [facility] Blood 05/11/2024 4:06 PM CDT 05/11/2024 4:32 PM CDT Narrative [facility] - 05/11/2024 5:13 PM CDT These lab test should be done fasting. This means do not eat or drink for at least 12 hours prior to getting your blood drawn. us Elizabeth Cardenas MD LAB BLOOD ORDERABLES Final Res ult [facility] [address] [place] [address] * POCT hemoglobin A1c (05/11/2024 2:36 PM CDT) Hemoglobin A1C, POC 9.6 4.0 - 5.6 % Blood 05/11/2024 2:36 PM CDT us Elizabeth Cardenas MD POINT OF CARE TEST ORDERABLES Final Result from Last 3 Months or Most Recently Relevant to Health Maintenance Care Teams Spaghetti Machine Operator Relationship Specialty Start Date End Date No, Physician PCP - General 05/11/24
--- OUTSIDE RECORDS SUMMARY | 2025-01-31 13:25 | XMS_ITS | Referral Summary ---
Author Organization [facility] Address [address] [place] [phone] Care Team Providers Care Slubber Operator Name Role Phone No, Physician Primary Care Provider [phone] Encounters Date Type Department Care Team Description 01/31/2025 Telephone [facility] Endocrinology Metabolism and Lipid [address] [facility] 13th [place] [address] [place] [phone] Kisha Trammell RN Med Refill from Last 3 Months Allergies Active Allergy Reactions Criticality Noted Date Comments Insulin Lispro Hives Medium 04/08/2023 Medications Omnipod Dash Insulin Pod cartridge CHANGE POD EVERY 3 DAYS Active amoxicillin-clavu lanate (AUGMENTIN) 875-125 mg per tablet Active famotidine (PEPCID) 20 mg tablet Take 1 tablet (20 mg total) by mouth 2 (two) times a day Active Omnipod Classic Pods, Gen 3, cartridge CHANGE POD EVERY 3 DAYS Active ondansetron ODT (ZOFRAN-ODT) 4 mg disintegrating tablet DISSOLVE 1 TABLET IN MOUTH EVERY 8 HOURS NEEDED Active insulin pump cart,cont inf,BT (Omnipod Dash Pods, Gen 4,) cartridgeIndicati ons:Type 2 diabetes mellitus with hyperglycemia, with long-term current use of insulin (HCC) Use 1 pod every 3 days, Will need 6 boxes for a 90 day supply. [facility] [id number] 6 each 3 Active blood-glucose transmitter (Dexcom G6 Transmitter) deviceIndications :Type 2 diabetes mellitus with hyperglycemia, with long-term current use of insulin (HCC) Will use 1 transmitter every 90 days 1 each 3 Active blood-glucose sensor (Dexcom G6 Sensor) deviceIndications [...] hyperglycemia, with long-term current use of insulin ([facility]) To change POD once every 3 days. 1 each Active insulin pump cart,automated,BT (Omnipod 5 G6 Pods, Gen 5,) cartridgeIndicati ons:Type 2 diabetes mellitus with hyperglycemia, with long-term current use of insulin ([facility]) To change POD every 3 days. 10 each 023 Active insulin aspart (NovoLOG) 100 unit/mL (3 mL) pen for injection Inject 15 Units under the skin 3 (three) times a day with meals 13.5 mL Active Trulicity 1.5 mg/0.5 mL pen injector INJECT 1/2 (ONE-HALF) ML SUBCUTANEOUSLY ONCE A WEEK 4 mL 024 Active fluconazole (DIFLUCAN) 50 mg tablet Take 1 tablet by mouth once daily for 7 days 7 tablet 024 Active LANTUS 100 unit/mL (3 mL) pen for injection Inject 30 units once daily when not on insulin pump 15 mL 024 Active OneTouch Verio test strips strip Use to test BG when off of Dexcom or to check accuracy. 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 Gender Identity Not on file Sexual Orientation [...] hyperglycemia, with long-term current use of insulin ([facility]) LIPID PANEL Routine 05/11/2024 4:06 PM CDT Type 2 diabetes mellitus with hyperglycemia, with long-term current use of insulin ([facility]) ALBUMIN CREATININE RATIO, URINE Routine 05/11/2024 4:06 [...] ORDERABLES Final Res ult ROBERTH BLAIR One [facility] Department of Laboratories [place], [place] [id number] * Albumin Creatinine Ratio, Urine (05/11/2024 4:06 PM CDT) Albumin Ur 15.6 mg/L Comment: Interpretive Data No reference range established. Current interpretive data was last revised 2019. Creatinine Ur 67.7 mg/dL [facility] Comment: Interpretive Data No reference range established. Current interpretive data was last revised 2019. Albumin Creatinine Ratio, Ur 23 1 - 29 mg/g [facility] Urine 05/11/2024 4:06 PM CDT 05/11/2024 4:32 PM CDT us Elizabeth Cardenas MD LAB URINE ORDERABLES Final Res ult [facility] One [facility] Department [place] [address] * Lipid panel (05/11/2024 4:06 PM CDT) [...] revised on 2018. Triglycerides 108 <=149 mg/dL [facility] Comment: Interpretive Data Ages < or = [...] revised on 2018. HDL 54 >=40 mg/dL [facility] Comment: Interpretive Data Ages < or = [...] on 2018. LDL, calculated 89 <=129 mg/dL [facility] Comment: Interpretive Data Ages < or = [...] revised on 2018. Non-HDL Cholesterol 111 mg/dL [facility] Comment: Interpretive Data Ages < or = [...] last revised on 2018. Chol/HDL ratio 3 [facility] Blood 05/11/2024 4:06 PM CDT 05/11/2024 4:32 PM CDT Narrative [facility] - 05/11/2024 5:13 PM CDT These lab test should be done fasting. This means do not eat or drink for at least 12 hours prior to getting your blood drawn. us Elizabeth Cardenas MD LAB BLOOD ORDERABLES Final Res ult [facility] One [facility] Department [place] [address] * POCT hemoglobin A1c (05/11/2024 2:36 PM CDT) Hemoglobin A1C, POC 9.6 4.0 - 5.6 % Blood 05/11/2024 2:36 PM CDT us Elizabeth Cardenas MD POINT OF CARE TEST ORDERABLES Final Result from Last 3 Months or Most Recently Relevant to Health Maintenance Care Teams Slubber Operator Relationship Specialty Start Date End Date No, Physician PCP - General 05/11/24
--- OUTSIDE RECORDS SUMMARY | 2025-01-31 13:25 | XMS_ITS | Encounter Summary ---
Author Organization [facility] Address [address] [place] [address] Phone Care Team Providers Care Engineer Second Assistant Name Role Phone No, Physician Primary Care Provider [phone] Reason for Visit * Reason Onset Date Comments Med Refill 01/31/2025 Encounter Details Date Type Department Care Team (Late st Contact Info) Description 01/31/2025 Telephone [facility] Endocrinology Metabolism and Lipid [address] [place] [address] [place] [phone] Kisha Trammell RN Med Refill Social History Tobacco Use Types Packs/Day Years Used Date Smoking Tobacco: Never Smokeless Tobacco: Never AUDIT-C Answer Date Recorded Q1: How often [...] on file 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 He has been waiting over a week and his neuropathy is really bothering him. This is a controlled substance so I can't sent the refill. documented in this encounter Plan of Treatment Not on file documented as of this encounter Visit Diagnoses Not on filedocumented in this encounter Care Teams Engineer Second Assistant Relationship Specialty Start Date End Date No, Physician PCP - General 05/11/24 documented as of this encounter
[2025-01-31 13:28] VITALS: BP 138/88; PULSE 82; RESP 18; TEMP 36.8; O2SAT 99
[2025-01-31 13:36] LABS: EDUAAPPEAR Cloudy; EDUABILI 1+ (Negative); EDUABLOOD 3+ (Negative); EDUACOLOR1 Amber; EDUAGLUCOSE 2+ (Negative); EDUAKETONE Trace (Negative); EDUALEUKO Trace (Negative); EDUANITRATE Negative (Negative); EDUAPH 6.5; EDUAPROTEIN 3+ (Negative)
== END 2025-01-31 13:42 | disposition short-term general hospital (02) ==
LOC: EXPTROY 13:23
PROVIDERS: Emergency Provider Nurse Practitioner Family
DX: R10.9 Unspecified abdominal pain (principal); R10.30 Lower abdominal pain, unspecified; R31.9 Hematuria, unspecified; E11.42 Type 2 diabetes mellitus with diabetic polyneuropathy; Z79.4 Long term (current) use of insulin; Z87.442 Personal history of urinary calculi
CPT/HCPCS: 81003; 99212; G0463

== ENCOUNTER 2025-01-31 13:54 | Emergency (ER) | payer SELFPAY ==
--- NOTE | ~2025-01-31 | CT_ITS ---
EXAMINATION: CT abdomen pelvis wo con DATE: 01/31/2025 15:22 INDICATION: Lower abdominal pain, back pain, hematuria and dysuria. TECHNIQUE: Computed tomography (CT) of the abdomen and pelvis was performed without intravenous contr ast. Automated exposure control and iterative reconstruction technique were employed. The dose-length product was 565.16 mGy-cm. COMPARISON: None FINDINGS: Mild peripheral atelectasis/scarring at the posterior right lower lobe. Heart size is normal. No deirdre cardial or pleural effusion. Cholecystectomy clips the gallbladder fossa. Liver, spleen, pancreas, bi lateral adrenal glands and kidneys are normal. No urolithiasis or hydronephrosis. Bowels including th e appendix are normal. There is diffuse bladder wall thickening with stranding and haziness to the im mediately surrounding fat consistent with cystitis. No free intraperitoneal gas or fluid. No patholog ically enlarged abdominal or pelvic lymphadenopathy. Mild lumbar and lower thoracic spondylosis. IMPRESSION: 1. Diffuse wall thickening of the bladder with surrounding inflammatory stranding consistent with cys titis. Correlate with urinalysis. Reviewed, dictated and finalized at location A. IMPRESSION: 1. Diffuse wall thickening of the bladder with surrounding inflammatory strandi ng consistent with cystitis. Correlate with urinalysis.
--- OUTSIDE RECORDS SUMMARY | 2025-01-31 14:00 | XMS_ITS | Referral Summary ---
Author Organization [facility] Address [address] [place] [phone] Care Team Providers Care Heel Breaster Name Role Phone No, Physician Primary Care Provider [phone] Encounters Date Type Department Care Team Description 01/31/2025 Telephone [facility] Endocrinology Metabolism and Lipid [address] [facility] [address]th [place] [address] [place] [phone] Kisha Trammell RN Med Refill from Last [...] boxes for a 90 day supply. [facility] [id number] 6 each 3 Active blood-glucose transmitter (Dexcom [...] current use of insulin ([facility]) To change POD once every 3 days. 1 each Active insulin pump cart,automated,BT (Omnipod 5 G6 Pods, Gen 5,) cartridgeIndicati ons:Type 2 diabetes mellitus with hyperglycemia, with long-term current use of insulin ([facility]) To change POD every 3 days. 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 Gender Identity Not on file Sexual Orientation [...] current use of insulin ([facility]) LIPID PANEL Routine 05/11/2024 4:06 PM CDT Type 2 diabetes mellitus with hyperglycemia, with long-term current use of insulin ([facility]) ALBUMIN CREATININE RATIO, URINE Routine 05/11/2024 4:06 [...] Final Res ult ROBERTH BLAIR One [facility] Department of Laboratories [place], [place] [id number] * Albumin Creatinine Ratio, Urine (05/11/2024 4:06 PM CDT) Albumin Ur 15.6 mg/L Comment: Interpretive Data No reference range established. Current interpretive data was last revised 2019. Creatinine Ur 67.7 mg/dL [facility] Comment: Interpretive Data No reference range established. Current interpretive data was last revised 2019. Albumin Creatinine Ratio, Ur 23 1 - 29 mg/g [facility] Urine 05/11/2024 4:06 PM CDT 05/11/2024 4:32 PM CDT us Elizabeth Cardenas MD LAB URINE ORDERABLES Final Res ult [facility] One [facility] Department [place] [address] * Lipid panel (05/11/2024 4:06 PM CDT) [...] revised on 2018. Triglycerides 108 <=149 mg/dL [facility] Comment: Interpretive Data Ages < [...] revised on 2018. HDL 54 >=40 mg/dL [facility] Comment: Interpretive Data Ages < [...] on 2018. LDL, calculated 89 <=129 mg/dL [facility] Comment: Interpretive Data Ages < [...] revised on 2018. Non-HDL Cholesterol 111 mg/dL [facility] Comment: Interpretive Data Ages < [...] last revised on 2018. Chol/HDL ratio 3 [facility] Blood 05/11/2024 4:06 PM CDT 05/11/2024 4:32 PM CDT Narrative [facility] - 05/11/2024 5:13 PM CDT These lab test should be done fasting. This means do not eat or drink for at least 12 hours prior to getting your blood drawn. us Elizabeth Cardenas MD LAB BLOOD ORDERABLES Final Res ult [facility] One [facility] Department [place] [address] * POCT hemoglobin A1c (05/11/2024 2:36 PM CDT) Hemoglobin A1C, POC 9.6 4.0 - 5.6 % Blood 05/11/2024 2:36 PM CDT us Elizabeth Cardenas MD POINT OF CARE TEST ORDERABLES Final Result from Last 3 Months or Most Recently Relevant to Health Maintenance Care Teams Heel Breaster Relationship Specialty Start Date End Date No, Physician PCP - General 05/11/24
--- OUTSIDE RECORDS SUMMARY | 2025-01-31 14:00 | XMS_ITS | Encounter Summary ---
Author Organization [facility] Address [address] [place] [address] Phone Care Team Providers Care Mammography Technician Name Role Phone No, Physician Primary Care Provider [phone] Reason for Visit * Reason Onset Date Comments Med Refill 01/31/2025 Encounter Details Date Type Department Care Team (Late st Contact Info) Description 01/31/2025 Telephone [facility] Endocrinology Metabolism and Lipid [address] [facility] [address] [place] [address] [place] [phone] Kisha Trammell RN Med Refill Social History [...] on file 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
--- OUTSIDE RECORDS SUMMARY | 2025-01-31 14:00 | XMS_ITS | Clinical Summary ---
Author Organization [facility] Address [address] [place] [phone] Care Team Providers Care Oim Consultant Name Role Phone No, Physician Primary Care Provider [phone] Allergies Active Allergy Reactions Criticality Noted Date [...] 90 day supply. 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 Current interpretive data was last revised 2019. Creatinine Ur 67.7 mg/dL [facility] Comment: Interpretive Data No reference range established. Current interpretive data was last revised 2019. Albumin Creatinine Ratio, Ur 23 1 - 29 mg/g [facility] Urine 05/11/2024 4:06 PM CDT 05/11/2024 4:32 PM CDT Elizabeth Cardenas MD LAB URINE ORDERABLES Final Res ult Performing Organization Address [facility] de Phone Number [facility] Department [place] [address] * Lipid panel (05/11/2024 4:06 PM CDT) [...] revised on 2018. Triglycerides 108 <=149 mg/dL [facility] Comment: Interpretive Data Ages < or = [...] revised on 2018. HDL 54 >=40 mg/dL [facility] Comment: Interpretive Data Ages < or = [...] on 2018. LDL, calculated 89 <=129 mg/dL [facility] Comment: Interpretive Data Ages < or [...] revised on 2018. Non-HDL Cholesterol 111 mg/dL [facility] Comment: Interpretive Data Ages < or [...] last revised on 2018. Chol/HDL ratio 3 [facility] Blood 05/11/2024 4:06 PM CDT 05/11/2024 4:32 PM CDT Narrative [facility] - 05/11/2024 5:13 PM CDT These lab test should be done fasting. This means do not eat or drink for at least 12 hours prior to getting your blood drawn. us Elizabeth Cardenas MD LAB BLOOD ORDERABLES Final Res ult [facility] One [facility] Department [place] [address] * POCT hemoglobin A1c (05/11/2024 2:36 PM CDT) Hemoglobin A1C, POC 9.6 4.0 - 5.6 % Blood 05/11/2024 2:36 PM CDT us Elizabeth Cardenas MD POINT OF CARE TEST ORDERABLES Final Result from Last 3 Months or Most Recently Relevant to Health Maintenance Care Teams Oim Consultant Relationship Specialty Start Date End Date No, Physician PCP - General 05/11/24
[2025-01-31 14:30] LABS: Basophils Percent Auto 0.3 % (0.2-1.2); Eosinophils Absolute Auto 0.1 K/mm3 (0-0.3); Hematocrit 43.5 % (42.0-52.0); Hemoglobin 14.5 g/dL (14.0-18.0); Immature Granulocyte Absolute 0.02 K/mm3 (0.00-0.031); Immature Granulocyte Percent A 0.3 % (0-0.5); Lymphocytes Absolute Auto 1.63 K/mm3 (0.9-3.2); Lymphocytes Percent Auto 21.1 % (18.3-44.2); Mean Corpuscular HGB Conc 33.3 g/dl (32-36); Mean Corpuscular Hemoglobin 28.6 pg (26-34); Mean Corpuscular Volume 85.8 fl (80-100); Mean Platelet Volume 10.5 fl (7.4-10.4); Monocytes Absolute Auto 0.5 K/mm3 (0.1-0.6); Monocytes Percent Auto 6.5 % (2.6-8.5); Neutrophils Absolute Auto 5.5 K/mm3 (1.3-6.7); Neutrophils Percent Auto 70.8 % (45.5-73.1); Platelet Count Result 218 k/mm3 (150-375); Red Blood Count 5.07 M/mm3 (4.6-6.20); Red Cell Distribution Width 13.2 % (11.5-14.5); White Blood Count 7.7 K/mm3 (4.5-10.0)
[2025-01-31 14:47] LABS: Anion Gap 5 mmol/L (4-12); Blood Urea Nitrogen 12 mg/dL (9-20); Calcium 9.2 mg/dL (8.4-10.2); Carbon Dioxide 31 mmol/L (22-30); Chloride 104 mmol/L (98-107); Creatine Kinase 630 U/L (55-170); Estimated Glomerular Filt Rate > 60; Glucose 91 mg/dL (65-110); Potassium 3.5 mmol/L (3.4-5.0); Sodium 140 mmol/L (137-145)
[2025-01-31 14:53] VITALS: BP 142/92; PULSE 73; RESP 18; TEMP 37.1; O2SAT 100
--- OUTSIDE RECORDS SUMMARY | 2025-01-31 14:58 | XMS_ITS | Referral Summary ---
Author Organization [facility] Address [address] [place] [phone] Care Team Providers Care Special Education Professor Name Role Phone No, Physician Primary Care Provider [phone] Encounters Date Type Department Care Team Description 01/31/2025 Telephone [facility] Endocrinology Metabolism and Lipid [address] [facility] [address]th [place] [address] [place] [phone] Kisha Trammell RN Med Refill from Last [...] 6 boxes for a 90 day supply. [facility] [id number] 6 each 3 Active blood-glucose transmitter (Dexcom [...] hyperglycemia, with long-term current use of insulin ([facility]) To change POD once every 3 days. 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 Current interpretive data was last revised 2019. Creatinine Ur 67.7 mg/dL [facility] Comment: Interpretive Data No reference range established. Current interpretive data was last revised 2019. Albumin Creatinine Ratio, Ur 23 1 - 29 mg/g [facility] Urine 05/11/2024 4:06 PM CDT 05/11/2024 4:32 PM CDT us Elizabeth Cardenas MD LAB URINE ORDERABLES Final Res ult [facility] One [facility] Department [place] [address] * Lipid panel (05/11/2024 4:06 PM CDT) [...] revised on 2018. Triglycerides 108 <=149 mg/dL [facility] Comment: Interpretive Data Ages < [...] revised on 2018. HDL 54 >=40 mg/dL [facility] Comment: Interpretive Data Ages < [...] on 2018. LDL, calculated 89 <=129 mg/dL [facility] Comment: Interpretive Data Ages < [...] revised on 2018. Non-HDL Cholesterol 111 mg/dL [facility] Comment: Interpretive Data Ages < [...] last revised on 2018. Chol/HDL ratio 3 [facility] Blood 05/11/2024 4:06 PM CDT 05/11/2024 4:32 PM CDT Narrative [facility] - 05/11/2024 5:13 PM CDT These lab test should be done fasting. This means do not eat or drink for at least 12 hours prior to getting your blood drawn. us Elizabeth Cardenas MD LAB BLOOD ORDERABLES Final Res ult [facility] One [facility] Department [place] [address] * POCT hemoglobin A1c (05/11/2024 2:36 PM CDT) Hemoglobin A1C, POC 9.6 4.0 - 5.6 % Blood 05/11/2024 2:36 PM CDT us Elizabeth Cardenas MD POINT OF CARE TEST ORDERABLES Final Result from Last 3 Months or Most Recently Relevant to Health Maintenance Care Teams Special Education Professor Relationship Specialty Start Date End Date No, Physician PCP - General 05/11/24
--- OUTSIDE RECORDS SUMMARY | 2025-01-31 14:58 | XMS_ITS | Clinical Summary ---
Author Organization [facility] Address [address] [place] [address] Care Team Providers Care Fermentation Operator Name Role Phone Unavailable Primary Care Provider Unavailabl e Source Comments [facility],non-owned Affiliates and Associated Physician Practices is amultiple site organization consisting of ambulatory clinics and hospital sitesin [place], [place], [place] and [place]. This disclosure is being madepursuant to the Care Everywhere program and may not contain all information available regarding this patient. Last updated 18.[facility] Allergies No known active allergies Medications * [...] of Phone Billing Address Personal/Family [address] [place] [address] SELF PAY NO INSURANCE Member Subscriber Plan / Payer (Ef fective for All Dates) Name:Jamin Ledezma Member ID:Not on file Relation to Subscriber:Not on file Name:JAMIN LEDEZMA Subscriber ID:Not on file Address: [facility] [place] [address] Payer ID:Not on file Group ID:Not on file Type:Self Pay Address: [place], [place] * Guarantor: JAMIN LEDEZMA Account Type Relation to Patient Date of Phone Billing Address Personal/Family [address] [place] [address] SELF PAY NO INSURANCE Member Subscriber Plan / Payer (Ef fective for All Dates) Name:Ledezma Jamin Member ID:Not on file Relation to Subscriber:Not on file Name:JAMIN LEDEZMA Subscriber ID:Not on file Address: [address] [place] [address] Payer ID:Not on file Group ID:Not on file Type:Self Pay Address: [place], [place] MEDICAID [facility] SELF PAY NO INSURANCE Member Subscriber Plan / Payer (Ef fective for All Dates) Name:Ledezma Jamin Member ID:Not on file Relation to Subscriber:Not on file Name:JAMIN LEDEZMA Subscriber ID:Not on file Address: [address] [place] [address] Payer ID:Not on file Group ID:Not on file Type:Self Pay Address: [place], [place]
--- OUTSIDE RECORDS SUMMARY | 2025-01-31 14:58 | XMS_ITS | Clinical Summary ---
Author Organization [facility] Address [address] [place] [address] Care Team Providers Care Spreader Operator Name Role Phone Ellis Carter MD Primary Care Provider [phone] Allergies No known active allergies Medications gabapentin [...] 7:17 PM 12/07/2021 5:02 PM Care Teams Spreader Operator Relationship Specialty Start Date End Date Ellis Carter MD [address] [id number] PCP - General FAMILY PRACTICE 01/24/23
--- OUTSIDE RECORDS SUMMARY | 2025-01-31 14:58 | XMS_ITS | Clinical Summary ---
Author Organization [facility] Address [address] [place] [id number] Care Team Providers Care Aviation Operations Specialist Name Role Phone No, Physician Primary Care Provider [phone] Allergies Active Allergy Reactions Criticality Noted Date [...] 6 boxes for a 90 day supply. 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 de Phone Number [facility] [place] [address] * Albumin Creatinine Ratio, Urine (05/11/2024 4:06 PM CDT) Albumin Ur 15.6 mg/L Comment: Interpretive Data No reference range established. Current interpretive data was last revised 2019. Creatinine Ur 67.7 mg/dL [facility] Comment: Interpretive Data No reference range established. Current interpretive data was last revised 2019. Albumin Creatinine Ratio, Ur 23 1 - 29 mg/g [facility] Urine 05/11/2024 4:06 PM CDT 05/11/2024 4:32 PM CDT Elizabeth Cardenas MD LAB URINE ORDERABLES Final Res ult Performing Organization Address [facility] de Phone Number [facility] Department [place] [address] * Lipid panel (05/11/2024 4:06 PM CDT) [...] revised on 2018. Triglycerides 108 <=149 mg/dL [facility] Comment: Interpretive Data Ages < [...] revised on 2018. HDL 54 >=40 mg/dL [facility] Comment: Interpretive Data Ages < [...] on 2018. LDL, calculated 89 <=129 mg/dL [facility] Comment: Interpretive Data Ages < or = [...] revised on 2018. Non-HDL Cholesterol 111 mg/dL [facility] Comment: Interpretive Data Ages < or = [...] last revised on 2018. Chol/HDL ratio 3 [facility] Blood 05/11/2024 4:06 PM CDT 05/11/2024 4:32 PM CDT Narrative [facility] - 05/11/2024 5:13 PM CDT These lab test should be done fasting. This means do not eat or drink for at least 12 hours prior to getting your blood drawn. us Elizabeth Cardenas MD LAB BLOOD ORDERABLES Final Res ult [facility] Department [place] [address] * POCT hemoglobin A1c (05/11/2024 2:36 PM CDT) Hemoglobin A1C, POC 9.6 4.0 - 5.6 % Blood 05/11/2024 2:36 PM CDT us Elizabeth Cardenas MD POINT OF CARE TEST ORDERABLES Final Result from Last 3 Months or Most Recently Relevant to Health Maintenance Care Teams Aviation Operations Specialist Relationship Specialty Start Date End Date No, Physician PCP - General 05/11/24
--- OUTSIDE RECORDS SUMMARY | 2025-01-31 14:58 | XMS_ITS | Encounter Summary ---
Author Organization [facility] Address [address] [place] [address] Care Team Providers Care Bottom Cementer Name Role Phone None, Provider Primary Care Provider Morro Whitt MD Primary Care Provider None, Provider Primary Care Provider Unavaila nadine None, Provider Primary Care Provider Unavaila Ellis Blackwell MD Primary Care Provider [phone] Encounter Details Date Type Department Care Team (Late st Contact Info) Description 03/20/2021 SIGFOX Message [facility] Patient Accounts [address] [place] [address] [facility] Patient Financial Services Social History Tobacco [...] Rule Out 08/04/2022 08/04/2022 08/04/2022 3:30 PM 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 COVID-19 Rule Out 02/28/2023 02/28/2023 02/28/2023 9:20 PM CDT documented as of this encounter Care Teams Bottom Cementer Relationship Specialty Start Date End Date None, Provider, PCP - General 04/21/20 12/05/21 Morro Ritter MD [address] [facility] [address] [phone] PCP - General FAMILY PRACTICE 12/06/21 05/18/22 None, ProviderMD PCP - General 05/19/22 07/03/22 None, ProviderMD PCP - General 07/04/22 01/23/23 Ellis Carter MD [address] [facility] [address] [place] [phone] PCP - General FAMILY PRACTICE 01/24/23 documented as of this encounter
--- OUTSIDE RECORDS SUMMARY | 2025-01-31 14:58 | XMS_ITS | Encounter Summary ---
Author Organization [facility] Address [address] [place] [address] Phone Care Team Providers Care Human Resources Project Manager Name Role Phone No, Physician Primary Care Provider [phone] Reason for Visit * Reason Onset Date Comments Med Refill 01/31/2025 Encounter Details Date Type Department Care Team (Late st Contact Info) Description 01/31/2025 Telephone [facility] Endocrinology Metabolism and Lipid [address] [facility] 13th [place] [address] [place] [phone] Kisha Trammell RN Med Refill Social History [...] on file 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
--- NOTE | 2025-01-31 14:59 | ED_ITS ---
HPI - Male Genitourinary General Chief complaint: Urogenital-Male Stated complaint: uti Time Seen by Provider: 01/31/25 14:09 Source: patient Mode of arrival: ambulatory Limitations: no limitations History of Present Illness HPI Narrative: Patient is a 49 y/o male, with PMH of IDDM, who presents to the ED with c/o lower abdominal pain and painful urination. Patient reports since yesterday, he has been having pain throughout his lower abdomen, lower back, pain and burning with urination, nausea. States it feels like razor blades when he urinates. He has had blood in his urine. He reports history of previous UTI, kidney stones, yeast infections, rhabdomyolysis. Reports when his blood sugars are over 200, he often develops these infections. He states his blood sugars this morning was just over 300. He did take his normal insulin. Denies vomiting, diarrhea, constipation, fevers. Denies concern for STDs. Related Data Home Medications ?Medication ?Instructions ?Recorded ?Confirmed ?Last Taken ?Type insulin aspart U-100 100 unit/mL See Rx Instructions .Route .COMPLEX 12/17/23 08/22/24 07/28/24 History (3 mL) subcutaneous pen (Novolog FlexPen U-100 Insulin aspart) insulin glargine 100 unit/mL (3 30 unit subcut HS 07/29/24 08/22/24 07/28/24 History mL) subcutaneous pen (Lantus Solostar U-100 Insulin) pregabalin 150 mg capsule 300 mg PO DAILY 07/29/24 08/22/24 07/28/24 History Allergies Allergy/AdvReac Type Severity Reaction Status Date / Time No Known Allergies Allergy Verified 01/31/25 13:33 Review of Systems 2 Review of Systems: All systems reviewed & are unremarkable except as noted in HPI. All systems reviewed & are unremarkable except as noted in HPI and below PMFSH Past Medical History Medical History Kidney stones Cholelithiasis Diabetic peripheral neuropathy Insulin dependent type 2 diabetes mellitus Surgical History Surgical History History of laparoscopic cholecystectomy (12/29/23) Family History Family History Mother Diabetes mellitus Father Cerebrovascular accident Heart attack Hypertension Stomach cancer Social History Social History Social History: Surrogate medical decision maker: Jennifer Garcia, spouse. Code status: Full code. Smoking status: Never smoker Alcohol intake: never Substance use: never Substance use type: marijuana Do You Feel Safe in your Home?: Yes Lack of Transportation: No Lack of Food: Never True Current Housing: I Have Housing Concerned About Future Housing: No Difficulty Paying Gas/Electric Bills: No Difficulty Paying for Meds: No Currently Unemployed: No Education: Associate Degree Difficulty w/ Childcare or Family Care: No Additional living arrangements comments: Lives with spouse in [place]. He has 7 children. 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: No Exam 2 Narrative: GENERAL: Well appearing, well-nourished, non-toxic, in no acute distress. HEAD: Normocephalic, atraumatic. RESPIRATORY: Airway patent, respirations nonlabored. Clear to auscultation bilaterally, no rales, rhonchi, wheezing. CARDIOVASCULAR: Regular rate and rhythm without murmurs, rubs, or gallops. ABDOMINAL: Soft, mild diffuse tenderness throughout lower abdomen, suprapubic region. Nondistended. Normoactive BS. No significant CVA tenderness to percussion. MUSCULOSKELETAL: Moves all extremities. No gross deformities. SKIN: Warm, dry, normal color. NEURO: A&O X3. Speech clear. Cranial nerves II-XII grossly intact. Steady gait. No ataxic movements. PSYCHIATRIC: Appropriate mood and affect. Normal interaction. Course Vital Signs Vital signs: Vital Signs Temperature 98.7 F 01/31/25 14:53 Pulse Rate 73 01/31/25 14:53 Respiratory Rate 18 01/31/25 14:53 Blood Pressure 142/92 H 01/31/25 14:53 Pulse Oximetry 100 01/31/25 14:53 Temperature 98.7 F 01/31/25 14:53 Pulse Rate 73 01/31/25 14:53 Respiratory Rate 18 01/31/25 14:53 Blood Pressure 145/93 H 01/31/25 15:01 Pulse Oximetry 100 01/31/25 15:01 MDM - Male Genitourinary MDM Narrative Medical decision making narrative: Patient presented to ED with lower abdominal pain, lower back pain, painful urination, hematuria. Vital signs are stable upon arrival. Patient mildly uncomfortable appearing, but in no acute distress. He is afebrile here. History of kidney stones and urinary tract infection. History of rhabdomyolysis. Also reports concern for a yeast infection. States he has tolerated Diflucan in the past. Given this in the ED. Cbc without leukocytosis. Stable H&H. Creatinine is stable on CMP. CK was checked and is elevated to 630. Fluids are ongoing. Urinalysis with 4+ protein, 3+ glucose, 2+ leuk esterase, greater than 100 WBC/RBC, 2+ urine bacteria. Sent for culture. Will treat. CT scan of abdomen/pelvis was obtained and showing cystitis changes. No ureterolithiasis. No other significant intra-abdominal findings. Previous positive urine culture reviewed, sensitive to Bactrim. Will start patient on this. Given 1st dose in the ED. Patient given 2 L of fluid in the ED. Repeat CK down trending. Discussed lab and imaging findings. Patient feeling improved with supportive therapy. Discussed admission versus DC home me. Utilize shared decision- making. Patient would prefer to go home. Will D/C on antibiotics. Will refer to Urology for further evaluation. Advised to push plenty of fluids to avoid rhabdo. Patient given strict return precautions. He is in agreement with plan, feels comfortable going home. Discharged in stable condition. Vital signs stable at time of D/C. Medical Records Attestation: I reviewed the patient's medical records. Lab Data Attestation: I reviewed the patient's lab results. 01/31/25 14:24 01/31/25 14:24 Labs: Lab Results 01/31/25 01/31/25 01/31/25 Range/Units 14:20 14:24 14:24 WBC 7.7 (4.5-10.0) K/mm3 RBC 5.07 (4.6-6.20) M/mm3 Hgb 14.5 (14.0-18.0) g/dL Hct 43.5 (42.0-52.0) % MCV 85.8 (80-100) fl MCH 28.6 (26-34) pg MCHC 33.3 (32-36) g/dl RDW 13.2 (11.5-14.5) % Plt Count 218 (150-375) k/mm3 MPV 10.5 H (7.4-10.4) fl Immature Gran % (Auto) 0.3 (0-0.5) % Neut % (Auto) 70.8 (45.5-73.1) % Lymph % (Auto) 21.1 (18.3-44.2) % [place] % (Auto) 6.5 (2.6-8.5) % Eos % (Auto) 1.0 (0-4.4) % Baso % (Auto) 0.3 (0.2-1.2) % Lymph # (Auto) 1.63 (0.9-3.2) K/mm3 [place] # (Auto) 0.5 (0.1-0.6) K/mm3 Eos # (Auto) 0.1 (0-0.3) K/mm3 Baso # (Auto) 0.0 (0.0-0.1) K/mm3 Abs Immat Gran (auto) 0.02 (0.00-0.031) K/mm3 Absolute Neuts (auto) 5.5 (1.3-6.7) K/mm3 Absolute Nucleated RBC 0.000 (0.0-0.012) K/mm3 Nucleated RBC % 0.0 (0.0-0.2) % Sodium 140 (137-145) mmol/L Potassium 3.5 (3.4-5.0) mmol/L Chloride 104 (98-107) mmol/L Carbon Dioxide 31 H (22-30) mmol/L Anion Gap 5 (4-12) mmol/L BUN 12 (9-20) mg/dL Creatinine 0.92 (0.7-1.3) mg/dL Estim Creat Clear Calc Not Reportable Estimated GFR > 60 (59 - ) Glucose 91 (65-110) mg/dL Calcium 9.2 (8.4-10.2) mg/dL Total Creatine Kinase 630 H Cancelled (55-170) U/L Urine Color Red H (Yellow) Urine Appearance Turbid H (Clear) Urine pH 6.5 (5.0-9.0) Ur Specific [place] 1.020 (1.001-1.035) Urine Protein 4+ H (Negative) mg/dL Urine Glucose (UA) 3+ H (Negative) mg/dL Urine Ketones Negative (Negative) mg/dL Ur Blood (Man) 3+ H (Negative) Urine Nitrate Negative (Negative) Urine Bilirubin Negative (Negative) Urine Urobilinogen 1.0 (<2.0) mg/dL Add Ur Microanalysis Reviewed Leukocyte Esterase Rfl 2+ H (Negative) WILBER/UL Urine RBC >100 H (0-2) /hpf Urine WBC >100 H (0-3) /hpf Ur Squamous Epith Cells Occasional (Few) /hpf Urine Bacteria 2+ H /hpf Urine Casts 0-2 01/31/25 Range/Units 16:47 WBC (4.5-10.0) K/mm3 RBC (4.6-6.20) M/mm3 Hgb (14.0-18.0) g/dL Hct (42.0-52.0) % MCV (80-100) fl MCH (26-34) pg MCHC (32-36) g/dl RDW (11.5-14.5) % Plt Count (150-375) k/mm3 MPV (7.4-10.4) fl Immature Gran % (Auto) (0-0.5) % Neut % (Auto) (45.5-73.1) % Lymph % (Auto) (18.3-44.2) % [place] % (Auto) (2.6-8.5) % Eos % (Auto) (0-4.4) % Baso % (Auto) (0.2-1.2) % Lymph # (Auto) (0.9-3.2) K/mm3 [place] # (Auto) (0.1-0.6) K/mm3 Eos # (Auto) (0-0.3) K/mm3 Baso # (Auto) (0.0-0.1) K/mm3 Abs Immat Gran (auto) (0.00-0.031) K/mm3 Absolute Neuts (auto) (1.3-6.7) K/mm3 Absolute Nucleated RBC (0.0-0.012) K/mm3 Nucleated RBC % (0.0-0.2) % Sodium (137-145) mmol/L Potassium (3.4-5.0) mmol/L Chloride (98-107) mmol/L Carbon Dioxide (22-30) mmol/L Anion Gap (4-12) mmol/L BUN (9-20) mg/dL Creatinine (0.7-1.3) mg/dL Estim Creat Clear Calc Estimated GFR (59 - ) Glucose (65-110) mg/dL Calcium (8.4-10.2) mg/dL Total Creatine Kinase 569 H (55-170) U/L Urine Color (Yellow) Urine Appearance (Clear) Urine pH (5.0-9.0) Ur Specific [place] (1.001-1.035) Urine Protein (Negative) mg/dL Urine Glucose (UA) (Negative) mg/dL Urine Ketones (Negative) mg/dL Ur Blood (Man) (Negative) Urine Nitrate (Negative) Urine Bilirubin (Negative) Urine Urobilinogen (<2.0) mg/dL Add Ur Microanalysis Leukocyte Esterase Rfl (Negative) WILBER/UL Urine RBC (0-2) /hpf Urine WBC (0-3) /hpf Ur Squamous Epith Cells (Few) /hpf Urine Bacteria /hpf Urine Casts Imaging Data Attestation: I personally reviewed and interpreted this imaging study as follows: Radiologist's impression: ITS Impressions Abdomen/Pelvis CT 01/31/25 15:24 IMPRESSION: 1. Diffuse wall thickening of the bladder with surrounding inflammatory stranding consistent with cystitis. Correlate with urinalysis. Discharge Plan Discharge Clinical Impression: Elevated CK, Gross hematuria Urinary tract infection Qualifiers: Urinary tract infection type: acute cystitis Hematuria presence: with hematuria Qualified Code(s): N30.01 - Acute cystitis with hematuria Patient Disposition: Home Condition: Stable Instructions: Antibiotic Form, Urinary Tract Infection in Men (ED), Yeast Infection (ED), Hematuria (ED) Additional Instructions: Take antibiotics as prescribed for urinary tract infection. Stay very well hydrated. It is important you push fluids to avoid rhabdomyolysis. You may repeat Diflucan dose in 72 hours for persistent yeast like symptoms. Continue Tylenol and ibuprofen as needed for pain. Follow-up with your primary care doctor and/or Urology for further evaluation. Return to the ED if you experience worsening or severe symptoms, severe pain, difficulty urinating, fevers, unable to keep down food/drink/antibiotics, or any other symptoms of concern. Patient Language: Gambian Prescriptions: New sulfamethoxazole-trimethoprim [Bactrim DS] 800-160 mg tablet 1 tablet PO Q12H 7 Days Qty: 14 0RF ondansetron 4 mg tablet,disintegrating 4 mg PO Q8H PRN (Reason: nausea and vomiting) Qty: 15 0RF fluconazole [Diflucan] 200 mg tablet 200 mg PO DAILY Qty: 1 0RF No Action Debrox 6.5 % drops 5 drp RIGHT EAR Q12H 4 Days Qty: 15 0RF insulin aspart U-100 [Novolog FlexPen U-100 Insulin] 100 unit/mL (3 mL) insulin pen See Rx Instructions .ROUTE .COMPLEX Rx Instructions: 1 unit per 10 bsl over 150 with meals tid pregabalin 150 mg capsule 300 mg PO DAILY insulin glargine [Lantus Solostar U-100 Insulin] 100 unit/mL (3 mL) insulin pen 30 unit SUBCUT HS Follow-up/Referrals: Dc Medina MD [Physician] - (UROLOGY) UNKNOWN,DOCTOR [Primary Care Provider] - Stand Alone Forms: Work/School Release IP Time of Disposition: 17:53
[2025-01-31 15:01] VITALS: BP 145/93; O2SAT 100
[2025-01-31] MEDS: SODIUM CHLORIDE 0.9% IV 1,000 ML 999 ML IV CONT ×2 (15:05)
[2025-01-31] MEDS: MORPHINE SULFATE (*CRX) 4 MG/ML INJ IV PUSH (15:08)
[2025-01-31] MEDS: ONDANSETRON INJ 4 MG/2 ML VIAL IV PUSH (15:08)
[2025-01-31] MEDS: FLUCONAZOLE 150 MG TABLET PO (15:08)
[2025-01-31 15:45] LABS: Bacteria Urine 2+ /hpf; Need Manual Microscopic Reviewed; Non Pathogenic Casts 0-2; RBC Urine >100 /hpf (0-2); Squamous Epithelial Cell Urine Occasional /hpf (Few); WBC Urine >100 /hpf (0-3)
[2025-01-31 15:46] LABS: Add Urine Microscopic? YES; Appearance Urine Turbid (Clear); Bilirubin Urine Negative (Negative); Blood Urine 3+ (Negative); Color Urine Red (Yellow); Glucose Urine UA 3+ mg/dL (Negative); Ketones Urine Negative (Negative); Leukocyte Esterase Ur 2+ LEU/UL (Negative); Nitrate Urine Negative (Negative); Protein Urine 4+ mg/dL (Negative); pH Urine 6.5 (5.0-9.0)
[2025-01-31] MEDS: SULFAMETHOXAZOLE/TRIMETHOPRIM 800/160 MG DS TABLET 1 TAB PO (16:31)
[2025-01-31 17:01] LABS: Creatine Kinase 569 U/L (55-170)
== END 2025-01-31 18:18 | disposition home or self-care (01) ==
PROVIDERS: Emergency Provider Physician Assistant
DX: N30.01 Acute cystitis with hematuria (principal); R74.8 Abnormal levels of other serum enzymes; E11.42 Type 2 diabetes mellitus with diabetic polyneuropathy; Z90.49 Acquired absence of other specified parts of digestive tract; Z87.442 Personal history of urinary calculi; Z79.4 Long term (current) use of insulin; Z79.899 Other long term (current) drug therapy
CPT/HCPCS: 36415; 74176; 80048; 81001; 82550; 85025; 87086; 96361; 96374; 96375; 99284; A9270; J2270; J2405; J7030

== ENCOUNTER 2025-05-28 19:27 | Emergency (ER) | payer SELFPAY ==
[2025-05-28] VITALS (12 sets, daily range): BP systolic 129–146; BP diastolic 87–94; PULSE 76–85; RESP 10–21; TEMP 37.1; O2SAT 95–99
[2025-05-28 22:09] LABS: Hematocrit 42.3 % (42.0-52.0); Hemoglobin 14.6 g/dL (14.0-18.0); Immature Granulocyte Percent A 0.4 % (0-0.5); Lymphocytes Absolute Auto 1.63 K/mm3 (0.9-3.2); Mean Corpuscular HGB Conc 34.5 g/dl (32-36); Mean Corpuscular Hemoglobin 28.6 pg (26-34); Mean Corpuscular Volume 82.8 fl (80-100); Nucleated Red Blood Cells Absolute Auto 0.000 K/mm3 (0.0-0.012); Nucleated Red Blood Cells Perc 0.0 % (0.0-0.2); Platelet Count Result 219 k/mm3 (150-375); Red Blood Count 5.11 M/mm3 (4.6-6.20); White Blood Count 5.3 K/mm3 (4.5-10.0)
[2025-05-28 22:11] LABS: Alanine Aminotransferase 23 U/L (6-50); Albumin Level 4.3 g/dL (3.5-5.1); Alkaline Phosphatase 83 U/L (38-126); Anion Gap 9 mmol/L (4-12); Aspartate Amino Transferase 28 U/L (17-59); Bilirubin,Total 0.8 mg/dL (0.2-1.3); Blood Urea Nitrogen 14 mg/dL (9-20); Calcium 9.3 mg/dL (8.4-10.2); Carbon Dioxide 24 mmol/L (22-30); Chloride 102 mmol/L (98-107); Estimated CRCL calculation 81 ml/min; Estimated Glomerular Filt Rate > 60; Glucose 466 mg/dL (65-110); Magnesium 1.9 mg/dL (1.6-2.3); Potassium 4.2 mmol/L (3.4-5.0); Sodium 135 mmol/L (137-145); Total Protein 7.3 g/dL (6.3-8.2)
[2025-05-28 22:16] LABS: Beta-Hydroxybutyrate/Acetoace. 0.17 mmol/L (0.02-0.27)
[2025-05-28 22:22] LABS: Add Urine Microscopic? YES; Appearance Urine Cloudy (Clear); Glucose Urine UA 3+ mg/dL (Negative); Leukocyte Esterase Ur Negative LEU/UL (Negative); Nitrate Urine Negative (Negative); Non Pathogenic Casts 0-2; Specific Grav Ur 1.028 (1.001-1.035)
--- NOTE | 2025-05-28 22:57 | ED.GENADULT ---
HPI - General Adult General Chief complaint: Unspecified Stated complaint: high bs, fatigue, muscle cramps Time Seen by Provider: 05/28/25 22:50 History of Present Illness HPI narrative: This is a 49-year-old male with history of diabetes who presents to the ED for flu-like symptoms and hyperglycemia. Patient states that the past 4-5 days, he has been having body aches, fatigue, nonproductive cough. He states that his kids and had similar symptoms. Denies fevers, chest pain, shortness of breath. He states that he did check his sugar today and has been in the 2-3 0s. He took his regular basal dose of 30-35 units and last took his fast acting dose this morning 10-15 units. He was concerned that he may be in DKA again for rhabdo which he has been infrequently. He notes that he is running out of his insulin and is without insurance at this time. Related Data Home Medications ?Medication ?Instructions ?Recorded ?Confirmed ?Last Taken ?Type insulin aspart U-100 100 unit/mL See Rx Instructions .Route .COMPLEX 12/17/23 08/22/24 07/28/24 History (3 mL) subcutaneous pen (Novolog FlexPen U-100 Insulin aspart) insulin glargine 100 unit/mL (3 30 unit subcut HS 07/29/24 08/22/24 07/28/24 History mL) subcutaneous pen (Lantus Solostar U-100 Insulin) pregabalin 150 mg capsule 300 mg PO DAILY 07/29/24 08/22/24 07/28/24 History Allergies Allergy/AdvReac Type Severity Reaction Status Date / Time No Known Allergies Allergy Verified 01/31/25 13:33 Review of Systems Review of Systems: Gen.: As per HPI Eyes: Denies eye pain or visual change ENT: Denies congestion Respiratory: Denies shortness of breath or cough CV: Denies chest pain or palpitations GI: Denies abdominal pain nausea, emesis or diarrhea denies burning, urgency, frequency or hematuria Musculoskeletal: Denies back pain or muscle pain Neuro: Denies numbness, tingling, weakness or focal weakness Skin: Denies rash Except as documented, all other systems reviewed and negative [facility] Past Medical History Medical History Kidney stones Cholelithiasis Diabetic peripheral neuropathy Insulin dependent type 2 diabetes mellitus Surgical History Surgical History History of laparoscopic cholecystectomy (12/29/23) Family History Family History Mother Diabetes mellitus Father Cerebrovascular accident Heart attack Hypertension Stomach cancer Social History Social History Social History: Surrogate medical decision maker: Jennifer Garcia, spouse. Code status: Full code. Smoking status: Never smoker Alcohol intake: never Substance use: never Substance use type: marijuana Do You Feel Safe in your Home?: Yes Lack of Transportation: No Lack of Food: Never True Current Housing: I Have Housing Concerned About Future Housing: No Difficulty Paying Gas/Electric Bills: No Difficulty Paying for Meds: No Currently Unemployed: No Education: Associate Degree Difficulty w/ Childcare or Family Care: No Additional living arrangements comments: Lives with spouse in [place]. He has 7 children. 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: No Exam Narrative: APPEARANCE: No acute distress, nontoxic, resting in bed EYES: EOMI HEENT: Normocephalic, atraumatic, OMM RESPIRATORY: No respiratory distress Clear to auscultation bilaterally with no rhonchi wheezing or rales. CARDIOVASCULAR: Regular rate and rhythm without murmurs rubs or gallops. ABDOMINAL: Soft, nontender, nondistended, no rebound or guarding MUSCULOSKELETAl: Moves all extremities. No clubbing, cyanosis or edema. NEURO: Awake and alert. Following commands, speech normal, no focal deficits SKIN:: Warm, dry. No rashes lesions or abrasions PSYCHIATRIC: Normal affect/mood, Course Vital Signs Vital signs: Vital Signs Temperature 98.7 F 05/28/25 19:44 Pulse Rate 80 05/28/25 19:44 Blood Pressure 144/90 H 05/28/25 19:44 Pulse Oximetry 99 05/28/25 19:44 Oxygen Delivery Room Air 05/28/25 19:44 Temperature 98.7 F 05/28/25 19:44 Pulse Rate 67 05/29/25 01:01 Respiratory Rate 19 05/29/25 01:01 Blood Pressure 139/100 H 05/29/25 01:00 Pulse Oximetry 98 05/29/25 01:01 Oxygen Delivery Room Air 05/28/25 19:44 Medical Decision Making MDM Narrative Medical decision making narrative: 41-year-old male who presents to the ED for flu-like symptoms. On initial evaluation, patient was in no acute distress, afebrile, hemodynamically stable. Heart and lungs clear. Abdomen soft and nontender. POC glucose was greater than 400. Cbc without significant abnormalities. Remaining CMP without significant abnormalities. CPK slightly elevated at 433. UA showed glycosuria. COVID/flu/RSV negative. Patient was dosed on insulin multiple times with improvement of his glucose to less than 200. He is given referral to [facility] to establish care. Patient was agreeable to this plan. Given strict return precautions. Differential Diagnosis Differential Diagnosis: DKA, viral syndrome, electrolyte abnormality, rhabdomyolysis Medical Records Medical records reviewed: Yes I reviewed the external patient's medical records. Vital Signs Vital Signs: Vital Signs Temperature 98.7 F 05/28/25 19:44 Pulse Rate 80 05/28/25 19:44 Blood Pressure 144/90 H 05/28/25 19:44 Pulse Oximetry 99 05/28/25 19:44 Oxygen Delivery Room Air 05/28/25 19:44 Temperature 98.7 F 05/28/25 19:44 Pulse Rate 67 05/29/25 01:01 Respiratory Rate 19 05/29/25 01:01 Blood Pressure 139/100 H 05/29/25 01:00 Pulse Oximetry 98 05/29/25 01:01 Oxygen Delivery Room Air 05/28/25 19:44 Lab Data Lab results reviewed: Yes I reviewed the patient's lab results. 05/28/25 21:49 05/28/25 21:49 Labs: Lab Results 05/28/25 05/28/25 05/28/25 Range/Units 19:50 21:49 22:08 WBC 5.3 (4.5-10.0) K/mm3 RBC 5.11 (4.6-6.20) M/mm3 Hgb 14.6 (14.0-18.0) g/dL Hct 42.3 (42.0-52.0) % MCV 82.8 (80-100) fl MCH 28.6 (26-34) pg MCHC 34.5 (32-36) g/dl RDW 12.7 (11.5-14.5) % Plt Count 219 (150-375) k/mm3 MPV 11.2 H (7.4-10.4) fl Immature Gran % (Auto) 0.4 (0-0.5) % Neut % (Auto) 60.7 (45.5-73.1) % Lymph % (Auto) 30.9 (18.3-44.2) % [place] % (Auto) 5.7 (2.6-8.5) % Eos % (Auto) 1.7 (0-4.4) % Baso % (Auto) 0.6 (0.2-1.2) % Lymph # (Auto) 1.63 (0.9-3.2) K/mm3 [place] # (Auto) 0.3 (0.1-0.6) K/mm3 Eos # (Auto) 0.1 (0-0.3) K/mm3 Baso # (Auto) 0.0 (0.0-0.1) K/mm3 Abs Immat Gran (auto) 0.02 (0.00-0.031) K/mm3 Absolute Neuts (auto) 3.2 (1.3-6.7) K/mm3 Absolute Nucleated RBC 0.000 (0.0-0.012) K/mm3 Nucleated RBC % 0.0 (0.0-0.2) % Sodium 135 L (137-145) mmol/L Potassium 4.2 (3.4-5.0) mmol/L Chloride 102 (98-107) mmol/L Carbon Dioxide 24 (22-30) mmol/L Anion Gap 9 (4-12) mmol/L BUN 14 (9-20) mg/dL Creatinine 1.08 (0.7-1.3) mg/dL Estim Creat Clear Calc 81 ml/min Estimated GFR > 60 (59 - ) Glucose 466 H (65-110) mg/dL POC Capillary Glucose 417 H 467 H (65-105) mg/dl Calcium 9.3 (8.4-10.2) mg/dL Phosphorus 3.0 (2.5-4.5) mg/dL Magnesium 1.9 (1.6-2.3) mg/dL Total Bilirubin 0.8 (0.2-1.3) mg/dL AST 28 (17-59) U/L ALT 23 (6-50) U/L Alkaline Phosphatase 83 (38-126) U/L Total Creatine Kinase 433 H (55-170) U/L Total Protein 7.3 (6.3-8.2) g/dL Albumin 4.3 (3.5-5.1) g/dL Beta-Hydroxybutyrate/Acetoacetate 0.17 (0.02-0.27) mmol/L Urine Color Yellow (Yellow) Urine Appearance Cloudy H (Clear) Urine pH 7.0 (5.0-9.0) Ur Specific [place] 1.028 (1.001-1.035) Urine Protein Negative (Negative) mg/dL Urine Glucose (UA) 3+ H (Negative) mg/dL Urine Ketones Trace H (Negative) mg/dL Ur Blood (Man) Negative (Negative) Urine Nitrate Negative (Negative) Urine Bilirubin Negative (Negative) Urine Urobilinogen 0.2 (<2.0) mg/dL Leukocyte Esterase Rfl Negative (Negative) WILBER/UL Urine RBC 0-2 (0-2) /hpf Urine WBC 0-5 (0-3) /hpf Ur Squamous Epith Cells None seen (Few) /hpf Urine Bacteria None seen /hpf Urine Casts 0-2 Influenza A (RT-PCR) (Negative) Influenza B (RT-PCR) (Negative) RSV (RT-PCR) (Negative) SARS-CoV-2 RNA (RT-PCR) (Negative) 05/28/25 05/28/25 05/29/25 Range/Units 22:53 23:48 00:44 WBC (4.5-10.0) K/mm3 RBC (4.6-6.20) M/mm3 Hgb (14.0-18.0) g/dL Hct (42.0-52.0) % MCV (80-100) fl MCH (26-34) pg MCHC (32-36) g/dl RDW (11.5-14.5) % Plt Count (150-375) k/mm3 MPV (7.4-10.4) fl Immature Gran % (Auto) (0-0.5) % Neut % (Auto) (45.5-73.1) % Lymph % (Auto) (18.3-44.2) % [place] % (Auto) (2.6-8.5) % Eos % (Auto) (0-4.4) % Baso % (Auto) (0.2-1.2) % Lymph # (Auto) (0.9-3.2) K/mm3 [place] # (Auto) (0.1-0.6) K/mm3 Eos # (Auto) (0-0.3) K/mm3 Baso # (Auto) (0.0-0.1) K/mm3 Abs Immat Gran (auto) (0.00-0.031) K/mm3 Absolute Neuts (auto) (1.3-6.7) K/mm3 Absolute Nucleated RBC (0.0-0.012) K/mm3 Nucleated RBC % (0.0-0.2) % Sodium (137-145) mmol/L Potassium (3.4-5.0) mmol/L Chloride (98-107) mmol/L Carbon Dioxide (22-30) mmol/L Anion Gap (4-12) mmol/L BUN (9-20) mg/dL Creatinine (0.7-1.3) mg/dL Estim Creat Clear Calc ml/min Estimated GFR (59 - ) Glucose (65-110) mg/dL POC Capillary Glucose 378 H 345 H (65-105) mg/dl Calcium (8.4-10.2) mg/dL Phosphorus (2.5-4.5) mg/dL Magnesium (1.6-2.3) mg/dL Total Bilirubin (0.2-1.3) mg/dL AST (17-59) U/L ALT (6-50) U/L Alkaline Phosphatase (38-126) U/L Total Creatine Kinase (55-170) U/L Total Protein (6.3-8.2) g/dL Albumin (3.5-5.1) g/dL Beta-Hydroxybutyrate/Acetoacetate (0.02-0.27) mmol/L Urine Color (Yellow) Urine Appearance (Clear) Urine pH (5.0-9.0) Ur Specific [place] (1.001-1.035) Urine Protein (Negative) mg/dL Urine Glucose (UA) (Negative) mg/dL Urine Ketones (Negative) mg/dL Ur Blood (Man) (Negative) Urine Nitrate (Negative) Urine Bilirubin (Negative) Urine Urobilinogen (<2.0) mg/dL Leukocyte Esterase Rfl (Negative) WILBER/UL Urine RBC (0-2) /hpf Urine WBC (0-3) /hpf Ur Squamous Epith Cells (Few) /hpf Urine Bacteria /hpf Urine Casts Influenza A (RT-PCR) Negative (Negative) Influenza B (RT-PCR) Negative (Negative) RSV (RT-PCR) Negative (Negative) SARS-CoV-2 RNA (RT-PCR) Negative (Negative) 05/29/25 05/29/25 Range/Units 01:30 02:48 WBC (4.5-10.0) K/mm3 RBC (4.6-6.20) M/mm3 Hgb (14.0-18.0) g/dL Hct (42.0-52.0) % MCV (80-100) fl MCH (26-34) pg MCHC (32-36) g/dl RDW (11.5-14.5) % Plt Count (150-375) k/mm3 MPV (7.4-10.4) fl Immature Gran % (Auto) (0-0.5) % Neut % (Auto) (45.5-73.1) % Lymph % (Auto) (18.3-44.2) % [place] % (Auto) (2.6-8.5) % Eos % (Auto) (0-4.4) % Baso % (Auto) (0.2-1.2) % Lymph # (Auto) (0.9-3.2) K/mm3 [place] # (Auto) (0.1-0.6) K/mm3 Eos # (Auto) (0-0.3) K/mm3 Baso # (Auto) (0.0-0.1) K/mm3 Abs Immat Gran (auto) (0.00-0.031) K/mm3 Absolute Neuts (auto) (1.3-6.7) K/mm3 Absolute Nucleated RBC (0.0-0.012) K/mm3 Nucleated RBC % (0.0-0.2) % Sodium (137-145) mmol/L Potassium (3.4-5.0) mmol/L Chloride (98-107) mmol/L Carbon Dioxide (22-30) mmol/L Anion Gap (4-12) mmol/L BUN (9-20) mg/dL Creatinine (0.7-1.3) mg/dL Estim Creat Clear Calc ml/min Estimated GFR (59 - ) Glucose (65-110) mg/dL POC Capillary Glucose 317 H 197 H (65-105) mg/dl Calcium (8.4-10.2) mg/dL Phosphorus (2.5-4.5) mg/dL Magnesium (1.6-2.3) mg/dL Total Bilirubin (0.2-1.3) mg/dL AST (17-59) U/L ALT (6-50) U/L Alkaline Phosphatase (38-126) U/L Total Creatine Kinase (55-170) U/L Total Protein (6.3-8.2) g/dL Albumin (3.5-5.1) g/dL Beta-Hydroxybutyrate/Acetoacetate (0.02-0.27) mmol/L Urine Color (Yellow) Urine Appearance (Clear) Urine pH (5.0-9.0) Ur Specific [place] (1.001-1.035) Urine Protein (Negative) mg/dL Urine Glucose (UA) (Negative) mg/dL Urine Ketones (Negative) mg/dL Ur Blood (Man) (Negative) Urine Nitrate (Negative) Urine Bilirubin (Negative) Urine Urobilinogen (<2.0) mg/dL Leukocyte Esterase Rfl (Negative) WILBER/UL Urine RBC (0-2) /hpf Urine WBC (0-3) /hpf Ur Squamous Epith Cells (Few) /hpf Urine Bacteria /hpf Urine Casts Influenza A (RT-PCR) (Negative) Influenza B (RT-PCR) (Negative) RSV (RT-PCR) (Negative) SARS-CoV-2 RNA (RT-PCR) (Negative) Discharge Plan Discharge Clinical Impression: Acute viral syndrome Diabetes Qualifiers: Diabetes mellitus type: type 2 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 He may take Tylenol and ibuprofen for your pain. Return the ED for any new or worsening symptoms. For pain, discomfort or temperature greater than or equal to 100.8 ?F please alternate the following 2 medications as needed. First medication- acetaminophen/Tylenol- 1000mg every 6-8 hours as needed for above indications. Second medication- ibuprofen/Motrin-600mg every 6-8 hours as needed for above indication. Patient Language: Bahamian Prescriptions: No Action Debrox 6.5 % drops 5 drp RIGHT EAR Q12H 4 Days Qty: 15 0RF insulin aspart U-100 [Novolog FlexPen U-100 Insulin] 100 unit/mL (3 mL) insulin pen See Rx Instructions .ROUTE .COMPLEX Rx Instructions: 1 unit per 10 bsl over 150 with meals tid pregabalin 150 mg capsule 300 mg PO DAILY insulin glargine [Lantus Solostar U-100 Insulin] 100 unit/mL (3 mL) insulin pen 30 unit SUBCUT HS sulfamethoxazole-trimethoprim [Bactrim DS] 800-160 mg tablet 1 tablet PO Q12H 7 Days Qty: 14 0RF ondansetron 4 mg tablet,disintegrating 4 mg PO Q8H PRN (Reason: nausea and vomiting) Qty: 15 0RF fluconazole [Diflucan] 200 mg tablet 200 mg PO DAILY Qty: 1 0RF Follow-up/Referrals: Alex Molina MD [Physician, Family Practice] PHYSICIAN,GRAIN MERCHANDISING MANAGER [Primary Care Provider, Internal Medicine]
[2025-05-28] MEDS: SODIUM CHLORIDE 0.9% IV 1,000 ML 999 ML IV CONT (23:07)
[2025-05-28] MEDS: INSULIN HUMAN REGULAR (*BKC) 100 UNITS/ML 15 UNITS SUB-Q (23:08)
[2025-05-28 23:11] LABS: Creatine Kinase 433 U/L (55-170)
[2025-05-28 23:34] LABS: Influenza A QL RT-PCR Negative (Negative); Influenza B QL RT-PCR Negative (Negative); RSV RNA, RT-PCR Negative (Negative); SARS-CoV-2 RNA PCR Negative (Negative)
[2025-05-29] VITALS (9 sets, daily range): BP systolic 129–147; BP diastolic 93–101; PULSE 67–87; RESP 12–21; O2SAT 97–99
[2025-05-29] MEDS: SODIUM CHLORIDE 0.9% IV 1,000 ML 999 ML IV CONT (00:02)
[2025-05-29] MEDS: INSULIN HUMAN REGULAR (*BKC) 100 UNITS/ML 10 UNITS SUB-Q (00:06)
[2025-05-29] MEDS: MORPHINE SULFATE (*CRX) 4 MG/ML INJ IV PUSH (01:32)
[2025-05-29] MEDS: INSULIN HUMAN REGULAR (*BKC) 100 UNITS/ML 20 UNITS SUB-Q (01:36)
== END 2025-05-29 03:18 | disposition home or self-care (01) ==
PROVIDERS: Emergency Provider Student in an Organized Health Care Education/Training Program
DX: B34.9 Viral infection, unspecified (principal); E11.65 Type 2 diabetes mellitus with hyperglycemia; Z20.822 Contact with and (suspected) exposure to COVID-19; E11.42 Type 2 diabetes mellitus with diabetic polyneuropathy; Z87.442 Personal history of urinary calculi; Z90.49 Acquired absence of other specified parts of digestive tract; Z79.4 Long term (current) use of insulin; Z79.899 Other long term (current) drug therapy
CPT/HCPCS: 36415; 80053; 81001; 82010; 82550; 82948; 83735; 84100; 85025; 87637; 96361; 96374; 99284; J1815; J2270; J7030

== ENCOUNTER 2025-08-14 03:48 | Emergency (ER) | payer SELFPAY ==
[2025-08-14] VITALS (7 sets, daily range): BP systolic 132–136; BP diastolic 73–82; PULSE 62–90; RESP 12–22; TEMP 36.5; O2SAT 96–100
--- NOTE | ~2025-08-14 | XR_ITS ---
Examination: XR chest 1V portable Clinical History: Hyperglycemia Comparison: 08/22/2024 Technique: Portable AP Findings: Heart size normal. Lungs clear. No acute bony abnormality. IMPRESSION: 1. No acute cardiopulmonary findings given portable technique. Reviewed, dictated and finalized at location R. PING MACHINE OPERATOR
--- NOTE | 2025-08-14 03:56 | ECG_ITS ---
Test Date: 2025-08-14 04:51:37 Measurements Intervals Benjamin Rate: 75 P: 48 TX: 166 QRS: 42 QRSD: 100 T: 30 QT: 381 QTc: 426 Interpretive Statements SINUS RHYTHM NORMAL ELECTROCARDIOGRAM Compared to ECG 07/30/2024 12:56:51 NO DIFFERENCE Electronically Signed On 08-14-2025 07:47:43 [employer] MACHINE OPERATOR by Miguel Wallace M.D.
--- NOTE | 2025-08-14 04:10 | ED_ITS ---
HPI - General Adult General Chief complaint: Recheck/Abnormal Lab/Rx Stated complaint: Hyperglycemia Time Seen by Provider: 08/14/25 03:58 History of Present Illness HPI narrative: Patient is a 49-year-old gentleman presents emergency department with chief complaint of hyperglycemia and muscle cramping patient reports that he has had a difficult time controlling his blood sugars as he is no longer able to afford using a a insulin pump patient reports that tonight his blood sugars were elevated he gave himself additional insulin and reports that he has been having muscle cramping since then the patient states that his muscles feel very crampy in his legs arms patient denies fever Related Data Home Medications ?Medication ?Instructions ?Recorded ?Confirmed ?Last Taken ?Type insulin aspart U-100 100 unit/mL See Rx Instructions . Route .COMPLEX 12/17/23 08/22/24 07/28/24 History (3 mL) subcutaneous pen (Novolog FlexPen U-100 Insulin aspart) insulin glargine 100 unit/mL (3 30 unit subcut HS 12/1708/22/24 07/28/24 History mL) subcutaneous pen (Lantus Solostar U-100 Insulin) pregabalin 150 mg capsule 300 mg PO DAILY 07/29/2407/28/24 History Allergies Allergy/AdvReac Type Severity Reaction Status Date / Time No Known Allergies Allergy Verified 08/14/25 03:50 Review of Systems 2 Review of Systems: A 10 system review of systems was completed on the patient and is negative except for what is stated in the HPI. Nursing and ancillary documentation was reviewed. [facility] Past Medical History Medical History Kidney stones Cholelithiasis Diabetic peripheral neuropathy Insulin dependent type 2 diabetes mellitus Surgical History Surgical History History of laparoscopic cholecystectomy (12/29/23) Family History Family History Mother Diabetes mellitus Father Cerebrovascular accident Heart attack Hypertension Stomach cancer Social History Social History Social History: Surrogate medical decision maker: Jennifer Garcia, spouse. Code status: Full code. Smoking status: Never smoker Alcohol intake: never Substance use: never Substance use type: marijuana Do You Feel Safe in your Home?: Yes Lack of Transportation: No Lack of Food: Never True Current Housing: I Have Housing Concerned About Future Housing: No Difficulty Paying Gas/Electric Bills: No Difficulty Paying for Meds: No Currently Unemployed: No Education: Associate Degree Difficulty w/ Childcare or Family Care: No Additional living arrangements comments: Lives with spouse in [place]. He has 7 children. 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: No Exam 2 Narrative: GENERAL: Well-appearing, well-nourished, and in no acute distress. HEAD: Normocephalic, atraumatic. EYES: PERRLA and EOMI. ENT: Nares clear, no rhinorrhea or epistaxis. Mucous membranes moist. NECK: Supple. CHEST: Clear to auscultation. No respiratory distress. HEART: Regular rate and rhythm. No murmur heard. Normal peripheral pulses. ABDOMEN: Soft, nontender, nondistended, normal active bowel sounds. EXTREMITIES: Normal range of motion. No edema. SKIN: Warm, dry, no rash. NEURO: No focal deficits. Alert and oriented x3. PSYCH: Normal mood and affect. Course Vital Signs Vital signs: Vital Signs Pulse Rate 82 08/14/25 04:06 Respiratory Rate 19 08/14/25 04:06 Pulse Oximetry 98 08/14/25 04:06 Pulse Rate 68 08/14/25 05:18 Respiratory Rate 13 08/14/25 05:18 Blood Pressure 136/82 08/14/25 05:18 Pulse Oximetry 98 08/14/25 05:18 Medical Decision Making [facility] Narrative Medical decision making narrative: Differential diagnosis includes infection, noncompliance, electrolyte abnormality, DKA Laboratory studies were obtained on the patient which showed a white count of 5.2 hemoglobin was 13 1 pH on ABG was 7.43 troponin was negative beta hydroxybutyrate 0.11 Chest x-ray showed no focal infiltrate EKG showed no acute ischemic changes Patient received IV fluids patient's potassium and magnesium were slightly low at 3.6 and 1.9 respectively the patient was given a g of magnesium and also given p.o. potassium in the emergency department patient was having muscle spasms well as blood sugars were elevated was given 5 mg of Valium on top of 2 L of normal saline boluses Vital Signs Vital Signs: Vital Signs Pulse Rate 82 08/14/25 04:06 Respiratory Rate 19 08/14/25 04:06 Pulse Oximetry 98 08/14/25 04:06 Pulse Rate 68 08/14/25 05:18 Respiratory Rate 13 08/14/25 05:18 Blood Pressure 136/82 08/14/25 05:18 Pulse Oximetry 98 08/14/25 05:18 Lab Data 08/14/25 04:11 08/14/25 04:11 Labs: Lab Results 08/14/25 08/14/25 08/14/25 Range/Units 03:59 04:11 04:12 WBC 5.2 (4.5-10.0) K/mm3 RBC 4.59 L (4.6-6.20) M/mm3 Hgb 13.1 L (14.0-18.0) g/dL Hct 37.3 L (42.0-52.0) % MCV 81.3 (80-100) fl MCH 28.5 (26-34) pg MCHC 35.1 (32-36) g/dl RDW 12.4 (11.5-14.5) % Plt Count 217 (150-375) k/mm3 MPV 10.9 H (7.4-10.4) fl Immature Gran % (Auto) 0.4 (0-0.5) % Neut % (Auto) 54.2 (45.5-73.1) % Lymph % (Auto) 35.8 (18.3-44.2) % [place] % (Auto) 7.5 (2.6-8.5) % Eos % (Auto) 1.5 (0-4.4) % Baso % (Auto) 0.6 (0.2-1.2) % Lymph # (Auto) 1.87 (0.9-3.2) K/mm3 [place] # (Auto) 0.4 (0.1-0.6) K/mm3 Eos # (Auto) 0.1 (0-0.3) K/mm3 Baso # (Auto) 0.0 (0.0-0.1) K/mm3 Abs Immat Gran (auto) 0.02 (0.00-0.031) K/mm3 Absolute Neuts (auto) 2.8 (1.3-6.7) K/mm3 Absolute Nucleated RBC 0.000 (0.0-0.012) K/mm3 Nucleated RBC % 0.0 (0.0-0.2) % Methemoglobin 0.2 (0-1.5) %THb Sodium 133 L (137-145) mmol/L Potassium 3.6 (3.4-5.0) mmol/L Chloride 100 (98-107) mmol/L Carbon Dioxide 23 (22-30) mmol/L Anion Gap 10 (4-12) mmol/L BUN 11 (9-20) mg/dL Creatinine 0.91 (0.7-1.3) mg/dL Estim Creat Clear Calc 96 ml/min Estimated GFR > 60 (59 - ) Glucose 357 H (65-110) mg/dL POC Capillary Glucose 361 H (65-105) mg/dl Calcium 9.2 (8.4-10.2) mg/dL Phosphorus 3.5 (2.5-4.5) mg/dL Magnesium 1.9 (1.6-2.3) mg/dL Total Bilirubin 0.8 (0.2-1.3) mg/dL AST 32 (17-59) U/L ALT 34 (6-50) U/L Alkaline Phosphatase 73 (38-126) U/L Troponin I < 0.012 (0.000-0.034) ng/mL Total Protein 6.9 (6.3-8.2) g/dL Albumin 4.1 (3.5-5.1) g/dL Beta-Hydroxybutyrate/Acetoacetate 0.11 (0.02-0.27) mmol/L Urine Color (Yellow) Urine Appearance (Clear) Urine pH (5.0-9.0) Ur Specific [place] (1.001-1.035) Urine Protein (Negative) mg/dL Urine Glucose (UA) (Negative) mg/dL Urine Ketones (Negative) mg/dL Ur Blood (Man) (Negative) Urine Nitrate (Negative) Urine Bilirubin (Negative) Urine Urobilinogen (<2.0) mg/dL Leukocyte Esterase Rfl (Negative) WILBER/UL 08/14/25 Range/Units 05:58 WBC (4.5-10.0) K/mm3 RBC (4.6-6.20) M/mm3 Hgb (14.0-18.0) g/dL Hct (42.0-52.0) % MCV (80-100) fl MCH (26-34) pg MCHC (32-36) g/dl RDW (11.5-14.5) % Plt Count (150-375) k/mm3 MPV (7.4-10.4) fl Immature Gran % (Auto) (0-0.5) % Neut % (Auto) (45.5-73.1) % Lymph % (Auto) (18.3-44.2) % [place] % (Auto) (2.6-8.5) % Eos % (Auto) (0-4.4) % Baso % (Auto) (0.2-1.2) % Lymph # (Auto) (0.9-3.2) K/mm3 [place] # (Auto) (0.1-0.6) K/mm3 Eos # (Auto) (0-0.3) K/mm3 Baso # (Auto) (0.0-0.1) K/mm3 Abs Immat Gran (auto) (0.00-0.031) K/mm3 Absolute Neuts (auto) (1.3-6.7) K/mm3 Absolute Nucleated RBC (0.0-0.012) K/mm3 Nucleated RBC % (0.0-0.2) % Methemoglobin (0-1.5) %THb Sodium (137-145) mmol/L Potassium (3.4-5.0) mmol/L Chloride (98-107) mmol/L Carbon Dioxide (22-30) mmol/L Anion Gap (4-12) mmol/L BUN (9-20) mg/dL Creatinine (0.7-1.3) mg/dL Estim Creat Clear Calc ml/min Estimated GFR (59 - ) Glucose (65-110) mg/dL POC Capillary Glucose (65-105) mg/dl Calcium (8.4-10.2) mg/dL Phosphorus (2.5-4.5) mg/dL Magnesium (1.6-2.3) mg/dL Total Bilirubin (0.2-1.3) mg/dL AST (17-59) U/L ALT (6-50) U/L Alkaline Phosphatase (38-126) U/L Troponin I (0.000-0.034) ng/mL Total Protein (6.3-8.2) g/dL Albumin (3.5-5.1) g/dL Beta-Hydroxybutyrate/Acetoacetate (0.02-0.27) mmol/L Urine Color Yellow (Yellow) Urine Appearance Clear (Clear) Urine pH 5.5 (5.0-9.0) Ur Specific [place] 1.027 (1.001-1.035) Urine Protein Negative (Negative) mg/dL Urine Glucose (UA) 3+ H (Negative) mg/dL Urine Ketones Negative (Negative) mg/dL Ur Blood (Man) Negative (Negative) Urine Nitrate Negative (Negative) Urine Bilirubin Negative (Negative) Urine Urobilinogen 0.2 (<2.0) mg/dL Leukocyte Esterase Rfl Negative (Negative) WILBER/UL ABG Data ABG results: 08/14/25 04:12 Puncture Site Right radial ABG pH 7.430 ABG pCO2 35.9 ABG pO2 105.4 H ABG PO2/FiO2 Ratio 5.02 ABG HCO3 23.3 ABG O2 Saturation 98.0 ABG O2 Content 19.0 ABG Base Excess -0.6 A-a Gradient 1.3 Oxyhemoglobin 97.4 Carboxyhemoglobin 0.5 Reduced Hemoglobin 1.9 Total Hemoglobin 13.8 O2 Delivery Device Room air O2 Liters/Min Not Reportable FiO2 21 Discharge Plan Discharge Clinical Impression: Acute hyperglycemia Patient Disposition: Home Condition: Stable Instructions: Antibiotic Form, Diabetic Hyperglycemia (ED) Additional Instructions: Please carefully manage your diabetes at home please follow-up with your primary care provider Patient Language: Mauritanian Prescriptions: No Action Debrox 6.5 % drops 5 drp RIGHT EAR Q12H 4 Days Qty: 15 0RF insulin aspart U-100 [Novolog FlexPen U-100 Insulin] 100 unit/mL (3 mL) insulin pen See Rx Instructions .ROUTE .COMPLEX Rx Instructions: 1 unit per 10 bsl over 150 with meals tid pregabalin 150 mg capsule 300 mg PO DAILY insulin glargine [Lantus Solostar U-100 Insulin] 100 unit/mL (3 mL) insulin pen 30 unit SUBCUT HS sulfamethoxazole-trimethoprim [Bactrim DS] 800-160 mg tablet 1 tablet PO Q12H 7 Days Qty: 14 0RF ondansetron 4 mg tablet,disintegrating 4 mg PO Q8H PRN (Reason: nausea and vomiting) Qty: 15 0RF fluconazole [Diflucan] 200 mg tablet 200 mg PO DAILY Qty: 1 0RF Follow-up/Referrals: PHYSICIAN,INTERIOR DESIGN PROJECT MANAGER [Primary Care Provider, Internal Medicine] Jagjit Stone MD [Physician, Family Practice]
[2025-08-14 04:24] LABS: Alveolar/Arterial O2 Gradient 1.3 mmHg; Carboxyhemoglobin 0.5 % THb (0-2.0); Fractional Inspired Oxygen 21 %; HCO3 ABG 23.3 mEq/l (22.0-26.0); Methemoglobin ABG 0.2 %THb (0-1.5); Oxygen Content ABG 19.0 %vol (16.0-22.0); Oxygen Saturation ABG 98.0 % (95.0-100.0); PCO2 ABG 35.9 mmHg (35.0-45.0); PO2 ABG 105.4 mmHg (80.0-100.0); PO2 FiO2 Ratio Arterial Blood 5.02 %; Reduced Hemoglobin 1.9 %THb (0-5.0)
[2025-08-14 04:26] LABS: Modified Allen's Test Pass; Site Drawn RIGHT RADIAL
[2025-08-14 04:28] LABS: Alanine Aminotransferase 34 U/L (6-50); Albumin Level 4.1 g/dL (3.5-5.1); Alkaline Phosphatase 73 U/L (38-126); Anion Gap 10 mmol/L (4-12); Aspartate Amino Transferase 32 U/L (17-59); Bilirubin,Total 0.8 mg/dL (0.2-1.3); Blood Urea Nitrogen 11 mg/dL (9-20); Calcium 9.2 mg/dL (8.4-10.2); Carbon Dioxide 23 mmol/L (22-30); Chloride 100 mmol/L (98-107); Estimated CRCL calculation 96 ml/min; Estimated Glomerular Filt Rate > 60; Glucose 357 mg/dL (65-110); Magnesium 1.9 mg/dL (1.6-2.3); Potassium 3.6 mmol/L (3.4-5.0); Sodium 133 mmol/L (137-145); Total Protein 6.9 g/dL (6.3-8.2)
[2025-08-14 04:30] LABS: Hematocrit 37.3 % (42.0-52.0); Hemoglobin 13.1 g/dL (14.0-18.0); Immature Granulocyte Percent A 0.4 % (0-0.5); Lymphocytes Absolute Auto 1.87 K/mm3 (0.9-3.2); Mean Corpuscular HGB Conc 35.1 g/dl (32-36); Mean Corpuscular Hemoglobin 28.5 pg (26-34); Mean Corpuscular Volume 81.3 fl (80-100); Nucleated Red Blood Cells Absolute Auto 0.000 K/mm3 (0.0-0.012); Nucleated Red Blood Cells Perc 0.0 % (0.0-0.2); Platelet Count Result 217 k/mm3 (150-375); Red Blood Count 4.59 M/mm3 (4.6-6.20); White Blood Count 5.2 K/mm3 (4.5-10.0)
[2025-08-14] MEDS: SODIUM CHLORIDE 0.9% IV 1,000 ML 999 ML IV CONT ×2 (04:37)
[2025-08-14 04:42] LABS: Troponin I < 0.012 ng/mL (0.000-0.034)
[2025-08-14 04:43] LABS: Beta-Hydroxybutyrate/Acetoace. 0.11 mmol/L (0.02-0.27)
[2025-08-14] MEDS: HYDROcodone/acetaminophen (*CRX) 5-325 MG TABLET 1 TAB PO (05:14)
[2025-08-14] MEDS: CYCLOBENZAPRINE HCL 10 MG TABLET PO (05:15)
[2025-08-14] MEDS: POTASSIUM CHLORIDE 20 MEQ PACKET (FOR LIQUID) PO (05:16)
[2025-08-14] MEDS: ONDANSETRON INJ 4 MG/2 ML VIAL IV PUSH (05:16)
[2025-08-14] MEDS: diazePAM INJ (*CRX) 10 MG/2 ML SYRINGE 5 MG IV PUSH (05:23)
[2025-08-14] MEDS: MAGNESIUM SULF 1 GM/D5W 100 ML 1 GM/100 ML BAG IVPB (05:25)
--- OUTSIDE RECORDS SUMMARY | 2025-08-14 05:39 | XMS_ITS | Clinical Summary ---
Author Organization [facility] Address [address] [place] [id number] Care Team Providers Care Sprinkling System Installer Name Role Phone No, Physician Primary Care Provider [phone] Allergies Active Allergy Reactions Criticality Noted Date [...] 6 boxes for a [address] [facility] [id number] 6 each 3 07/19/20 22 Active blood-glucose [...] when not on insulin pump 15 mL 11 05/11/20 24 Active OneTouch Verio test strips strip Use to test BG when off of Dexcom or to check accuracy. 100 strip 05/11/20 24 Active pregabalin (LYRICA) 150 mg capsuleIndications :Polyneuropathy associated with underlying disease TAKE 2 CAPSULES BY MOUTH ONCE DAILY DIRECTED 60 capsule 02/01/20 25 Active Active Problems Problem Noted Date Diagnosed Date Mixed hyperlipidemia 04/08/2023 Type 2 diabetes mellitus wit h hyperglycemia, with long-term current use of insulin 07/16/[address] 07/08/2022 Hyperglycemia 12/06/2021 Encounters Date Type Department Care Team Description 07/31/2025 [place] [facility] [place] [facility] [facility] [place] [address] [facility] 13[address] [place] [address] [place] [address] No Clay, respiratory therapy aide Polyneuropathy associated with underlying disease from Last 3 Months Medical History Medical History Date Comments Diabetes mellitus 02/2021 Family History Medical History Relation Name [...] on file Legal Sex Male 7:51 PM [employer] Gender Identity Not on file Sexual Orientation [...] history exists Albumin Creatinine Ratio, Urine 05/11/2025 4, 04/08/2023 Lipid Panel 05/11/2025 05/11/2024, 07/07/2022 eGFR 05/11/2025 05/11/2024, 07/07/2022 Influenza Vaccine (#1) 2025 DTaP/Tdap/Td Vaccine (2 - Td or [...] ORDERABLES Final Res ult Performing Organization Address [facility] de Phone Number [facility] Department [place] [address] * Albumin Creatinine Ratio, Urine (05/11/2024 4:06 PM CDT) Albumin Ur 15.6 mg/L Comment: Interpretive Data No reference range established. Current interpretive data was last revised 2019. Creatinine Ur 67.7 mg/dL [facility] Comment: Interpretive Data No reference range established. Current interpretive data was last revised 2019. Albumin Creatinine Ratio, Ur 23 1 - 29 mg/g [facility] Urine 05/11/2024 4:06 PM CDT 05/11/2024 4:32 PM CDT Elizabeth Cardenas MD LAB URINE ORDERABLES Final Res ult Performing Organization Address [facility] de Phone Number [facility] Department [place] [address] * Lipid panel (05/11/2024 4:06 PM CDT) [...] revised on 2018. Triglycerides 108 <=149 mg/dL [facility] Comment: Interpretive Data Ages < or [...] revised on 2018. HDL 54 >=40 mg/dL [facility] Comment: Interpretive Data Ages < or [...] on 2018. LDL, calculated 89 <=129 mg/dL [facility] Comment: Interpretive Data Ages < or [...] revised on 2018. Non-HDL Cholesterol 111 mg/dL [facility] Comment: Interpretive Data Ages < or [...] last revised on 2018. Chol/HDL ratio 3 [facility] Blood 05/11/2024 4:06 PM CDT 05/11/2024 4:32 PM CDT Narrative [facility] - 05/11/2024 5:13 PM CDT These lab test should be done fasting. This means do not eat or drink for at least 12 hours prior to getting your blood drawn. us Elizabeth Cardenas MD LAB BLOOD ORDERABLES Final Res ult [facility] Department [place] [address] * POCT hemoglobin A1c (05/11/2024 2:36 PM CDT) Hemoglobin A1C, POC 9.6 4.0 - 5.6 % Blood 05/11/2024 2:36 PM CDT us Elizabeth Cardenas MD POINT OF CARE TEST ORDERABLES Final Result from Last 3 Months or Most Recently Relevant to Health Maintenance Care Teams Sprinkling System Installer Relationship Specialty Start Date End Date No, Physician PCP - General 05/11/24
--- OUTSIDE RECORDS SUMMARY | 2025-08-14 05:39 | XMS_ITS | Data Portability ---
Author Organization [facility] Address [address] [place] [place] [address] Care Team Providers Care Management Trainee Marketing Name Role Phone YENNY MANN Service Technician Copier Assessment No assessment recorded. Plan of Treatment Reminders Order Date Submit Date Provider Last Modified By Organization Details Last Modified Time Details Appointments None recorded. Lab CK (creatine kinase), total, serum 2022 023 [facility], [address] [place] [address], [address], [place], [address], 3 04:10:01 renal function panel, serum 2022 023 [facility], [address] [place] [address], [address], [place], [address], 3 20:08:41 glucose, fingerstick , blood 2022 023 [email or web address] In-Office Order, Internal Use Only DO Not Attach Compendium DO Not Attach Compendium, Do Not Delete/merge, [id number] 14:08:48 HbA1c (hemoglobin A1c), blood 2022 023 [facility] In-Office Order, Internal Use Only DO Not Attach Compendium DO Not Attach Compendium, Do Not Delete/merge, [id number] 3 15:24:30 CMP, serum or plasma 2022 023 [facility], [address] [place] [address], [address], [place], [address], 3 12:04:30 culture, urine 2021 022 [facility], [address] [facility], [address], [place], [address], 07:11:22 urinalysis, dipstick 2021 [email or web address] In-Office Order, Internal Use Only DO Not Attach Compendium DO Not Attach Compendium, Do Not Delete/merge, [id number] 17:17:12 Referral None recorded. Procedures None recorded. Surgeries None recorded. Imaging None recorded. Medication Orders gabapentin 300 mg capsule 2022 023 [facility], [address] [place] [address], [id number], 3 12:02:25 Bactrim DS 800 mg-160 mg tablet 2021 [place] [id number], [address] [place] [address], [id number], 18:00:02 Bactrim DS 800 mg-160 mg tablet 2021 022 [facility], [address] [place] [address], [id number], 13:17:25 Patient TargetsNo targets recorded. Patient Instructions Encounter Date Encounter Id Patient Instructions Last Modified By Organization Details Last Modified Time 07/02/2022 [id number] I was present an d available in the Family Medicine clinic to discuss this patient's care for the duration of the appointment. I agree with the resident's assessment and plan as documented with the following addendum: None. Dr. Brenna Gunderson MD Attending Physician, [facility]. [email or web address] Not available 07/06/2022 16:14:36 09/02/2022 [id number] I was present an d available in the family medicine clinic to discuss the patient's care during the appointment. I agree with the resident's assessment and plan as documented. Ellis Carter [email or web address] Not available 09/10/2022 11:26:41 10/06/2022 [id number] I certify that I was present and available for case discussion in the Family Medicine preceptor room at the time of this encounter. I have reviewed the note and agree with the findings, assessment, and plan. Follow up as listed. All labs/imaging/cons ults to be followed by the ordering provider. [email or web address] Not available 10/10/2022 09:45:03 01/28/2023 [id number] I was present an d available in the Family Medicine clinic to discuss this patient's care for the duration of the appointment. I agree with the resident's assessment and plan as documented with the following addendum: None. Dr. Brenna Gunderson MD Attending Physician, [facility]. [email or web address] Not available 02/02/2023 10:01:46 Reason for Referral None Reported. Results Created Date Observation Date Name Description Value Unit Range Abnormal Flag Note LastModifiedBy Organization Detail LastModifiedTime 06/22/2006/22/2022 HbA1c (hemo globi n A1c), blood HbA1c 9.7 Not Available In-Office Order Internal Use Only DO Not Attach Compendium DO Not Attach Compendium, Do Not Delete/merge, [id number] 06/22/2022 17:29:58 07/02/2007/06/2022 URINE CULTU TIFFANIE HOUSE urine culture, routine Final report abnormal Not Available [facility] ([facility]) [address] [facility], [place], [address], 07/06/2022 07:11:22 07/02/2007/06/2022 URINE CULTU TIFFANIE HOUSE result 1 Commen t abnormal Beta hemol ytic Strep tococ cus, group B Great er than 100,0 00 colon y formi ng units per mL Penic illin and ampic illin are drugs of choi e for treat ment of beta- hemol [...] p A). (CLSI ) Not Available [facility] ([facility]) [address] [facility], [place], [address], 07/06/2022 07:11:22 07/02/2007/02/2022 urina lysis , dipst ick Leukocytes Large Not Available In-Offi ce Order Internal Use Only DO Not Attach Compendium DO Not Attach Compendium, Do Not Delete/merge, 07/02/2022 17:25:21 07/02/20 22 07/02/2022 urina lysis , dipst ick Nitrite negati ve Not Available In-Office Order Internal Use Only DO Not Attach Compendium DO Not Attach Compendium, Do Not Delete/merge, 07/02/2022 17:25:21 07/02/20 22 07/02/2022 urina lysis , dipst ick Urobilinogen 2 Not Available In-Of fice Order Internal Use Only DO Not Attach Compendium DO Not Attach Compendium, Do Not Delete/merge, 07/02/2022 17:25:21 07/02/20 22 07/02/2022 urina lysis , dipst ick Protein 300 Not Available In-Office Order Internal Use Only DO Not Attach Compendium DO Not Attach Compendium, Do Not Delete/merge, 07/02/2022 17:25:21 07/02/20 22 07/02/2022 urina lysis , dipst ick pH 6.0 Not Available In-Office Order Internal Use Only DO Not Attach Compendium DO Not Attach Compendium, Do Not Delete/merge, 07/02/2022 17:25:21 07/02/20 22 07/02/2022 urina lysis , dipst ick Blood Large Not Available In-Office Order Internal Use Only DO Not Attach Compendium DO Not Attach Compendium, Do Not Delete/merge, [id number] 07/02/2022 17:25:21 07/02/20 22 07/02/2022 urina lysis , dipst ick Specific Busby 1.030 Not Available In-Off ice Order Internal Use Only DO Not Attach Compendium DO Not Attach Compendium, Do Not Delete/merge, [id number] 07/02/2022 17:25:21 07/02/20 22 07/02/2022 urina lysis , dipst ick Ketone Negati ve Not Available In-Office Order Internal Use Only DO Not Attach Compendium DO Not Attach Compendium, Do Not Delete/merge, [id number] 07/02/2022 17:25:21 07/02/20 22 07/02/2022 urina lysis , dipst ick Bilirubin Negati ve Not Available In-Office Order Internal Use Only DO Not Attach Compendium DO Not Attach Compendium, Do Not Delete/merge, [id number] 07/02/2022 17:25:21 07/02/20 22 07/02/2022 urina lysis , dipst ick Glucose 500 Not Available In-Office Order Internal Use Only DO Not Attach Compendium DO Not Attach Compendium, Do Not Delete/merge, [id number] 07/02/2022 17:25:21 07/02/20 22 07/02/2022 urina lysis , dipst ick Appearance Turbid Not Available In-Offi ce Order Internal Use Only DO Not Attach Compendium DO Not Attach Compendium, Do Not Delete/merge, [id number] 07/02/2022 17:25:21 07/02/20 22 07/02/2022 urina lysis , dipst ick Color Dark Yellow Not Available In-Office Order Internal Use Only DO Not Attach Compendium DO Not Attach Compendium, Do Not Delete/merge, [id number] 07/02/2022 17:25:21 10/06/19 23 10/06/2022 HbA1c (hemo globi n A1c), blood HbA1c 9.0 Not Available In-Office Order Internal Use Only DO Not Attach Compendium DO Not Attach Compendium, Do Not Delete/merge, [id number] 10/05/2022 16:03:08 01/29/20 23 01/28/2023 RENAL PANEL (10) glucose 306 mg/dL 65-99 above high normal Not Available [facility] [address] [place], [address], 01/28/2023 20:08:41 01/29/20 23 01/28/2023 RENAL PANEL (10) BUN 8 mg/dL 8-26 Not Available [facility] [address] [place], [address], 01/28/2023 20:08:41 01/29/20 23 01/28/2023 RENAL PANEL (10) creatinine 0.92 mg/dL 0.50-1 .40 Not Available [facility] [address] [place], [address], 01/28/2023 20:08:41 01/29/20 23 01/28/2023 RENAL PANEL (10) eGFR 104 mL/mi n/1.7 3 >=60 Not Available [facility] [address] [place], [address], 01/28/2023 20:08:41 01/29/20 23 01/28/2023 RENAL PANEL (10) BUN/creatini ne ratio 9.0 Not Available [facility] Department [address] [place], [address], 01/28/2023 20:08:41 01/29/20 23 01/28/2023 RENAL PANEL (10) sodium 140.0 mmol/ L 136.0- 144.0 Not Available [facility] [address] [place], [address], 01/28/2023 20:08:41 01/29/20 23 01/28/2023 RENAL PANEL (10) potassium 4.5 mmol/ L 3.5-5. 3 Not Available [facility] [address] [place], [address], 01/28/2023 20:08:41 01/29/20 23 01/28/2023 RENAL PANEL (10) chloride 104 mmol/ l 101-11 1 Not Available [facility] [address] [place], [address], 01/28/2023 20:08:41 01/29/20 23 01/28/2023 RENAL PANEL (10) carbon dioxide, total 27.1 mmol/ L 21.0-3 2.0 Not Available [facility] [address] [place], [address], 01/28/2023 20:08:41 01/29/20 23 01/28/2023 RENAL PANEL (10) calcium 9.3 mg/dL 8.2-10 .0 Not Available [facility] [address] [place], [address], 01/28/2023 20:08:41 01/29/20 23 01/28/2023 RENAL PANEL (10) phosphorus 3.7 mg/dL 2.7-4. 5 Not Available [facility] [address] [place], [address], 01/28/2023 20:08:41 01/29/20 23 01/28/2023 RENAL PANEL (10) albumin 4.4 g/dL 3.5-5. 5 Not Available [facility] [address] [place], [address], 01/28/2023 20:08:41 01/29/20 23 01/29/2023 CREAT INE KINAS E,TOT AL creatine kinase,total 471 U/L 49-439 above high normal Not Available [facility] ([facility]) [address] [facility], [place], [address], 01/29/2023 04:10:01 02/01/20 23 01/31/2023 gluco se, finge rstic k, blood Blood Glucose: mg/dl 301 Not Available In-Off ice Order Internal Use Only DO Not Attach Compendium DO Not Attach Compendium, Do Not Delete/merge, [id number] 01/31/2023 09:37:54 02/29/20 23 02/28/2023 URINE CULTU RE header [facility] [address] [facility] [place] [address] Patie nt:TRACEY JASMINE [id number] Med Rec#: [id number] Order ing MD: DOUG BOSE : [birth year] Sex: M Locat ion: SEOER Test: URINE CULTU RE Colle ct Date: 02-28 20:30 Acces isai #: [id number] Not Available [facility] (Lab) [address] [facility], [place], [address], 03/02/2023 10:32:37 02/29/20 23 02/28/2023 URINE CULTU [...] STATU S - FINAL 03/02 Not Available [facility] (Lab) [address] [facility], [place], [address], 03/02/2023 10:32:37 03/04/20 25 03/04/2025 Gluco se [Mass /volu me] in Blood by Autom ated test strip glucose [mass/volume ] in blood by automated test strip 95 mg/dL low: 70mg/d Lhigh: 99mg/d L Not Available Not Available 03/05/2025 06:14:06 03/04/20 25 03/04/2025 Gas panel - Venou s blood pH of venous blood 7.39 low: 7.32hi gh: 7.43 Not Available Not Available 03/05/2025 06:14:06 03/04/2003/04/2025 Gas panel - Venou s blood carbon dioxide [partial pressure] in venous blood 43 text: mmHg NO REFER ENCE RANGE HAS BEEN ESTAB LISHE D Not Available Not Available 03/05/2025 06:14:06 03/04/20 25 03/04/2025 Gas panel - Venou s blood oxygen [partial pressure] in venous blood 54 text: mm hg NO REFER ENCE RANGE HAS BEEN ESTAB LISHE D Not Available Not Available 03/05/2025 06:14:06 03/04/2003/04/2025 Gas panel - Venou s blood carbon dioxide, total [moles/volum e] in venous blood 27.3 text: 22.0 - 26.0 mmol/L high Not Available Not Available 03/05/2025 06:14:06 03/04/2003/04/2025 Gas panel - Venou s blood base excess in venous blood by calculation 0.8 text: mmol/L NO REFER ENCE RANGE HAS BEEN ESTAB LISHE D Not Available Not Available 03/05/2025 06:14:06 03/04/2003/04/2025 Gas panel - Venou s blood oxygen saturation in venous blood 87 % NO REFER ENCE RANGE HAS BEEN ESTAB LISHE D Not Available Not Available 03/05/2025 06:14:06 03/04/2003/04/2025 Gas panel - Venou s blood bicarbonate [moles/volum e] in venous blood 26 text: 22.0 - 29.0 mmol/L Not Available Not Available 03/05/2025 06:14:06 03/04/2003/04/2025 Gas panel - Venou s blood service comment 21 Not Available Not Available 02/24 06:14:06 03/04/2003/04/2025 Gas panel - Venou s blood interpretati on and review of laboratory results Abnorm al Not Available Not Available 06:14:06 03/04/20 25 03/04/2025 Gluco se [Mass /volu me] in Blood by Autom ated test strip glucose [mass/volume ] in blood by automated test strip 62 mg/dL low: 70mg/d Lhigh: 99mg/d L low Not Available Not Available 03/05/2025 06:14:06 03/04/20 25 03/04/2025 Gluco se [Mass /volu me] in Blood by Autom ated test strip interpretati on and review of laboratory results Abnorm al Not Available Not Available 06:14:06 03/04/20 25 03/04/2025 Urina lysis dipst ick W Refle x Micro scopi c panel - Urine collection method - specimen URINE CLEAN CATCH Not Available Not Available 06:14:06 03/04/20 25 03/04/2025 Urina lysis dipst ick W Refle x Micro scopi c panel - Urine color of urine LIGHT YELLOW Not Available Not Available 06:14:06 03/04/20 25 03/04/2025 Urina lysis dipst ick W Refle x Micro scopi c panel - Urine clarity of urine CLEAR Not Available Not Available 02/24 06:14:06 03/04/20 25 03/04/2025 Urina lysis dipst ick W Refle x Micro scopi c panel - Urine specific gravity of urine 1.016 low: 1.001h igh: 1.03 Not Available Not Available 03/05/2025 06:14:06 03/04/20 25 03/04/2025 Urina lysis dipst ick W Refle x Micro scopi c panel - Urine pH of urine 6.5 low: 5high: 9 Not Available Not Available 03/05/2025 06:14:06 03/04/20 25 03/04/2025 Urina lysis dipst ick W Refle x Micro scopi c panel - Urine leukocytes [#/volume] in urine by test strip text: negati ve abnormal Not Available Not Available 03/05/2025 06:14:06 03/04/20 25 03/04/2025 Urina lysis dipst ick W Refle x Micro scopi c panel - Urine nitrite [presence] in urine NEGATI VE text: negati ve Not Available Not Available 03/05/2025 06:14:06 03/04/20 25 03/04/2025 Urina lysis dipst ick W Refle x Micro scopi c panel - Urine protein [mass/volume ] in urine by test strip NEGATI VE text: <30 mg/dL Not Available Not Available 03/05/2025 06:14:06 03/04/20 25 03/04/2025 Urina lysis dipst ick W Refle x Micro scopi c panel - Urine glucose [mass/volume ] in urine >1000 text: normal mg/dL abnormal Not Available Not Available 03/05/2025 06:14:06 03/04/20 25 03/04/2025 Urina lysis dipst ick W Refle x Micro scopi c panel - Urine ketones [mass/volume ] in urine by test strip NEGATI VE text: negati ve mg/dL Not Available Not Available 03/05/2025 06:14:06 03/04/2003/04/2025 Urina lysis dipst ick W Refle x Micro scopi c panel - Urine urobilinogen [units/volum e] in urine by test strip NORMAL text: normal mg/dL Not Available Not Available 03/05/2025 06:14:06 03/04/20 25 03/04/2025 Urina lysis dipst ick W Refle x Micro scopi c panel - Urine bilirubin.to romana [mass/volume ] in urine NEGATI VE text: negati ve mg/dL Not Available Not Available 03/05/2025 06:14:06 03/04/2003/04/2025 Urina lysis dipst ick W Refle x Micro scopi c panel - Urine erythrocytes [#/volume] in urine by automated test strip NEGATI VE text: negati ve Not Available Not Available 03/05/2025 06:14:06 03/04/2003/04/2025 Urina lysis dipst ick W Refle x Micro scopi c panel - Urine leukocytes [#/area] in urine sediment by microscopy high power field 2 text: <6 /hpf Not Available Not Available 03/05/2025 06:14:06 03/04/20 25 03/04/2025 Urina lysis dipst ick W Refle x Micro scopi c panel - Urine erythrocytes [#/area] in urine sediment by microscopy high power field 1 text: <6 /hpf Not Available Not Available 03/05/2025 06:14:06 03/04/20 25 03/04/2025 Urina lysis dipst ick W Refle x Micro scopi c panel - Urine epithelial cells.squamo us [#/area] in urine sediment by microscopy high power field RARE text: /hpf Not Available Not Available 03/05/2025 06:14:06 03/04/20 25 03/04/2025 Urina lysis dipst ick W Refle x Micro scopi c panel - Urine interpretati on and review of laboratory results Abnorm al Not Available Not Available 06:14:06 03/04/20 25 03/04/2025 Lacta te [Mole s/vol ume] in Serum or Plasm a lactate [moles/volum e] in serum or plasma 2.1 text: 0.4 - 2.0 mmol/L high Criti bean Angel nair(s) Christian d at: 22:47 :42 on 03/04 by: Clarissa Scruggs ns to and read back by:JOSEPH MCMAHON Not Available Not Available 03/05/2025 06:14:06 03/04/20 25 03/04/2025 Lacta te [Mole s/vol ume] in Serum or Plasm a interpretati on and review of laboratory results Abnorm al Not Available Not Available 06:14:06 03/04/20 25 03/04/2025 Magne sium [Mass /volu me] in Serum or Plasm a magnesium [mass/volume ] in serum or plasma 2.1 text: 1.8 - 2.4 mg/dL SLIGH T HEMOL YSIS, RESUL T MAY BE AFFEC JULIANNA. Not Available Not Available 03/05/2025 06:14:06 03/04/20 25 03/04/2025 Creat ine kinas e [Enzy matic activ ity/v olume ] in Serum or Plasm a creatine kinase [enzymatic activity/vol ume] in serum or plasma 1102 U/L low: 35U/Lh igh: 232U/L high Not Available Not Available 03/05/2025 06:14:06 03/04/20 25 03/04/2025 Creat ine kinas e [Enzy matic activ ity/v olume ] in Serum or Plasm a interpretati on and review of laboratory results Abnorm al Not Available Not Available 06:14:06 03/04/20 25 03/04/2025 Compr [facility] metab olic 1999 panel - Serum or Plasm a glucose [mass/volume ] in serum or plasma 55 text: 70 - 99 mg/dL low Not Available Not Available 03/05/2025 06:14:06 03/04/20 25 03/04/2025 Compr [facility] metab olic 1999 panel - Serum or Plasm a urea nitrogen [mass/volume ] in serum or plasma 8 text: 7 - 18 mg/dL Not Available Not Available 03/05/2025 06:14:06 03/04/20 25 03/04/2025 Compr [facility] metab olic 1999 panel - Serum or Plasm a creatinine [mass/volume ] in serum or plasma 1.08 text: 0.7 - 1.3 mg/dL Not Available Not Available 03/05/2025 06:14:06 03/04/20 25 03/04/2025 Compr [facility] metab olic 1999 panel - Serum or Plasm a sodium [moles/volum e] in serum or plasma 136 text: 136 - 145 mmol/L Not Available Not Available 03/05/2025 06:14:06 03/04/20 25 03/04/2025 Compr [facility] metab olic 1999 panel - Serum or Plasm a potassium [moles/volum e] in serum or plasma 3.6 text: 3.5 - 5.1 mmol/L SLIGH T HEMOL YSIS, RESUL T MAY BE AFFEC JULIANNA. Not Available Not Available 03/05/2025 06:14:06 03/04/20 25 03/04/2025 Compr [facility] metab olic 1999 panel - Serum or Plasm a chloride [moles/volum e] in serum or plasma 106 text: 97 - 115 mmol/L Not Available Not Available 03/05/2025 06:14:06 03/04/20 25 03/04/2025 Compr [facility] metab [facility]lic 1999 panel - Serum or Plasm a carbon dioxide, total [moles/volum e] in serum or plasma 24.5 text: 21 - 32 mmol/L Not Available Not Available 03/05/2025 06:14:06 03/04/20 25 03/04/2025 Compr [facility] metab [facility]lic 1999 panel - Serum or Plasm a calcium [mass/volume ] in serum or plasma 9.5 text: 8.5 - 10.1 mg/dL Not Available Not Available 03/05/2025 06:14:06 03/04/2003/04/2025 Compr [facility] metab [facility]lic 1999 panel - Serum or Plasm a bilirubin.to romana [mass/volume ] in serum or plasma 1 text: 0.2 - 1.2 mg/dL THIS ASSAY IS NOT RECOM GREGG D FOR PATIE NTS UNDER GOING TREAT MENT WITH ELTRO MBOPA G DUE TO THE POTEN TIAL FOR FALSE LY ELEVA JULIANNA RESUL TS. Not Available Not Available 03/05/2025 06:14:06 03/04/20 25 03/04/2025 Compr [facility] metab [facility]lic 1999 panel - Serum or Plasm a protein [mass/volume ] in serum or plasma 8.4 text: 6.4 - 8.2 g/dL high Not Available Not Available 03/05/2025 06:14:06 03/04/20 25 03/04/2025 Compr [facility] metab [facility]lic 2000 panel - Serum or Plasm a albumin [mass/volume ] in serum or plasma 4.2 text: 3.4 - 5.0 g/dL Not Available Not Available 03/05/2025 06:14:06 03/04/20 25 03/04/2025 Compr [facility] metab olic 2000 panel - Serum or Plasm a aspartate aminotransfe rase [enzymatic activity/vol ume] in serum or plasma 37 U/L low: 15U/Lh igh: 37U/L SLIGH T HEMOL YSIS, RESUL T MAY BE AFFEC JULIANNA. Not Available Not Available 03/05/2025 06:14:06 03/04/20 25 03/04/2025 Compr [facility] metab olic 2000 panel - Serum or Plasm a alanine aminotransfe rase [enzymatic activity/vol ume] in serum or plasma 40 U/L low: 16U/Lh igh: 60U/L Not Available Not Available 03/05/2025 06:14:06 03/04/20 25 03/04/2025 Compr [facility] metab olic 2000 panel - Serum or Plasm a alkaline phosphatase [enzymatic activity/vol ume] in serum or plasma 96 U/L low: 50U/Lh igh: 136U/L Not Available Not Available 03/05/2025 06:14:06 03/04/2003/04/2025 Compr [email or web address] [facility] KOEZY olic 1999 panel - Serum or Plasm a anion gap in serum or plasma by calculation 5.5 text: 2 - 10 mmol/L Not Available Not Available 03/05/2025 06:14:06 03/04/2003/04/2025 Compr [employer] [facility] KOEZY olic 1999 panel - Serum or Plasm a urea nitrogen/cre atinine [mass ratio] in serum or plasma 7.4 low: 6high: 26 Not Available Not Available 03/05/2025 06:14:03/04/2003/04/2025 Compr [facility] metab [facility]lic 2000 panel - Serum or Plasm a albumin/glob ulin [mass ratio] in serum or plasma 1 text: 1.0 - 2.0 ratio Not Available Not Available 03/05/2025 06:14:03/04/2003/04/2025 Compr [facility] [facility] KOEZY olic 1999 panel - Serum or Plasm a glomerular filtration rate [volume rate/area] in serum, plasma or blood by creatinine-b ased formula (CKD-epi 2020)/1.73 sq M 85 text: >90 mL/min /1.73 M2 low NOTE: eGFR is not calcu lated for patie nts <18 years of age or gende r unkno wn. This is an estim ated GFR calcu latio n using the new CKD EPI creat inine equat ion witho ut race and so does not requi re a corre ction facto r for race. This estim ated GFR shoul d not be used for calcu latin g drug doses . Not Available Not Available 03/05/2025 06:14:03/04/2003/04/2025 Compr [facility] KOEZY olic 1999 panel - Serum or Plasm a interpretati on and review of laboratory results Abnorm al Not Available Not Available 06:14:06 03/04/20 25 03/04/2025 CBC W Auto Diffe renti al panel - Blood leukocytes [#/volume] in blood by automated count 6.95 text: 4.5 - 11.0 x10'3/ uL Not Available Not Available 03/05/2025 06:14:06 03/04/20 25 03/04/2025 CBC W Auto Diffe renti al panel - Blood erythrocytes [#/volume] in blood by automated count 5.41 text: 4.70 - 6.10 x10'6/ uL Not Available Not Available 03/05/2025 06:14:06 03/04/2003/04/2025 CBC W Auto Diffe renti al panel - Blood hemoglobin [mass/volume ] in blood 15.9 text: 14.0 - 18.0 g/dL Not Available Not Available 03/05/2025 06:14:06 03/04/2003/04/2025 CBC W Auto Diffe renti al panel - Blood hematocrit [volume fraction] of blood by calculation 45.2 % low: 43%hig h: 54% Not Available Not Available 03/05/2025 06:14:06 03/04/2003/04/2025 CBC W Auto Diffe renti al panel - Blood MCV [entitic mean volume] in red blood cells 83.5 text: 80.0 - 94.0 fL Not Available Not Available 03/05/2025 06:14:06 03/04/2003/04/2025 CBC W Auto Diffe renti al panel - Blood MCH [entitic mass] 29.4 pg low: 27pghi gh: 31pg Not Available Not Available 03/05/2025 06:14:06 03/04/2003/04/2025 CBC W Auto Diffe renti al panel - Blood MCHC [entitic mass/volume] in red blood cells 35.2 text: 32.0 - 36.0 g/dL Not Available Not Available 03/05/2025 06:14:06 03/04/2003/04/2025 CBC W Auto Diffe renti al panel - Blood RDW 12.8 % low: 11.5%h igh: 14.5% Not Available Not Available 03/05/2025 06:14:06 03/04/20 25 03/04/2025 CBC W Auto Diffe renti al panel - Blood platelets [#/volume] in blood 321 text: 130 - 400 x10'3/ uL Not Available Not Available 03/05/2025 06:14:06 03/04/20 25 03/04/2025 CBC W Auto Diffe renti al panel - Blood platelet [entitic mean volume] in blood 11.3 text: 9.3 - 12.2 fL Not Available Not Available 03/05/2025 06:14:06 03/04/20 25 03/04/2025 CBC W Auto Diffe renti al panel - Blood differential cell count method - blood AUTOMA JULIANNA DIFFER ENTIAL Not Available Not Available 06:14:06 03/04/20 25 03/04/2025 CBC W Auto Diffe renti al panel - Blood neutrophils/ leukocytes in blood by automated count 64.1 % Not Available Not Available 02/24 06:14:06 03/04/20 25 03/04/2025 CBC W Auto Diffe renti al panel - Blood lymphocytes/ leukocytes in blood by automated count 27.1 % Not Available Not Available 02/24 06:14:06 03/04/20 25 03/04/2025 CBC W Auto Diffe renti al panel - Blood monocytes/le ukocytes in blood by automated count 6.8 % Not Available Not Available 02/24 06:14:06 03/04/20 25 03/04/2025 CBC W Auto Diffe renti al panel - Blood eosinophils/ leukocytes in blood by automated count 1.3 % Not Available Not Available 02/24 06:14:06 03/04/20 25 03/04/2025 CBC W Auto Diffe renti al panel - Blood basophils/le ukocytes in blood by automated count 0.4 % Not Available Not Available 02/24 06:14:06 03/04/20 25 03/04/2025 CBC W Auto Diffe renti al panel - Blood immature granulocytes /leukocytes in blood by automated count 0.3 % Not Available Not Available 02/24 06:14:06 03/04/20 25 03/04/2025 CBC W Auto Diffe renti al panel - Blood neutrophils [#/volume] in blood 4.46 text: 1.80 - 7.70 x10'3/ uL Not Available Not Available 03/05/2025 06:14:06 03/04/2003/04/2025 CBC W Auto Diffe renti al panel - Blood lymphocytes [#/volume] in blood 1.88 text: 1.00 - 4.80 x10'3/ uL Not Available Not Available 03/05/2025 06:14:06 03/04/2003/04/2025 CBC W Auto Diffe renti al panel - Blood monocytes [#/volume] in blood 0.47 text: 0.30 - 0.82 x10'3/ uL Not Available Not Available 03/05/2025 06:14:06 03/04/2003/04/2025 CBC W Auto Diffe renti al panel - Blood eosinophils [#/volume] in blood 0.09 text: 0.04 - 0.54 x10'3/ uL Not Available Not Available 03/05/2025 06:14:06 03/04/2003/04/2025 CBC W Auto Diffe renti al panel - Blood basophils [#/volume] in blood 0.03 text: 0.01 - 0.08 x10'3/ uL Not Available Not Available 03/05/2025 06:14:06 03/04/2003/04/2025 CBC W Auto Diffe renti al panel - Blood immature granulocytes [#/volume] in blood 0.02 text: 0.00 - 0.49 x10'3/ uL Not Available Not Available 03/05/2025 06:14:06 03/04/2003/04/2025 Gluco se [Mass /volu me] in Blood by Autom ated test strip glucose [mass/volume ] in blood by automated test strip 69 mg/dL low: 70mg/d Lhigh: 99mg/d L low Not Available Not Available 03/05/2025 06:14:06 03/04/2003/04/2025 Gluco se [Mass /volu me] in Blood by Autom ated test strip interpretati on and review of laboratory results Abnorm al Not Available Not Available 06:14:06 03/05/2003/05/2025 Creat ine kinas e [Enzy matic activ ity/v olume ] in Serum or Plasm a creatine kinase [enzymatic activity/vol ume] in serum or plasma 860 U/L low: 35U/Lh igh: 232U/L high Not Available Not Available 03/05/2025 06:14:06 03/05/2003/05/2025 Creat ine kinas e [Enzy matic activ ity/v olume ] in Serum or Plasm a interpretati on and review of laboratory results Abnorm al Not Available Not Available 06:14:06 03/05/2003/05/2025 Potas sium [Mole s/vol ume] in Serum or Plasm a potassium [moles/volum e] in serum or plasma 3.7 text: 3.5 - 5.1 mmol/L Not Available Not Available 03/05/2025 06:14:06 03/05/20 25 03/05/2025 Lacta te [Mole s/vol ume] in Serum or Plasm a lactate [moles/volum e] in serum or plasma 2 text: 0.4 - 2.0 mmol/L Not Available Not Available 03/05/2025 06:14:06 12/20/19 24 MRI lumb spine wo con [facility] [address] [place] [address] EXAMIN ATION: MRI LUMB SPINE WO CON [...] mal. DISC LEVELS L1-2: No signif icant shelf stocker ior disc abnorm ality. Mild facet arthro sis. No signif icant canal stenos is or forami nal narrow ing. L2-3: No signif icant shelf stocker ior disc abnorm ality. Mild facet arthro sis. No signif icant canal stenos is or forami nal narrow ing. L3-4:N o signif icant shelf stocker ior disc abnorm ality. Mild facet arthro [...] detail ed above. Referr ed By: Neto duran ly Signed By: Jennifer Mane DO on 7:22 PM Interp reted By: Jennifer Mane DO, 7:15 PM [email or web address] [facility] 1 [facility], [place], [address], 12/21/2023 16:06:03 Result Notes None recorded. Problems Name Problem SNOMED Code Status Onset Date Resolution Date Notes Provider Name and Address Organization Details Recorded Time Triggeri ng of digit 928073109 Completed 07/24/2020 Removal Reason: Resolved Wilfrid Lorenzo null, [place] - [facility] 0 12:57:10 Calcanea l spur 43719911 Completed 07/24/2020 Removal Reason: Resolved Wilfrid [place] - [facility] 0 12:57:38 Low back pain 126396339 Completed 201707/24/2020 Removal Reason: Resolved Wilfrid [place], [place] - [facility] 0 12:57:30 Excessiv e thirst 94556776 Completed 201907/24/2020 Removal Reason: Diagnose d with T2DM Wilfrid Lorenzo null, [facility] 0 12:57:55 Roselyn boateng [id number] Active 2019 Wilfrid Lorenzo null, [facility] 0 15:48:49 Cellulit is of right foot 36010042957 337367 Active 2021 Seferino Gil null, [facility] 2 00:36:13 Problem Notes None recorded. Procedures Surgical History Date Name Laterality Status Provider Name and Address Organization Details Recorded Time 2 Diabetic Foot Exam completed Dustin Little [facility] 02/16/2022 12:14:15 Imaging Results None recorded. Procedure Notes None recorded. Medical Equipment None [...] with needle 0.5 mL 31 gauge x /16 active Not Available Not Available Not Available [...] Not Available Not Available No t Available Kayenta 3 05/20 completed self prescrib ed Not [...] Available pen needle, diabetic 32 gauge x USE DIRECTED 4 TIMES DAILY active Not [...] Not Available No t Available Dexcom G6 Premium Representative USE DIRECTED WITH SENSOR AND TRANSMIT TER [...] blood by Pulse oximetry Body temperature Systolic And Diastolic Provider Name and Address Organization Details Last Updated DateTime 3 180.34 cm 28.6 kg/m2 98653.1 9 g 67 /min 96 % 96 % 98.1 [degF] 130/96 mm[Hg] Jasmyne Mcarthur MA [facility] 3 11:39:23 Date Recorded Body height Body mass index (BMI) Body weight Oxygen saturation Oxygen saturation in Arterial blood by Pulse oximetry Heart rate Body temperature Systolic And Diastolic Provider Name and Address Organization Details Last Updated DateTime 4 180.34 cm 28 kg/m2 69846.0 7 g 95 % 95 % 78 /min 98.5 [degF] 137/88 mm[Hg] Jasmyne Mcarthur MA [facility] 4 14:11:21 Date Recorded Body height Body mass index (BMI) Body weight Heart rate Oxygen saturation Oxygen saturation in Arterial blood by Pulse oximetry Body temperature Systolic And Diastolic Provider Name and Address Organization Details Last Updated DateTime 3 180.34 cm 28.5 kg/m2 84675.8 4 g 66 /min 97 % 97 % 97.8 [degF] 136/88 mm[Hg] Arturo Gomes MA [facility] 3 09:53:26 Date Recorded Body height Body mass index (BMI) Body weight Body temperature Heart rate Oxygen saturation Oxygen saturation in Arterial blood by Pulse oximetry Systolic And Diastolic Provider Name and Address Organization Details Last Updated DateTime 2 180.34 cm 28 kg/m2 60341.4 2 g 99 [degF] 92 /min 98 % 98 % 132/89 mm[Hg] Jasmyne Mcarthur MA [facility] 2 12:53:45 Date Recorded Body height Body mass index (BMI) Body weight Body temperature Heart rate Oxygen saturation Oxygen saturation in Arterial blood by Pulse oximetry Systolic And Diastolic Provider Name and Address Organization Details Last Updated DateTime 2 180.34 cm 28.9 kg/m2 64272.7 7 g 98 [degF] 77 /min 98 % 98 % 130/78 mm[Hg] Evelina Alfonso MA [facility] 2 15:27:20 Social History Question Answer Notes LastModified by [employer] Details LastModified Time Tobacco Smoking Status Never Smoker Susi Duong marie, [facility] 03/21/2015 16:35:33 What Is Your Level Of Caffeine Consumption? Occasional Information not available 04/09/2021 What Was The Date Of Your Most Recent Tobacco Screening? 12/20/2023 [email or web address] Information not available 12/20/2023 Sex: Unknown Functional Status Question Answer Note LastModified by [employer] Details LastModified Time Do you use any illicit or recreational drugs? No Information not available 03/26/2021 Do you or have you ever used any other forms of tobacco or nicotine? No Information not available 04/09/2021 What is your level of alcohol consumption? None [email or web address] Information not available 01/28/2023 Do you or have you ever used smokeless tobacco? Never used smokeless tobacco Information not available 06/30/2020 Do you or have you ever used e-cigarettes or vape? Never used electronic cigarettes Information not available 06/30/2020 Mental Status None recorded. Family History Relationship Description Onset Age of this Age Resolved Age Notes LastModified by Organization Details LastModified Time Mother Diabetes mellitus [email or web address] Not available 02/25 16:44:51 Father Hypertensive disorder [email or web address] Not available 02/25 16:44:51 Father Cerebrovascu lar accident 35 [email or web address] Not available 0 03/21/2015 16:44:51 Father Myocardial infarction 40 [email or web address] Not available 16:44:51 Father Malignant neoplasm of stomach 57 [email or web address] Not available 02/25 [...] Diagnosis SNOMED-CT Code Diagnosis ICD10 Code Diagnosis IMO Codes Diagnosis Note [id number] MD Tierra Landry ([address]) [address] [place] [address] 03/21/2015 16:16:51 03/25/2015 03:45:54 Adult health examination 544846976 Pt is a healthy 39 yr old male without any acute complaints Ordered baseline labs with family hx of DM & HTN, family of GA at 50ish BP was WNL screening for STD although pt is low risk for contractin g disease currently will report out the labs to the patient as needed and make f/u appointmen t as needed Triggering of digit 816285558 Pt had an injury to his R middle finger during footfall in november 2014. Finger was x-ray and not broken. Pt has swollen jt at the PCP with full flexion but limited extension. A catching/p opping sensation is noted on the physical exam around the MCP. Generated pain for pt. Refer to the procedure clinic for injection of his tendon. 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 [id number] DO Dipak Londono [facility] ([address]) [address] [place] [address] 11/01/2016 14:07:33 11/02/2016 10:04:14 Injury of finger 98246001 S69.81XS Exam concerning for possible bony enlargemen t at the distal Right third PIP. Did not inject at this time. Advised pt of concern there may have been an occult fracture previously which developed into a alfreda nodule, possibly arthritic changes.Ad vised Pt would recommend xray of the hand to evaluate and follow up.He verbalized understand ing and was agreeable to this plan. [id number] Charley Huertas MD [place] [address] [address] [address] 11/07/2017 11:13:47 11/10/2017 13:15:09 Postviral cough 363475596 R05 Counseled patient that postviral cough could last quite some time, recommende d increasing benzonatat e to 200 mg tid prn from 100 mg, patient to follow up as needed [id number] Miguel Hill MD [place] [address] [address] 12/15/2017 15:48:27 12/26/2017 15:54:15 Low back pain 902058489 M54.5 Patient complains of continued lower back [...] in 1 month or sooner if needed [id number] Therese Casillas MD [place] [address] [address] [address] 02/14/2019 09:19:28 02/15/2019 09:43:18 Pain in right foot 9009037806 01352 M79.671 positive tenderness over base of 5th metarsal and lateral malleolus indicates XR. Provided handout and discussed ankle sprain exercises. Pending findings on XR will determine further treatment. Burn of upper arm 520491 08 T22.032A Burn does not appear to have any secondary infection. Advised to keep it moisturize d and clean. Should keep covered if taking part in activities such as football. Return precaution s such as additional purulent discharge, swelling, or developmen t of surroundin g rash in addition to fever were given and patient voiced understand ing. Will see back in 2 weeks [id number] MD Denita Payne [address] [facility] [address] [place] [address] 06/13/2020 11:14:42 06/16/2020 07:21:12 Lobito 94117385 N48.1 balanitis 44-year-ol d gentleman who is [...] consider referral to urology at that time [id number] Tiffany Valderrama-MD Denita Fraser 3 [facility] [address] [place] [address] 06/25/2020 12:03:44 06/25/2020 17:11:14 Excessive thirst 96705023 R63.1 AcuteFamil y history of diabetes mellitus along with polyuria concerning for diabetes mellitus. Consider diabetes insipidus as well.- Obtain BMP and A1c- Follow up with results in one week Lobito 42208114 N48.1 Acute, worseningU ncircumcis ed male with [...] is not efficaciou s-Consider referral to urology [id number] MD Denita Galicia [address] [address] 06/30/2020 09:11:23 07/01/2020 08:15:13 Balanitis 43157892 N48.1 Acute, worseningU ncircumcis ed male with penile pain for nearly 3 weeks. Failed one week of antifungal , antimicrob ial, and steroidal topical therapy.- Continue topical steroid and antifungal - Urology referral ordered- Continue to maintain adequate hygiene of foreskin Type 2 meng betes mellitus 40170468 E11.21 New diagnosisR andom glucose > 200. [...] in 2 weeks to assess glucose control [id number] MD Denita Galicia [address] [address] 07/23/2020 11:22:12 07/24/2020 14:29:34 Type 2 diabetes mellitus 72317474 E11.21 Chronic, improvedA1 c 13.8%. Symptomati patrice [...] 2-4 weeks to assess glucose control Lobito [id number] N48.1 Acute, im;proved but still some sxUncircum [...] Risks and benefits of steroid medication discussed. [id number] Ellis Carter MD [facility] [address] [facility] [address] [place] [address] 03/26/2021 09:31:33 03/27/2021 12:40:50 Uncontrolled type 2 diabetes mellitus 515870441 E11.65 Type 2 diabetes uncontroll ed Patient [...] with other ER findings such as his gallbladde r/gallston es. Patient endorsed not checking sugars regularly. a1c in office 03/26/2021 13.3, prev 13.8 on 07/23/2020 -Likely type 2 diabetes, could consider auto antibody testing or possibly C-peptide or insulin testing, however patient is currently prescribed glimepirid e unsure if this would alter C-peptide or insulin testing, reviewed [facility] as well as Care Everywhere as well as [facility] noted no previous type I/type II discrimina tion labs in history-Bhavesh salazar appears to not be feeling glimepirid e regularly, he did requested after the appointmen t was over by calling the office-Sen t glimepirid e today, 4 mg-Discuss ed patient's visual symptoms with him and the chronicity , advised him that his sugar is likely causing the visual symptoms 2/2 lens swelling we would likely able to resolve that if he got his sugars a little more under control-Di scussed possible future therapies with patient which [...] follow-up with myself or Dr. Lorenzo in [facility] 2 to 3 weeks from today's clinic visit-We will further discuss diabetes at that time-Can consider diabetic ophthalmol ogy referral in the future however I believe controllin g his sugars should likely help with his eyes Hand cramps 405496125 R2 5.2 Hand cramps patient endorsing bilateral hand cramps worse with prolonged activities . Patient does have history of semiprofes sional sports play/footb all have noted trigger finger in patient's previous chart notes. Hand metalizer field operation strength today mostly normal except for some decreased ulnar strength 4/5 bilaterall y. Discussed patient's previous lab draws from the ER noted relatively normal electrolyt es. -Advised patient is having cramps could be 2/2 chronic arthritide s/arthralg ias versus some metabolic abnormalit ies likely related to diabetes-C ontinue to monitor Cholelithi asis without obstruction 89295210 K80.20 Cholelithi asis without obstructio n Patient [...] cholecysti tis 2/2 stone, patient voiced understand [facility] [id number] Ellis Carter MD [facility] [address] [facility] [address] [place] [address] 04/09/2021 09:34:45 04/10/2021 09:09:53 Uncontrolled type 2 diabetes mellitus 043197443 E11.65 Type 2 diabetes Chronic history of [...] on patient's request Cholelithi asis without obstruction 08509573 K80.20 Cholelithi asis without obstructio n See previous note for details. Patient is endorsing some gallbladde r/right upper quadrant pain episodes over the past few weeks not overtly severe. Patient requesting as needed pain medication in the event of a severe attack. -Send [place], advised patient to use this only for extreme pain-Provi ded ER precaution s-Advised patient to utilize Tylenol or ibuprofen prior to taking [place]-Send general surgery referral today on patient's request Lower urin janae tract symptoms 483253436 R39.9 R93.49 N32.81 Lower urinary tract symptoms [...] the referrals placed today, patient voiced understand [facility] [id number] Ellis Carter MD [facility] [address] [facility] [address] [place] [address] 05/19/2021 11:40:07 05/19/2021 12:02:29 Type 2 diabetes mellitus 09581450 E11.21 A1c 13.3% in March 2021, slightly [...] on file. Review at future visit. At [facility] risk for cardiovascular event 902195973 Z91.89 Is in statin benefit group #3 per Jun 2020 labs. Obtain updated lipid panel with Jun labs. Will reassess 10-year ASCVD risk and discuss statin initiation at that time. [id number] Ellis Carter MD [facility] [address] [facility] [address] [place] [address] 06/11/2021 10:33:17 06/12/2021 07:41:00 Type 2 diabetes mellitus 07247275 E11.8 Type 2 diabetes mellitus Chronic history of diabetes. Currently poorly controlled . Currently on glimepirid e 4 mg daily. Status [facility] on 05/19/2021, at that time [...] 1 month after his visit [facility] COVID-19 052402128 U07.1 COVID-19 infection Patient status post ER [...] return to work date 06/15/2021 Periodontal disease 9146 008 K05.6 Periodonta l disease Patient endorsed [...] en as needed for mild jaw pain [id number] Ellis Carter MD [facility] [address] [facility] [address] [place] [address] 07/09/2021 11:45:51 07/10/2021 03:47:16 Type 2 diabetes mellitus 39738515 E11.8 POC A1c today increased to > 15% from 13.3% in March 2021. 2019. Goal is < 10% initially, < 7% [...] munization s: Discuss at next visit. At [facility] risk for cardiovascular event 044091860 Z91.89 Not on a statin. Lipid panel today, then assess 10-year ASCVD risk. [id number] Ellis Carter MD [place] [address] [address] 08/03/2021 10:25:37 08/05/2021 09:22:01 Candidal balanitis 54060242 B37.42 treatment resistant to topical clotrimazo le BID, will escalate treatment to PO fluconazol e 150 mg q72 hrs for 3 doses then 1x/week for 4 weeks, in addition to steroid ointment for reduction of irritation , and continuati on of his topical anti fungal. F/u once treatment is complete or of it is not responding as expected. [id number] [facility] [address] [address] 08/06/2021 14:24:05 08/06/2021 16:43:36 Type 2 diabetes mellitus 92320391 E11.8 POC A1c in Jun 2021 increased [...] the Baqsimi glucagon Rx ordered--a dvised to shredder picker from pharmacy and bring to follow-up [...] pump f/u next week. Jamin has a [employer] Verio meter to calibrate and perform manual BG checks when necessary. --Immuniza tions: Declined offer to receive any vaccines today. At [facility] risk for cardiovascular event 906865468 Z91.89 Not on a statin. 10-year estimated ASCVD risk = 5.1% per Jun 2021 labs. Is a candidate for moderate intensity statin. Discuss at future visit. [id number] MADHU SANTIAGO MD [facility] [address] [facility] [address] [place] [address] 08/11/2021 11:59:41 08/11/2021 14:09:23 Type 2 diabetes mellitus 50770013 E11.8 POC A1c in Jun 2021 increased [...] Declined offer to receive any vaccines. At [facility] ed risk for cardiovascular event 081515702 Z91.89 Not on a statin. 10-year estimated ASCVD risk = 5.1% per Jun 2021 labs. Is a candidate for moderate intensity statin. Discuss at future visit. [id number] Everett crawford MD [facility] [address] [facility] [address] [place] [address] 12/30/2021 09:30:57 12/31/2021 16:43:56 Flank pain 054753645 R10.9 Bilateral flank pain that began 12/25/21 [...] 2 weeks to monitor Chronic constipation 236 244147 K59.09 Pt reports hx of constipati on [...] Elevated blood-pressure reading without diagnosis of hypertension 939105181 R03.0 Isolated high BP reading in office. Likely 2/2 to acute pain and pt inability to sit still during encounter. -Continue to monitor at next appt [id number] Everett crawford MD [facility] [address] [facility] [address] [place] [address] 01/08/2022 12:10:28 01/11/2022 12:13:59 Balanitis 68325912 N48.1 Hx of recurrent infections , likely from uncontroll ed diabetes and being uncircumci sed. Has used multiple medication s in past with oral fluconazol e being the most effective. -Rx for fluconazol e 150 mg weekly for two doses-Educ ated pt on routine hygiene of the affect area-May consider fungal suppressio n treatment if pt continues to get recurrent infections Flank pain 117468552 R10 .9 Bilateral flank pain that began [...] this time now that pain has resolved [id number] Ellis Carter MD [facility] [address] [facility] [address] [place] [address] 01/12/2022 13:58:10 01/12/2022 15:04:03 Type 2 diabetes mellitus 80255887 E11.8 POC A1c remains > 15% today. [...] indicate severe hyperG. Entered pump settings into KS12ipod PDM. Basal rate 1.15 unit/hr, bolus settings: [...] declined offer to receive any vaccines. At [facility] risk for cardiovascular event 403674625 Z91.89 Not on a statin. 10-year estimated ASCVD risk = 5.1% per Jun 2021 labs. Is a candidate for moderate intensity statin. Patient has not been amenable to initiating therapy. [id number] Everett crawofrd MD [facility] [address] [address] 01/15/2022 12:04:25 01/18/2022 14:56:35 Dysuria 09743133 R30.9 Hx of recurrent infections , likely [...] recurrent infections Type 2 meng betes mellitus 13805628 E11.9 Uncontroll ed. Follows with Dr. Calvo [...] Dr. Mcgrath for management of his diabetes [id number] BRENNA GUNDERSON MD [facility] [address] [facility] [address] [place] [address] 02/01/2022 13:01:32 02/01/2022 14:15:49 Type 2 diabetes mellitus 88337508 E11.8 POC A1c last month remained > 15%. Goal is < 10% initially, < 7% long-term. Has had repeated genital infections as a complicati on that is related to severe hyperglyce piter.--Rest art insulin pump therapy based on settings used prior to the most recent PDM karina crawford. Entered pump settings into Omnipod PDM. Basal [...] declined offer to receive any vaccines. At [facility] ed risk for cardiovascular event 042510879 Z91.89 Not on a statin. 10-year estimated ASCVD risk = 5.1% per Jun 2021 labs. Is a candidate for moderate intensity statin. Patient has not been amenable to initiating therapy. [id number] [facility] [address] [facility] [address] [place] [address] 02/16/2022 09:22:27 02/18/2022 15:40:13 Type 2 diabetes mellitus 52732539 E11.8 Last A1C:>15%Go al A1C less than:7.0%C urrent Therapy:in sulin pumpStatin :declinedA CE/ARB:dec linedFoot Exam:compl eted in the past 12 months-pos itiveNephr opathy Screening: completed in the past 12 months- negativePn eumovax 23:Decline dEye Exam:compl eted in the last 12 months- negativeFo llow up with Dr. Estrada in 1 month. Diabetic p eripheral neuropathy 212266022 E11.40 [id number] BRENNA GUNDERSON MD [facility] [address] [facility] [address] [place] [address] 06/22/2022 16:08:15 06/22/2022 19:40:39 Type 2 diabetes mellitus 84064501 E11.8 POC A1C today is 9.7% which [...] declined offer to receive any vaccines. At [facility] risk for cardiovascular event [id number] Z91.89 Not on a statin. 10-year estimated [...] dose in 72 hours if symptoms persist. [id number] Ellis Carter MD [place] [address] [address] [address] 07/02/2022 12:07:57 07/02/2022 18:18:36 Acute urinary tract infection [id number] N39.0 UA with leukocytes and symptoms consistent with UTIPlan- Bactrim double strength BID x 7 days- Obtain urine culture- If symptoms persist despite treatment/ culture negative would obtain STD screening [id number] BRENNA GUNDERSON MD [address] [address] 09/02/2022 15:14:58 09/13/2022 15:40:16 Cellulitis of right foot [id number] L03.115 New right 1st toe cellulitis lateral to nailbed; ongoing x 2-3wks. Pain rated 9/10, atraumatic , associated w/ DM peripheral neuropathy .- Sent Rx for Bactrim DS PO q12h x 7d.- Recommend good foot hygiene.- Consider referral to Podiatry at f/u visit.- F/u in 1mo w/ PCP, sooner PRN. [id number] Aileen Garcia DO [address] [address] 10/06/2022 11:28:49 10/07/2022 13:16:58 Type 2 diabetes mellitus 24198317 E11.8 POC A1C today is 9.0% which [...] for labs at earliest convenienc e At [facility] risk for cardiovascular event [id number] Z91.89 Not on a statin. 10-year estimated ASCVD risk = 5.1% per Jun 2021 labs. Is a candidate for moderate intensity statin. Patient has not been amenable to initiating therapy. Neuropathy [id number] G62 .9 New onset diabetic neuropathy .Rx sent for gabapentin 300 mg QHSRTC 3 months for diabetic follow up [id number] Ellis Carter MD [facility] [address] [facility] [address] [place] [address] 01/28/2023 09:43:35 02/04/2023 16:08:37 Rhabdomyolysis [id number] M62.82 Improving since hospitaliz ation but symptoms still present- Recheck Cr and CK Type 1 meng betes mellitus [id number] E10.9 Discharged on 25 units Lantus, 10 [...] Dr. Calvo regarding insulin pump re-initiat ion [id number] BRENNA GUNDERSON MD [facility] [address] [facility] [address] [place] [address] 12/20/2023 13:57:39 12/21/2023 14:07:56 Paresthesia of lower extremity [id number] R20.2 Pt reports low back pain + numbness + bowel/blad yann accidentsP t transporte d to the ED for further eval Health Concerns Section Related Observation LastModified by Organization Detai ls LastModified Time None Recorded Concern Status LastModified by Organization Details LastModified Time None Recorded Advance Directives Directive None Recorded Payers Insurance Date Sequence Insurance Name Policy Number Policy Cid Covered Member ID Cid Member ID Guarantor Name 06/27/2024 1 [facility] (MEDICAID HMO) [id number] Jamin Garcia [id number] Jamin Garcia 12/20/2023 1 [employer] [facility] - DOS ON OR AFTER 2020 (MEDICAID REPLACEMENT - HMO) Jamin Garcia [id number] Jamin Garcia 12/20/2023 1 [place] [facility] Jamin Garcia [id number] Jamin Garcia 06/30/2020 SLIDING FEE SCHEDULE - DISCOUNT Jamin Garcia 10/06/2022 2 *SELF PAY* Leona brandon Garcia 12/20/2023 1 [facility] - DOS PRIOR TO 2021 (MEDICAID REPLACEMENT - HMO) Jamin Garcia [id number] Jamin Garcia 12/30/2021 SLIDING FEE SCHEDULE - DISCOUNT Jamin Garcia 12/20/2023 1 [facility] (MEDICAID HMO) Jamin Garcia [id number] Jamin Garcia Notes Date Note Type Note Provider Name and Address Organization Details Recorded Time 07/02/20 22 text/htm l 46 yo M presenting for dysuria and cloudy urine which started 1 week ago. He recently finished treatment for yeast (took two pills 3 days apart). Patient also reports bilateral flank pain, chills, but denies fever, hematuria. No concern for STDs. BRENNA GUNDERSON MD Attn: Accounting, [address] [place], [address], [facility] 07/06/2022 16:14:40 09/02/20 22 text/htm l FootReported by PatientHPIFor associated symptoms, patient reportsnumbnessandtinglingbut reportsno feverandno chills. For location, patient reportsright (1st digit). For severity, patient reportspain level 9/10. For duration, patient reports2-3 weeks. For timing, patient reportsacute. For context, patient reportsatraumatic. For alleviating factors, patient reportsnothing helps. For aggravating factors, patient reportscannot identify. For previous surgery, patient reportsnone. For prior imaging, patient reportsnone. For previous injections, patient reportsnone. For previous pt, patient reportsnone.ROS as noted in the HPI Ellis Carter MD Attn: Accounting, [address] [facility], [place], [address], [facility] 09/10/2022 11:26:47 10/06/19 23 text/htm l ROS as noted in the HPI 46 yo M presenting for diabetes follow up. Last seen for [...] in to the Omnipod system due to forgetfulness-sometimes. Current Omnipod Dash settings: basal rate 1.25 units/h, ISF 28, ICR 8.2. Aileen Garcia DO Attn: Accounting, [address] [facility], [place], [address], [facility] 10/10/2022 09:45:07 01/29/20 23 text/htm l 47 yo M w/ PMHx T1DM presenting for hospital follow up of rhabdomyolysis. He also reports not being on insulin pump anymore. Normally sees Endocrinology for his diabetes. BRENNA GUNDERSON MD Attn: Accounting, [address] [facility], [place], [address], [place] [facility] 02/02/2023 10:01:51 12/20/19 24 text/htm l ROS as noted in the HPI Here for eval of lower back pain [...] disc material and ligamentum flavum thickening. BRENNA UGNDERSON MD Attn: Accounting, [address] [place], [address], [facility] 12/20/2023 15:35:12
--- OUTSIDE RECORDS SUMMARY | 2025-08-14 05:39 | XMS_ITS | Clinical Summary ---
Author Organization [facility] Address [address] [place] [address] Care Team Providers Care Wet Process Miller Head Assistant Name Role Phone Ellis Carter MD Primary Care Provider [phone] Allergies No known active allergies Medications gabapentin [...] Sign Reading Time Taken Comments Blood Pressure 144/97 03/05/2025 2:30 AM CDT Pulse 65 03/05/2025 2:00 AM CDT Temperature 36.8 C (98.2 F) 03/04/2025 8:51 PM CDT Respiratory Rate 16 03/05/2025 2:00 AM CDT Oxygen Saturation 97% 03/05/2025 2:30 AM CDT Inhaled Oxygen Concentration - - Weight 95.3 kg (210 lb) 03/04/2025 8:51 PM CDT Height 182.9 cm (6') 03/04/2025 8:51 PM CDT Body Mass Index 28.48 03/04/2025 8:51 PM CDT Plan of Treatment Health Maintenance Due Date Last Done Comments Colorectal Cancer Screening Colonoscopy (10 Years) 1976 Annual Physical 1979 Hepatitis C 1994 Hepatitis B Vaccines (1 of 3 - 19+ 3-dose series) 1995 COVID-19 Vaccine (2024-2 6 season) 2025 Influenza Adult (#1) 2025 DTaP, Tdap and Td Vaccines ( 2 - Td or Tdap) 10/29/2027 10/29/2017 Hepatitis A Vaccines Aged Out No long er eligible based on patient's age to complete this topic Meningococcal B Vaccine Aged Out No l [...] patient able to perform ADLs independently General Juanita Snider, RN Insurance [place] [employer] Advance Directives * Full Code (Latest Code Status on File) Date Activated Date Inactivated Comments 01/23/2023 10:54 AM 01/24/2023 3:59 PM * Full Code Date Activated Date Inactivated Comments 12/06/2021 7:17 PM 12/07/2021 5:02 PM Care Teams Wet Process Miller Head Assistant Relationship Specialty Start Date End Date Ellis Carter MD [address] [phone] PCP - General FAMILY PRACTICE 01/24/23
--- OUTSIDE RECORDS SUMMARY | 2025-08-14 05:39 | XMS_ITS | Clinical Summary ---
Author Organization [facility] [employer] Address [address] [place] [address] Care Team Providers Care Indoor Landscaper/Gardener Name Role Phone Unavailable Primary Care Provider Unavailabl e Source Comments [facility] [employer],non-owned Affiliates and Associated Physician Practices is amultiple site organization consisting of ambulatory clinics and hospital sitesin [place], [place], [place] and [place]. This disclosure is being madepursuant to the Care Everywhere program and may not contain all information available regarding this patient. Last updated 18.[facility] [employer] Allergies No known active allergies Medications * [...] of 3 - 19+ 3-dose series) 1995 DEPRESSION SCREENING 09/26/2024 COVID-19 VACCINE (1 - 2024-2 6 season) 2025 INFLUENZA VACCINE (#1) 2025 ZOSTER VACCINE (1 of 2) 2026 [...] of Phone Billing Address Personal/Family [address] [place] [address] SELF PAY NO INSURANCE Member Subscriber Plan / Payer (Ef fective for All Dates) Name:Jamin Ledezma Member ID:Not on file Relation to Subscriber:Not on file Name:JAMIN LEDEZMA Subscriber ID:Not on file Address: [facility] [place] [address] Payer ID:Not on file Group ID:Not on file Type:Self Pay Address: [place], [place] * Guarantor: JAMIN LEDEZMA Account Type Relation to Patient Date of Phone Billing Address Personal/Family [address] [place] [address] SELF PAY NO INSURANCE Member Subscriber Plan / Payer (Ef fective for All Dates) Name:Ledezma Jamin Member ID:Not on file Relation to Subscriber:Not on file Name:JAMIN LEDEZMA Subscriber ID:Not on file Address: [address] [place] [address] Payer ID:Not on file Group ID:Not on file Type:Self Pay Address: [place], [place] MEDICAID [facility] SELF PAY NO INSURANCE Member Subscriber Plan / Payer (Ef fective for All Dates) Name:Ledezma Jamin Member ID:Not on file Relation to Subscriber:Not on file Name:JAMIN LEDEZMA Subscriber ID:Not on file Address: [address] [place] [address] Payer ID:Not on file Group ID:Not on file Type:Self Pay Address: [place], [place]
--- OUTSIDE RECORDS SUMMARY | 2025-08-14 05:39 | XMS_ITS | Encounter Summary ---
Author Organization [facility] Address [address] [place] [address] Care Team Providers Care Yarn Salvager Name Role Phone None, Provider Primary Care Provider Morro Whitt MD Primary Care Provider None, Provider Primary Care Provider Unavaila nadine None, Provider Primary Care Provider Unavaila Ellis Blackwell MD Primary Care Provider [phone] Encounter Details Date Type Department Care Team (Late st Contact Info) Description 03/20/2021 [employer] Message [facility] Patient Accounts [address] [place] [address] [facility] Patient Financial Services Social History [...] Rule Out 08/04/2022 08/04/2022 08/04/2022 3:30 PM MANAGEMENT SPECIALIST COVID-19 Rule Out 02/28/2023 02/28/2023 02/28/2023 9:20 PM CDT documented as of this encounter Care Teams Yarn Salvager Relationship Specialty Start Date End Date None, Provider, PCP - General 04/21/20 12/05/21 Morro Ritter MD [address] [facility] [address] [phone] PCP - General FAMILY PRACTICE 12/06/21 05/18/22 None, ProviderMD PCP - General 05/19/22 07/03/22 None, ProviderMD PCP - General 07/04/22 01/23/23 Ellis Carter MD [address] [facility] [address] [place] [phone] PCP - General FAMILY PRACTICE 01/24/23 documented as of this encounter
--- OUTSIDE RECORDS SUMMARY | 2025-08-14 05:39 | XMS_ITS | Encounter Summary ---
Author Organization [facility] Address [address] [place] [address] Phone Care Team Providers Care Shirt Sewer Name Role Phone No, Physician Primary Care Provider [phone] Encounter Details Date Type Department Care Team (Latest Contact Info) Description 07/31/2025 Orders Only [facility] Medicine Endocrinology Metabolism and Lipid [address] [facility] Advanced Medicine 13th [place] [address] [place] [address] No Clay, Piedad Polyneuropathy associated with underlying disease Social History Tobacco Use Types Packs/Day Years [...] on file 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
[2025-08-14 06:07] LABS: Add Urine Microscopic? NO; Appearance Urine Clear (Clear); Glucose Urine UA 3+ mg/dL (Negative); Leukocyte Esterase Ur Negative LEU/UL (Negative); Nitrate Urine Negative (Negative); Specific Grav Ur 1.027 (1.001-1.035)
== END 2025-08-14 06:49 | disposition home or self-care (01) ==
PROVIDERS: Emergency Provider Emergency Medicine
DX: E11.65 Type 2 diabetes mellitus with hyperglycemia (principal); E11.42 Type 2 diabetes mellitus with diabetic polyneuropathy; Z96.41 Presence of insulin pump (external) (internal); Z87.442 Personal history of urinary calculi; Z90.49 Acquired absence of other specified parts of digestive tract; Z79.4 Long term (current) use of insulin
CPT/HCPCS: 36415; 36600; 71045; 80053; 81003; 82010; 82375; 82805; 82948; 83050; 83735; 84100; 84484; 85018; 85025; 93005; 96361; 96365; 96375; 99284; A9270; J2405; J3360; J3475; J7030

== ENCOUNTER 2025-08-22 20:16 | Observation (INO) | payer SELFPAY ==
[2025-08-22] VITALS (8 sets, daily range): BP systolic 127–171; BP diastolic 87–104; PULSE 86–100; RESP 18–24; TEMP 36.6; O2SAT 96–100
--- NOTE | ~2025-08-22 | MR_ITS ---
EXAMINATION: MR brain/brain stem wo con COMPARISON: None HISTORY: acute onset stroke-like symptoms TECHNIQUE: Sagittal T1, axial T1, T2, FLAIR, diffusion, coronal T1 sequences of the brain were obtained without contrast. FINDINGS: Cerebellar tonsils are normal in location. No abnormal signal in the clivus of cervical spine. Pituitary does not appear enlarged No acute infarct or hemorrhage is identified. There are no areas of abnormal signal within the subcortical white matter Appropriate flow voids are maintained No hydrocephalus or midline shift. No mass effect. No extra-axial fluid collections. Minimal right maxillary and ethmoidal sinusitis. Minimal left maxillary sinusitis. Mastoid air cells and orbits appear unremarkable. IMPRESSION: No acute infarct or hemorrhage Reviewed, dictated and finalized at location P. [employer] DELIVERY SPECIALIST
--- NOTE | ~2025-08-22 | XR_ITS ---
Examination: XR chest 1V portable Clinical History: pain under ribs Comparison: 08/14/2025 Technique: Portable AP Findings: Heart size normal. Lungs clear. No acute bony abnormality. IMPRESSION: 1. No acute cardiopulmonary findings given portable technique. Reviewed, dictated and finalized at location R. GHT COORDINATOR
--- OUTSIDE RECORDS SUMMARY | 2025-08-22 20:18 | XMS_ITS | Clinical Summary ---
Author Organization [facility] [employer] Address [address] [place] [address] Care Team Providers Care Clinical Laboratory Aide Name Role Phone Unavailable Primary Care Provider Unavailabl e Source Comments [facility] [employer],non-owned Affiliates and Associated Physician Practices is amultiple site organization consisting of ambulatory clinics and hospital sitesin [place], [place], [place] and [place]. This disclosure is being madepursuant to the Care Everywhere program and may not contain all information available regarding this patient. Last updated 18.[facility] [employer] Allergies No known active allergies Medications * [...] of Phone Billing Address Personal/Family [address] [place] [address] SELF PAY NO INSURANCE Member Subscriber Plan / Payer (Ef fective for All Dates) Name:Jamin Ledezma Member ID:Not on file Relation to Subscriber:Not on file Name:JAMIN LEDEZMA Subscriber ID:Not on file Address: [facility] [place] [address] Payer ID:Not on file Group ID:Not on file Type:Self Pay Address: [place], [place] * Guarantor: JAMIN LEDEZMA Account Type Relation to Patient Date of Phone Billing Address Personal/Family [address] [place] [address] SELF PAY NO INSURANCE Member Subscriber Plan / Payer (Ef fective for All Dates) Name:Ledezma Jamin Member ID:Not on file Relation to Subscriber:Not on file Name:JAMIN LEDEZMA Subscriber ID:Not on file Address: [address] [place] [address] Payer ID:Not on file Group ID:Not on file Type:Self Pay Address: [place], [place] MEDICAID [facility] SELF PAY NO INSURANCE Member Subscriber Plan / Payer (Ef fective for All Dates) Name:Ledezma Jamin Member ID:Not on file Relation to Subscriber:Not on file Name:JAMIN LEDEZMA Subscriber ID:Not on file Address: [address] [place] [address] Payer ID:Not on file Group ID:Not on file Type:Self Pay Address: [place], [place]
--- OUTSIDE RECORDS SUMMARY | 2025-08-22 20:18 | XMS_ITS | Encounter Summary ---
Author Organization [facility] Address [address] [place] [address] Care Team Providers Care Cable Ferry Operator Name Role Phone None, Provider Primary Care Provider Morro Whitt MD Primary Care Provider None, Provider Primary Care Provider Unavaila nadine None, Provider Primary Care Provider Unavaila Ellis Blackwell MD Primary Care Provider [phone] Encounter Details Date Type Department Care Team (Late st Contact Info) Description 03/20/2021 [employer] Message [facility] Patient Accounts [address] [place] [address] [facility] Provider [facility] Patient Financial Services Social History Tobacco [...] Rule Out 08/04/2022 08/04/2022 08/04/2022 3:30 PM WEATHER CLERK COVID-19 Rule Out 02/28/2023 02/28/2023 02/28/2023 9:20 PM CDT documented as of this encounter Care Teams Cable Ferry Operator Relationship Specialty Start Date End Date None, Provider, PCP - General 04/21/20 12/05/21 Morro Ritter MD [address] [facility] [address] [phone] PCP - General FAMILY PRACTICE 12/06/21 05/18/22 None, ProviderMD PCP - General 05/19/22 07/03/22 None, ProviderMD PCP - General 07/04/22 01/23/23 Ellis Carter MD 3 [facility] [address] [place] [phone] PCP - General FAMILY PRACTICE 01/24/23 documented as of this encounter
--- OUTSIDE RECORDS SUMMARY | 2025-08-22 20:18 | XMS_ITS | Clinical Summary ---
Author Organization [facility] Address [address] [place] [address] Care Team Providers Care Fire And Explosion Investigator Name Role Phone Ellis Carter MD Primary Care Provider [phone] Allergies No known active allergies Medications gabapentin [...] 7:17 PM 12/07/2021 5:02 PM Care Teams Fire And Explosion Investigator Relationship Specialty Start Date End Date Ellis Carter MD [address] [phone] PCP - General FAMILY PRACTICE 01/24/23
--- OUTSIDE RECORDS SUMMARY | 2025-08-22 20:18 | XMS_ITS | Clinical Summary ---
Author Organization [facility] Address [address] [place] [address] Care Team Providers Care Road Tester Name Role Phone No, Physician Primary Care Provider [phone] Allergies Active Allergy Reactions Criticality Noted Date [...] boxes for a 90 day supply. 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 Current interpretive data was last revised 2019. Creatinine Ur 67.7 mg/dL [facility] Comment: Interpretive Data No reference range established. Current interpretive data was last revised 2019. Albumin Creatinine Ratio, Ur 23 1 - 29 mg/g [facility] Urine 05/11/2024 4:06 PM CDT 05/11/2024 4:32 PM CDT Elizabeth Cardenas MD LAB URINE ORDERABLES Final Res ult Performing Organization Address [facility] de Phone Number [facility] [place] [address] * Lipid panel (05/11/2024 4:06 PM CDT) [...] revised on 2018. Triglycerides 108 <=149 mg/dL [facility] Comment: Interpretive Data Ages < or = [...] revised on 2018. HDL 54 >=40 mg/dL [facility] Comment: Interpretive Data Ages < or = [...] on 2018. LDL, calculated 89 <=129 mg/dL [facility] Comment: Interpretive Data Ages < or = [...] revised on 2018. Non-HDL Cholesterol 111 mg/dL [facility] Comment: Interpretive Data Ages < or = [...] last revised on 2018. Chol/HDL ratio 3 [facility] Blood 05/11/2024 4:06 PM CDT 05/11/2024 4:32 PM CDT Narrative [facility] - 05/11/2024 5:13 PM CDT These lab test should be done fasting. This means do not eat or drink for at least 12 hours prior to getting your blood drawn. us Elizabeth Cardenas MD LAB BLOOD ORDERABLES Final Res ult [facility] [place] [address] * POCT hemoglobin A1c (05/11/2024 2:36 PM CDT) Hemoglobin A1C, POC 9.6 4.0 - 5.6 % Blood 05/11/2024 2:36 PM CDT us Elizabeth Cardenas MD POINT OF CARE TEST ORDERABLES Final Result from Last 3 Months or Most Recently Relevant to Health Maintenance Care Teams Road Tester Relationship Specialty Start Date End Date No, Physician PCP - General 05/11/24
--- OUTSIDE RECORDS SUMMARY | 2025-08-22 20:18 | XMS_ITS | Encounter Summary ---
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
--- OUTSIDE RECORDS SUMMARY | 2025-08-22 20:18 | XMS_ITS | Data Portability ---
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 Not on a statin. 10-year estimated ASCVD risk = 5.1% per Jun 2021 labs. Is a candidate for moderate intensity statin. Discuss at future visit. [id number] MADHU SANTIAGO MD [facility] 47 3 [facility] [address] [place] [address] 08/11/2021 11:59:41 08/11/2021 14:09:23 Type 2 diabetes mellitus [id number] E11.8 POC A1c in Jun 2021 increased [...] seen by endocrinol ogist Dr. Mcgrath on Jul 2 who is in agreement to initiate Omnipod and order Dexcom CGM with scheduled training on CGM use and pump f/u with their office. Jamin has a OneTouch Verio meter to calibrate and perform manual BG checks when necessary. --Immuniza tions: Declined offer to receive any vaccines. At [facility] risk for cardiovascular event [id number] Z91.89 Not on a statin. 10-year estimated ASCVD risk = 5.1% per Jun 2021 labs. Is a candidate for moderate intensity statin. Discuss at future visit. [id number] Everett crawford MD [facility] 47 3 [facility] [address] [place] [address] 12/30/2021 09:30:57 12/31/2021 16:43:56 Flank pain [id number] R10.9 Bilateral flank pain that began 12/25/21 [...] 2 weeks to monitor Chronic constipation [id number] K59.09 Pt reports hx of constipati on [...] Elevated blood-pressure reading without diagnosis of hypertension [id number] R03.0 Isolated high BP reading in office. Likely 2/2 to acute pain and pt inability to sit still during encounter. -Continue to monitor at next appt [id number] Everett crawford MD [facility] 47 3 [facility] [address] [place] [address] 01/08/2022 12:10:28 01/11/2022 12:13:59 Balanitis [id number] N48.1 Hx of recurrent infections , likely from uncontroll ed diabetes and being uncircumci sed. Has used multiple medication s in past with oral fluconazol e being the most effective. -Rx for fluconazol e 150 mg weekly for two doses-Educ ated pt on routine hygiene of the affect area-May consider fungal suppressio n treatment if pt continues to get recurrent infections Flank pain [id number] R10 .9 Bilateral flank pain that began [...] this time now that pain has resolved [id number] Ellis Carter MD [facility] 47 3 [facility] [address] [place] [address] 01/12/2022 13:58:10 01/12/2022 15:04:03 Type 2 diabetes mellitus [id number] E11.8 POC A1c remains > 15% today. [...] indicate severe hyperG. Entered pump settings into [employer] PDM. Basal rate 1.15 unit/hr, bolus settings: [...] declined offer to receive any vaccines. At [facility] risk for cardiovascular event [id number] Z91.89 Not on a statin. 10-year estimated ASCVD risk = 5.1% per Jun 2021 labs. Is a candidate for moderate intensity statin. Patient has not been amenable to initiating therapy. [id number] Everett crawford MD [facility] [address] [address] 01/15/2022 12:04:25 01/18/2022 14:56:35 Dysuria [id number] R30.9 Hx of recurrent infections , likely [...] recurrent infections Type 2 meng betes mellitus 46062229 E11.9 Uncontroll ed. Follows with Dr. Calvo [...] Dr. Mcgrath for management of his diabetes [id number] BRENAN GUNDERSON MD [place] [address] [address] 02/01/2022 13:01:32 02/01/2022 14:15:49 Type 2 diabetes mellitus 20415995 E11.8 POC A1c last month remained > [...] declined offer to receive any vaccines. At [facility] risk for cardiovascular event [id number] Z91.89 Not on a statin. 10-year estimated ASCVD risk = 5.1% per Jun 2021 labs. Is a candidate for moderate intensity statin. Patient has not been amenable to initiating therapy. [id number] Everett crawford MD [facility] 47 3 [facility] [address] [place] [address] 02/16/2022 09:22:27 02/18/2022 15:40:13 Type 2 diabetes mellitus [id number] E11.8 Last A1C:>15%Go al A1C less than:7.0%C urrent Therapy:in sulin pumpStatin :declinedA CE/ARB:dec linedFoot Exam:compl eted in the past 12 months-pos itiveNephr opathy Screening: completed in the past 12 months- negativePn eumovax 23:Decline dEye Exam:compl eted in the last 12 months- negativeFo llow up with Dr. Estrada in 1 month. Diabetic p eripheral neuropathy [id number] E11.40 [id number] BRENNA GUNDERSON MD [facility] 47 3 [facility] [address] [place] [address] 06/22/2022 16:08:15 06/22/2022 19:40:39 Type 2 diabetes mellitus 86190797 E11.8 POC A1C today is 9.7% which [...] declined offer to receive any vaccines. At [facility] risk for cardiovascular event [id number] Z91.89 Not on a statin. 10-year estimated [...] dose in 72 hours if symptoms persist. [id number] Ellis Carter MD [address] [address] 07/02/2022 12:07:57 07/02/2022 18:18:36 Acute urinary tract infection [id number] N39.0 UA with leukocytes and symptoms consistent with UTIPlan- Bactrim double strength BID x 7 days- Obtain urine culture- If symptoms persist despite treatment/ culture negative would obtain STD screening [id number] BRENNA GUNDERSON MD [address] [address] 09/02/2022 15:14:58 09/13/2022 15:40:16 Cellulitis of right foot [id number] L03.115 New right 1st toe cellulitis lateral to nailbed; ongoing x 2-3wks. Pain rated 9/10, atraumatic , associated w/ DM peripheral neuropathy .- Sent Rx for Bactrim DS PO q12h x 7d.- Recommend good foot hygiene.- Consider referral to Podiatry at f/u visit.- F/u in 1mo w/ PCP, sooner PRN. [id number] Aileen Garcia DO [address] [address] 10/06/2022 11:28:49 10/07/2022 13:16:58 Type 2 diabetes mellitus 19510015 E11.8 POC A1C today is 9.0% which [...] for labs at earliest convenienc e At [facility] risk for cardiovascular event [id number] Z91.89 Not on a statin. 10-year estimated ASCVD risk = 5.1% per Jun 2021 labs. Is a candidate for moderate intensity statin. Patient has not been amenable to initiating therapy. Neuropathy [id number] G62 .9 New onset diabetic neuropathy .Rx sent for gabapentin 300 mg QHSRTC 3 months for diabetic follow up [id number] Ellis Carter MD [place] [address] [address] 01/28/2023 09:43:35 02/04/2023 16:08:37 Rhabdomyolysis [id number] M62.82 Improving since hospitaliz ation but symptoms still present- Recheck Cr and CK Type 1 meng betes mellitus [id number] E10.9 Discharged on 25 units Lantus, 10 [...] Dr. Calvo regarding insulin pump re-initiat ion [id number] BRENNA GUNDERSON MD [place] [address] [address] 12/20/2023 13:57:39 12/21/2023 14:07:56 Paresthesia of lower extremity [id number] R20.2 Pt reports low back pain + [...] Cid Member ID Guarantor Name 06/27/2024 1 [facility] (MEDICAID HMO) [id number] Jamin Garcia [id number] Jamin Garcia 12/20/2023 1 [employer] [place] - DOS ON OR AFTER 2020 (MEDICAID REPLACEMENT - HMO) Jamin Garcia [id number] Jamin Garcia 12/20/2023 1 [place] [facility] Jamin Garcia [id number] Jamin Garcia 06/30/2020 SLIDING FEE SCHEDULE - DISCOUNT Jamin Garcia 10/06/2022 2 *SELF PAY* Leona brandon Garcia 12/20/2023 1 [facility] PRIOR TO 03/26/2021 (MEDICAID REPLACEMENT - HMO) Jamin Garcia [id number] Jamin Garcia 12/30/2021 SLIDING FEE SCHEDULE - DISCOUNT Jamin Garcia 12/20/2023 1 [facility] ([facility]ICAID [facility]) Jamin Garcia [id number] Jamin Garcia Notes Date Note Type Note [...] STDs. BRENNA GUNDERSON MD Attn: Accounting, [address] [place], [address], [facility] 07/06/2022 16:14:40 09/02/20 22 text/htm l FootReported [...] HPI Ellis Carter MD Attn: Accounting, [address] [facility], [place], [address], [facility] 09/10/2022 11:26:47 10/06/19 23 text/htm [...] 8.2. Aileen Garcia DO Attn: Accounting, [address] [facility], [place], [address], [facility] 10/10/2022 09:45:07 01/29/20 23 text/htm l 47 yo M w/ PMHx T1DM presenting for hospital follow up of rhabdomyolysis. He also reports not being on insulin pump anymore. Normally sees Endocrinology for his diabetes. BRENNA GUNDERSON MD Attn: Accounting, [address] [facility], [place], [address], [facility] 02/02/2023 10:01:51 12/20/19 24 text/htm l ROS [...] ligamentum flavum thickening. BRENNA GUNDERSON MD Attn: Accounting, [address] [place], [address], [facility] 12/20/2023 15:35:12
[2025-08-22] MEDS: LACTATED RINGERS 1,000 ML 999 ML IV CONT ×3 (20:44→22:03)
--- NOTE | 2025-08-22 20:47 | ED.GENADULT ---
HPI - General Adult General Chief complaint: Unspecified Stated complaint: blood sugar is super high Time Seen by Provider: 08/22/25 20:38 History of Present Illness HPI narrative: 49-year-old male with history of insulin-dependent type 2 diabetes presenting to the emergency department today with elevated blood sugars at home, cramping in the arms and legs and worsening neuropathy pain. Patient has been out of his medications at home and been rationing his short-acting insulin currently using to 20 units of short-acting insulin up to 6 to 8 times a day. No long-acting insulin available. He was in the ER several days ago for similar complaints was hydrated had no evidence of DKA and was discharged. Patient presents today with worsening symptoms, dehydration feeling x-rays thirsty and having worsening cramps and paresthesias. States he has previously had A1cs as high as 15 but most recent 1 was 8 to his knowledge. Ran out of his Lyrica as well and has had insurance issues room being the reason he cannot get his medications. Denies any chest pain, shortness a breath, vomiting but states he feels nauseous. No abdominal pain or diarrhea. Was otherwise in his normal state of health. States he was in DKA about a year ago for similar. Related Data Home Medications ?Medication ?Instructions ?Recorded ?Confirmed ?Last Taken ?Type insulin aspart U-100 100 unit/mL See Rx Instructions .Route .COMPLEX 12/17/23 08/22/24 07/28/24 History (3 mL) subcutaneous pen (Novolog FlexPen U-100 Insulin aspart) insulin glargine 100 unit/mL (3 30 unit subcut HS 07/29/24 08/22/24 07/28/24 History mL) subcutaneous pen (Lantus Solostar U-100 Insulin) pregabalin 150 mg capsule 300 mg PO DAILY 07/29/24 08/22/24 07/28/24 History Allergies Allergy/AdvReac Type Severity Reaction Status Date / Time No Known Allergies Allergy Verified 08/22/25 20:34 Review of Systems Review of Systems: As reviewed above in HPI All systems reviewed & are unremarkable except as noted in HPI and below PMFSH Past Medical History Medical History Kidney stones Cholelithiasis Diabetic peripheral neuropathy Insulin dependent type 2 diabetes mellitus Surgical History Surgical History History of laparoscopic cholecystectomy (12/29/23) Family History Family History Mother Diabetes mellitus Father Cerebrovascular accident Heart attack Hypertension Stomach cancer Social History Social History (Updated 08/22/25 @ 22:07 by Jasmyne Elkins APRN) Social History: works at [employer] . Surrogate medical decision maker: Jennifer Garcia, spouse. Code status: Full code. Smoking status: Never smoker Alcohol intake: never Substance use: never Substance use type: marijuana Lack of Transportation: No Lack of Food: Never True Current Housing: I Have Housing Concerned About Future Housing: No Difficulty Paying Gas/Electric Bills: No Difficulty Paying for Meds: No Currently Unemployed: No Education: Associate Degree Difficulty w/ Childcare or Family Care: No Additional living arrangements comments: Lives with spouse in [place]. He has 7 children. 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: No Exam Narrative: GENERAL: [Well-appearing, well-nourished, and in no acute distress.] HEAD: [Normocephalic, atraumatic.] EYES: [PERRLA and EOMI.] ENT: Nares clear, no rhinorrhea or epistaxis. Mucous membranes dry. NECK: Supple. CHEST: Mildly tachypneic but clear to auscultation, no retractions or respiratory distress otherwise HEART: [Regular rate and rhythm]. No murmur heard. [Normal peripheral pulses.] ABDOMEN: [Soft, nondistended], [nontender], [No rigidity or guarding] EXTREMITIES: Normal range of motion. [No edema.] SKIN: Warm, dry, no rash. NEURO: [No focal deficits]. Alert and oriented [x3.] PSYCH: [Normal mood and affect.] Course Vital Signs Vital signs: Vital Signs Temperature 36.6 C 08/22/25 20:25 Pulse Rate 100 08/22/25 20:25 Respiratory Rate 24 H 08/22/25 20:25 Blood Pressure 171/89 H 08/22/25 20:25 Pulse Oximetry 100 08/22/25 20:25 Oxygen Delivery Room Air 08/22/25 20:25 Temperature 36.6 C 08/22/25 20:25 Pulse Rate 88 08/22/25 20:40 Respiratory Rate 18 08/22/25 20:40 Blood Pressure 127/87 08/22/25 21:01 Pulse Oximetry 98 08/22/25 21:01 Oxygen Delivery Room Air 08/22/25 20:25 Medical Decision Making MDM Narrative Medical decision making narrative: 49-year-old male with history of insulin-dependent type 2 diabetes presenting to the emergency department today with elevated blood sugars at home, cramping in the arms and legs and worsening neuropathy pain. Patient has been out of his medications at home and been rationing his short-acting insulin currently using to 20 units of short-acting insulin up to 6 to 8 times a day. No long-acting insulin available. He was in the ER several days ago for similar complaints was hydrated had no evidence of DKA and was discharged. Patient presents today with worsening symptoms, dehydration feeling x-rays thirsty and having worsening cramps and paresthesias. States he has previously had A1cs as high as 15 but most recent one was 8 to his knowledge. Ran out of his Lyrica as well and has had insurance issues room being the reason he cannot get his medications. Denies any chest pain, shortness a breath, vomiting but states he feels nauseous. No abdominal pain or diarrhea. Was otherwise in his normal state of health. States he was in DKA about a year ago for similar. Patient is mildly tachypneic but not having deep respirations. No tachycardia, fever, hypoxemia. Blood pressure mildly elevated. He is very dry and dehydrated appearing and been rationing his insulin at home secondary to insurance issues causing him to have financial strain and difficulty obtaining his regular regimen. He states he has been eating 20 units of short-acting insulin multiple times a day without any long-acting or supplemental insulin. Does not wear a CGM and just been checking his sugars continuously at home reading high. Suspect dehydration and potential for electrolyte abnormalities, DKA. A possibility of some rhabdo given his muscle cramping and dehydration. Patient was given 2 L of fluid resuscitation immediately as well as some Lyrica and Valium for his symptoms that has helped him in the past. Laboratory studies were obtained. Urinalysis ordered. Beta hydroxybutyrate obtained. Patient's laboratory studies return with a severe hyperglycemia 810 with associated pseudo hyponatremia that normalizes when corrected for this. Potassium 4.8. Negative ketones. Urinalysis without signs of infection. Slight DESHAWN from dehydration. Patient felt better after interventions and was given additional fluid resuscitation and started on insulin bolus and insulin drip. He is not DKA or HHS but requires insulin drip for his severe hyperglycemia. Spoke to the embroiderer Dr. Lechuga who accepted him to the ICU. Spoke to the hospitalist mid-level provider Jasmyne who accepted the patient to the hospital at this time. Patient was placed on insulin with fluid replacement and hyperglycemia protocol in place. Medical Records Medical records reviewed: Yes I reviewed the external patient's medical records. Vital Signs Vital Signs: Vital Signs Temperature 36.6 C 08/22/25 20:25 Pulse Rate 100 08/22/25 20:25 Respiratory Rate 24 H 08/22/25 20:25 Blood Pressure 171/89 H 08/22/25 20:25 Pulse Oximetry 100 08/22/25 20:25 Oxygen Delivery Room Air 08/22/25 20:25 Temperature 36.6 C 08/22/25 20:25 Pulse Rate 88 08/22/25 20:40 Respiratory Rate 18 08/22/25 20:40 Blood Pressure 127/87 08/22/25 21:01 Pulse Oximetry 98 08/22/25 21:01 Oxygen Delivery Room Air 08/22/25 20:25 Lab Data Lab results reviewed: Yes I reviewed the patient's lab results. 08/22/25 20:45 08/22/25 20:45 Labs: Lab Results 08/22/25 08/22/25 08/22/25 Range/Units 20:38 20:45 21:12 WBC 5.6 (4.5-10.0) K/mm3 RBC 5.04 (4.6-6.20) M/mm3 Hgb 14.4 (14.0-18.0) g/dL Hct 41.0 L (42.0-52.0) % MCV 81.3 (80-100) fl MCH 28.6 (26-34) pg MCHC 35.1 (32-36) g/dl RDW 12.6 (11.5-14.5) % Plt Count 265 (150-375) k/mm3 MPV 10.8 H (7.4-10.4) fl Immature Gran % (Auto) 0.4 (0-0.5) % Neut % (Auto) 66.6 (45.5-73.1) % Lymph % (Auto) 24.1 (18.3-44.2) % [place] % (Auto) 7.6 (2.6-8.5) % Eos % (Auto) 0.9 (0-4.4) % Baso % (Auto) 0.4 (0.2-1.2) % Lymph # (Auto) 1.36 (0.9-3.2) K/mm3 [place] # (Auto) 0.4 (0.1-0.6) K/mm3 Eos # (Auto) 0.1 (0-0.3) K/mm3 Baso # (Auto) 0.0 (0.0-0.1) K/mm3 Abs Immat Gran (auto) 0.02 (0.00-0.031) K/mm3 Absolute Neuts (auto) 3.8 (1.3-6.7) K/mm3 Absolute Nucleated RBC 0.000 (0.0-0.012) K/mm3 Nucleated RBC % 0.0 (0.0-0.2) % Sodium 129 L (137-145) mmol/L Potassium 4.8 (3.4-5.0) mmol/L Chloride 92 L (98-107) mmol/L Carbon Dioxide 23 (22-30) mmol/L Anion Gap 14 H (4-12) mmol/L BUN 14 (9-20) mg/dL Creatinine 1.36 H (0.7-1.3) mg/dL Estim Creat Clear Calc 65 ml/min Estimated GFR 56 L (59 - ) Glucose 810 H* (65-110) mg/dL POC Capillary Glucose > 500 H* (65-105) mg/dl Hemoglobin A1c > 14.0 H (<5.7) % Calcium 10.1 (8.4-10.2) mg/dL Magnesium 2.0 (1.6-2.3) mg/dL Total Bilirubin 1.1 (0.2-1.3) mg/dL AST 46 (17-59) U/L ALT 61 H (6-50) U/L Alkaline Phosphatase 91 (38-126) U/L Total Creatine Kinase 772 H (55-170) U/L Total Protein 7.3 (6.3-8.2) g/dL Albumin 4.7 (3.5-5.1) g/dL Beta-Hydroxybutyrate/Acetoacetate 0.12 (0.02-0.27) mmol/L Urine Color Yellow (Yellow) Urine Appearance Clear (Clear) Urine pH 5.5 (5.0-9.0) Ur Specific [address] 1.028 (1.001-1.035) Urine Protein Negative (Negative) mg/dL Urine Glucose (UA) 3+ H (Negative) mg/dL Urine Ketones Negative (Negative) mg/dL Ur Blood (Man) Negative (Negative) Urine Nitrate Negative (Negative) Urine Bilirubin Negative (Negative) Urine Urobilinogen 0.2 (<2.0) mg/dL Leukocyte Esterase Rfl Negative (Negative) WILBER/UL Critical Care Time Critical Care Time Critical Care Time: Yes Total Critical Care Time: 40 Discharge Plan Discharge Clinical Impression: Severe hyperglycemia due to diabetes mellitus, Acute dehydration Patient Disposition: Still a Patient Condition: Stable Patient Language: Latvian Prescriptions: No Action Debrox 6.5 % drops 5 drp RIGHT EAR Q12H 4 Days Qty: 15 0RF insulin aspart U-100 [Novolog FlexPen U-100 Insulin] 100 unit/mL (3 mL) insulin pen See Rx Instructions .ROUTE .COMPLEX Rx Instructions: 1 unit per 10 bsl over 150 with meals tid pregabalin 150 mg capsule 300 mg PO DAILY insulin glargine [Lantus Solostar U-100 Insulin] 100 unit/mL (3 mL) insulin pen 30 unit SUBCUT HS sulfamethoxazole-trimethoprim [Bactrim DS] 800-160 mg tablet 1 tablet PO Q12H 7 Days Qty: 14 0RF ondansetron 4 mg tablet,disintegrating 4 mg PO Q8H PRN (Reason: nausea and vomiting) Qty: 15 0RF fluconazole [Diflucan] 200 mg tablet 200 mg PO DAILY Qty: 1 0RF Follow-up/Referrals: PHYSICIAN,CAR SUPPLIER [Primary Care Provider, Internal Medicine] Time of Disposition: 22:18
[2025-08-22 20:52] LABS: Hematocrit 41.0 % (42.0-52.0); Hemoglobin 14.4 g/dL (14.0-18.0); Immature Granulocyte Percent A 0.4 % (0-0.5); Lymphocytes Absolute Auto 1.36 K/mm3 (0.9-3.2); Mean Corpuscular HGB Conc 35.1 g/dl (32-36); Mean Corpuscular Hemoglobin 28.6 pg (26-34); Mean Corpuscular Volume 81.3 fl (80-100); Nucleated Red Blood Cells Absolute Auto 0.000 K/mm3 (0.0-0.012); Nucleated Red Blood Cells Perc 0.0 % (0.0-0.2); Platelet Count Result 265 k/mm3 (150-375); Red Blood Count 5.04 M/mm3 (4.6-6.20); White Blood Count 5.6 K/mm3 (4.5-10.0)
[2025-08-22 21:11] LABS: Hemoglobin A1C > 14.0 % (<5.7)
[2025-08-22] MEDS: PREGABALIN (*CRX) 75 MG CAPSULE PO (21:16)
[2025-08-22] MEDS: diazePAM INJ (*CRX) 10 MG/2 ML SYRINGE 2.5 MG IV PUSH (21:16)
[2025-08-22 21:20] LABS: Add Urine Microscopic? NO; Appearance Urine Clear (Clear); Glucose Urine UA 3+ mg/dL (Negative); Leukocyte Esterase Ur Negative LEU/UL (Negative); Nitrate Urine Negative (Negative); Specific Grav Ur 1.028 (1.001-1.035)
[2025-08-22 21:22] LABS: Albumin Level 4.7 g/dL (3.5-5.1)
[2025-08-22 21:29] LABS: Alanine Aminotransferase 61 U/L (6-50); Alkaline Phosphatase 91 U/L (38-126); Anion Gap 14 mmol/L (4-12); Aspartate Amino Transferase 46 U/L (17-59); Bilirubin,Total 1.1 mg/dL (0.2-1.3); Blood Urea Nitrogen 14 mg/dL (9-20); Calcium 10.1 mg/dL (8.4-10.2); Carbon Dioxide 23 mmol/L (22-30); Chloride 92 mmol/L (98-107); Creatine Kinase 772 U/L (55-170); Estimated CRCL calculation 65 ml/min; Estimated Glomerular Filt Rate 56; Magnesium 2.0 mg/dL (1.6-2.3); Potassium 4.8 mmol/L (3.4-5.0); Sodium 129 mmol/L (137-145); Total Protein 7.3 g/dL (6.3-8.2)
[2025-08-22 21:36] LABS: Glucose 810 mg/dL (65-110)
[2025-08-22 21:39] LABS: Beta-Hydroxybutyrate/Acetoace. 0.12 mmol/L (0.02-0.27)
[2025-08-22] MEDS: INSULIN HUMAN REGULAR (*BKC) 100 UNITS/ML 12.9 UNITS IV PUSH (22:03)
--- NOTE | 2025-08-22 22:05 | PM.IMHP ---
H&P: HPI History of Present Illness Date/Time: 08/22/25 22:05 Chief Complaint: Elevated blood sugar Narrative: This is a 49-year-old male patient with late onset type 1 diabetes. The patient is typically on Lantus and short-acting insulin. Patient stated he no longer has his continues glucose monitor R insulin pump. He stated that he has been out of insurance for some time and will not have insurance again until August 26. He is having difficulty paying for his insulin and following up with his physician due to lack of insurance. The patient stated that his glucose monitor at home only read high today. He stated he gave himself some insulin and drank some water which did not help. He stated that he gives himself 20 units of the short-acting insulin about 6-8 times a day. The patient gave himself 20 units of short-acting insulin prior to coming to the emergency room. He is having severe leg cramps. In the emergency room complained of some mild nausea. His sodium was 135 and his glucose was noted to be 810 which did come down to 398. His hemoglobin A1c is noted to be 14. His total creatinine kinase is 772. His beta hydroxybutyrate/acetoacetate is 0.12. Urine glucose was 3+. The patient was started on in the DKA protocol per ICU protocol. The cold reduction roller was notified. The patient is being admitted to observation to ICU on the date of service of 08/22/2025. (The patient had been in the emergency room here, 1 week ago with similar complaints and his blood sugar was only 357 at the time.) Review of Systems Constitutional: Constitutional: Reports as per HPI and Reports no additional constitutional complaints Eyes: Eyes: Reports as per HPI and Reports no additional eye complaints ENT: Reports no additional ear, nose, mouth, and throat complaints and Reports Normal hearing present Cardiovascular: Cardiovascular: Reports no additional cardiovascular complaints Respiratory: Respiratory: Reports as per HPI and Reports no additional respiratory complaints Gastrointestinal: Gastrointestinal: Reports as per HPI and Reports no additional gastrointestinal complaints Musculoskeletal: Musculoskeletal: Reports no additional musculoskeletal complaints Integumentary/Breasts: Skin/Breast: Reports system reviewed and no additional complaints, except as docu Neurologic: Reports no additional neurologic complaints and Reports Normal hearing present Psychiatric: Psychiatric: Reports no additional psychiatric complaints and Reports as per HPI Hematologic/Lymphatic: Hematologic/Lymphatic: Reports no additional hematologic/lymphatic complaints Allergic/Immunologic: Allergic/Immunologic: Reports no additional allergic/immunologic complaints [facility] Past Medical History Medical History (Updated 08/23/25 @ 13:09 by Stefan Lechuga MD) Elevated blood pressure reading Kidney stones Cholelithiasis Diabetic peripheral neuropathy Insulin dependent type 2 diabetes mellitus Surgical History Surgical History History of laparoscopic cholecystectomy (12/29/23) Family History Family History Mother Diabetes mellitus Father Cerebrovascular accident Heart attack Hypertension Stomach cancer Social History Social History (Updated 08/22/25 @ 23:27 by Jasmyne Elkins APRN) Social History: He currently works at [employer] . Surrogate medical decision maker: Jennifer Garcia, spouse. Code status: Full code. Smoking status: Never smoker Second hand tobacco smoke exposure: No Alcohol intake: never Substance use: never Substance use type: marijuana Lack of Transportation: No Lack of Food: Never True Current Housing: I Have Housing Concerned About Future Housing: No Difficulty Paying Gas/Electric Bills: No Difficulty Paying for Meds: YES Currently Unemployed: No Education: Associate Degree Difficulty w/ Childcare or Family Care: No Additional living arrangements comments: Lives with spouse in [place]. He has 7 children. 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: No Meds Home Medications and Allergies Home Medications ?Medication ?Instructions ?Recorded ?Confirmed ?Type insulin aspart U-100 100 unit/mL See Rx Instructions .Route .COMPLEX 12/17/23 08/23/25 History (3 mL) subcutaneous pen (Novolog FlexPen U-100 Insulin aspart) insulin glargine 100 unit/mL (3 30 unit subcut HS 07/29/24 08/23/25 History mL) subcutaneous pen (Lantus Solostar U-100 Insulin) pregabalin 150 mg capsule 300 mg PO DAILY 07/29/24 08/23/25 History Allergies Allergy/AdvReac Type Severity Reaction Status Date / Time No Known Allergies Allergy Verified 08/23/25 00:30 Vital Signs Vital Signs - 24 hr 08/22/25 20:25 08/22/25 20:40 08/22/25 20:40 Temperature 98 F Pulse Rate 100 88 Respiratory Rate 24 H 18 Blood Pressure 171/89 H 153/91 H 153/91 H Pulse Oximetry 100 96 96 Oxygen Delivery Room Air 08/22/25 20:46 08/22/25 21:01 Temperature Pulse Rate Respiratory Rate Blood Pressure 151/94 H 127/87 Pulse Oximetry 97 98 Oxygen Delivery Exam Const: General: cooperative, healthy appearing, no acute distress, well developed, awake, Physically active, average body habitus and well nourished Nutritional Appearance: average body habitus and well nourished Orientation/consciousness: oriented to person, oriented to place, oriented to time and patient oriented x3 Limitations: no limitations HENMT: Head: normal to inspection, No palpable skull fracture present, normocephalic and atraumatic Eyes: General: appearance normal, both eyes and all related structures Alignment and Position: alignment normal Periorbital: periorbital findings normal Eyelids: eyelids normal Neck: Neck: normal visual inspection and full ROM Chest: Chest palpation & inspection: normal inspection of the chest Cardio: Palpation: normal PMI Rate: regular rate Rhythm: regular rhythm Heart sounds: S1 normal heart sound present and S2 normal heart sound present Peripheral pulses: Peripheral pulses 2+ throughout GI: Inspection: normal to inspection Percussion: Yes normal to percussion Auscultation: normal bowel sounds Rectal Exam: deferred Skin: General skin exam: normal color Lesions: no lesions Rashes: no rashes Trauma: no lacerations or abrasions Wounds: no wounds Hair: normal Nails: normal Neuro: General: oriented to person, oriented to place, oriented to time and patient oriented x3 Cranial nerves: Yes Equal, round and reactive pupils present and Yes Normal hearing present Cognition (Neuro): normal cognition Speech: normal speech Motor exam (neuro): 5/5 motor strength present throughout Sensory Exam: normal sensation Extrem: General: normal to inspection Right upper extremity: normal to inspection and shoulder/upper arm Left upper extremity: normal to inspection and shoulder/upper arm Right lower extremity: normal to inspection Left lower extremity: normal to inspection Psych: Appearance: grossly normal Mental Status: mental status grossly normal Speech and movement: Normal speech and movement present Affect: normal affect Attitude: cooperative Thought process: Normal thought process present Thought content: Yes Normal thought content present Insight: Good insight present (Psych) Judgement: Good judgement present (Psych) H&P: Results Labs Labs: Short CBC 08/22/25 Range/Units 20:45 WBC 5.6 (4.5-10.0) K/mm3 Hgb 14.4 (14.0-18.0) g/dL Hct 41.0 L (42.0-52.0) % Plt Count 265 (150-375) k/mm3 BMP 08/22/25 20:45 Sodium 129 L Potassium 4.8 Chloride 92 L Carbon Dioxide 23 BUN 14 Creatinine 1.36 H Glucose 810 H* Calcium 10.1 Cardiac Enzymes 08/22/25 Range/Units 20:45 Total Creatine Kinase 772 H (55-170) U/L Liver Function 08/22/25 Range/Units 20:45 Total Bilirubin 1.1 (0.2-1.3) mg/dL AST 46 (17-59) U/L ALT 61 H (6-50) U/L Alkaline Phosphatase 91 (38-126) U/L Albumin 4.7 (3.5-5.1) g/dL Urine 08/22/25 Range/Units 21:12 Urine Color Yellow (Yellow) Urine Appearance Clear (Clear) Urine pH 5.5 (5.0-9.0) Ur Specific Ashley 1.028 (1.001-1.035) Urine Protein Negative (Negative) mg/dL Urine Glucose (UA) 3+ H (Negative) mg/dL Assessment and Plan Assessment and plan (1) Severe hyperglycemia due to diabetes mellitus: Code(s): E11.65 - Type 2 diabetes mellitus with hyperglycemia Status: Acute Assessment and Plan: -the patient has been using 20 units of short-acting insulin 6 to 8 times a day. Patient stated that he takes Lantus typically when he is running low on Lantus due to insurance issues. His blood glucose was 810 initially and is now down to 398. His anion gap was 14 and is now 8. -DKA protocol has been initiated. Which includes BMPs every 4 hours. Continue with insulin drip until anion gap is closed. Resume Lantus prior to taking him off the insulin drip. -hemoglobin A1c is greater than 14. -director day care center has been consulted due to finances and lack of insurance. -consult for dietitian has been placed. -hyper osmolar hyperglycemic state HHs -replace electrolytes as necessary. (2) Diabetic peripheral neuropathy: Code(s): E11.42 - Type 2 diabetes mellitus with diabetic polyneuropathy Status: Acute Assessment and Plan: -continue with Lyrica and the patient is no longer NPO. -he was started on muscle relaxers for the muscle cramps. -p.r.n. pain medication. (3) Elevated blood pressure reading: Code(s): R03.0 - Elevated blood-pressure reading, without diagnosis of hypertension Status: Acute Assessment and Plan: -p.r.n. Hydralazine with parameters. -this may be elevated due to his discomfort. Quality VTE Prophylaxis VTE prophylaxis: pharmacologic ordered
[2025-08-22] MEDS: HYDROmorphone HCL INJ (*CRX) 1 MG/ML SYR 0.5 MG IV PUSH (22:22)
[2025-08-22] MEDS: INSULIN HUMAN REGULAR (*BKC) 100 UNITS in SODIUM CHLORIDE 0.9% IV 99 ML 8.5 UNITS IV CONT (22:27)
[2025-08-22] MEDS: SODIUM CHLORIDE 0.9% IV 1,000 ML 150 ML IV CONT (22:27)
[2025-08-22 22:48] LABS: Anion Gap 8 mmol/L (4-12); Blood Urea Nitrogen 13 mg/dL (9-20); Calcium 9.7 mg/dL (8.4-10.2); Carbon Dioxide 26 mmol/L (22-30); Chloride 101 mmol/L (98-107); Estimated CRCL calculation 81 ml/min; Estimated Glomerular Filt Rate > 60; Glucose 398 mg/dL (65-110); Potassium 3.8 mmol/L (3.4-5.0); Sodium 135 mmol/L (137-145)
[2025-08-22 23:36] LABS: MRSA (PCR) NOT DETECTED (NOT DETECTE)
[2025-08-22] MEDS: KCL 20 MEQ/D5/0.45% SOD CHL 1,000 ML 150 ML IV CONT (23:49)
--- NOTE | 2025-08-22 23:53 | WPCEDHO ---
ED Hand Off Checklist All vitals saved:Y IV Site documented:Y All med administrations documented:Y Triage Note Triage Note PATIENT STATES HAS CRAMPING AND 08/22/25 20:25 PAIN TO BOTH HANDS SINCE 1999. PATIENT STATES HE IS DIABETIC AND TODAY HIS BLOOD SUGAR WAS RUNNING HIGH. Allergies No Known Allergies Allergy (Verified 08/22/25 20:34) Family History (Last Reviewed 08/22/25 @ 23:27 by Jasmyne Elkins, [employer]) Mother Diabetes mellitus Father Cerebrovascular accident Heart attack Hypertension Stomach cancer Active Medications including assessments/comments Insulin Human Regular 100 (units/ Sodium Chloride) 100 mls @ 4.3 mls/hr IV CONT .[id number] RUTHANN; Protocol Last Titration: 08/22/25 23:31 Dose: 4.3 units/hr, 4.3 mls/hr Documented By: SHANE Infusion/Titration Document 08/22/25 23:31 SHANE (Rec: 08/22/25 23:33 [facility] [id number]) Intake Intake 9.1 Cumulative Intake ( 9.1 bag) Cumulative Intake ( 9.1 Rx) Container Volume 90.9 Waste Amount 0 Dosing Dose Rate 4.3 Infusion Rate 4.3 Cumulative Dose 9.1 Increase/Decrease Decreased Elapsed Time Elapsed Time ( 1h 4m minutes) [facility] IV Insulin Document 08/22/25 23:31 SHANE (Rec: 08/22/25 23:33 [facility] [id number]) Reason for Administration IV Insulin Infusion DKA Protocol - Reason for Administration Blood Glucose Random Glucose Yes Ordered IV Insulin Action/Checks IV Insulin Action On Hold DKA Trends Blood Glucose Yes Decreased by 150 mg/ dl or Greater in One Hour Admin: 08/22/25 22:27 Dose: 8.5 units/hr, 8.5 mls/hr Documented By: SHANE Co-signed By: ISABEL Infusion/Titration Document 08/22/25 22:27 SHANE (Rec: 08/22/25 22:28 [facility] [id number]) Co-signed By Jay Johnson RN Intake IV Site Peripheral Access Left Antecubital Container Volume 100 Waste Amount 0 Dosing Dose Rate 8.5 Infusion Rate 8.5 Increase/Decrease Started Elapsed Time Elapsed Time ( 0m minutes) MAR IV Insulin Document 08/22/25 22:27 SHANE (Rec: 08/22/25 22:28 [facility] [id number]) Co-signed By Jay Johnson RN Reason for Administration IV Insulin Infusion DKA Protocol - Reason for Administration Blood Glucose Random Glucose Yes Ordered IV Insulin Action/Checks IV Insulin Action Initiated Sodium Chloride (Normal Saline Iv) 1,000 mls @ 150 mls/hr IV CONT .Q6H40M COUNT INCLUDES THE [facility] Last Infusion: 08/22/25 23:33 Dose: 150 mls/hr Documented By: [facility] Infusion/Titration Document 08/22/25 23:33 [facility] (Rec: 08/22/25 23:34 [facility] [id number]) Intake Intake 165 Cumulative Intake ( 165 bag) Cumulative Intake ( 165 Rx) Container Volume 835 Waste Amount 0 Dosing Infusion Rate 150 Cumulative Dose Not Applicable Increase/Decrease Running Elapsed Time Elapsed Time ( 1h 6m minutes) Admin: 08/22/25 22:27 Dose: 150 mls/hr Documented By: [facility] Infusion/Titration Document 08/22/25 22:27 [facility] (Rec: 08/22/25 22:27 [facility] [id number]) Intake IV Site Peripheral Access Left Antecubital Container Volume 1,000 Waste Amount 0 Dosing Infusion Rate 150 Cumulative Dose Not Applicable Increase/Decrease Started Elapsed Time Elapsed Time ( 0m minutes) Potassium Chloride/Dextrose/Sod Cl (Kcl 20 Meq/D5/0.45% Sod Chl) 1,000 mls @ 150 mls/hr IV CONT .Q6H40M COUNT INCLUDES THE [facility] Last Admin: 08/22/25 23:49 Dose: 150 mls/hr Documented By: [facility] Infusion/Titration Document 08/22/25 23:49 [facility] (Rec: 08/22/25 23:49 [facility] [id number]) Intake IV Site Peripheral Access Left Antecubital Container Volume 1,000 Waste Amount 0 Dosing Infusion Rate 150 Cumulative Dose Not Applicable Increase/Decrease Started Elapsed Time Elapsed Time ( 0m minutes) Dextrose/Sodium Chloride (Dextrose 5% Sodium Chloride 0.45%) 1,000 mls @ 150 mls/hr IV CONT .Q6H40M COUNT INCLUDES THE [facility] Last Admin: 08/22/25 22:09 Dose: Not Given Documented By: [facility] Non-Admin Reason: Lab Values Administered/Completed Medications Discontinued Medications Diazepam (Diazepam Inj (*Crx) 10 Mg/2 Ml Syringe) 2.5 mg IV PUSH ONCE ONE Stop: 08/22/25 20:49 Last Admin: 08/22/25 21:16 Dose: 2.5 mg Documented By: SHANE Hydromorphone HCl (Hydromorphone Hcl Inj (*Crx) 1 Mg/Ml Syr) 0.5 mg IV PUSH ONCE STA Stop: 08/22/25 22:20 Last Admin: 08/22/25 22:22 Dose: 0.5 mg Documented By: SHANE Lactated Ringer's (Lr - Lactated Ringers Iv) 1,000 mls @ 999 mls/hr IV CONT .Q1H1M STA Stop: 08/22/25 21:39 Last Infusion: 08/22/25 21:36 Dose: Infused Documented By: Admin: 08/22/25 20:44 Dose: 999 mls/hr Documented By: [facility] Lactated Ringer's (Lr - Lactated Ringers Iv) 1,000 mls @ 999 mls/hr IV CONT .Q1H1M STA Stop: 08/22/25 21:39 Last Infusion: 08/22/25 21:36 Dose: Infused Documented By: Admin: 08/22/25 20:44 Dose: 999 mls/hr Documented By: [facility] Lactated Ringer's (Lr - Lactated Ringers Iv) 1,000 mls @ 999 mls/hr IV CONT .Q1H1M STA Stop: 08/22/25 22:47 Last Infusion: 08/22/25 22:57 Dose: Infused Documented By: Admin: 08/22/25 22:03 Dose: 999 mls/hr Documented By: [facility] Lactated Ringer's (Lr - Lactated Ringers Iv) 1,000 mls @ 150 mls/hr IV CONT .Q6H40M STA Stop: 08/23/25 04:28 Last Admin: 08/22/25 22:32 Dose: Not Given Documented By: [facility] Non-Admin Reason: Order Discontinued Insulin Human Regular (Insulin Human Regular (*Bkc) 100 Units/Ml) 12.9 units 0.15 units/kg (12.9 units) IV PUSH ONCE ONE Stop: 08/22/25 21:48 Last Admin: 08/22/25 22:03 Dose: 12.9 units Documented By: [facility] Co-signed By: JESUS Pregabalin (Pregabalin (*Crx) 75 Mg Capsule) 75 mg PO ONCE ONE Stop: 08/22/25 20:47 Last Admin: 08/22/25 21:16 Dose: 75 mg Documented By: [facility] Interventions/Assessments General Assessment Start: 08/22/25 20:17 Freq: Status: Active Protocol: Document 08/22/25 20:36 [facility] (Rec: 08/22/25 20:38 [facility] [id number]) GA Neurological Assessment Neurological Yes Assessment WNL GA HEENT Assessment HEENT Assessment WNL Yes GA Cardiovascular Assessment Cardiovascular Yes Assessment WNL GA Respiratory Assessment Symptoms None GA Gastrointestinal Assessment Gastrointestinal Yes Assessment WNL GA Genitourinary Assessment Genitourinary WNL Parameters GA Musculoskeletal Assessmemt Bilateral Hand(s) Musculoskeletal Muscle Spasms Symptoms Limb Description Normal Range of Motion Full Range of Motion Additional PT having muscle cramps in both hands. Musculoskeletal Comments GA Integumentary Assessment Integumentary Yes Assessment WNL GA Psychosocial Assessment Psychosocial Yes Assessment WNL IV / Saline Lock, Insert Start: 08/22/25 20:17 Freq: Status: Active Protocol: Document 08/22/25 21:58 [facility] (Rec: 08/22/25 21:58 [facility] [id number]) IV Assessment Peripheral Access Right Forearm IV Catheter Access Initiated IV Insertion Date 08/22/25 IV Insertion Time 21:58 Catheter Gauge 18 IV Insertion 1 Attempts Ultrasound Used for No Placement IV Site Assessment WNL IV Care and WNL Maintenance Last Vital Signs Temperature 98 F 08/22/25 20:25 Pulse Rate 86 08/22/25 23:52 Respiratory Rate 20 08/22/25 23:52 Pulse Oximetry 97 08/22/25 23:52 Blood Pressure 153/97 H 08/22/25 23:52 Blood Pressure Mean 115 08/22/25 23:52 Blood Pressure Position Sitting 08/22/25 20:25 Oxygen Delivery Room Air 08/22/25 20:25 Weight 86.18 kg 08/22/25 20:25 Last Result - Abnormals Only Hct 41.0 % (42.0-52.0) L 08/22/25 20:45 MPV 10.8 fl (7.4-10.4) H 08/22/25 20:45 Sodium 135 mmol/L (137-145) L 08/22/25 22:20 Chloride 92 mmol/L (98-107) L 08/22/25 20:45 Anion Gap 14 mmol/L (4-12) H 08/22/25 20:45 Creatinine 1.36 mg/dL (0.7-1.3) H 08/22/25 20:45 Estimated GFR 56 (59-) L 08/22/25 20:45 Glucose 398 mg/dL (65-110) H 08/22/25 22:20 POC Capillary Glucose 152 mg/dl (65-105) H 08/22/25 23:29 Hemoglobin A1c > 14.0 % (<5.7) H 08/22/25 20:45 ALT 61 U/L (6-50) H 08/22/25 20:45 Total Creatine Kinase 772 U/L (55-170) H 08/22/25 20:45 Urine Glucose (UA) 3+ mg/dL (Negative) H 08/22/25 21:12 Most Recent Suicide Severity Rating Suicide Severity Rating NO RISK INDICATED 08/22/25 20:25
[2025-08-23] VITALS (21 sets, daily range): BP systolic 116–152; BP diastolic 79–107; PULSE 62–82; RESP 11–22; TEMP 36.5–36.9; O2SAT 91–99; BMI 26.2
--- NOTE | 2025-08-23 00:16 | ADMGEN ---
This patient, Jamin Garcia, was admitted to Intensive Care Unit-3. Patient/family oriented to hospital policies and general routines including ID bracelet, bed and alarms, visiting hours, pain management, procedures, bathroom and other care routines, personal items, smoking policy, room service/diet, and visiting hours. Information on how to activate the Rapid Response Team has been discussed. Patient/Family are encouraged to report perceived risks to care and to ask questions if they do not understand what they are told or what they should do.
[2025-08-23] MEDS: HYDROmorphone HCL INJ (*CRX) 1 MG/ML SYR 0.5 MG IV PUSH (01:10)
[2025-08-23 02:31] LABS: Anion Gap 7 mmol/L (4-12); Blood Urea Nitrogen 13 mg/dL (9-20); Calcium 8.9 mg/dL (8.4-10.2); Carbon Dioxide 24 mmol/L (22-30); Chloride 104 mmol/L (98-107); Estimated CRCL calculation 104 ml/min; Estimated Glomerular Filt Rate > 60; Glucose 156 mg/dL (65-110); Potassium 3.4 mmol/L (3.4-5.0); Sodium 135 mmol/L (137-145)
[2025-08-23] MEDS: CYCLOBENZAPRINE HCL 5 MG TABLET PO (03:33)
[2025-08-23] MEDS: SODIUM CHLORIDE 0.9% IV 1,000 ML 150 ML IV CONT (05:34)
[2025-08-23 07:00] LABS: Anion Gap 5 mmol/L (4-12); Blood Urea Nitrogen 10 mg/dL (9-20); Calcium 8.4 mg/dL (8.4-10.2); Carbon Dioxide 29 mmol/L (22-30); Chloride 101 mmol/L (98-107); Estimated CRCL calculation 110 ml/min; Estimated Glomerular Filt Rate > 60; Glucose 219 mg/dL (65-110); Potassium 3.1 mmol/L (3.4-5.0); Sodium 135 mmol/L (137-145)
[2025-08-23] MEDS: KCL 20 MEQ/D5/0.45% SOD CHL 1,000 ML 150 ML IV CONT (07:24)
[2025-08-23] MEDS: INSULIN GLARGINE (*BKC) 100 UNITS/ML 30 UNITS SUB-Q (08:50)
[2025-08-23] MEDS: MICONAZOLE NITRATE 2% CREAM 30 GM TUBE 1 APPLIC TOPICAL ×2 (08:50→20:12)
[2025-08-23] MEDS: PREGABALIN (*CRX) 75 MG CAPSULE 300 MG PO (08:56)
[2025-08-23] MEDS: POTASSIUM CHLORIDE 20 MEQ ER TABLET PO (08:57)
[2025-08-23] MEDS: ENOXAPARIN 40 MG/0.4 ML SYRINGE SUB-Q (08:57)
[2025-08-23] MEDS: POTASSIUM CHLORIDE 20 MEQ ER TABLET 40 MEQ PO (08:57)
--- NOTE | 2025-08-23 10:21 | P.PNIM_ITS ---
Progress Note: A&P Assessment and Plan (1) Severe hyperglycemia due to diabetes mellitus: Code(s): E11.65 - Type 2 diabetes mellitus with hyperglycemia Status: Acute Assessment and Plan: -the patient has been using 20 units of short-acting insulin 6 to 8 times a day. Patient stated that he takes Lantus typically when he is running low on Lantus due to insurance issues. His blood glucose was 810 initially and is now down to 398. His anion gap was 14 and is now 8. -DKA protocol has been initiated. Which includes BMPs every 4 hours. Continue with insulin drip until anion gap is closed. Resume Lantus prior to taking him off the insulin drip. -hemoglobin A1c is greater than 14. -care worker has been consulted due to finances and lack of insurance. -consult dietitian has been placed. Patient is gradually getting better. Continue continue monitor closely (2) Diabetic peripheral neuropathy: Code(s): E11.42 - Type 2 diabetes mellitus with diabetic polyneuropathy Status: Acute Assessment and Plan: -continue with Lyrica and the patient is no longer NPO. -he was started on muscle relaxers for the muscle cramps. -p.r.n. pain medication. (3) Elevated blood pressure reading: Code(s): R03.0 - Elevated blood-pressure reading, without diagnosis of hypertension Status: Acute Assessment and Plan: -p.r.n. Hydralazine with parameters. -this may be elevated due to his discomfort. Plan Plan is to continue with DKA protocol in ICU today. Patient is full code. DVT prophylaxis ordered. Subjective Date/time seen: 08/23/25 10:21 Interval history: Patient was seen during the morning rounds today. Patient is feeling much better. No shortness of breath or chest pain. No abdominal pain, nausea, no vomiting. Review of Systems Review of Systems: All systems reviewed & are unremarkable except as noted in HPI and below (the history and physical examination.) Constitutional: Constitutional: Reports as per HPI and Reports no additional constitutional complaints Eyes: Eyes: Reports as per HPI and Reports no additional eye complaints ENT: Reports system reviewed and no additional complaints, except as documented and Reports Normal hearing present Cardiovascular: Cardiovascular: Reports no additional cardiovascular complaints Respiratory: Respiratory: Reports as per HPI and Reports no additional respiratory complaints Gastrointestinal: Gastrointestinal: Reports as per HPI and Reports no additional gastrointestinal complaints Musculoskeletal: Musculoskeletal: Reports no additional musculoskeletal complaints Integumentary/Breasts: Skin/Breast: Reports system reviewed and no additional complaints, except as docu Neurologic: Reports system reviewed and no additional complaints, except as documented and Reports Normal hearing present Psychiatric: Psychiatric: Reports no additional psychiatric complaints and Reports as per HPI Hematologic/Lymphatic: Hematologic/Lymphatic: Reports no additional hematologic/lymphatic complaints Allergic/Immunologic: Allergic/Immunologic: Reports no additional allergic/immunologic complaints Exam Const: General: cooperative, healthy appearing, no acute distress, well developed, awake, Physically active, average body habitus and well nourished Nutritional Appearance: average body habitus and well nourished Orientation/consciousness: oriented to person, oriented to place, oriented to time and patient oriented x3 Limitations: no limitations HENMT: Head: normal to inspection, No palpable skull fracture present, normocephalic and atraumatic Eyes: General: appearance normal, both eyes and all related structures Alignment and Position: alignment normal Periorbital: periorbital findings normal Eyelids: eyelids normal Pupils: Equal, round and reactive pupils present Neck: Neck: normal visual inspection and full ROM Chest: Chest palpation & inspection: normal inspection of the chest Cardio: Palpation: normal PMI Rate: regular rate Rhythm: regular rhythm Heart sounds: S1 normal heart sound present and S2 normal heart sound present Peripheral pulses: Peripheral pulses 2+ throughout GI: Inspection: normal to inspection Auscultation: normal bowel sounds Rectal Exam: deferred Skin: General skin exam: normal color Lesions: no lesions Rashes: no rashes Trauma: no lacerations or abrasions Wounds: no wounds Hair: normal Nails: normal Neuro: General: oriented to person, oriented to place, oriented to time and patient oriented x3 Cranial nerves: Yes Equal, round and reactive pupils present and Yes Normal hearing present Cognition (Neuro): normal cognition Speech: normal speech Motor exam (neuro): 5/5 motor strength present throughout Sensory Exam: normal sensation Extrem: General: normal to inspection Right upper extremity: normal to inspection and shoulder/upper arm Left upper extremity: normal to inspection and shoulder/upper arm Right lower extremity: normal to inspection Left lower extremity: normal to inspection Psych: Appearance: grossly normal Mental Status: mental status grossly normal Speech and movement: Normal speech and movement present Affect: normal affect Attitude: cooperative Thought process: Normal thought process present Insight: Good insight present (Psych) Judgement: Good judgement present (Psych) Objective Data Vital Signs Vital Signs: Vital Signs - 24 hr 08/22/25 20:25 08/22/25 20:40 08/22/25 20:40 Temperature 36.6 C Pulse Rate 100 88 Respiratory Rate 24 H 18 Blood Pressure 171/89 H 153/91 H 153/91 H Pulse Oximetry 100 96 96 Oxygen Delivery Room Air Fraction of Inspired Oxygen 08/22/25 20:46 08/22/25 21:01 08/22/25 22:16 Temperature Pulse Rate Respiratory Rate Blood Pressure 151/94 H 127/87 163/101 H Pulse Oximetry 97 98 100 Oxygen Delivery Fraction of Inspired Oxygen 08/22/25 22:30 08/22/25 23:00 08/22/25 23:52 Temperature Pulse Rate 88 92 86 Respiratory Rate 20 20 20 Blood Pressure 129/96 H 152/104 H 153/97 H Pulse Oximetry 100 99 97 Oxygen Delivery Fraction of Inspired Oxygen 08/23/25 01:00 08/23/25 01:41 08/23/25 01:46 Temperature 36.9 C Pulse Rate 80 77 Respiratory Rate 20 20 Blood Pressure 147/87 H Pulse Oximetry 95 95 Oxygen Delivery Room Air Fraction of Inspired Oxygen 21 08/23/25 02:00 08/23/25 02:00 08/23/25 03:00 Temperature Pulse Rate 80 80 72 Respiratory Rate 20 20 Blood Pressure 150/102 H 144/100 H Pulse Oximetry 97 96 Oxygen Delivery Fraction of Inspired Oxygen 08/23/25 04:00 08/23/25 04:00 08/23/25 04:00 Temperature 36.9 C Pulse Rate 71 71 Respiratory Rate 18 Blood Pressure 152/104 H Pulse Oximetry 97 Oxygen Delivery Room Air Fraction of Inspired Oxygen 08/23/25 05:00 08/23/25 06:00 08/23/25 06:00 Temperature Pulse Rate 65 64 62 Respiratory Rate 16 16 Blood Pressure 133/89 125/79 Pulse Oximetry 95 98 Oxygen Delivery Fraction of Inspired Oxygen 08/23/25 07:00 08/23/25 08:00 08/23/25 08:00 Temperature Pulse Rate 66 63 65 Respiratory Rate 16 14 Blood Pressure 118/90 120/81 Pulse Oximetry 98 97 Oxygen Delivery Fraction of Inspired Oxygen 08/23/25 09:00 Temperature 36.6 C Pulse Rate 80 Respiratory Rate 14 Blood Pressure 138/90 Pulse Oximetry 96 Oxygen Delivery Fraction of Inspired Oxygen Intake/Output Intake/Output: Intake & Output 08/20/25 08/21/25 08/22/25 08/23/25 23:59 23:59 23:59 23:59 Intake Total 3174.1 2367.6 Output Total 1600 Balance 3174.1 767.6 Meds/Results Medications: Active Medications Generic Name Dose Route Start Last Admin Trade Name Freq PRN Reason Stop Dose Admin Acetaminophen 650 mg 08/22/25 21:59 Acetaminophen 325 Mg Tablet PO Q4H PRN Mild Pain (1-3) or Fever Cyclobenzaprine HCl 5 mg 08/23/25 01:27 08/23/25 03:33 Cyclobenzaprine Hcl 5 Mg Tablet PO 5 mg Q8H PRN Administration Muscle Spasm Dextrose 12.5 gm 08/23/25 07:56 Dextrose 50% 25 Gm/50 Ml Syringe IV PUSH PRN PRN Hypoglycemia Protocol Enoxaparin Sodium 40 mg 08/23/25 09:00 08/23/25 08:57 Enoxaparin 40 Mg/0.4 Ml Syringe SUB-Q 40 mg DAILY RUTHANN Administration Glucagon 1 mg 08/23/25 07:56 Glucagon For Inj 1 Mg Vial IM PRN PRN Hypoglycemia Protocol Glucose 15 gm 08/23/25 07:56 Glucose Oral Gel 15 Gm Of Glucse In 37.5 Gm Tube PO PRN PRN Hypoglycemia Protocol Hydralazine HCl 10 mg 08/23/25 07:58 Hydralazine Hcl 20 Mg/Ml Vial IV PUSH Q4H PRN Blood Pressure - High Insulin Human Regular 100 100 mls @ 1 mls/hr 08/22/25 22:00 08/23/25 07:24 units/ Sodium Chloride IV CONT 1 units/hr .Q24H RUTHANN 1 mls/hr Protocol Titration 1 UNITS/HR Sodium Chloride 1,000 mls @ 150 mls/hr 08/22/25 21:55 08/23/25 07:24 Normal Saline Iv IV CONT 0 mls/hr .Q6H40M RUTHANN Infusion Potassium Chloride/Dextrose/Sod Cl 1,000 mls @ 150 mls/hr 08/22/25 21:55 08/23/25 07:24 Kcl 20 Meq/D5/0.45% Sod Chl IV CONT 150 mls/hr .Q6H40M RUTHANN Administration Dextrose/Sodium Chloride 1,000 mls @ 150 mls/hr 08/22/25 21:55 08/23/25 07:24 Dextrose 5% Sodium Chloride 0.45% IV CONT Not Given .Q6H40M RUTHANN Dextrose 1,000 mls @ 100 mls/hr 08/23/25 07:56 Dextrose 5% 1,000 Ml IVPB PRN PRN Hypoglycemia Protocol Insulin Aspart 4 - 8 units 08/23/25 08:00 08/23/25 09:01 Insulin Aspart (*Bkc) 100 Units/Ml SUB-Q Not Given TIDWM RUTHANN Protocol Insulin Aspart 2 - 4 units 08/23/25 21:00 Insulin Aspart (*Bkc) 100 Units/Ml SUB-Q HS RUTHANN Protocol Insulin Glargine 30 units 08/23/25 08:30 08/23/25 08:50 Insulin Glargine (*Bkc) 100 Units/Ml SUB-Q 30 units DAILY RUTHANN Administration Miconazole Nitrate 1 applic 08/23/25 09:00 08/23/25 08:50 Miconazole Nitrate 2% Cream 30 Gm Tube TOPICAL 1 applic Q12HR RUTHANN Administration Ondansetron HCl 4 mg 08/22/25 21:59 Ondansetron Inj 4 Mg/2 Ml Vial IV PUSH Q4H PRN Nausea Pregabalin 300 mg 08/23/25 09:00 08/23/25 08:56 Pregabalin (*Crx) 75 Mg Capsule PO 300 mg DAILY RUTHANN Administration Radiology Results: ITS Impressions Chest X-Ray 08/23/25 06:15 IMPRESSION: 1. No acute cardiopulmonary findings given portable technique. Labs Labs: Laboratory Results - last 24 hr 08/22/25 08/22/25 08/22/25 20:38 20:45 21:12 WBC 5.6 RBC 5.04 Hgb 14.4 Hct 41.0 L MCV 81.3 MCH 28.6 MCHC 35.1 RDW 12.6 Plt Count 265 MPV 10.8 H Immature Gran % (Auto) 0.4 Neut % (Auto) 66.6 Lymph % (Auto) 24.1 [place] % (Auto) 7.6 Eos % (Auto) 0.9 Baso % (Auto) 0.4 Lymph # (Auto) 1.36 [place] # (Auto) 0.4 Eos # (Auto) 0.1 Baso # (Auto) 0.0 Abs Immat Gran (auto) 0.02 Absolute Neuts (auto) 3.8 Absolute Nucleated RBC 0.000 Nucleated RBC % 0.0 Sodium 129 L Potassium 4.8 Chloride 92 L Carbon Dioxide 23 Anion Gap 14 H BUN 14 Creatinine 1.36 H Estim Creat Clear Calc 65 Estimated GFR 56 L Glucose 810 H* POC Capillary Glucose > 500 H* Hemoglobin A1c > 14.0 H Calcium 10.1 Magnesium 2.0 Total Bilirubin 1.1 AST 46 ALT 61 H Alkaline Phosphatase 91 Total Creatine Kinase 772 H Total Protein 7.3 Albumin 4.7 Beta-Hydroxybutyrate/Acetoacetate 0.12 Urine Color Yellow Urine Appearance Clear Urine pH 5.5 Ur Specific [place] 1.028 Urine Protein Negative Urine Glucose (UA) 3+ H Urine Ketones Negative Ur Blood (Man) Negative Urine Nitrate Negative Urine Bilirubin Negative Urine Urobilinogen 0.2 Leukocyte Esterase Rfl Negative Nasal MRSA (PCR) 08/22/25 08/22/25 08/23/25 22:20 23:29 00:16 WBC RBC Hgb Hct MCV MCH MCHC RDW Plt Count MPV Immature Gran % (Auto) Neut % (Auto) Lymph % (Auto) [place] % (Auto) Eos % (Auto) Baso % (Auto) Lymph # (Auto) [place] # (Auto) Eos # (Auto) Baso # (Auto) Abs Immat Gran (auto) Absolute Neuts (auto) Absolute Nucleated RBC Nucleated RBC % Sodium 135 L Potassium 3.8 Chloride 101 Carbon Dioxide 26 Anion Gap 8 BUN 13 Creatinine 1.08 Estim Creat Clear Calc 81 Estimated GFR > 60 Glucose 398 H POC Capillary Glucose 152 H 134 H Hemoglobin A1c Calcium 9.7 Magnesium Total Bilirubin AST ALT Alkaline Phosphatase Total Creatine Kinase Total Protein Albumin Beta-Hydroxybutyrate/Acetoacetate Urine Color Urine Appearance Urine pH Ur Specific [place] Urine Protein Urine Glucose (UA) Urine Ketones Ur Blood (Man) Urine Nitrate Urine Bilirubin Urine Urobilinogen Leukocyte Esterase Rfl Nasal MRSA (PCR) Not detected 08/23/25 08/23/25 08/23/25 01:20 02:07 02:23 WBC RBC Hgb Hct MCV MCH MCHC RDW Plt Count MPV Immature Gran % (Auto) Neut % (Auto) Lymph % (Auto) [place] % (Auto) Eos % (Auto) Baso % (Auto) Lymph # (Auto) [place] # (Auto) Eos # (Auto) Baso # (Auto) Abs Immat Gran (auto) Absolute Neuts (auto) Absolute Nucleated RBC Nucleated RBC % Sodium 135 L Potassium 3.4 Chloride 104 Carbon Dioxide 24 Anion Gap 7 BUN 13 Creatinine 0.83 Estim Creat Clear Calc 104 Estimated GFR > 60 Glucose 156 H POC Capillary Glucose 178 H 196 H Hemoglobin A1c Calcium 8.9 Magnesium Total Bilirubin AST ALT Alkaline Phosphatase Total Creatine Kinase Total Protein Albumin Beta-Hydroxybutyrate/Acetoacetate Urine Color Urine Appearance Urine pH Ur Specific [place] Urine Protein Urine Glucose (UA) Urine Ketones Ur Blood (Man) Urine Nitrate Urine Bilirubin Urine Urobilinogen Leukocyte Esterase Rfl Nasal MRSA (PCR) 08/23/25 08/23/25 08/23/25 03:32 04:25 05:29 WBC RBC Hgb Hct MCV MCH MCHC RDW Plt Count MPV Immature Gran % (Auto) Neut % (Auto) Lymph % (Auto) [place] % (Auto) Eos % (Auto) Baso % (Auto) Lymph # (Auto) [place] # (Auto) Eos # (Auto) Baso # (Auto) Abs Immat Gran (auto) Absolute Neuts (auto) Absolute Nucleated RBC Nucleated RBC % Sodium Potassium Chloride Carbon Dioxide Anion Gap BUN Creatinine Estim Creat Clear Calc Estimated GFR Glucose POC Capillary Glucose 221 H 250 H 313 H Hemoglobin A1c Calcium Magnesium Total Bilirubin AST ALT Alkaline Phosphatase Total Creatine Kinase Total Protein Albumin Beta-Hydroxybutyrate/Acetoacetate Urine Color Urine Appearance Urine pH Ur Specific [place] Urine Protein Urine Glucose (UA) Urine Ketones Ur Blood (Man) Urine Nitrate Urine Bilirubin Urine Urobilinogen Leukocyte Esterase Rfl Nasal MRSA (PCR) 08/23/25 08/23/25 08/23/25 06:16 06:19 07:20 WBC RBC Hgb Hct MCV MCH MCHC RDW Plt Count MPV Immature Gran % (Auto) Neut % (Auto) Lymph % (Auto) [place] % (Auto) Eos % (Auto) Baso % (Auto) Lymph # (Auto) [place] # (Auto) Eos # (Auto) Baso # (Auto) Abs Immat Gran (auto) Absolute Neuts (auto) Absolute Nucleated RBC Nucleated RBC % Sodium 135 L Potassium 3.1 L Chloride 101 Carbon Dioxide 29 Anion Gap 5 BUN 10 Creatinine 0.78 Estim Creat Clear Calc 110 Estimated GFR > 60 Glucose 219 H POC Capillary Glucose 255 H 184 H Hemoglobin A1c Calcium 8.4 Magnesium Total Bilirubin AST ALT Alkaline Phosphatase Total Creatine Kinase Total Protein Albumin Beta-Hydroxybutyrate/Acetoacetate Urine Color Urine Appearance Urine pH Ur Specific [place] Urine Protein Urine Glucose (UA) Urine Ketones Ur Blood (Man) Urine Nitrate Urine Bilirubin Urine Urobilinogen Leukocyte Esterase Rfl Nasal MRSA (PCR) 08/23/25 08/23/25 08:31 09:37 WBC RBC Hgb Hct MCV MCH MCHC RDW Plt Count MPV Immature Gran % (Auto) Neut % (Auto) Lymph % (Auto) [place] % (Auto) Eos % (Auto) Baso % (Auto) Lymph # (Auto) [place] # (Auto) Eos # (Auto) Baso # (Auto) Abs Immat Gran (auto) Absolute Neuts (auto) Absolute Nucleated RBC Nucleated RBC % Sodium Potassium Chloride Carbon Dioxide Anion Gap BUN Creatinine Estim Creat Clear Calc Estimated GFR Glucose POC Capillary Glucose 213 H 272 H Hemoglobin A1c Calcium Magnesium Total Bilirubin AST ALT Alkaline Phosphatase Total Creatine Kinase Total Protein Albumin Beta-Hydroxybutyrate/Acetoacetate Urine Color Urine Appearance Urine pH Ur Specific [place] Urine Protein Urine Glucose (UA) Urine Ketones Ur Blood (Man) Urine Nitrate Urine Bilirubin Urine Urobilinogen Leukocyte Esterase Rfl Nasal MRSA (PCR) Quality VTE Prophylaxis VTE prophylaxis: pharmacologic ordered
[2025-08-23 10:39] LABS: Anion Gap 3 mmol/L (4-12); Blood Urea Nitrogen 8 mg/dL (9-20); Calcium 8.3 mg/dL (8.4-10.2); Carbon Dioxide 28 mmol/L (22-30); Chloride 102 mmol/L (98-107); Estimated CRCL calculation 102 ml/min; Estimated Glomerular Filt Rate > 60; Glucose 269 mg/dL (65-110); Potassium 3.6 mmol/L (3.4-5.0); Sodium 133 mmol/L (137-145)
--- NOTE | 2025-08-23 11:49 | PCFNICU ---
ICU Rounding Note: Pt current nutrition is DBCC. Nutrition recommendation: Glucerna shake BID. Last recorded weight is 87.8 kg. Bowel Motility: No BM reported. Labs Reviewed:HbA1c >14%, Na 135, K 3.1, Glu 219 Meds Noted: Lantus, NovoLog, Lovenox. Skin: WNL Additional Notes: Patient seen today for DKA. States to having Dexcom and current insurance doesn't start till Aug 26. Insulin has been limited. Weight is down 10 ibs in about 2-3 months. He is being followed by endocrinology at [place]. Would recommend diet supplement 2/2 to weight loss. Agree with diet orders. Patient had no further diet questions at this time. Following daily in ICU rounds.
[2025-08-23] MEDS: FLUCONAZOLE 100 MG TABLET PO (11:51)
[2025-08-23] MEDS: INSULIN ASPART (*BKC) 100 UNITS/ML SUB-Q ×3 (11:52→20:14)
--- NOTE | 2025-08-23 12:58 | P.CONIN_ITS ---
Assessment and Plan Assessment and plan (1) Hyperosmolar hyperglycemic state (HHS): Code(s): E11.00 - Type 2 diabetes mellitus with hyperosmolarity without nonketotic hyperglycemic-hyperosmolar coma (NKHHC) Status: Acute Assessment and Plan: 08/22/2025: Patient presented the ED with elevated blood sugars, poly urea, polydipsia, generalized weakness. Was found have a blood sugar of 810, no anion gap metabolic acidosis. Patient was diagnosed with hyperosmolar hyperglycemic state. Was given IV fluids and started on insulin infusion per DKA protocol and transferred to the ICU. -this morning anion gap is normal, patient be transitioned to long-acting insulin, Lantus and sliding scale insulin -hemoglobin A1c > 14.0 -will have solutions architect consultant and dietitian evaluate the page -started on diabetic diet (2) Elevated blood pressure reading: Code(s): R03.0 - Elevated blood-pressure reading, without diagnosis of hypertension Status: Acute Assessment and Plan: P.r.n. hydralazine, blood pressures remain stable at this time (3) Diabetic peripheral neuropathy: Code(s): E11.42 - Type 2 diabetes mellitus with diabetic polyneuropathy Status: Acute Assessment and Plan: Continue Lyrica (4) Yeast infection: Code(s): B37.9 - Candidiasis, unspecified Status: Acute Assessment and Plan: Started Diflucan (5) Electrolyte imbalance: Code(s): E87.8 - Other disorders of electrolyte and fluid balance, not elsewhere classified Status: Acute Assessment and Plan: Will replace potassium Plan DVT prophylaxis: Stress ulcer prophylaxis: Not indicated Nutrition: Diabetic diet Code Status: Full code Critical Care Time Spent: 46 minutes Due to a high probability of clinically significant, life threatening deterioration, the patient required my highest level of preparedness to intervene emergently and I personally spent this critical care time directly and personally managing the patient. This critical care time included obtaining a history; examining the patient; pulse oximetry; ordering and review of studies; arranging urgent treatment with development of a management plan; evaluation of patient's response to treatment; frequent reassessment; and discussions with other providers. It was exclusive of separately billable procedures and treating other patients and teaching time. Please see Assessment and Plan section and the rest of the note for further information on patient assessment and treatment This dictation may have been done utilizing a voice recognition system. Attempts have been made to correct errors. However, there may be uncorrected grammatical, spelling, and recognitions errors present. Cold Rolling Machine Setter Consult Note Consult date: 08/23/25 Reason for consult: Hyperglycemia, hyperosmolar hyperglycemic state HPI: Jamin Garcia is a 49 year old male with past medical history of diabetes type 1, diabetic peripheral neuropathy, cholelithiasis, history of kidney stones presented the ED on 08/22/2025 with complaints of hyperglycemia, polyuria, polydipsia. Patient has been out of his Lantus because he lost his insurance for some time. He states his insurance could be reinstated on August 26. Patient was having difficulty paying out of pocket for his Lantus. On the day of admission patient was giving himself short-acting insulin multiple times but his glucometer read elevated blood sugars. In the ED patient's blood sugars were 810, patient was given IV fluids and started on insulin infusion per DKA protocol and transferred to the ICU for further management. No leukocytosis, hemoglobin was stable at 14.4. Chest x-ray was clear. Urine analysis was normal. Patient seen and examined this morning in the ICU, is awake, alert, oriented x3, remains on insulin at 1 unit/hr. Denies any nausea, vomiting, abdominal pain, chest pain, shortness a breath. Hemodynamically stable, adequate urine output. Complains of yeast infection around his urethra. He states that every time his blood sugars elevated on controlled he gets yeast infection P Review of Systems 2 Review of Systems: All systems reviewed & are unremarkable except as noted in HPI and below PMFSH Past Medical History Medical History (Updated 08/23/25 @ 13:09 by Stefan Lechuga MD) Elevated blood pressure reading Kidney stones Cholelithiasis Diabetic peripheral neuropathy Insulin dependent type 2 diabetes mellitus Surgical History Surgical History History of laparoscopic cholecystectomy (12/29/23) Family History Family History Mother Diabetes mellitus Father Cerebrovascular accident Heart attack Hypertension Stomach cancer Social History Social History (Updated 08/22/25 @ 23:27 by Jasmyne Elkins APRN) Social History: He currently works at [employer] . Surrogate medical decision maker: Jennifer Arguelless, spouse. Code status: Full code. Smoking status: Never smoker Second hand tobacco smoke exposure: No Alcohol intake: never Substance use: never Substance use type: marijuana Lack of Transportation: No Lack of Food: Never True Current Housing: I Have Housing Concerned About Future Housing: No Difficulty Paying Gas/Electric Bills: No Difficulty Paying for Meds: YES Currently Unemployed: No Education: Associate Degree Difficulty w/ Childcare or Family Care: No Additional living arrangements comments: Lives with spouse in [place]. He has 7 children. 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: No Meds Home Medications and Allergies Home Medications ?Medication ?Instructions ?Recorded ?Confirmed ?Type insulin aspart U-100 100 unit/mL See Rx Instructions . Route .COMPLEX 12/17/23 08/23/25 History (3 mL) subcutaneous pen (Novolog FlexPen U-100 Insulin aspart) insulin glargine 100 unit/mL (3 30 unit subcut HS 12/1708/23/25 History mL) subcutaneous pen (Lantus Solostar U-100 Insulin) pregabalin 150 mg capsule 300 mg PO DAILY 07/29/24 History Allergies Allergy/AdvReac Type Severity Reaction Status Date / Time No Known Allergies Allergy Verified 08/23/25 00:30 Vital Signs Vital Signs - 24 hr 08/22/25 20:25 08/22/25 20:40 08/22/25 20:40 Temperature 98 F Pulse Rate 100 88 Respiratory Rate 24 H 18 Blood Pressure 171/89 H 153/91 H 153/91 H Pulse Oximetry 100 96 96 Oxygen Delivery Room Air Fraction of Inspired Oxygen 08/22/25 20:46 08/22/25 21:01 08/22/25 22:16 Temperature Pulse Rate Respiratory Rate Blood Pressure 151/94 H 127/87 163/101 H Pulse Oximetry 97 98 100 Oxygen Delivery Fraction of Inspired Oxygen 08/22/25 22:30 08/22/25 23:00 08/22/25 23:52 Temperature Pulse Rate 88 92 86 Respiratory Rate 20 20 20 Blood Pressure 129/96 H 152/104 H 153/97 H Pulse Oximetry 100 99 97 Oxygen Delivery Fraction of Inspired Oxygen 08/23/25 01:00 08/23/25 01:41 08/23/25 01:46 Temperature 98.4 F Pulse Rate 80 77 Respiratory Rate 20 20 Blood Pressure 147/87 H Pulse Oximetry 95 95 Oxygen Delivery Room Air Fraction of Inspired Oxygen 21 08/23/25 02:00 08/23/25 02:00 08/23/25 03:00 Temperature Pulse Rate 80 80 72 Respiratory Rate 20 20 Blood Pressure 150/102 H 144/100 H Pulse Oximetry 97 96 Oxygen Delivery Fraction of Inspired Oxygen 08/23/25 04:00 08/23/25 04:00 08/23/25 04:00 Temperature 98.5 F Pulse Rate 71 71 Respiratory Rate 18 Blood Pressure 152/104 H Pulse Oximetry 97 Oxygen Delivery Room Air Fraction of Inspired Oxygen 08/23/25 05:00 08/23/25 06:00 08/23/25 06:00 Temperature Pulse Rate 65 64 62 Respiratory Rate 16 16 Blood Pressure 133/89 125/79 Pulse Oximetry 95 98 Oxygen Delivery Fraction of Inspired Oxygen 08/23/25 07:00 08/23/25 08:00 08/23/25 08:00 Temperature Pulse Rate 66 63 65 Respiratory Rate 16 14 Blood Pressure 118/90 120/81 Pulse Oximetry 98 97 Oxygen Delivery Fraction of Inspired Oxygen 08/23/25 09:00 08/23/25 10:00 08/23/25 10:00 Temperature 97.9 F Pulse Rate 80 70 77 Respiratory Rate 14 11 L Blood Pressure 138/90 127/89 Pulse Oximetry 96 97 Oxygen Delivery Fraction of Inspired Oxygen 08/23/25 11:00 08/23/25 11:04 08/23/25 12:00 Temperature 98.1 F Pulse Rate 74 82 Respiratory Rate 11 L 15 Blood Pressure 116/87 130/88 Pulse Oximetry 97 97 Oxygen Delivery Fraction of Inspired Oxygen 08/23/25 12:00 Temperature Pulse Rate 81 Respiratory Rate Blood Pressure Pulse Oximetry Oxygen Delivery Fraction of Inspired Oxygen Exam 2 Narrative: General: Pleasant gentleman in no acute distress HEENT:? Pupils equal and reactive cause care is clear, moist oral mucous Neck:? Supple Respiratory:? Clear to auscultation bilaterally, no wheezing, adequate air entry Cardiac:? S1-S2 normal, regular rate and rhythm Abdomen:? Soft, nontender, nondistended, normoactive bowel sound Extremities:? No edema, palpable pedal pulse Neuro:? Patient is awake, alert, oriented x3, nonfocal, answers to questions appropriately and follows simple commands in all extremities Skin:? Warm and dry, no skin lesions noted Psych:? Normal mentation and affect Results Labs 08/22/25 20:45 08/23/25 09:55 Labs: Short CBC 08/22/25 Range/Units 20:45 WBC 5.6 (4.5-10.0) K/mm3 Hgb 14.4 (14.0-18.0) g/dL Hct 41.0 L (42.0-52.0) % Plt Count 265 (150-375) k/mm3 BMP 08/22/25 08/22/25 08/23/25 20:45 22:20 02:07 Sodium 129 L 135 L 135 L Potassium 4.8 3.8 3.4 Chloride 92 L 101 104 Carbon Dioxide 23 26 24 BUN 14 13 13 Creatinine 1.36 H 1.08 0.83 Glucose 810 H* 398 H 156 H Calcium 10.1 9.7 8.9 08/23/25 08/23/25 06:19 09:55 Sodium 135 L 133 L Potassium 3.1 L 3.6 Chloride 101 102 Carbon Dioxide 29 28 BUN 10 8 L Creatinine 0.78 0.85 Glucose 219 H 269 H Calcium 8.4 8.3 L Cardiac Enzymes 08/22/25 Range/Units 20:45 Total Creatine Kinase 772 H (55-170) U/L Liver Function 08/22/25 Range/Units 20:45 Total Bilirubin 1.1 (0.2-1.3) mg/dL AST 46 (17-59) U/L ALT 61 H (6-50) U/L Alkaline Phosphatase 91 (38-126) U/L Albumin 4.7 (3.5-5.1) g/dL Urine 08/22/25 Range/Units 21:12 Urine Color Yellow (Yellow) Urine Appearance Clear (Clear) Urine pH 5.5 (5.0-9.0) Ur Specific Avenue 1.028 (1.001-1.035) Urine Protein Negative (Negative) mg/dL Urine Glucose (UA) 3+ H (Negative) mg/dL Quality VTE Prophylaxis VTE prophylaxis: pharmacologic ordered Hospitalist MIPS Advance Care Plan I have confirmed that the patient's Advanced Care Plan is present, code status is documented, or surrogate decision maker is listed in patient medical record.: Yes Medication Reconciliation I have utilized all available resources to obtain, update and review the patients current medications (includes all prescriptions, OTC, herbals, cannabis, and nutritional supplements).: Yes
[2025-08-23] MEDS: INSULIN GLARGINE (*BKC) 100 UNITS/ML 10 UNITS SUB-Q (13:03)
[2025-08-23] MEDS: LACTATED RINGERS 1,000 ML 999 ML IV CONT (13:22)
--- NOTE | 2025-08-23 17:22 | PC.NURSE ---
Performed med rec with Dr. Valdivia via telephone for transfer orders to med/surg.
--- NOTE | 2025-08-23 18:07 | PC.NURSE ---
Attempted to call report to Beverley on med at [phone]. She is with a patient and will call me back.
--- NOTE | 2025-08-23 18:27 | PC.NURSE ---
Gave report to Beverley will move patient to 241.
--- NOTE | 2025-08-23 18:37 | PC.NURSE ---
This patient, Jamin Garcia, was transferred to [facility] on 08/23/25 at 1830. Personal belongings sent with patient. Report given to Beverley. Appropriate documentation sent with patient.
--- NOTE | 2025-08-23 18:53 | PC.NURSE ---
This patient, Jamin Garcia, was transferred from ICU status, and placed in 2 Medical Room 241-01. Patient orientated to room, and notified of care needs.
[2025-08-24 05:45] LABS: Hematocrit 39.1 % (42.0-52.0); Hemoglobin 13.6 g/dL (14.0-18.0); Immature Granulocyte Percent A 0.5 % (0-0.5); Lymphocytes Absolute Auto 1.64 K/mm3 (0.9-3.2); Mean Corpuscular HGB Conc 34.8 g/dl (32-36); Mean Corpuscular Hemoglobin 28.9 pg (26-34); Mean Corpuscular Volume 83.0 fl (80-100); Nucleated Red Blood Cells Absolute Auto 0.000 K/mm3 (0.0-0.012); Nucleated Red Blood Cells Perc 0.0 % (0.0-0.2); Platelet Count Result 212 k/mm3 (150-375); Red Blood Count 4.71 M/mm3 (4.6-6.20); White Blood Count 4.2 K/mm3 (4.5-10.0)
[2025-08-24 06:07] LABS: Anion Gap 1 mmol/L (4-12); Blood Urea Nitrogen 7 mg/dL (9-20); Calcium 8.8 mg/dL (8.4-10.2); Carbon Dioxide 29 mmol/L (22-30); Chloride 104 mmol/L (98-107); Estimated CRCL calculation 98 ml/min; Estimated Glomerular Filt Rate > 60; Glucose 266 mg/dL (65-110); Magnesium 1.9 mg/dL (1.6-2.3); Potassium 3.8 mmol/L (3.4-5.0); Sodium 134 mmol/L (137-145)
[2025-08-24 08:00] VITALS: BP 140/79; PULSE 73; RESP 16; TEMP 37; O2SAT 98
[2025-08-24] MEDS: PREGABALIN (*CRX) 75 MG CAPSULE 300 MG PO (08:32)
[2025-08-24] MEDS: FLUCONAZOLE 100 MG TABLET PO (08:32)
[2025-08-24] MEDS: MICONAZOLE NITRATE 2% CREAM 30 GM TUBE 1 APPLIC TOPICAL ×2 (08:33→20:38)
[2025-08-24] MEDS: INSULIN GLARGINE (*BKC) 100 UNITS/ML 40 UNITS SUB-Q (08:33)
[2025-08-24] MEDS: INSULIN ASPART (*BKC) 100 UNITS/ML SUB-Q ×4 (08:34→20:41)
--- NOTE | 2025-08-24 11:20 | PC.NURSE ---
I, Christine Barrett RN, have reviewed documentation by Zayda RAMESH and agree with the findings. 08/24/25 1121
--- NOTE | 2025-08-24 13:56 | PM.IMPN ---
Progress Note: A&P Assessment and Plan (1) Hyperosmolar hyperglycemic state (HHS): Code(s): E11.00 - Type 2 diabetes mellitus with hyperosmolarity without nonketotic hyperglycemic-hyperosmolar coma (NKHHC) Status: Acute Assessment and Plan: Patient presented to the ED with elevated blood sugars, poly urea, polydipsia, generalized weakness. Was found to have a blood sugar of 810, no anion gap metabolic acidosis. Patient was diagnosed with hyperosmolar hyperglycemic state. Was given IV fluids and started on insulin infusion per DKA protocol and transferred to the ICU. Anion gap normalized after administration of insulin drip, patient has been transitioned to long-acting insulin, aspart 40u and sliding scale insulin. -hemoglobin A1c > 14.0 -will have houseman and dietitian evaluate the patient. Patient has appointment with his scout executive 08/26. -started on diabetic diet -Lantus increased to 45u, given increase of glucose now that patient started eating. (2) Numbness and tingling of left side of face: Code(s): R20.0 - Anesthesia of skin; R20.2 - Paresthesia of skin Status: Acute Assessment and Plan: Patient presented with sudden new onset left sided numbness on his face. No prior episodes, also no other neurological symptoms noted, including new numbness in the upper or lower extremities, facial droop, tongue deviation, paralysis of facial muscles, dysarthria, gait abnormality or weakness. Very likely to be secondary to peripheral neuropathy from diabetes, however cannot rule out acute stroke. -MRI Brain has been ordered, can get CT if not able to get it done -Will start atorvastatin 40mg given DM is baseline ASCVD risk and it is warranted (3) Diabetic peripheral neuropathy: Code(s): E11.42 - Type 2 diabetes mellitus with diabetic polyneuropathy Status: Acute Assessment and Plan: -continue with Lyrica and the patient is no longer NPO. -he was started on muscle relaxers for the muscle cramps. -p.r.n. pain medication. (4) Elevated blood pressure reading: Code(s): R03.0 - Elevated blood-pressure reading, without diagnosis of hypertension Status: Acute Assessment and Plan: -p.r.n. Hydralazine with parameters. -BP has been stable. Plan Follow MRI/CT, neurology consult if abnormal, otherwise safe to discharge tomorrow with PCP follow up, can do neurology as well given baseline neuropathy history. Patient will see his scout executive 08/26, inclined to ensure patient does not miss this appointment given severity of diabetes and need for insulin management. Patient is full code. DVT prophylaxis ordered. Subjective Date/time seen: 08/24/25 13:56 Interval history: This is a 49-year-old male patient with late onset type 1 diabetes. The patient is typically on Lantus and short-acting insulin. Patient stated he no longer has his continues glucose monitor R insulin pump. He stated that he has been out of insurance for some time and will not have insurance again until August 26. He is having difficulty paying for his insulin and following up with his physician due to lack of insurance. The patient stated that his glucose monitor at home only read high today. He stated he gave himself some insulin and drank some water which did not help. He stated that he gives himself 20 units of the short-acting insulin about 6-8 times a day. The patient gave himself 20 units of short-acting insulin prior to coming to the emergency room. He is having severe leg cramps. In the emergency room complained of some mild nausea. His sodium was 135 and his glucose was noted to be 810 which did come down to 398. His hemoglobin A1c is noted to be 14. His total creatinine kinase is 772. His beta hydroxybutyrate/acetoacetate is 0.12. Urine glucose was 3+. The patient was started on in the DKA protocol per ICU protocol. The biomedical technician was notified. Continue with insulin drip until anion gap is closed. Resume Lantus prior to taking him off the insulin drip. Hemoglobin A1c is greater than 14. Review of Systems Review of Systems: As reviewed above in HPI All systems reviewed & are unremarkable except as noted in HPI and below Exam Narrative: General: Pleasant gentleman in no acute distress HEENT:? Pupils equal and reactive cause care is clear, moist oral mucous Neck:? Supple Respiratory:? Clear to auscultation bilaterally, no wheezing, adequate air entry Cardiac:? S1-S2 normal, regular rate and rhythm Abdomen:? Soft, nontender, nondistended, normoactive bowel sound Extremities:? No edema, palpable pedal pulse Neuro:? Patient is awake, alert, oriented x3, nonfocal, answers to questions appropriately and follows simple commands in all extremities Skin:? Warm and dry, no skin lesions noted Psych:? Normal mentation and affect Objective Data Vital Signs Vital Signs: Vital Signs - 24 hr 08/23/25 14:00 08/23/25 14:00 08/23/25 15:00 Temperature Pulse Rate 67 74 72 Respiratory Rate 17 12 Blood Pressure 144/94 H 136/107 H Pulse Oximetry 95 91 Oxygen Delivery Fraction of Inspired Oxygen 08/23/25 16:00 08/23/25 16:00 08/23/25 17:00 Temperature 97.7 F Pulse Rate 75 73 80 Respiratory Rate 17 22 H Blood Pressure 125/88 131/95 H Pulse Oximetry 96 97 Oxygen Delivery Fraction of Inspired Oxygen 08/23/25 17:00 08/23/25 20:00 08/23/25 20:15 Temperature 98.1 F Pulse Rate 73 75 75 Respiratory Rate 16 16 16 Blood Pressure 131/95 H 127/83 Pulse Oximetry 99 97 97 Oxygen Delivery Room Air Fraction of Inspired Oxygen 21 08/24/25 08:00 Temperature Pulse Rate Respiratory Rate Blood Pressure Pulse Oximetry Oxygen Delivery Room Air Fraction of Inspired Oxygen Intake/Output Intake/Output: Intake & Output 08/21/25 08/22/25 08/23/25 08/24/25 23:59 23:59 23:59 23:59 Intake Total 3174.1 6883.7 880 Output Total 4925 Balance 3174.1 1958.7 880 Meds/Results Medications: Active Medications Generic Name Dose Route Start Last Admin Trade Name Freq PRN Reason Stop Dose Admin Acetaminophen 650 mg 08/22/25 21:59 Acetaminophen 325 Mg Tablet PO Q4H PRN Mild Pain (1-3) or Fever Cyclobenzaprine HCl 5 mg 08/23/25 01:27 08/23/25 03:33 Cyclobenzaprine Hcl 5 Mg Tablet PO 5 mg Q8H PRN Administration Muscle Spasm Dextrose 12.5 gm 08/23/25 07:56 Dextrose 50% 25 Gm/50 Ml Syringe IV PUSH PRN PRN Hypoglycemia Protocol Enoxaparin Sodium 40 mg 08/24/25 09:00 08/24/25 08:43 Enoxaparin 40 Mg/0.4 Ml Syringe SUB-Q Not Given DAILY RUTHANN Fluconazole 100 mg 08/23/25 11:00 08/24/25 08:32 Fluconazole 100 Mg Tablet PO 08/28/25 10:59 100 mg QAM RUTHANN Administration Glucagon 1 mg 08/23/25 07:56 Glucagon For Inj 1 Mg Vial IM PRN PRN Hypoglycemia Protocol Glucose 15 gm 08/23/25 07:56 Glucose Oral Gel 15 Gm Of Glucse In 37.5 Gm Tube PO PRN PRN Hypoglycemia Protocol Hydralazine HCl 10 mg 08/23/25 07:58 Hydralazine Hcl 20 Mg/Ml Vial IV PUSH Q4H PRN Blood Pressure - High Dextrose 1,000 mls @ 100 mls/hr 08/23/25 07:56 Dextrose 5% 1,000 Ml IVPB PRN PRN Hypoglycemia Protocol Insulin Aspart 4 - 8 units 08/23/25 08:00 08/24/25 12:00 Insulin Aspart (*Bkc) 100 Units/Ml SUB-Q 5 units TIDWM RUTHANN Administration Protocol Insulin Aspart 2 - 4 units 08/23/25 21:00 08/23/25 20:14 Insulin Aspart (*Bkc) 100 Units/Ml SUB-Q 2 units HS RUTHANN Administration Protocol Insulin Glargine 40 units 08/24/25 09:00 08/24/25 08:33 Insulin Glargine (*Bkc) 100 Units/Ml SUB-Q 40 units DAILY RUTHANN Administration Miconazole Nitrate 1 applic 08/23/25 09:00 08/24/25 08:33 Miconazole Nitrate 2% Cream 30 Gm Tube TOPICAL 1 applic Q12HR RUTHANN Administration Ondansetron HCl 4 mg 08/22/25 21:59 Ondansetron Inj 4 Mg/2 Ml Vial IV PUSH Q4H PRN Nausea Pregabalin 300 mg 08/23/25 09:00 08/24/25 08:32 Pregabalin (*Crx) 75 Mg Capsule PO 300 mg DAILY RUTHANN Administration Radiology Results: ITS Impressions Chest X-Ray 08/23/25 06:15 IMPRESSION: 1. No acute cardiopulmonary findings given portable technique. Labs Labs: Laboratory Results - last 24 hr 08/23/25 08/23/25 08/23/25 14:16 16:27 20:13 WBC RBC Hgb Hct MCV MCH MCHC RDW Plt Count MPV Immature Gran % (Auto) Neut % (Auto) Lymph % (Auto) Humphreys % (Auto) Eos % (Auto) Baso % (Auto) Lymph # (Auto) Humphreys # (Auto) Eos # (Auto) Baso # (Auto) Abs Immat Gran (auto) Absolute Neuts (auto) Absolute Nucleated RBC Nucleated RBC % Sodium Potassium Chloride Carbon Dioxide Anion Gap BUN Creatinine Estim Creat Clear Calc Estimated GFR Glucose POC Capillary Glucose 363 H 383 H 292 H Calcium Phosphorus Magnesium 08/24/25 08/24/25 08/24/25 04:58 07:59 11:54 WBC 4.2 L RBC 4.71 Hgb 13.6 L Hct 39.1 L MCV 83.0 MCH 28.9 MCHC 34.8 RDW 12.6 Plt Count 212 MPV 11.0 H Immature Gran % (Auto) 0.5 Neut % (Auto) 51.2 Lymph % (Auto) 38.8 Humphreys % (Auto) 7.3 Eos % (Auto) 1.7 Baso % (Auto) 0.5 Lymph # (Auto) 1.64 Humphreys # (Auto) 0.3 Eos # (Auto) 0.1 Baso # (Auto) 0.0 Abs Immat Gran (auto) 0.02 Absolute Neuts (auto) 2.2 Absolute Nucleated RBC 0.000 Nucleated RBC % 0.0 Sodium 134 L Potassium 3.8 Chloride 104 Carbon Dioxide 29 Anion Gap 1 L BUN 7 L Creatinine 0.89 Estim Creat Clear Calc 98 Estimated GFR > 60 Glucose 266 H POC Capillary Glucose 280 H 292 H Calcium 8.8 Phosphorus 3.3 Magnesium 1.9 Hospitalist MIPS Advance Care Plan I have confirmed that the patient's Advanced Care Plan is present, code status is documented, or surrogate decision maker is listed in patient medical record.: Yes Medication Reconciliation I have utilized all available resources to obtain, update and review the patients current medications (includes all prescriptions, OTC, herbals, cannabis, and nutritional supplements).: Yes
[2025-08-24] MEDS: ASPIRIN 81 MG CHEWABLE TABLET PO (15:39)
[2025-08-24 16:00] VITALS: BP 140/79; PULSE 73; RESP 16; TEMP 37; O2SAT 98
[2025-08-24 20:00] VITALS: PULSE 73; RESP 16; O2SAT 98
[2025-08-25] VITALS: BP 124/78; PULSE 72; RESP 16; TEMP 36.7; O2SAT 97
[2025-08-25 04:41] VITALS: BP 113/72; PULSE 69; RESP 14; TEMP 36.4; O2SAT 95
[2025-08-25 05:40] LABS: Hematocrit 39.1 % (42.0-52.0); Hemoglobin 13.4 g/dL (14.0-18.0); Immature Granulocyte Percent A 0.2 % (0-0.5); Lymphocytes Absolute Auto 1.68 K/mm3 (0.9-3.2); Mean Corpuscular HGB Conc 34.3 g/dl (32-36); Mean Corpuscular Hemoglobin 28.2 pg (26-34); Mean Corpuscular Volume 82.3 fl (80-100); Nucleated Red Blood Cells Absolute Auto 0.000 K/mm3 (0.0-0.012); Nucleated Red Blood Cells Perc 0.0 % (0.0-0.2); Platelet Count Result 232 k/mm3 (150-375); Red Blood Count 4.75 M/mm3 (4.6-6.20); White Blood Count 4.3 K/mm3 (4.5-10.0)
[2025-08-25 06:03] LABS: Albumin Level 3.5 g/dL (3.5-5.1); Blood Urea Nitrogen 10 mg/dL (9-20); Chloride 105 mmol/L (98-107); Estimated CRCL calculation 102 ml/min; Estimated Glomerular Filt Rate > 60; Potassium 3.5 mmol/L (3.4-5.0); Sodium 134 mmol/L (137-145)
[2025-08-25 06:41] LABS: Alanine Aminotransferase 29 U/L (6-50); Alkaline Phosphatase 75 U/L (38-126); Anion Gap 5 mmol/L (4-12); Aspartate Amino Transferase 29 U/L (17-59); Bilirubin,Total 0.7 mg/dL (0.2-1.3); Calcium 8.9 mg/dL (8.4-10.2); Carbon Dioxide 24 mmol/L (22-30); Glucose 239 mg/dL (65-110); Total Protein 6.4 g/dL (6.3-8.2)
[2025-08-25] MEDS: PREGABALIN (*CRX) 75 MG CAPSULE 300 MG PO (08:02)
[2025-08-25] MEDS: ASPIRIN 81 MG CHEWABLE TABLET PO (08:03)
[2025-08-25] MEDS: ATORVASTATIN 40 MG TABLET 80 MG PO (08:03)
[2025-08-25] MEDS: ACETAMINOPHEN 325 MG TABLET 650 MG PO (08:03)
[2025-08-25] MEDS: FLUCONAZOLE 100 MG TABLET PO (08:03)
[2025-08-25] MEDS: INSULIN GLARGINE (*BKC) 100 UNITS/ML 45 UNITS SUB-Q (08:05)
[2025-08-25 08:06] VITALS: O2SAT 98
[2025-08-25] MEDS: INSULIN ASPART (*BKC) 100 UNITS/ML SUB-Q ×2 (08:06→11:57)
--- NOTE | 2025-08-25 13:21 | P.DS_ITS ---
DS: Admitting Diagnosis Discharge Date 08/25/25 Admitting Diagnosis Diabetes with HHS DS: Discharge Diagnosis Discharge Diagnosis (1) Hyperosmolar hyperglycemic state (HHS): Code(s): E11.00 - Type 2 diabetes mellitus with hyperosmolarity without nonketotic hyperglycemic-hyperosmolar coma ([facility]) Status: Acute Assessment and Plan: Patient presented to the ED with elevated blood sugars, poly urea, polydipsia, generalized weakness. Was found to have a blood sugar of 810, no anion gap metabolic acidosis. Patient was diagnosed with hyperosmolar hyperglycemic state. Was given IV fluids and started on insulin infusion per DKA protocol and transferred to the ICU. Anion gap normalized after administration of insulin drip, patient has been transitioned to long-acting insulin, aspart 40u and sliding scale insulin. -hemoglobin A1c > 14.0 -will have medical educator and dietitian evaluate the patient. Patient has appointment with his automotive title clerk 08/26. -started on diabetic diet -Lantus increased to 45u, given increase of glucose now that patient started eating. -Will discharge on lantus 45u nightly, and aspart 8u with meals -Patient has follow up with automotive title clerk 08/26, further adjustment of regimen to be done with them -Carb consistent diet and standard insulin precautions (2) Numbness and tingling of left side of face: Code(s): R20.0 - Anesthesia of skin; R20.2 - Paresthesia of skin Status: Acute Assessment and Plan: Patient presented with sudden new onset left sided numbness on his face. No prior episodes, also no other neurological symptoms noted, including new numbness in the upper or lower extremities, facial droop, tongue deviation, paralysis of facial muscles, dysarthria, gait abnormality or weakness. Very likely to be secondary to peripheral neuropathy from diabetes, however cannot rule out acute stroke. Patient continues to have numbness on left side of face on next day, without expansion or other neurological symptoms. He reports exacerbation of his neuropathy of his hands with stocking-glove distribution classic for DM neuropathy. ABCD2 score was 3, as such aspirin monotherapy was ch osen. -MRI Brain was negative, concern now more for TIA vs neuropathy, as such aspirin 81mg and atorvastatin 80mg have been started -Neurology follow up on discharge for further management (3) Diabetic peripheral neuropathy: Code(s): E11.42 - Type 2 diabetes mellitus with diabetic polyneuropathy Status: Acute Assessment and Plan: -continue with Lyrica -neurology follow up outpatient (4) Elevated blood pressure reading: Code(s): R03.0 - Elevated blood-pressure reading, without diagnosis of hypertension Status: Acute Assessment and Plan: Stabilized during hospitalization -Follow up with PCP (5) Balanitis: Code(s): N48.1 - Balanitis Status: Acute Assessment and Plan: Usually occurs with hyperglycemia per patient, was started on fluconazole and miconazole -fluconazole to finish 08/28 -miconazole topical -follow up with PCP/endocrinology on discharge Plan Patient's glucose improved to tolerable levels, insulin was adjusted, and patient will be following with endocrinology on discharge, as well as neurology given facial numbness. DS: Summary Hospital Course Hospital Course: This is a 49-year-old male patient with late onset type 1 diabetes. The patient is typically on Lantus and short-acting insulin. Patient stated he no longer has his continues glucose monitor R insulin pump. He stated that he has been out of insurance for some time and will not have insurance again until August 26. He is having difficulty paying for his insulin and following up with his physician due to lack of insurance. The patient stated that his glucose monitor at home only read high today. He stated he gave himself some insulin and drank some water which did not help. He stated that he gives himself 20 units of the short-acting insulin about 6-8 times a day. The patient gave himself 20 units of short-acting insulin prior to coming to the emergency room. He is having severe leg cramps. In the emergency room complained of some mild nausea. His sodium was 135 and his glucose was noted to be 810 which did come down to 398. His hemoglobin A1c is noted to be 14. His total creatinine kinase is 772. His beta hydroxybutyrate/acetoacetate is 0.12. Urine glucose was 3+. The patient was started on in the DKA protocol per ICU protocol. The insurance service representative was notified. Continued with insulin drip until anion gap is closed, when he was resumed back on Lantus prior to taking him off the insulin drip. Hemoglobin A1c is greater than 14. Transferred to the floor, when above mentioned left sided facial numbness occcurred, prompting stat MRI which returned negative. Treated as TIA with aspirin monotherapy as ABCD2 score was 3, as well as full dose statin for optimal prevention, patient to see neurology outpatient on discharge for further evaluation. Status at Discharge Cognitive/behavioral status at discharge: stable Time Spent with Patient Time attestation: Total time spent providing and/or coordinating discharge services: Exam Narrative: General: Pleasant gentleman in no acute distress HEENT:? Pupils equal and reactive cause care is clear, moist oral mucous Neck:? Supple Respiratory:? Clear to auscultation bilaterally, no wheezing, adequate air entry Cardiac:? S1-S2 normal, regular rate and rhythm Abdomen:? Soft, nontender, nondistended, normoactive bowel sound Extremities:? No edema, palpable pedal pulse Neuro:? Patient is awake, alert, oriented x3, nonfocal, answers to questions appropriately and follows simple commands in all extremities. Neuropathy of both hands and legs, left sided facial numbness, without paralysis, paresis, droop, or other focal neurological deficits Skin:? Warm and dry, no skin lesions noted Psych:? Normal mentation and affect DS: Data Data Completed and Pending Labs on day of discharge: Labs from last 24 hours 08/25/25 08/25/25 08/25/25 11:46 07:42 04:26 WBC 4.3 L RBC 4.75 Hgb 13.4 L Hct 39.1 L MCV 82.3 MCH 28.2 MCHC 34.3 RDW 12.6 Plt Count 232 MPV 11.1 H Immature Gran % (Auto) 0.2 Neut % (Auto) 52.0 Lymph % (Auto) 39.2 [place] % (Auto) 6.8 Eos % (Auto) 1.6 Baso % (Auto) 0.2 Lymph # (Auto) 1.68 [place] # (Auto) 0.3 Eos # (Auto) 0.1 Baso # (Auto) 0.0 Abs Immat Gran (auto) 0.01 Absolute Neuts (auto) 2.2 Absolute Nucleated RBC 0.000 Nucleated RBC % 0.0 Sodium 134 L Potassium 3.5 Chloride 105 Carbon Dioxide 24 Anion Gap 5 BUN 10 Creatinine 0.85 Estim Creat Clear Calc 102 Estimated GFR > 60 Glucose 239 H POC Capillary Glucose 341 H 291 H Calcium 8.9 Total Bilirubin 0.7 AST 29 ALT 29 Alkaline Phosphatase 75 Total Protein 6.4 Albumin 3.5 08/24/25 08/24/25 20:40 16:48 WBC RBC Hgb Hct MCV MCH MCHC RDW Plt Count MPV Immature Gran % (Auto) Neut % (Auto) Lymph % (Auto) [place] % (Auto) Eos % (Auto) Baso % (Auto) Lymph # (Auto) [place] # (Auto) Eos # (Auto) Baso # (Auto) Abs Immat Gran (auto) Absolute Neuts (auto) Absolute Nucleated RBC Nucleated RBC % Sodium Potassium Chloride Carbon Dioxide Anion Gap BUN Creatinine Estim Creat Clear Calc Estimated GFR Glucose POC Capillary Glucose 286 H 213 H Calcium Total Bilirubin AST ALT Alkaline Phosphatase Total Protein Albumin Discharge Plan Discharge Attending physician on discharge: Prosper Danielson Oca Consulting providers: Gilles Rascon; Stefan Lechuga Discharging Clinician: Prosper Danielson Oca Patient Disposition: Home Activity: as tolerated Diet: diabetic Discharge Instructions: Please see your automotive title clerk on 08/26 as discussed to further adjust insulin dosing and management of diabetes. Neurology appointment info also provided, as well PCP if needed. Patient Instructions: Antibiotic Form, Basic Carbohydrate Counting (DC), Diabetic Hyperglycemia (GEN), Diabetes and Exercise (GEN) Patient Language: [place] Stand Alone Forms: General Discharge Information, Work/School Release IP Follow-up/Referrals: Neurology [Provider Group, Neurology] - 1 Week Problems: Diabetic peripheral neuropathy; Numbness and tingling of left side of face [facility] [Provider Group] Problems: Severe hyperglycemia due to diabetes mellitus Discharge Medications: New miconazole nitrate 2 % Cream 1 applic topical Q12HR 3 Days Qty: 1 0RF aspirin 81 mg tablet 81 mg PO DAILY 30 Days Qty: 30 0RF atorvastatin [Lipitor] 80 mg tablet 80 mg PO HS 30 Days Qty: 30 0RF insulin aspart U-100 100 unit/mL (3 mL) insulin pen 8 unit subcut TID 30 Days Qty: 7.2 0RF fluconazole 100 mg tablet 100 mg PO DAILY 3 Days Qty: 3 0RF Continued pregabalin 150 mg capsule 300 mg PO DAILY 30 Days Qty: 0 0RF Changed insulin glargine [Lantus Solostar U-100 Insulin] 100 unit/mL (3 mL) insulin pen 45 unit SUBCUT HS 30 Days Qty: 0 0RF No Action insulin aspart U-100 [Novolog FlexPen U-100 Insulin] 100 unit/mL (3 mL) insulin pen See Rx Instructions .ROUTE .COMPLEX Rx Instructions: 1 unit per 10 bsl over 150 with meals tid Date of admission: 08/22/25 22:34 Primary Care Provider: PHYSICIAN,FILBERT GROWER Admitting Provider: Cayetano Valdivia Attending physician on admission: Cayetano Valdivia Condition: Stable
--- NOTE | 2025-08-28 15:51 | PCCDE ---
08/28/25: DM educator courtesy follow up call attempted. Message left including call back numbers.
== END 2025-08-25 14:23 | disposition home or self-care (01) ==
LOC: ANHED 22:18 → ANHICU 08-23 03:25 → ANH2MED 08-25 13:10 → ANHICU 08-27 07:46
PROVIDERS: Internal Medicine; Admitting Provider Internal Medicine; Emergency Provider Student in an Organized Health Care Education/Training Program; Visit Provider Student in an Organized Health Care Education/Training Program
DX: E11.00 Type 2 diabetes mellitus with hyperosmolarity without nonketotic hyperglycemic-hyperosmolar coma (NKHHC) (principal); E11.65 Type 2 diabetes mellitus with hyperglycemia; E11.42 Type 2 diabetes mellitus with diabetic polyneuropathy; R03.0 Elevated blood-pressure reading, without diagnosis of hypertension; R20.2 Paresthesia of skin; B37.9 Candidiasis, unspecified; N48.1 Balanitis; E87.8 Other disorders of electrolyte and fluid balance, not elsewhere classified; E86.0 Dehydration; E87.1 Hypo-osmolality and hyponatremia; Z79.4 Long term (current) use of insulin; Z91.141 Patient's other noncompliance with medication regimen due to financial hardship; Z87.442 Personal history of urinary calculi; Z90.49 Acquired absence of other specified parts of digestive tract; Z83.3 Family history of diabetes mellitus; Z82.3 Family history of stroke; Z82.49 Family history of ischemic heart disease and other diseases of the circulatory system; Z80.0 Family history of malignant neoplasm of digestive organs
CPT/HCPCS: 36415; 70551; 71045; 80048; 80053; 81003; 82010; 82550; 82948; 83036; 83735; 84100; 85025; 87641; 96361; 96365; 96366; 96368; 96374; 96375; 99285; A9270; G0378; J1171; J1650; J1815; J3360; J3480; J7030; J7120